=== PATIENT | female | born 1945 | race Caucasian/White ===

== ENCOUNTER 2016-08-21 05:45 | Inpatient (IN) | payer OTHER, MEDICARE ==
[~2016-08-21] VITALS: Ht 152.4 cm; Wt 49.0 kg
[~2016-08-21 05:45] MED LIST: ALPRAZOLAM0.5 M4 PO; ALPRAZOLAM0.5 MG PO; AMIODARONE HCL200 M1 PO; BENADRYL25 MG PO; CARDIZEM CD120 MG PO; CHILDREN'S ASPI81 M1 PO; COLCHICINE0.6 M2 PO; CRESTOR10 M1 PO; DULERA 200 MCG/13 GM INH; EPOGEN20000 UNIT SC; LEVAQUIN750 MG PO; MEGACE400 MG/10 PO; MIRTAZAPINE15 M2 PO; OMEPRAZOLE40 M1 PO; PLAVIX75 M1 PO; PREDNISONE 10MG10 M1 PO; PROAIR RESPICL90 MCG INH; RANEXA 500MG500 MG PO; SENNA-DOCUSATE1 EACH PO; SODIUM BICARBO650 M1 PO; SPIRIVA18 MCG INH; SYMBICORT 160/41 PUF INH; TOPROL XL 100100 MG PO; TOPROL XL50 M1 PO; TRAMADOL HCL50 M1 PO; TRAZODONE50 MG PO; VENOFER100 MG/5 M IV; VITAMIN D1000 UNIT PO; ZETIA10 MG PO
--- NOTE | 2016-08-21 05:57 | NUR ---
PT BIBA FROM HOME C/O SUBSTERNAL L SIDED CP RADIATING TO R SIDE X A FEW HOURS. DENIES SOB, DENIES DIAPHORESIS. PT HAS HX 5 STENTS, AND AN KS 1 YEAR AGO.
--- NOTE | 2016-08-21 06:00 | NUR ---
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 NSR HR 79 ON MONITOR.
--- NOTE | 2016-08-21 06:01 | NUR ---
AT BEDSIDE TO EVAL PT
--- NOTE | 2016-08-21 06:13 | ED CARDIAC/CP/PALPITATIONS ---
History of Present Illness General Chief Complaint: Chest Pain Stated Complaint: BIBA, CP Source: patient, old records, EMS Exam Limitations: no limitations Vital Signs & Intake/Output Vital Signs & Intake/Output Vital Signs Date Time Temp Pulse Resp B/P B/P Pulse O2 O2 Flow FiO2 Mean Ox Delivery Rate 08/21 0616 96.8 77 18 106/55 95 Nasal 2.0L Cannula 08/21 0649 89/52 08/21 0638 108/53 08/21 0559 98 Nasal 2.0L Cannula 08/21 0555 96.8 82 18 106/50 98 Nasal 2.0L Cannula Allergies Coded Allergies: No Known Allergies (09/25/15) Reconcile Medications Albuterol Sulfate (Proair Respiclick) 90 MCG AER.POW.BA 2 PUFF INH Q8P PRN COPD (Reported) Alprazolam 0.5 MG TABLET 1 TAB PO BID ANXIETY (Reported) Amiodarone HCl 200 MG TABLET 1 TAB PO DAILY AFIB (Reported) Aspirin (Children's Aspirin) 81 MG TAB.CHEW 1 TAB PO DAILY HEART HEALTH ( Reported) Cholecalciferol (Vitamin D3) (Vitamin D) 1,000 UNIT TABLET 3 TAB PO DAILY SUPPLEMENT (Reported) Clopidogrel Bisulfate (Plavix) 75 MG TABLET 1 TAB PO DAILY BLOOD THINNER ( Reported) Diphenhydramine HCl (Benadryl) 25 MG CAPSULE 1 CAP PO DAILY NEEDED ALLERGY (Reported) Ezetimibe (Zetia) 10 MG TAB 1 TAB PO DAILY CHOL (Reported) Megestrol Acetate (Megace) 400 MG/10 ML (40 MG/ML) ORAL.SUSP 20 ML PO DAILY apetite Metoprolol Succ XL (Toprol Xl) 50 MG TAB.ER.24H 1 TAB PO DAILY AFIB (Reported ) Mirtazapine 15 MG TABLET 0.5 TAB PO QPM SLEEP (Reported) Mometasone/Formoterol (Dulera 200 Mcg/5 Mcg Inhaler) 13 GM HFA.AER.AD 2 PUF INH BID COPD (Reported) Omeprazole 40 MG CAPSULE.DR 1 CAP PO DAILY gerd (Reported) Ranolazine (Ranexa 500MG) 500 MG TAB.ER.12H 1 TAB PO BID ANGINA (Reported) Rosuvastatin Calcium (Crestor) 10 MG TABLET 1 TAB PO DAILY CHOL (Reported) Sennosides/Docusate Sodium (Senna-Docusate Sodium Tablet) 1 EACH TABLET 1 TAB PO BID PRN CONSTIPATION (Reported) Tiotropium [place] (Spiriva) 18 MCG CAP.W.DEV 1 CAP INH DAILY COPD (Reported) Core Measure Meds Pre-Hospital aspirin Triage Note: PT BIBA FROM HOME C/O SUBSTERNAL L SIDED CP RADIATING TO R SIDE X A FEW HOURS. DENIES SOB, DENIES DIAPHORESIS. PT HAS HX 5 STENTS, AND AN GA 1 YEAR AGO. Triage Nurses Notes Reviewed? yes Onset: 1 day Duration: hour(s):, constant, continues in ED Timing: recent history Quality/Severity: moderate, pressure Location: substernal Radiation: shoulders, arms Activities at Onset: activity Prior Chest Pain/Card Workup: cardiac cath, echocardiography, heart attack Modifying Factors: Improves With: rest. Worsens With: exercise, movement. Nitro Today/Relief: 0.4 mg x 1, provided by ED Aspirin Today: 81 mg x 2, provided at home Associated Symptoms: dizziness, fatigue, shortness of breath, weakness LMP (ages 10-50): post menopausal : No Patient currently breastfeeds: No HPI: 1 day prior to admission while walking to the store patient became fatigued with shortness of breath chest pain described as pressure mild to moderate rating to shoulder and arm improved with rest. Chest pain waxing and waning throughout the course of the day and she woke with it with continued fatigue and called 911. She denies fever chills nausea vomiting diarrhea abdominal pain headache dysuria rash bleeding. She has a chronic productive cough that has not changed. Past History Travel History Traveled to [place] past 21 day No Medical History Any Pertinent Medical History? see below for history Neurological: NONE EENT: NONE Cardiovascular: CAD, hypertension, hyperlipidemia, myocardial infarction, STENTS Respiratory: pneumonia, pulmonary fibrosis, LUNG CA ILD Gastrointestinal: peptic ulcer disease Hepatic: NONE Renal: chronic kidney disease Musculoskeletal: disk herniation Psychiatric: NONE, anxiety Endocrine: NONE Blood Disorders: anemia Cancer(s): lung cancer History of MRSA: No History of VRE: No History of CDIFF: No Pneumonia Vaccine: 02/01/16 Influenza Vaccine: 02/01/16 Surgical History Surgical History: STENTS (2) HYSTERECTOMY,LAMINECTOMY Psychosocial History Who do you live with Patient/Self Services at Home Nursing, Physical Therapy What is your primary language Swedish Tobacco Use: Never used ETOH Use: denies use Family History Family History, If Any: MOTHER (Leukemia). FATHER (Heart Attack). SISTER (ovarian cancer). BROTHER (Diabetes). Hx Contributory? No Review of Systems Review of Systems Constitutional: Reports: see HPI, malaise, weakness. EENTM: Reports: no symptoms. Respiratory: Reports: see HPI, short of breath. Cardiovascular: Reports: see HPI, chest pain, peripheral edema. GI: Reports: no symptoms. Genitourinary: Reports: no symptoms. Musculoskeletal: Reports: no symptoms. Skin: Reports: no symptoms. Neurological/Psychological: Reports: no symptoms. Hematologic/Endocrine: Reports: no symptoms. Immunologic/Allergic: Reports: no symptoms. All Other Systems: Reviewed and Negative Physical Exam Physical Exam General Appearance: well developed/nourished, alert, awake, anxious, moderate distress Head: atraumatic, normal appearance Eyes: Bilateral: normal appearance, PERRL, EOMI. Ears, Nose, Throat: normal pharynx, normal ENT inspection Neck: normal inspection, supple, full range of motion, no midline tenderness Respiratory: chest non-tender, no respiratory distress, quiet respiration, decreased breath sounds, rhonchi Cardiovascular: regular rate/rhythm, normal peripheral pulses, norml femoral pulses equa Peripheral Pulses: 4+ carotid (R), 4+ carotid (L) Gastrointestinal: normal bowel sounds, soft, non-tender, no organomegaly Rectal: heme negative stool Back: normal inspection, normal range of motion Extremities: normal inspection, normal capillary refill, normal range of motion, pedal edema Neurologic/Psych: no motor/sensory deficits, awake, alert, oriented x 3, normal mood/affect Reflexes: 2+: bicep (R), bicep (L). Skin: intact, warm/dry, pallor Lymphatic: no anterior cervical lorena Core Measures ACS in differential dx? Yes ASA ordered for poss ACS? No-d/t bleeding/risk of Severe Sepsis Present: No Septic Shock Present: No Progress Differential Diagnosis: AMI, CHF/pulm edema, hyperkalemia, pneumonia Plan of Care: Orders Procedure Date/time Status Regular Diet 08/21 B Active LEUKOCYTE POOR (PACKED CELLS) 08/21 0716 Active OXYGEN SETUP (GEN) 08/21 0654 Active Saline Lock 08/21 0654 Active Admit to inpatient 08/21 0654 Active Vital Signs 08/21 0654 Active Activity/Ambulation 08/21 0654 Active Code Status 08/21 06 Active Add-on Test (ER Only) 08/21 06 Active TYPE & SCREEN (NOT X-MATCH) 08/21 06 Active TSH REFLEX 08/21 06 Active TROPONIN LEVEL 08/21 06 Active MAGNESIUM 08/21 06 Active COMPREHENSIVE METABOLIC PANEL 08/21 06 Active CBC WITHOUT DIFFERENTIAL 08/21 610 Complete B-TYPE NATRIURETIC PEP (BNP) 08/21 610 Active EKG 08/21 0545 Active Current Medications Sig/Noemy Start time Last Medication Dose Stop Time Status Admin Calcium Gluconate 1 GM ONCE ONE 08/21 0715 UNVr (Calcium Gluconate) 08/21 0814 Sodium Chloride 100 ML (Normal Saline 0.9%) Sodium Chloride 500 ML BOLUS ONE 08/21 0700 AC 08/21 (Normal Saline 0.9%) 08/21 0759 0700 Laboratory Tests 08/21/16 0627: Anion Gap 12, Estimated GFR 30 L, BUN/Creatinine Ratio 22.9, Glucose 98, Calcium 9.3, Magnesium 1.9, Total Bilirubin 0.5, AST 29, ALT 33, Alkaline Phosphatase 184 H, Troponin I < 0.01, Dfk-M-Tkebounszuv Pept 2840 H, Total Protein 6.0 L, Albumin 3.5, Globulin 2.5, Albumin/Globulin Ratio 1.4, TSH &T3 & Free T4 Intrp Pending, CBC w Diff MAN DIFF ORDERED, RBC 2.27 L, MCV 97.0, MCH 29.8, RDW 26.4 H, MPV 7.7, Gran % 86.7 H, Lymphocytes % 4.7 L, Monocytes % 6.2, Eosinophils % 2.4, Basophils % 0 L, Absolute Granulocytes 7.3 H, Segmented Neutrophils 90 H, Absolute Lymphocytes 0.4 L, Lymphocytes 3 L, Monocytes 4, Absolute Monocytes 0.5, Eosinophils 3, Absolute Eosinophils 0.2, Absolute Basophils 0, Nucleated RBCs 1 H, Platelet Estimate ADEQUATE, Polychromasia 1+, Hypochromic-Microcytic 1+, Poikilocytosis 1+, Anisocytosis 1+, Macrocytic Cells FEW, Ovalocytes 1+, PUBS MCHC 30.7 L, Fld Total RBCs Counted 100 Diagnostic Imaging: Viewed by Me: Radiology Read. Discussed w/RAD: Radiology Read. CXR Impression: There is a small left pleural effusion that appears new when compared to the most recent prior examination from 04/04/2016. Mixed interstitial and alveolar opacities within the right lower lobe are stable. No overt consolidative disease. Initial ED EKG: normal axis, normal intervals, normal p-waves, normal QRS complex, normal sinus rhythm, nonspecific ST T wave chg Prior EKG: unchanged Rhythm Strip: normal sinus rhythm Departure Departure Time of Disposition: 712 Disposition: STILL A PATIENT Condition: Stable Clinical Impression Primary Impression: Symptomatic anemia Secondary Impressions: Acute hyperkalemia, Chest pain syndrome, Chronic renal insufficiency Referrals: ROBBY CM MD (PCP/Family) Departure Forms: Customer Survey General Discharge Information Admission Note Spoke With: ROBBY CM MD Documentation of Exam: Documentation of any treatments & extenuating circumstances including Concerns Regarding Discharge (functional status, medication knowledge or non-compliance, living conditions, etc.) that warrant an admission rather than observation: Cardiac monitoring blood transfusion serial lab exam serial EKG medication adjustment cardiology evaluation continuing care discharge planning Critical Care Note Critical Care Note Critical Care Time: 30-74 min (40)
--- NOTE | 2016-08-21 06:16 | NUR ---
CXRAY BEING DONE AT BEDSIDE
--- NOTE | 2016-08-21 06:31 | NUR ---
LABS SENT (2SST,1LAV,1PINK,1BLUE,1GRAY)
[2016-08-21 06:37] LABS: ABSOLUTE BASOPHIL COUNT 0 /CUMM (0.0-0.2); ABSOLUTE EOSINOPHIL COUNT 0.2 /CUMM (0.0-0.7); ABSOLUTE GRANULOCYTE CT 7.3 /CUMM (1.4-6.5); ABSOLUTE LYMPH COUNT 0.4 /CUMM (1.2-3.4); ABSOLUTE MONOCYTE COUNT 0.5 /CUMM (0.10-0.60); BASOPHIL % 0 % (0.0-2.0); EOSINOPHIL % 2.4 % (0-5); GRANULOCYTE % 86.7 % (42.2-75.2); MEAN CORPUSCULAR HGB 29.8 PG (27.0-31.0); MEAN CORPUSCULAR HGB CONC 30.7 G/DL (33.0-37.0); MEAN PLATELET VOLUME 7.7 FL (7.4-10.4); PLATELET COUNT 242 /CUMM (130-400); RBC DISTRIBUTION WIDTH 26.4 % (11.5-14.5); RED BLOOD CELL CT 2.27 /CUMM (4.20-5.40); WHITE BLOOD CELL COUNT 8.5 /CUMM (4.8-10.8)
--- NOTE | 2016-08-21 06:37 | NUR ---
PT MEDICATED WITH 1SL NITRO PER EMAR. WILL RECHECK BP.
--- NOTE | 2016-08-21 06:41 | NUR ---
CRITICAL TEST RESULTS [id number] EMIGDIO MAGAÑA 70 F TESTS AND RESULTS: HGB 6.8 ; HCT 22.0 Results received and read back by: NORIS LATHAM Results received date and time: 08/21/16 0642 The following provider was notified of the results, and read the results back: MD RODRIGUEZ Notified date and time: 08/21/16 at 0642
--- NOTE | 2016-08-21 06:49 | NUR ---
PT BP 89/52, MD RODRIGUEZ AWARE. NS INFUSING.
--- NOTE | 2016-08-21 06:56 | RADIOLOGY REPORT ---
EXAMINATION: XR PORTABLE CHEST CLINICAL INFORMATION: Chest pain. COMPARISON: Chest radiograph 04/04/2016. TECHNIQUE: Portable AP view of the chest was obtained. FINDINGS: Mixed interstitial and airspace disease within the right lower lobe appear largely unchanged when compared to most recent prior examination from 04/04/2016. There is a stable position of 4 linear metallic bodies within the right lower hemithorax. There is a new small left effusion with associated subsegmental atelectasis of the left lower lobe. No pneumothorax. Coarse interstitial markings are visualized within the upper lobes. The cardiac silhouette is unremarkable. Upper mediastinal contours are normal. No acute osseous finding. IMPRESSION: There is a small left pleural effusion that appears new when compared to the most recent prior examination from 04/04/2016. Mixed interstitial and alveolar opacities within the right lower lobe are stable. No overt consolidative disease.
--- NOTE | 2016-08-21 07:41 | NUR ---
IV CALCIUM GLUCONATE INSFUSING WITHOUT DIFFICULTY AT THIS TIME. PT REMAINS AWAKE, ALERT, ORIENTED, NO COMPLAINTS AT THIS TIME.
[2016-08-21] MEDS ORDERED: PACERONE100 MG PO (07:48)
[2016-08-21] MEDS ORDERED: BREO ELLIPTA 11 EACH INH (07:52)
[2016-08-21] MEDS ORDERED: INCRUSE ELLI62.5 MCG INH (07:54)
[2016-08-21] MEDS ORDERED: LEVO-T25 MCG PO (07:56)
[2016-08-21] MEDS ORDERED: VITAMIN D1000 UNIT PO (08:01)
[2016-08-21] MEDS ORDERED: ZETIA10 M1 PO (08:01)
--- NOTE | 2016-08-21 08:18 | NUR ---
HOUSE STAFF IN TO EVAL AT THIS TIME.
--- NOTE | 2016-08-21 08:35 | NUR ---
IV CALCIUM COMPLETED, TOLERATED WELL. [facility] TO LAB FOR BLOOD PRODUCT PICKUP. PT AMBULATORY TO BATHROOM, GAIT STABLE.
--- NOTE | 2016-08-21 08:42 | NUR ---
BED ASSIGNMENT 180-02
--- NOTE | 2016-08-21 09:07 | NUR ---
1ST UNIT LPRBC'S INFUSING WITHOUT DIFFICULTY AT THIS TIME. PT RESTING COMFORTABLY ON STRETCHER AT THIS TIME, NO COMPLAINTS AT PRESENT.
--- NOTE | 2016-08-21 09:09 | History & Physical ---
CANDICE WILSON,ISAIAS 08/21/16 0909: General Information and HPI MD Statement: I have seen and personally examined EMIGDIO MAGAÑA and documented this H&P. The patient is a 70 year old F who presented with a patient stated chief complaint of chest pain[]. Source of Information: patient, old records Exam Limitations: no limitations History of Present Illness: 70 YO F with pmh of STEMI 08/2015 with drug eluding stent placement, h/o total 5 stents, CAD, PAF, not on anticoagulation due to h/o GI bleed, HTN, HLD, Lung Ca s/p cyberknife sugery, COPD (not on home O2), PUD, CKD, Chronic anemia (h/o transfusions and epogen) presents to the ER from home after developing chest pain yesterday while at [employer] walking through the store. Reports centrally located cp that radiated to her left arm, neck, and jaw, 11/09. Reports the pain she had last year when she had her [place] as more intense. This pain subsided after 10 minutes of sitting in the store. She drove her self home. Through the night she continued to have similar episodes with shortness of breath and decided to seek help, called 911. Reports that her pain continued until given nitroglycerin in ER. Since that time she denies any recurring chest pain. Denies palpitations, lightheadness, nausea, vomiting, abdominal pain, fever or chills. She is chronically constipated, last BM yesterday stool well formed w/o blood. States that she can go several days w/o bowel movements, this makes it difficult to take iron supplementation. Recently started on epogen. Allergies/Medications Allergies: Coded Allergies: No Known Allergies (09/25/15) Home Med list Albuterol Sulfate (Proair Respiclick) 90 MCG AER.POW.BA 2 PUFF INH Q8P PRN COPD (Reported) Alprazolam 0.5 MG TABLET 1 TAB PO BID ANXIETY (Reported) Amiodarone HCl 200 MG TABLET 1 TAB PO DAILY AFIB (Reported) Amiodarone HCl (Pacerone) 100 MG TABLET 100 MG PO EOD AFIB (Reported) Aspirin (Children's Aspirin) 81 MG TAB.CHEW 1 TAB PO DAILY HEART HEALTH ( Reported) Cholecalciferol (Vitamin D3) (Vitamin D) 1,000 UNIT TABLET 3 TAB PO DAILY SUPPLEMENT (Reported) Cholecalciferol (Vitamin D3) (Vitamin D) 1,000 UNIT TABLET 3,000 UNITS PO DAILY SUPPLEMENT (Reported) Clopidogrel Bisulfate (Plavix) 75 MG TABLET 1 TAB PO DAILY BLOOD THINNER ( Reported) Diphenhydramine HCl (Benadryl) 25 MG CAPSULE 1 CAP PO DAILY NEEDED ALLERGY (Reported) Ezetimibe (Zetia) 10 MG TAB 1 TAB PO DAILY CHOL (Reported) Ezetimibe (Zetia) 10 MG TABLET 1 TAB PO DAILY CHOLESTEROL (Reported) Fluticasone/Vilanterol (Breo Ellipta 100-25 Mcg INH) 100 MCG-25 MCG/DOSE BLST.W.DEV 1 PUFF INH DAILY COPD (Reported) Levothyroxine Sodium (Levo-T) 25 MCG TABLET 25 MCG PO DAILY THYROID (Reported ) Megestrol Acetate (Megace) 400 MG/10 ML (40 MG/ML) ORAL.SUSP 20 ML PO DAILY apetite Metoprolol Succ XL (Toprol Xl) 50 MG TAB.ER.24H 1 TAB PO DAILY AFIB (Reported ) Mirtazapine 15 MG TABLET 0.5 TAB PO QPM SLEEP (Reported) Mometasone/Formoterol (Dulera 200 Mcg/5 Mcg Inhaler) 13 GM HFA.AER.AD 2 PUF INH BID COPD (Reported) Omeprazole 40 MG CAPSULE.DR 1 CAP PO DAILY gerd (Reported) Ranolazine (Ranexa 500MG) 500 MG TAB.ER.12H 1 TAB PO BID ANGINA (Reported) Rosuvastatin Calcium (Crestor) 10 MG TABLET 1 TAB PO DAILY CHOL (Reported) Sennosides/Docusate Sodium (Senna-Docusate Sodium Tablet) 1 EACH TABLET 1 TAB PO BID PRN CONSTIPATION (Reported) Tiotropium [place] (Spiriva) 18 MCG CAP.W.DEV 1 CAP INH DAILY COPD (Reported) Umeclidinium [place] (Incruse Ellipta) 62.5 MCG/ACTUATION BLST.W.DEV 1 PUFF INH DAILY COPD (Reported) Compliance With Home Meds: GOOD Past History Travel History Traveled to [place] past 21 day No Medical History Neurological: NONE EENT: NONE Cardiovascular: CAD, hypertension, hyperlipidemia, myocardial infarction, STENTS Respiratory: pneumonia, pulmonary fibrosis, LUNG CA ILD Gastrointestinal: peptic ulcer disease Hepatic: NONE Renal: chronic kidney disease Musculoskeletal: disk herniation Psychiatric: NONE, anxiety Endocrine: NONE Blood Disorders: anemia Cancer(s): lung cancer History of MRSA: No History of VRE: No History of CDIFF: No Pneumonia Vaccine: 02/01/16 Influenza Vaccine: 02/01/16 Surgical History Surgical History: STENTS (5) HYSTERECTOMY,LAMINECTOMY ECHO Results (as available) Date of last Echo 09/18/15 EF% 60 Past Family/Social History Family History Relations & Conditions if any MOTHER (Leukemia). FATHER (Heart Attack). SISTER (ovarian cancer). BROTHER (Diabetes). Psychosocial History Where do you live? Home Who Do You Live With? self Services at Home: Nursing, Physical Therapy Primary Language: [place]araguan Smoking Status: Former Smoker ETOH Use: denies use Functional Ability ADLs Independent: dressing, eating, toileting, bathing. Ambulation: cane IADLs Independent: shopping, housework, finances, food prep, telephone, transportation , medication admin. 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 Cardiovascular: Reports: chest pain. Denies: orthopena, palpitations, peripheral edema, syncope. Respiratory: Reports: short of breath. Denies: cough, orthopnea, sputum production, wheezing. GI: Reports: constipation. Denies: abdominal pain, diarrhea, distention, melena, nausea, bloody stool, changes in stool, vomiting. Genitourinary: Reports: no symptoms. Musculoskeletal: Reports: no symptoms. Skin: Reports: no symptoms. Neurological/Psychological: Reports: anxiety. Hematologic/Endocrine: Denies: bleeding. All Other Systems: Reviewed and Negative Exam & Diagnostic Data Last 24 Hrs of Vital Signs/I&O Vital Signs Date Time Temp Pulse Resp B/P B/P Pulse O2 O2 Flow FiO2 Mean Ox Delivery Rate 08/21 0908 97.3 84 20 133/70 93 Nasal 2.0L Cannula 08/21 0716 96.8 77 18 106/55 95 Nasal 2.0L Cannula 08/21 0649 89/52 08/21 0638 108/53 08/21 0559 98 Nasal 2.0L Cannula 08/21 0555 96.8 82 18 106/50 98 Nasal 2.0L Cannula Intake & Output 08/21 1600 08/21 0800 08/21 0000 Intake Total 0 Output Total Balance 0 Intake, Oral 0 Patient 110 lb Weight Weight Estimated Measurement Method Physical Exam General Appearance Alert, Oriented X3, Cooperative, No Acute Distress Skin No Rashes HEENT Atraumatic, PERRLA, EOMI, Mucous Membr. moist/pink Neck Supple, No JVD Cardiovascular Regular Rate, Normal S1, Normal S2 Lungs crackles at bases Abdomen Normal Bowel Sounds, Soft, No Tenderness Neurological Normal Speech, Strength at 5/5 X4 Ext Extremities No Edema, Normal Pulses Last 24 Hrs of Labs/[place]: Laboratory Tests 08/21/16 06: Anion Gap 12, Estimated GFR 30 L, BUN/Creatinine Ratio 22.9, Glucose 98, Calcium 9.3, Magnesium 1.9, Total Bilirubin 0.5, AST 29, ALT 33, Alkaline Phosphatase 184 H, Troponin I < 0.01, Zxw-A-Mibkhsgfvuw Pept 2840 H, Total Protein 6.0 L, Albumin 3.5, Globulin 2.5, Albumin/Globulin Ratio 1.4, Free T4 1.43, Total T3 1.13, TSH &T3 &Free T4 Intrp 12.400 H, CBC w Diff MAN DIFF ORDERED, RBC 2.27 L, MCV 97.0, MCH 29.8, RDW 26.4 H, MPV 7.7, Gran % 86.7 H, Lymphocytes % 4.7 L, Monocytes % 6.2, Eosinophils % 2.4, Basophils % 0 L, Absolute Granulocytes 7.3 H, Segmented Neutrophils 90 H, Absolute Lymphocytes 0.4 L, Lymphocytes 3 L, Monocytes 4, Absolute Monocytes 0.5, Eosinophils 3, Absolute Eosinophils 0.2, Absolute Basophils 0, Nucleated RBCs 1 H, Platelet Estimate ADEQUATE, Polychromasia 1+, Hypochromic-Microcytic 1+, Poikilocytosis 1 +, Anisocytosis 1+, Macrocytic Cells FEW, Ovalocytes 1+, PUBS MCHC 30.7 L, Fld Total RBCs Counted 100 Diagnostic Data EKG Results SR 81, LAFB CXR Results There is a small left pleural effusion that appears new when compared to the most recent prior examination from 04/04/2016. Mixed interstitial and alveolar opacities within the right lower lobe are stable. No overt consolidative disease. Assessment/Plan Assessment: 70 YO F with pmh of STEMI 08/2015 with drug eluding stent placement, h/o total 5 stents, CAD, PAF, not on anticoagulation due to h/o GI bleed, HTN, HLD, Lung Ca s/p cyberknife sugery, COPD (not on home O2), PUD, CKD, Chronic anemia (h/o transfusions and epogen) presents to the ER from home after developing chest pain that developed yesterday. She is severely anemic on on arrival with ongoing chest pain and requiring oxygen. Denies blood in her stools. Admit to Telemetry Appears to be anginal pain to to severe anemia Recommend blood transfusion to keep HH >8/24 We will guiac her stools, for now will hold asprin and plavix She will need a GI consultation as 08/10/16 HH 10.5/32.6, unlikely this severe anemia due to CKD Discuss with cardiology regarding plavix use, 1 year post stent placement. Serial troponins and EKGs B-tab and statin have been started PAF continue amiodarone 100mg, took last dose on 08/19/16 Hyperkalemia, she has been given calcium gluconate in ER, montior K closely. will need to treat if K increases further CKD appears to be stable COPD, requiring O2 this is lkely due to chronic anemia, monitor oxygen saturations closely, cxr also identifies small pleural effusion, keep O2 saturations > 92% DVT ppx ALPS As Ranked By This Provider Problem List: 1. Anxiety 2. Hyperlipidemia 3. COPD (chronic obstructive pulmonary disease) 4. Chest pain 5. CAD (coronary artery disease) 6. PAF (paroxysmal atrial fibrillation) 7. CKD (chronic kidney disease) stage 4, GFR 15-29 ml/min 8. Hyperkalemia 9. Symptomatic anemia Core Measures/Miscellaneous Acute Coronary Syndrome ACS Diagnosis: No Cerebrovascular Accident CVA/TIA Diagnosis: No Congestive Heart Failure CHF Diagnosis: No Venous Thromboembolism VTE Risk Factors: Age > 40, Cancer/chemo/oth therapy No Mech VTE prophylaxis d/t: No contraindications No VTE Pharm Prophylaxis d/t: Active bleeding VTE Diagnosis: No VTE Type: NONE VTE Confirmed by (Test): NONE Severe Sepsis Severe Sepsis Present: No Septic Shock Septic Shock Present: No Miscellaneous Documentation Attending Case Discussed With: ROBBY CM MD Primary Care Physician: ROBBY CM MD Patient sees these Specialists Gastroeneterology Cardiology Pulmonology Level of Patient Care: Telemetry JOE YUSUF MD 08/21/16 0921: Attending MD Review Statement Attending Statement Attending MD Statement: examined this patient, discuss w/resident/PA/FLAVOR MAKER, agreed w/resident/PA/FLAVOR MAKER, reviewed EMR data (avail) Attending Assessment/Plan: 70-year-old female with history of COPD, interstitial lung disease, history of lung cancer status post treatment, extensive coronary artery disease and paroxysmal atrial fibrillation not a candidate for anticoagulation secondary to GI bleed and history of chronic kidney disease presenting with exertional angina while she was shopping yesterday. Lab demonstrates severe anemia. Suspect slow GI bleed. Patient had a similar presentation in 2013 and at that point EGD and push enteroscopy was negative and colonoscopy in 2011 was negative as well. Chest pain appears angina likely in the setting of severe anemia. EKG and troponin so far negative. We will admit the patient to telemetry, guaiac stools and transfuse for hemoglobin goal above 8. Plan Guaiac stools Transfuse for hemoglobin goal above 8 Hold aspirin and Plavix if guaiac stools were positive Cycle troponins and EKGs Cardiology and GI consult correct hyperkalemia Continue other home medications Alps for DVT prophylaxis DNI/DNR
--- NOTE | 2016-08-21 09:11 | NUR ---
PHARMACY CALLED FOR DAILY MORNING MEDS.
--- NOTE | 2016-08-21 09:13 | Admission Certification ---
Admission Certification Certification Statement - As attending physician, I certify that at the time of - admission, based on clinical presentation, severity of - symptoms, need for further diagnostic testing and - therapeutic interventions, and risk of adverse outcomes - without in-hospital treatment, in my clinical assessment, - this patient requires an acute hospital stay for a minimum - of two nights or longer. I have also considered psychsocial - factors such as support system, advanced age, financial - issues, cognitive issues, and failed out-patient treatments, - past re-admission history, safety of patient, and lack of - compliance as applicable. Specific rationale supporting this admission is: Symptomatic anemia Angina
--- NOTE | 2016-08-21 10:09 | NUR ---
AM MEDS GIVEN, TOLERATED WELL. NO COMPLAINTS AT THIS TIME. AWAITING TELE NURSE FOR REPORT.
--- NOTE | 2016-08-21 10:19 | NUR ---
REPORT CALLED TO TELE NURSE
--- NOTE | 2016-08-21 12:19 | Cons- Cardiology ---
General Information and HPI Consulting Request Date of Consult: 08/21/16 Requested By: ROBBY CM MD Reason for Consult: Coronary artery disease Source of Information: patient, old records History of Present Illness: This is a pleasant 70 y/o female with a past medical history of CAD with prior PCI () and STEMI tx with PEDRO to the RCA 08/2015, Hx COPD/ILD/lung cancer s/p gamma knife radiation, PAF not on AC due to hx of GI bleed and anemia, CKD, and hypertension who presents to [facility] with a chief complaint of progressive shortness of breath, mostly on exertion over the last week. She also developed an episode of midsternal chest pain yesterday with some radiation to her left arm. No obvious reproducible component. Denies any orthopnea, paroxysmal nocturnal dyspnea, dizziness, or palpitations. She had been having some lower extremity edema previously but resolves when her Norvasc was discontinued. She has not noticed any obvious bleeding. She was found to be severely anemic on presentation and was receiving a transfusion during my interview with her. She is currently without continuing chest pain. Allergies/Medications Allergies: Coded Allergies: No Known Allergies (09/25/15) Home Med List: Albuterol Sulfate (Proair Respiclick) 90 MCG AER.POW.BA 2 PUFF INH Q8P PRN COPD (Reported) Alprazolam 0.5 MG TABLET 1 TAB PO BID ANXIETY (Reported) Amiodarone HCl 200 MG TABLET 1 TAB PO DAILY AFIB (Reported) Amiodarone HCl (Pacerone) 100 MG TABLET 100 MG PO EOD AFIB (Reported) Aspirin (Children's Aspirin) 81 MG TAB.CHEW 1 TAB PO DAILY HEART HEALTH ( Reported) Cholecalciferol (Vitamin D3) (Vitamin D) 1,000 UNIT TABLET 3 TAB PO DAILY SUPPLEMENT (Reported) Cholecalciferol (Vitamin D3) (Vitamin D) 1,000 UNIT TABLET 3,000 UNITS PO DAILY SUPPLEMENT (Reported) Clopidogrel Bisulfate (Plavix) 75 MG TABLET 1 TAB PO DAILY BLOOD THINNER ( Reported) Diphenhydramine HCl (Benadryl) 25 MG CAPSULE 1 CAP PO DAILY NEEDED ALLERGY (Reported) Ezetimibe (Zetia) 10 MG TAB 1 TAB PO DAILY CHOL (Reported) Ezetimibe (Zetia) 10 MG TABLET 1 TAB PO DAILY CHOLESTEROL (Reported) Fluticasone/Vilanterol (Breo Ellipta 100-25 Mcg INH) 100 MCG-25 MCG/DOSE BLST.W.DEV 1 PUFF INH DAILY COPD (Reported) Levothyroxine Sodium (Levo-T) 25 MCG TABLET 25 MCG PO DAILY THYROID (Reported ) Megestrol Acetate (Megace) 400 MG/10 ML (40 MG/ML) ORAL.SUSP 20 ML PO DAILY apetite Metoprolol Succ XL (Toprol Xl) 50 MG TAB.ER.24H 1 TAB PO DAILY AFIB (Reported ) Mirtazapine 15 MG TABLET 0.5 TAB PO QPM SLEEP (Reported) Mometasone/Formoterol (Dulera 200 Mcg/5 Mcg Inhaler) 13 GM HFA.AER.AD 2 PUF INH BID COPD (Reported) Omeprazole 40 MG CAPSULE.DR 1 CAP PO DAILY gerd (Reported) Ranolazine (Ranexa 500MG) 500 MG TAB.ER.12H 1 TAB PO BID ANGINA (Reported) Rosuvastatin Calcium (Crestor) 10 MG TABLET 1 TAB PO DAILY CHOL (Reported) Sennosides/Docusate Sodium (Senna-Docusate Sodium Tablet) 1 EACH TABLET 1 TAB PO BID PRN CONSTIPATION (Reported) Tiotropium [place] (Spiriva) 18 MCG CAP.W.DEV 1 CAP INH DAILY COPD (Reported) Umeclidinium [place] (Incruse Ellipta) 62.5 MCG/ACTUATION BLST.W.DEV 1 PUFF INH DAILY COPD (Reported) Current Medications: Current Medications Sig/Noemy Start time Last Medication Dose Route Stop Time Status Admin Acetaminophen 650 MG Q6-PRN PRN 08/21 0900 AC PO Albuterol Sulfate 2 PUF Q4 08/21 1000 DC INH Albuterol Sulfate 2 PUF Q4P PRN 08/21 0930 AC INH Alprazolam 0.5 MG BID 08/21 1000 AC 08/21 PO 08/28 0959 1001 Alprazolam 0 .STK-MED ONE 08/21 0956 DC PO Amiodarone HCl 100 MG Q48 08/21 1000 AC 08/21 PO 1001 Atorvastatin Calcium 40 MG 1700 08/21 1700 AC PO Budesonide/ 2 PUF BID 08/21 1000 AC 08/21 Formoterol Fumarate INH 1001 Calcium Gluconate 0 .STK-MED ONE 08/21 0731 DC IV Calcium Gluconate 1 GM ONCE ONE 08/21 0715 DC 08/21 Sodium Chloride 100 ML IV 08/21 0814 0730 Ezetimibe 10 MG DAILY 08/21 1000 AC 08/21 PO 1001 Fluticasone 2 PUF BID 08/21 1000 CAN Propionate INH Levothyroxine Sodium 0.025 MG DAILY AC 08/21 0915 AC 08/21 PO 1001 Metoprolol Succinate 50 MG DAILY 08/21 1000 AC 08/21 PO 1001 Mirtazapine 7.5 MG AT BEDTIME 08/21 2200 AC PO Multivitamins 1 TAB DAILY 08/21 1000 AC 08/21 PO 1001 Nitroglycerin 0 .STK-MED ONE 08/21 0638 DC SL Nitroglycerin 0.4 MG ONCE ONE 08/21 0615 DC 08/21 SL 08/21 0616 0637 Omeprazole 40 MG DAILY AC 08/21 0901 AC 08/21 PO 1001 Ranolazine 500 MG BID 08/210 AC PO Senna 187 MG AT BEDTIME NEED.. 08/21 09 AC PO Sodium Chloride 500 ML BOLUS ONE 08/21 0700 DC 08/21 IV 08/21 0759 0700 Review of Systems Review of Systems: Review of systems as per HPI. The remainder of a 10 point review of systems was reviewed and was otherwise negative. Past History Travel History Traveled to [place] past 21 day No Medical History Neurological: NONE EENT: NONE Cardiovascular: CAD, hypertension, hyperlipidemia, myocardial infarction, STENTS Respiratory: pneumonia, pulmonary fibrosis, LUNG CA ILD Gastrointestinal: peptic ulcer disease Hepatic: NONE Renal: chronic kidney disease Musculoskeletal: disk herniation Psychiatric: NONE, anxiety Endocrine: NONE Blood Disorders: anemia Cancer(s): lung cancer Surgical History Surgical History: STENTS (5) HYSTERECTOMY,LAMINECTOMY Family History Relations & Conditions If Any: MOTHER (Leukemia). FATHER (Heart Attack). SISTER (ovarian cancer). BROTHER (Diabetes). Psychosocial History Where Do You Live? Home Who Do You Live With? self Services at Home: Nursing, Physical Therapy Primary Language: [place] Smoking Status: Former Smoker ETOH Use: denies use Functional Ability ADLs Independent: dressing, eating, toileting, bathing. Ambulation: cane IADLs Independent: shopping, housework, finances, food prep, telephone, transportation , medication admin. 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 ECHO Results (as available) Date of last Echo 09/18/15 EF% 60 Exam & Diagnostic Data Vital Signs and I&O Vital Signs Date Time Temp Pulse Resp B/P B/P Pulse O2 O2 Flow FiO2 Mean Ox Delivery Rate 08/21 1101 97.6 78 16 08/21 1039 Nasal 2.0L Cannula 08/21 1001 97.3 84 20 133/70 08/21 1001 97.3 84 20 133/70 08/21 0920 97.0 80 20 113/74 92 Nasal 2.0L Cannula 08/21 0908 97.3 84 20 133/70 93 Nasal 2.0L Cannula 08/21 0716 96.8 77 18 106/55 95 Nasal 2.0L Cannula 08/21 0649 89/52 08/21 0638 108/53 08/21 0559 98 Nasal 2.0L Cannula 08/21 0555 96.8 82 18 106/50 98 Nasal 2.0L Cannula Intake & Output 08/21 1600 08/21 0800 08/21 0000 08/20 1600 08/20 0800 08/20 0000 Intake Total 0 Output Total Balance 0 Intake, Oral 0 Patient 108 lb 110 lb Weight Weight Estimated Measurement Method Physical Exam: General: no apparent distress. Alert. Eyes: No obvious scleral icterus. HEENT: No jugular venous distention or abnormal jugular venous pulsations. Cardiovascular: Normal intensity S1/S2. Regular. Respiratory: Lungs clear to auscultation bilaterally. Abdomen: Soft, nontender with no guarding or rebound tenderness. Musculoskeletal: No clubbing or cyanosis noted, no edema Skin: Warm Neurologic: No gross focal deficits noted. Labs/[place] Results: Laboratory Tests 08/21 06 Chemistry Sodium (137 - 145 mmol/L) 142 Potassium (3.5 - 5.1 mmol/L) 5.6 H Chloride (98 - 107 mmol/L) 110 H Carbon Dioxide (22 - 30 mmol/L) 20 L Anion Gap (5 - 16) 12 BUN (7 - 17 mg/dL) 39 H Creatinine (0.5 - 1.0 mg/dL) 1.7 H Estimated GFR (>60 ml/min) 30 L BUN/Creatinine Ratio (7 - 25 %) 22.9 Glucose (65 - 99 mg/dL) 98 Calcium (8.4 - 10.2 mg/dL) 9.3 Magnesium (1.6 - 2.3 mg/dL) 1.9 Total Bilirubin (0.2 - 1.3 mg/dL) 0.5 AST (14 - 36 U/L) 29 ALT (9 - 52 U/L) 33 Alkaline Phosphatase (<127 U/L) 184 H Troponin I (< 0.11 ng/ml) < 0.01 [id number] Pept (<125 pg/mL) 2840 H Total Protein (6.3 - 8.2 g/dL) 6.0 L Albumin (3.5 - 5.0 g/dL) 3.5 Globulin (1.9 - 4.2 gm/dL) 2.5 Albumin/Globulin Ratio (1.1 - 2.2 %) 1.4 Free T4 (0.78 - 2.44 ng/dL) 1.43 Total T3 (0.97 - 1.69 ng/mL) 1.13 TSH &T3 &Free T4 Intrp (0.270 - 4.20 uIU/mL) 12.400 H Hematology CBC w Diff MAN DIFF ORDERED WBC (4.8 - 10.8 /CUMM) 8.5 RBC (4.20 - 5.40 /CUMM) 2.27 L Hgb (12.0 - 16.0 G/DL) 6.8 *L Hct (37 - 47 %) 22.0 L MCV (81.0 - 99.0 FL) 97.0 MCH (27.0 - 31.0 PG) 29.8 RDW (11.5 - 14.5 %) 26.4 H Plt Count (130 - 400 /CUMM) 242 MPV (7.4 - 10.4 FL) 7.7 Gran % (42.2 - 75.2 %) 86.7 H Lymphocytes % (20.5 - 51.1 %) 4.7 L Monocytes % (1.7 - 9.3 %) 6.2 Eosinophils % (0 - 5 %) 2.4 Basophils % (0.0 - 2.0 %) 0 L Absolute Granulocytes (1.4 - 6.5 /CUMM) 7.3 H Segmented Neutrophils (42.2 - 75.2 %) 90 H Absolute Lymphocytes (1.2 - 3.4 /CUMM) 0.4 L Lymphocytes (20.5 - 51.1 %) 3 L Monocytes (1.7 - 9.3 %) 4 Absolute Monocytes (0.10 - 0.60 /CUMM) 0.5 Eosinophils (0 - 5.0 %) 3 Absolute Eosinophils (0.0 - 0.7 /CUMM) 0.2 Absolute Basophils (0.0 - 0.2 /CUMM) 0 Nucleated RBCs (0.0 - 0.0 /100WBC) 1 H Platelet Estimate (ADEQUATE) ADEQUATE Polychromasia 1+ Hypochromic-Microcytic 1+ Poikilocytosis 1+ Anisocytosis 1+ Macrocytic Cells FEW Ovalocytes 1+ PUBS MCHC (33.0 - 37.0 G/DL) 30.7 L Other Body Source Fld Total RBCs Counted (%) 100 Diagnostic Data EKG Results Tracing was personally reviewed and shows sinus rhythm at 81 bpm with poor R- wave progression and left axis deviation CXR Results There is a small left pleural effusion that appears new when compared to the most recent prior examination from 04/04/2016. Mixed interstitial and alveolar opacities within the right lower lobe are stable. No overt consolidative disease. Assessment/Plan Assessment/Plan 1. Severe symptomatic anemia requiring transfusion with concern for GI bleeding 2. CAD with prior PCI () and recent STEMI; tx with PEDRO to the RCA 2015 3. Hx COPD/ILD/lung cancer s/p gamma knife radiation (felt not a surgical candidate) 4. PAF not on AC due to hx of GI bleed and anemia, on low dose Amiodarone 5. CKD 6. Hyperkalemia I agree that her symptoms may have been ischemic in nature likely precipitated by demand ischemia in the setting of the new severe anemia. Agree with obtaining serial troponins. Check a stool guaiac and obtain GI consult. Would hold the aspirin and Plavix for now, will need to be back on aspirin therapy in the future but unlikely need to restart Plavix as she is now one year status post drug-eluting stent. Continue her antianginal regimen and statin therapy. Monitor the potassium. Continue patient on telemetry. She remains in sinus rhythm. Alex Matias MD [facility] Consult Acknowledgment - Thank you for your consult request.
[2016-08-21 15:50] VITALS: BP 112/62
--- NOTE | 2016-08-21 16:47 | Event Note ---
Event Note Event Note: I did a rectal examination at 10am with stool guiac, stool is brown and guiac positive.
[2016-08-21 21:05] LABS: ABSOLUTE BASOPHIL COUNT 0 /CUMM (0.0-0.2); ABSOLUTE EOSINOPHIL COUNT 0.3 /CUMM (0.0-0.7); ABSOLUTE GRANULOCYTE CT 6.2 /CUMM (1.4-6.5); ABSOLUTE LYMPH COUNT 0.4 /CUMM (1.2-3.4); ABSOLUTE MONOCYTE COUNT 0.7 /CUMM (0.10-0.60); BASOPHIL % 0 % (0.0-2.0); EOSINOPHIL % 3.9 % (0-5); GRANULOCYTE % 81.1 % (42.2-75.2); MEAN CORPUSCULAR HGB 30.4 PG (27.0-31.0); MEAN CORPUSCULAR HGB CONC 32.5 G/DL (33.0-37.0); MEAN CORPUSCULAR VOLUME 93.4 FL (81.0-99.0); MEAN PLATELET VOLUME 8.5 FL (7.4-10.4); PLATELET COUNT 217 /CUMM (130-400); RBC DISTRIBUTION WIDTH 21.5 % (11.5-14.5); WHITE BLOOD CELL COUNT 7.6 /CUMM (4.8-10.8)
[2016-08-21 21:19] LABS: RED BLOOD CELL CT 3.48 /CUMM (4.20-5.40)
[2016-08-21 21:20] LABS: HEMATOCRIT 32.5 % (37-47)
[2016-08-22 00:19] VITALS: BP 120/60
[2016-08-22 07:30] VITALS: BP 110/60
--- NOTE | 2016-08-22 08:12 | PN- Att Addend ---
Attending Addendum Attending Brief Note Covering attending note. Patient is feeling a lot better since received 2 units of packed red blood cells. Denies any chest pain or any shortness of breath. Intake & Output 08/22 1600 08/22 0800 08/22 0000 Intake Total 0 120 Output Total 300 2 Balance -300 118 Intake, IV 0 Intake, Oral 0 120 Number 0 0 Bowel Movements Output, Urine 300 2 Vital Signs Date Time Temp Pulse Resp B/P B/P Pulse O2 O2 Flow FiO2 Mean Ox Delivery Rate 08/22 0730 98.9 83 16 110/60 91 Nasal 2.5L Cannula 08/22 0019 99.5 88 20 120/60 91 Nasal 2.5L Cannula 08/22 0000 91 Nasal 2.5L Cannula 08/21 2228 84 112/60 08/21 1550 98.3 80 18 112/62 90 Nasal 2.5L Cannula 08/21 1101 97.6 78 16 08/21 1039 Nasal 2.0L Cannula 08/21 1001 97.3 84 20 133/70 08/21 1001 97.3 84 20 133/70 08/21 0920 97.0 80 20 113/74 92 Nasal 2.0L Cannula 08/21 0908 97.3 84 20 133/70 93 Nasal 2.0L Cannula Intake & Output 08/22 1600 08/22 0800 08/22 0000 Intake Total 0 120 Output Total 300 2 Balance -300 118 Intake, IV 0 Intake, Oral 0 120 Number 0 0 Bowel Movements Output, Urine 300 2 On examination Patient is awake alert oriented 3. Conjunctivae is pale sclera is anicteric Mucous membrane is dry Neck is supple S1-S2 is normal Lungs air entry equal bilaterally no crepitations or rhonchi Abdomen is soft nontender bowel sounds are present. Stool is OB positive. Laboratory Tests 08/21 08/21 1856 1345 Chemistry Iron (37 - 170 ug/dL) 57 TIBC (265 - 497 ug/dL) 411 Ferritin (11.1 - 264 ng/mL) 41.4 Troponin I (< 0.11 ng/ml) 0.02 0.02 Hematology CBC w Diff NO MAN DIFF REQ WBC (4.8 - 10.8 /CUMM) 7.6 RBC (4.20 - 5.40 /CUMM) 3.48 L Hgb (12.0 - 16.0 G/DL) 10.6 L Hct (37 - 47 %) 32.5 L MCV (81.0 - 99.0 FL) 93.4 MCH (27.0 - 31.0 PG) 30.4 RDW (11.5 - 14.5 %) 21.5 H Plt Count (130 - 400 /CUMM) 217 MPV (7.4 - 10.4 FL) 8.5 Gran % (42.2 - 75.2 %) 81.1 H Lymphocytes % (20.5 - 51.1 %) 5.5 L Monocytes % (1.7 - 9.3 %) 9.5 H Eosinophils % (0 - 5 %) 3.9 Basophils % (0.0 - 2.0 %) 0 L Absolute Granulocytes (1.4 - 6.5 /CUMM) 6.2 Absolute Lymphocytes (1.2 - 3.4 /CUMM) 0.4 L Absolute Monocytes (0.10 - 0.60 /CUMM) 0.7 H Absolute Eosinophils (0.0 - 0.7 /CUMM) 0.3 Absolute Basophils (0.0 - 0.2 /CUMM) 0 PUBS MCHC (33.0 - 37.0 G/DL) 32.5 L Stool is OB positive Assessment. 1. Severe symptomatic anemia requiring transfusion with concern for GI bleeding 2. CAD with prior PCI () and recent STEMI; tx with PEDRO to the RCA 2015 3. Hx COPD/ILD/lung cancer s/p gamma knife radiation (felt not a surgical candidate) 4. PAF not on AC due to hx of GI bleed and anemia, on low dose Amiodarone 5. CKD 6. Hyperkalemia Plan is continue with current management get GI consult possibilities endoscopy.
--- NOTE | 2016-08-22 08:53 | PN- Housestaff ---
Subjective Follow-up For: chest pain Complaints: no complaints Tele-Events Since Last Visit: nsr, hr 84-97, no event Subjective: patient followed up today, she offers no complaints, vital signs have been stable, no overnight event received two units of prbc yesterday Review of Systems Constitutional: Reports: no symptoms. Objective Last 24 Hrs of Vital Signs/I&O Vital Signs Date Time Temp Pulse Resp B/P B/P Pulse O2 O2 Flow FiO2 Mean Ox Delivery Rate 08/22 2131 88 108/50 08/22 1637 98.9 85 18 90/40 92 Nasal 2.5L Cannula 08/22 0932 83 110/60 08/22 0932 83 110/60 08/22 0800 95 Nasal 2.0L Cannula 08/22 0730 98.9 83 16 110/60 91 Nasal 2.5L Cannula 08/22 0019 99.5 88 20 120/60 91 Nasal 2.5L Cannula 08/22 0000 91 Nasal 2.5L Cannula Intake & Output 08/22 1600 08/22 0800 08/22 0000 Intake Total 850 0 120 Output Total 700 300 2 Balance 150 -300 118 Intake, IV 0 Intake, Oral 850 0 120 Number 0 0 0 Bowel Movements Output, Urine 700 300 2 Physical Exam General Appearance: Alert, Oriented X3, Cooperative, No Acute Distress Other Physical Findings: Skin No Rashes HEENT Atraumatic, PERRLA, EOMI, Mucous Membr. moist/pink Neck Supple, No JVD Cardiovascular Regular Rate, Normal S1, Normal S2 Lungs crackles at bases Abdomen Normal Bowel Sounds, Soft, No Tenderness Neurological Normal Speech, Strength at 5/5 X4 Ext Extremities No Edema, Normal Pulses Current Medications: Current Medications Sig/Noemy Start time Last Medication Dose Route Stop Time Status Admin Acetaminophen 650 MG Q6-PRN PRN 08/21 0900 AC PO Albuterol Sulfate 2 PUF Q4P PRN 08/21 0930 AC INH Alprazolam 0.5 MG BID 08/21 1000 AC 08/22 PO 08/28 0959 2130 Amiodarone HCl 100 MG Q48 08/21 1000 AC 08/21 PO 1001 Aspirin 81 MG DAILY 08/22 1521 AC 08/22 PO 1655 Atorvastatin Calcium 40 MG 1700 08/21 1700 AC 08/22 PO 1655 Budesonide/ 2 PUF BID 08/21 1000 AC 08/22 Formoterol Fumarate INH 2131 Diphenhydramine HCl 50 MG ONCE ONE 08/22 2029 DC 08/22 PO 08/22 2030 213 Diphenhydramine HCl 50 MG ONCE ONE 08/21 2315 DC 08/21 PO 08/22 2315 2303 Diphenhydramine HCl 50 MG ONCE ONE 08/21 2245 DC PO 08/21 2246 Ezetimibe 10 MG DAILY 08/21 1000 AC 08/22 PO 0932 Levothyroxine Sodium 0.025 MG DAILY AC 08/21 0915 AC 08/22 PO 0614 Metoprolol Succinate 50 MG DAILY 08/21 1000 AC 08/22 PO 0932 Mirtazapine 7.5 MG AT BEDTIME 08/21 2200 AC 08/22 PO 2131 Multivitamins 1 TAB DAILY 08/21 1000 AC 08/22 PO 0932 Omeprazole 40 MG 1/2H B/BREAKF/DINNER 08/22 1630 AC 08/22 PO 1655 Omeprazole 40 MG DAILY AC 08/21 0901 DC 08/22 PO 0614 Patient Medication 1 UNIT ONE NR 08/22 1530 NE Teaching ED 08/22 1600 Ranolazine 500 MG BID 08/21 2200 AC 08/22 PO 2131 Senna 187 MG AT BEDTIME NEED.. 08/21 0915 AC PO Last 24 Hrs of Lab/[place] Results Last 24 Hrs of Labs/Mics: Laboratory Tests 08/22/16 1552: Anion Gap 14, Estimated GFR 35 L, BUN/Creatinine Ratio 19.3, CBC w Diff NO MAN DIFF REQ, RBC 3.32 L, MCV 93.2, MCH 30.0, RDW 21.3 H, MPV 8.3, Gran % 83.5 H, Lymphocytes % 6.5 L, Monocytes % 7.8, Eosinophils % 2.2, Basophils % 0 L, Absolute Granulocytes 7.8 H, Absolute Lymphocytes 0.6 L, Absolute Monocytes 0.7 H, Absolute Eosinophils 0.2, Absolute Basophils 0, PUBS MCHC 32.2 L Assessment/Plan Assessment: 70 YO F with pmh of STEMI 08/2015 with drug eluding stent placement, h/o total 5 stents, CAD, PAF, not on anticoagulation due to h/o GI bleed, HTN, HLD, Lung Ca s/p cyberknife sugery, COPD (not on home O2), PUD, CKD, Chronic anemia (h/o transfusions and epogen) presents to the ER from home after developing chest pain that developed one day POA. Currently being managed in the telemetry floor for the following issues: #Angina, 2/2 anemia Given her cardiac history with hb 6.8, angia is best explained due to anemia Guiac was positive yesterday, awaiting GI consultation, will hold ASA and plavix for now. Per cardiology, does not need to be on dual antiplatelet agent even after this episode, only ASA would be sufficient. received two units of PRBC yesterday, repeat hb was 10.6 yesterday evening no symptoms currently will follow cbc tomorrow as well #PAF not on AC due to risk of bleeding #h/o CKD #hyperkalemia potassium was 5.6 yesterday, wasn't followed so have sent BEP. awaiting results, might need keyaxate or other agents if still high, in the setting of cardiac history #h/o COPD/lung cancer not on exacerbation trc with the goal to maintain SpO2 >90% continue O2 Diet- heart healthy DVT ppx- ALPS only Code status- DNR/DNI Problem List: 1. Chest pain syndrome 2. Symptomatic anemia 3. Hyperkalemia 4. PAF (paroxysmal atrial fibrillation) 5. CAD (coronary artery disease) 6. Chronic renal insufficiency 7. COPD (chronic obstructive pulmonary disease) 8. History of lung cancer Pain Ratin Pain Location: - Pain Goal: Pain 4 or less Pain Plan: prn as ordered Tomorrow's Labs & Rationales: CBC, BEP CBC, BEP
--- NOTE | 2016-08-22 11:52 | PN- Cardiology ---
Subjective Subjective: The patient is awake, alert Overall feels improved The events of the last 24 hours as well as telemetry were reviewed. Review of Systems: The review of systems is negative for chest pains, palpitations nor lightheadedness. The remainder of the 14 point review of systems is noncontributory with the exception of above. Objective Vital Signs and I&Os Vital Signs Date Time Temp Pulse Resp B/P B/P Pulse O2 O2 Flow FiO2 Mean Ox Delivery Rate 08/22 0932 83 110/60 08/22 0932 83 110/60 08/22 0730 98.9 83 16 110/60 91 Nasal 2.5L Cannula 08/22 0019 99.5 88 20 120/60 91 Nasal 2.5L Cannula 08/22 0000 91 Nasal 2.5L Cannula 08/21 2228 84 112/60 08/21 1550 98.3 80 18 112/62 90 Nasal 2.5L Cannula Intake & Output 08/22 1600 08/22 0800 08/22 0000 08/21 1600 08/21 0800 08/21 0000 Intake Total 0 120 400 0 Output Total 300 2 300 Balance -300 118 100 0 Intake, IV 0 Intake, Oral 0 120 400 0 Number 0 0 Bowel Movements Output, Urine 300 2 300 Patient 108 lb 110 lb Weight Weight Estimated Measurement Method Physical Exam: General: Nontoxic, no apparent distress. HEENT: Sclera and conjunctiva within normal limits, without xanthelasmas. Neck: Carotids 2+ without bruits. Respiratory: Clear to auscultation, air movement is good, without accessory respiratory muscle use. Heart: Regular rate and rhythm, without murmurs, without JVD. Abdomen: Soft, nontender, no masses, normoactive bowel sounds. Extremities: Without clubbing, cyanosis, without edema. Neuro: Nonfocal exam, strength, 5 out of 5 Skin: Within normal limits without lesions. Psych: Mood and affect: Normal Current Medications: Current Medications Sig/Noemy Start time Last Medication Dose Route Stop Time Status Admin Acetaminophen 650 MG Q6-PRN PRN 08/21 0900 AC PO Albuterol Sulfate 2 PUF Q4P PRN 08/21 0830 AC INH Alprazolam 0.5 MG BID 08/21 1000 AC 08/22 PO 08/28 0959 0932 Amiodarone HCl 100 MG Q48 08/21 1000 AC 08/21 PO 1001 Atorvastatin Calcium 40 MG 1700 08/21 1700 AC 08/21 PO 1649 Budesonide/ 2 PUF BID 08/21 1000 AC 08/22 Formoterol Fumarate INH 0932 Diphenhydramine HCl 50 MG ONCE ONE 08/21 2315 DC 08/21 PO 08/21 231 2303 Diphenhydramine HCl 50 MG ONCE ONE 08/21 2245 DC PO 08/21 2246 Ezetimibe 10 MG DAILY 08/21 1000 AC 08/22 PO 0932 Levothyroxine Sodium 0.025 MG DAILY AC 08/21 0915 AC 08/22 PO 0614 Metoprolol Succinate 50 MG DAILY 08/21 1000 AC 08/22 PO 0932 Mirtazapine 7.5 MG AT BEDTIME 08/21 2199 AC 08/21 PO 2228 Multivitamins 1 TAB DAILY 08/21 1000 AC 08/22 PO 0932 Omeprazole 40 MG DAILY AC 08/21 0901 AC 08/22 PO 0614 Ranolazine 500 MG BID 08/21 2199 AC 08/22 PO 0932 Senna 187 MG AT BEDTIME NEED.. 08/21 0915 AC PO Results Last 48 Hrs of Labs/Mics: Laboratory Tests 08/21/16 1856: Troponin I 0.02, CBC w Diff NO MAN DIFF REQ, RBC 3.48 L, MCV 93.4, MCH 30.4, RDW 21.5 H, MPV 8.5, Gran % 81.1 H, Lymphocytes % 5.5 L, Monocytes % 9.5 H, Eosinophils % 3.9, Basophils % 0 L, Absolute Granulocytes 6.2, Absolute Lymphocytes 0.4 L, Absolute Monocytes 0.7 H, Absolute Eosinophils 0.3, Absolute Basophils 0, PUBS MCHC 32.5 L 08/21/16 1345: Iron 57, TIBC 411, Ferritin 41.4, Troponin I 0.02 08/21/16 0627: Anion Gap 12, Estimated GFR 30 L, BUN/Creatinine Ratio 22.9, Glucose 98, Calcium 9.3, Magnesium 1.9, Total Bilirubin 0.5, AST 29, ALT 33, Alkaline Phosphatase 184 H, Troponin I < 0.01, Ryz-M-Svbuandnpqx Pept 2840 H, Total Protein 6.0 L, Albumin 3.5, Globulin 2.5, Albumin/Globulin Ratio 1.4, Free T4 1.43, Total T3 1.13, TSH &T3 &Free T4 Intrp 12.400 H, CBC w Diff MAN DIFF ORDERED, RBC 2.27 L, MCV 97.0, MCH 29.8, RDW 26.4 H, MPV 7.7, Gran % 86.7 H, Lymphocytes % 4.7 L, Monocytes % 6.2, Eosinophils % 2.4, Basophils % 0 L, Absolute Granulocytes 7.3 H, Segmented Neutrophils 90 H, Absolute Lymphocytes 0.4 L, Lymphocytes 3 L, Monocytes 4, Absolute Monocytes 0.5, Eosinophils 3, Absolute Eosinophils 0.2, Absolute Basophils 0, Nucleated RBCs 1 H, Platelet Estimate ADEQUATE, Polychromasia 1+, Hypochromic-Microcytic 1+, Poikilocytosis 1 +, Anisocytosis 1+, Macrocytic Cells FEW, Ovalocytes 1+, PUBS MCHC 30.7 L, Fld Total RBCs Counted 100 Assessment/Plan Assessment/Plan 1. Severe symptomatic anemia requiring transfusion with concern for GI bleeding 2. CAD with prior PCI () and recent STEMI; tx with PEDRO to the RCA 2015 3. Hx COPD/ILD/lung cancer s/p gamma knife radiation (felt not a surgical candidate) 4. PAF not on AC due to hx of GI bleed and anemia, on low dose Amiodarone 5. CKD 6. Hyperkalemia Guaiac positive testing last night was noted. We will continue the patient off aspirin as well as dual antiplatelet therapy. Given the timing of her prior stent, she will not need to resume dual antiplatelet therapy; however, if deemed aspirin should be restarted when approved by GI. Continue the remainder the current medication regimen Continue telemetry? Yes
--- NOTE | 2016-08-22 13:43 | Cons- Gastroenterology ---
General Information and HPI Consulting Request Date of Consult: 08/22/16 Requested By: ROBBY CM MD Reason for Consult: Iron deficiency anemia Occult GI bleeding Source of Information: patient, old records History of Present Illness: 71-year-old female last seen in my office on June 25 with history of iron deficiency anemia, intestinal angiodysplasias, remote peptic ulcer disease, colonic adenoma, and constipation requiring MiraLAX. The patient presents with chest pain, dyspnea, weakness, vague indigestion, and profound anemia. Last colonoscopy was in 2011, for a history of adenomas, and revealed diverticulosis but no polyps or bleeding sites. Enteroscopy was performed in August 2012 demonstrating 2 jejunal angiodysplasias. She was last seen in the hospital in July 2013 with anemia and Hemoccult-positive stool. She had an EGD with enteroscopy which demonstrated hiatal hernia but no bleeding site. In April 2016 she was hospitalized and received 1 unit of packed red blood cells , and GI was not consulted at that time. The patient has been receiving iron infusions as directed by nephrology. She has constipation as above, but no nausea, diarrhea, dysphagia, vomiting, and only rare heartburn. She had a myocardial infarction in August. Other medical history includes lung cancer, COPD, CAD with stents, on antiplatelet therapy, interstitial lung disease, atrial fibrillation, chronic renal disease. Social history: negative for alcohol use or illicit drug use; former smoker. Family history: Leukemia, ovarian cancer, diabetes mellitus; no GI malignancy. Allergies/Medications Allergies: Coded Allergies: No Known Allergies (09/25/15) Home Med List: Albuterol Sulfate (Proair Respiclick) 90 MCG AER.POW.BA 2 PUFF INH Q8P PRN COPD (Reported) Alprazolam 0.5 MG TABLET 1 TAB PO BID ANXIETY (Reported) Amiodarone HCl 200 MG TABLET 1 TAB PO DAILY AFIB (Reported) Amiodarone HCl (Pacerone) 100 MG TABLET 100 MG PO EOD AFIB (Reported) Aspirin (Children's Aspirin) 81 MG TAB.CHEW 1 TAB PO DAILY HEART HEALTH ( Reported) Cholecalciferol (Vitamin D3) (Vitamin D) 1,000 UNIT TABLET 3 TAB PO DAILY SUPPLEMENT (Reported) Cholecalciferol (Vitamin D3) (Vitamin D) 1,000 UNIT TABLET 3,000 UNITS PO DAILY SUPPLEMENT (Reported) Diphenhydramine HCl (Benadryl) 25 MG CAPSULE 1 CAP PO DAILY NEEDED ALLERGY (Reported) Ezetimibe (Zetia) 10 MG TABLET 1 TAB PO DAILY CHOLESTEROL (Reported) Ezetimibe (Zetia) 10 MG TAB 1 TAB PO DAILY CHOL (Reported) Fluticasone/Vilanterol (Breo Ellipta 100-25 Mcg INH) 100 MCG-25 MCG/DOSE BLST.W.DEV 1 PUFF INH DAILY COPD (Reported) Levothyroxine Sodium (Levo-T) 25 MCG TABLET 25 MCG PO DAILY THYROID (Reported ) Megestrol Acetate (Megace) 400 MG/10 ML (40 MG/ML) ORAL.SUSP 20 ML PO DAILY apetite Metoprolol Succ XL (Toprol Xl) 50 MG TAB.ER.24H 1 TAB PO DAILY AFIB (Reported ) Mirtazapine 15 MG TABLET 0.5 TAB PO QPM SLEEP (Reported) Mometasone/Formoterol (Dulera 200 Mcg/5 Mcg Inhaler) 13 GM HFA.AER.AD 2 PUF INH BID COPD (Reported) Omeprazole 40 MG CAPSULE.DR 1 TAB PO DAILY HEARTBURN (Reported) Ranolazine (Ranexa 500MG) 500 MG TAB.ER.12H 1 TAB PO BID ANGINA (Reported) Rosuvastatin Calcium (Crestor) 10 MG TABLET 1 TAB PO DAILY HEART HEALTH ( Reported) Sennosides/Docusate Sodium (Senna-Docusate Sodium Tablet) 1 EACH TABLET 1 TAB PO BID PRN CONSTIPATION (Reported) Tiotropium [place] (Spiriva) 18 MCG CAP.W.DEV 1 TAB INH DAILY BREATHING PROBLEMS (Reported) Umeclidinium [place] (Incruse Ellipta) 62.5 MCG/ACTUATION BLST.W.DEV 1 PUFF INH DAILY COPD (Reported) Current Medications: Current Medications Sig/Noemy Start time Last Medication Dose Route Stop Time Status Admin Acetaminophen 650 MG Q6-PRN PRN 08/21 0900 AC PO Albuterol Sulfate 2 PUF Q4P PRN 08/21 0930 AC INH Alprazolam 0.5 MG BID 08/21 1000 AC 08/22 PO 08/28 0959 0932 Amiodarone HCl 100 MG Q48 08/21 1000 AC 08/21 PO 1001 Atorvastatin Calcium 40 MG 1700 08/21 1700 AC 08/21 PO 1649 Budesonide/ 2 PUF BID 08/21 1000 AC 08/22 Formoterol Fumarate INH 0932 Diphenhydramine HCl 50 MG ONCE ONE 08/21 2315 DC 08/21 PO 08/21 2316 2303 Diphenhydramine HCl 50 MG ONCE ONE 08/21 2245 DC PO 08/21 2246 Ezetimibe 10 MG DAILY 08/21 1000 AC 08/22 PO 0932 Levothyroxine Sodium 0.025 MG DAILY AC 08/21 0915 AC 08/22 PO 0614 Metoprolol Succinate 50 MG DAILY 08/21 1000 AC 08/22 PO 0932 Mirtazapine 7.5 MG AT BEDTIME 08/21 2200 AC 08/21 PO 2228 Multivitamins 1 TAB DAILY 08/21 1000 AC 08/22 PO 0932 Omeprazole 40 MG DAILY AC 08/21 0901 AC 08/22 PO 0614 Ranolazine 500 MG BID 08/21 2199 AC 08/22 PO 0932 Senna 187 MG AT BEDTIME NEED.. 08/21 0915 AC PO Past History Travel History Traveled to [place] past 21 day No Medical History Neurological: NONE EENT: NONE Cardiovascular: CAD, hypertension, hyperlipidemia, myocardial infarction, STENTS Respiratory: pneumonia, pulmonary fibrosis, LUNG CA ILD Gastrointestinal: peptic ulcer disease Hepatic: NONE Renal: chronic kidney disease Musculoskeletal: disk herniation Psychiatric: NONE, anxiety Endocrine: NONE Blood Disorders: anemia Cancer(s): lung cancer Surgical History Surgical History: STENTS (5) HYSTERECTOMY,LAMINECTOMY Family History Relations & Conditions If Any: MOTHER (Leukemia). FATHER (Heart Attack). SISTER (ovarian cancer). BROTHER (Diabetes). Psychosocial History Where Do You Live? Home Who Do You Live With? self Services at Home: Nursing, Physical Therapy Primary Language: Polish Smoking Status: Former Smoker ETOH Use: denies use Functional Ability ADLs Independent: dressing, eating, toileting, bathing. Ambulation: cane IADLs Independent: shopping, housework, finances, food prep, telephone, transportation , medication admin. 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 Denies: fever. EENTM: Denies: icterus, epistaxis. Cardiovascular: Reports: chest pain. Denies: edema, syncope. Respiratory: Reports: short of breath. Denies: cough. GI: Reports: see HPI. Genitourinary: Denies: dysuria, hematuria. Musculoskeletal: Denies: muscle stiffness, neck pain. Skin: Denies: jaundice, lesions. Neurological/Psychological: Denies: cognitive dysfunction, headache. Hematologic/Endocrine: Denies: bruising, bleeding. Exam & Diagnostic Data Vital Signs and I&O Vital Signs Date Time Temp Pulse Resp B/P B/P Pulse O2 O2 Flow FiO2 Mean Ox Delivery Rate 08/22 0932 83 110/60 08/22 0932 83 110/60 08/22 0800 95 Nasal 2.0L Cannula 08/22 0730 98.9 83 16 110/60 91 Nasal 2.5L Cannula 08/22 0019 99.5 88 20 120/60 91 Nasal 2.5L Cannula 08/22 0000 91 Nasal 2.5L Cannula 08/21 2228 84 112/60 08/21 1550 98.3 80 18 112/62 90 Nasal 2.5L Cannula Intake & Output 08/22 1600 08/22 0400 08/21 1600 08/21 0400 08/20 1600 08/20 0400 Intake Total 0 120 400 Output Total 300 2 300 Balance -300 118 100 Intake, IV 0 Intake, Oral 0 120 400 Number 0 0 Bowel Movements Output, Urine 300 2 300 Patient 108 lb Weight Weight Estimated Measurement Method Physical Exam: Ill-appearing white female, oxygen by nasal cannula. Skin without lesion. No adenopathy. Sclera anicteric. No oropharyngeal lesion. Heart regular rhythm without murmur. Lungs clear bilaterally. Abdomen is soft and nondistended with normal bowel sounds, and no tenderness, mass or organomegaly. Extremities without clubbing, cyanosis or edema. Results Pertinent Lab Results: Laboratory Tests 08/21 08/21 1856 1345 Chemistry Iron (37 - 170 ug/dL) 57 TIBC (265 - 497 ug/dL) 411 Ferritin (11.1 - 264 ng/mL) 41.4 Troponin I (< 0.11 ng/ml) 0.02 0.02 Hematology CBC w Diff NO MAN DIFF REQ WBC (4.8 - 10.8 /CUMM) 7.6 RBC (4.20 - 5.40 /CUMM) 3.48 L Hgb (12.0 - 16.0 G/DL) 10.6 L Hct (37 - 47 %) 32.5 L MCV (81.0 - 99.0 FL) 93.4 MCH (27.0 - 31.0 PG) 30.4 RDW (11.5 - 14.5 %) 21.5 H Plt Count (130 - 400 /CUMM) 217 MPV (7.4 - 10.4 FL) 8.5 Gran % (42.2 - 75.2 %) 81.1 H Lymphocytes % (20.5 - 51.1 %) 5.5 L Monocytes % (1.7 - 9.3 %) 9.5 H Eosinophils % (0 - 5 %) 3.9 Basophils % (0.0 - 2.0 %) 0 L Absolute Granulocytes (1.4 - 6.5 /CUMM) 6.2 Absolute Lymphocytes (1.2 - 3.4 /CUMM) 0.4 L Absolute Monocytes (0.10 - 0.60 /CUMM) 0.7 H Absolute Eosinophils (0.0 - 0.7 /CUMM) 0.3 Absolute Basophils (0.0 - 0.2 /CUMM) 0 PUBS MCHC (33.0 - 37.0 G/DL) 32.5 L 08/21 0627 Chemistry Sodium (137 - 145 mmol/L) 142 Potassium (3.5 - 5.1 mmol/L) 5.6 H Chloride (98 - 107 mmol/L) 110 H Carbon Dioxide (22 - 30 mmol/L) 20 L Anion Gap (5 - 16) 12 BUN (7 - 17 mg/dL) 39 H Creatinine (0.5 - 1.0 mg/dL) 1.7 H Estimated GFR (>60 ml/min) 30 L BUN/Creatinine Ratio (7 - 25 %) 22.9 Glucose (65 - 99 mg/dL) 98 Calcium (8.4 - 10.2 mg/dL) 9.3 Magnesium (1.6 - 2.3 mg/dL) 1.9 Total Bilirubin (0.2 - 1.3 mg/dL) 0.5 AST (14 - 36 U/L) 29 ALT (9 - 52 U/L) 33 Alkaline Phosphatase (<127 U/L) 184 H Troponin I (< 0.11 ng/ml) < 0.01 [id number] Pept (<125 pg/mL) 2840 H Total Protein (6.3 - 8.2 g/dL) 6.0 L Albumin (3.5 - 5.0 g/dL) 3.5 Globulin (1.9 - 4.2 gm/dL) 2.5 Albumin/Globulin Ratio (1.1 - 2.2 %) 1.4 Free T4 (0.78 - 2.44 ng/dL) 1.43 Total T3 (0.97 - 1.69 ng/mL) 1.13 TSH &T3 &Free T4 Intrp (0.270 - 4.20 uIU/mL) 12.400 H Hematology CBC w Diff MAN DIFF ORDERED WBC (4.8 - 10.8 /CUMM) 8.5 RBC (4.20 - 5.40 /CUMM) 2.27 L Hgb (12.0 - 16.0 G/DL) 6.8 *L Hct (37 - 47 %) 22.0 L MCV (81.0 - 99.0 FL) 97.0 MCH (27.0 - 31.0 PG) 29.8 RDW (11.5 - 14.5 %) 26.4 H Plt Count (130 - 400 /CUMM) 242 MPV (7.4 - 10.4 FL) 7.7 Gran % (42.2 - 75.2 %) 86.7 H Lymphocytes % (20.5 - 51.1 %) 4.7 L Monocytes % (1.7 - 9.3 %) 6.2 Eosinophils % (0 - 5 %) 2.4 Basophils % (0.0 - 2.0 %) 0 L Absolute Granulocytes (1.4 - 6.5 /CUMM) 7.3 H Segmented Neutrophils (42.2 - 75.2 %) 90 H Absolute Lymphocytes (1.2 - 3.4 /CUMM) 0.4 L Lymphocytes (20.5 - 51.1 %) 3 L Monocytes (1.7 - 9.3 %) 4 Absolute Monocytes (0.10 - 0.60 /CUMM) 0.5 Eosinophils (0 - 5.0 %) 3 Absolute Eosinophils (0.0 - 0.7 /CUMM) 0.2 Absolute Basophils (0.0 - 0.2 /CUMM) 0 Nucleated RBCs (0.0 - 0.0 /100WBC) 1 H Platelet Estimate (ADEQUATE) ADEQUATE Polychromasia 1+ Hypochromic-Microcytic 1+ Poikilocytosis 1+ Anisocytosis 1+ Macrocytic Cells FEW Ovalocytes 1+ PUBS MCHC (33.0 - 37.0 G/DL) 30.7 L Other Body Source Fld Total RBCs Counted (%) 100 Assessment/Plan Assessment/Recommendations: Patient with chronic anemia secondary to iron deficiency (previous GI blood loss deemed secondary to intestinal angiodysplasias), and CKD. The patient has been on triple antiplatelet therapy for CAD with stents. She is not anticoagulated. She has been receiving iron infusions and erythropoietin, per nephrology. She now presents with severe symptomatic anemia (chest pain, dyspnea) and Hemoccult- positive stool. She has had some vague indigestion, and chronic constipation, but no nausea, vomiting, melena or bright red blood per rectum. Her hemoglobin has increased more than expected, status post 2 units per PRBC transfusion, but has not been rechecked today. Recommendations * Continue regular diet * Check CBC today and tomorrow * Resume ASA given cardiac risks * Empiric PPI twice a day * At this point, no plans for urgent endoscopy Consult Acknowledgment - Thank you for your consult request.
[2016-08-22 16:37] VITALS: BP 90/40
[2016-08-22 16:48] LABS: ABSOLUTE BASOPHIL COUNT 0 /CUMM (0.0-0.2); ABSOLUTE EOSINOPHIL COUNT 0.2 /CUMM (0.0-0.7); ABSOLUTE GRANULOCYTE CT 7.8 /CUMM (1.4-6.5); ABSOLUTE LYMPH COUNT 0.6 /CUMM (1.2-3.4); ABSOLUTE MONOCYTE COUNT 0.7 /CUMM (0.10-0.60); BASOPHIL % 0 % (0.0-2.0); EOSINOPHIL % 2.2 % (0-5); GRANULOCYTE % 83.5 % (42.2-75.2); MEAN CORPUSCULAR HGB CONC 32.2 G/DL (33.0-37.0); MEAN CORPUSCULAR VOLUME 93.2 FL (81.0-99.0); MEAN PLATELET VOLUME 8.3 FL (7.4-10.4); PLATELET COUNT 218 /CUMM (130-400); RBC DISTRIBUTION WIDTH 21.3 % (11.5-14.5); RED BLOOD CELL CT 3.32 /CUMM (4.20-5.40); WHITE BLOOD CELL COUNT 9.3 /CUMM (4.8-10.8)
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
[2016-08-23 08:07] VITALS: BP 104/60
--- NOTE | 2016-08-23 08:39 | PN- Att Addend ---
Attending Addendum Attending Brief Note Covering attending note. Patient is fairly stable no new complaints no abdominal pain no discomfort or chest pain. Vital Signs Date Time Temp Pulse Resp B/P B/P Pulse O2 O2 Flow FiO2 Mean Ox Delivery Rate 08/23 0807 97.5 91 14 104/60 94 Nasal 2.5L Cannula 08/23 0000 98 Nasal 2.5L Cannula 08/22 2131 88 108/50 08/22 1637 98.9 85 18 90/40 92 Nasal 2.5L Cannula 08/22 0932 83 110/60 08/22 0932 83 110/60 Intake & Output 08/23 1600 08/23 0800 08/23 0000 Intake Total 200 480 Output Total Balance 200 480 Intake, Oral 200 480 Examination Patient awake alert oriented 3. Conjunctivae is pale sclera is anicteric Neck is supple S1-S2 is normal Lungs shows diminished air entry bilaterally with expiratory wheezing with fine basal crackles. Abdomen is soft nontender bowel sounds are present. No focal neurological deficit. Laboratory Tests 08/23 08/22 0707 1552 Chemistry Sodium (137 - 145 mmol/L) 142 Potassium (3.5 - 5.1 mmol/L) 4.5 Chloride (98 - 107 mmol/L) 109 H Carbon Dioxide (22 - 30 mmol/L) 20 L Anion Gap (5 - 16) 14 BUN (7 - 17 mg/dL) 29 H Creatinine (0.5 - 1.0 mg/dL) 1.5 H Estimated GFR (>60 ml/min) 35 L BUN/Creatinine Ratio (7 - 25 %) 19.3 Hematology CBC w Diff Pending NO MAN DIFF REQ WBC (4.8 - 10.8 /CUMM) Pending 9.3 RBC (4.20 - 5.40 /CUMM) Pending 3.32 L Hgb (12.0 - 16.0 G/DL) Pending 10.0 L Hct (37 - 47 %) Pending 31.0 L MCV (81.0 - 99.0 FL) Pending 93.2 MCH (27.0 - 31.0 PG) Pending 30.0 RDW (11.5 - 14.5 %) Pending 21.3 H Plt Count (130 - 400 /CUMM) Pending 218 MPV (7.4 - 10.4 FL) Pending 8.3 Gran % (42.2 - 75.2 %) 83.5 H Lymphocytes % (20.5 - 51.1 %) 6.5 L Monocytes % (1.7 - 9.3 %) 7.8 Eosinophils % (0 - 5 %) 2.2 Basophils % (0.0 - 2.0 %) 0 L Absolute Granulocytes (1.4 - 6.5 /CUMM) 7.8 H Absolute Lymphocytes (1.2 - 3.4 /CUMM) 0.6 L Absolute Monocytes (0.10 - 0.60 /CUMM) 0.7 H Absolute Eosinophils (0.0 - 0.7 /CUMM) 0.2 Absolute Basophils (0.0 - 0.2 /CUMM) 0 PUBS MCHC (33.0 - 37.0 G/DL) Pending 32.2 L Assessment Assessment Anemia secondary to upper GI bleed also possibly secondary to intestinal angiodysplasia and chronic anemia secondary to see daily. Patient was seen by GI Advised patient to continue aspirin given her cardiac risk also empiric PPI twice a day is there is no plans for the patient to get endoscopy.
[2016-08-23 09:17] LABS: ABSOLUTE BASOPHIL COUNT 0 /CUMM (0.0-0.2); ABSOLUTE EOSINOPHIL COUNT 0.3 /CUMM (0.0-0.7); ABSOLUTE GRANULOCYTE CT 8.3 /CUMM (1.4-6.5); ABSOLUTE LYMPH COUNT 0.5 /CUMM (1.2-3.4); BASOPHIL % 0.1 % (0.0-2.0); EOSINOPHIL % 2.8 % (0-5); GRANULOCYTE % 82.4 % (42.2-75.2); HEMATOCRIT 30.3 % (37-47); MEAN CORPUSCULAR HGB 30.3 PG (27.0-31.0); MEAN CORPUSCULAR HGB CONC 32.5 G/DL (33.0-37.0); MEAN CORPUSCULAR VOLUME 93.2 FL (81.0-99.0); PLATELET COUNT 216 /CUMM (130-400); RBC DISTRIBUTION WIDTH 20.8 % (11.5-14.5); RED BLOOD CELL CT 3.25 /CUMM (4.20-5.40)
--- NOTE | 2016-08-23 11:33 | PN- Gastroenterology ---
Assessment/Plan Assessment/Recommendations: Patient with chronic anemia secondary to iron deficiency (previous GI blood loss deemed secondary to intestinal angiodysplasias), and CKD. The patient has been on triple antiplatelet therapy for CAD with stents. She is not anticoagulated. She has been receiving iron infusions and erythropoietin, per nephrology. The patient now presents with severe symptomatic anemia (chest pain, dyspnea) and Hemoccult-positive stool without overt bleeding. Hemoglobin/hematocrit are stable Recommendations * Continue regular diet * Check CBC tomorrow * Continue ASA, PPI * No plans for inpatient endoscopy Subjective Subjective: No chest pain, nausea, vomiting, indigestion, abdominal pain. No bowel movements, blood per rectum or melena. Objective Vital Signs and I&Os Vital Signs Date Time Temp Pulse Resp B/P B/P Pulse O2 O2 Flow FiO2 Mean Ox Delivery Rate 08/23 0957 91 104/60 08/23 0956 91 104/60 08/23 0956 91 104/60 08/23 0807 97.5 91 14 104/ 94 Nasal 2.5L Cannula 08/23 0000 98 Nasal 2.5L Cannula 08/22 2131 88 108/50 08/22 1637 98.9 85 18 90/40 92 Nasal 2.5L Cannula Intake & Output 08/23 1600 08/23 0400 08/22 1600 08/22 0400 08/21 1600 08/21 0400 Intake Total 200 480 850 120 400 Output Total 1000 2 300 Balance 200 480 -150 118 100 Intake, IV 0 Intake, Oral 200 480 850 120 400 Number 0 0 Bowel Movements Output, Urine 1000 2 300 Patient 108 lb Weight Weight Estimated Measurement Method Physical Exam: Sclera anicteric. No adenopathy. Abdomen is soft and nondistended with normal bowel sounds, and no tenderness, mass or organomegaly. Current Medications: Current Medications Sig/Noemy Start time Last Medication Dose Route Stop Time Status Admin Acetaminophen 650 MG Q6-PRN PRN 08/21 0900 AC PO Albuterol Sulfate 2 PUF Q4P PRN 08/21 0930 AC INH Alprazolam 0.5 MG BID 08/21 1000 AC 08/23 PO 08/28 0959 0955 Amiodarone HCl 100 MG Q48 08/21 1000 AC 08/23 PO 0957 Aspirin 81 MG DAILY 08/22 1521 AC 08/23 PO 0957 Atorvastatin Calcium 40 MG 1700 08/21 1700 AC 08/22 PO 1655 Budesonide/ 2 PUF BID 08/21 1000 AC 08/23 Formoterol Fumarate INH 0959 Diphenhydramine HCl 50 MG .STK-MED ONE 08/22 2058 DC PO 08/22 2100 Diphenhydramine HCl 50 MG ONCE ONE 08/22 2030 DC 08/22 PO 08/22 203 2130 Ezetimibe 10 MG DAILY 08/21 1000 AC 08/23 PO 0956 Levothyroxine Sodium 0.025 MG DAILY AC 08/21 0915 AC 08/23 PO 0725 Metoprolol Succinate 50 MG DAILY 08/21 1000 AC 08/23 PO 0956 Mirtazapine 7.5 MG AT BEDTIME 08/21 2200 AC 08/22 PO 2131 Multivitamins 1 TAB DAILY 08/21 1000 AC 08/23 PO 0956 Omeprazole 40 MG BID 08/23 1000 AC 08/23 PO 0957 Omeprazole 40 MG 1/2H B/BREAKF/DINNER 08/22 1630 DC 08/22 PO 1655 Omeprazole 40 MG DAILY AC 08/21 0901 DC 08/22 PO 0614 Patient Medication 1 UNIT ONE NR 08/22 1530 [place] Teaching [place] 08/22 1600 Ranolazine 500 MG BID 08/21 2200 AC 08/23 PO 0956 Senna 187 MG AT BEDTIME NEED.. 08/21 0915 AC PO Results Pertinent Lab Results: Laboratory Tests 08/23 08/22 0707 1552 Chemistry Sodium (137 - 145 mmol/L) 142 Potassium (3.5 - 5.1 mmol/L) 4.5 Chloride (98 - 107 mmol/L) 109 H Carbon Dioxide (22 - 30 mmol/L) 20 L Anion Gap (5 - 16) 14 BUN (7 - 17 mg/dL) 29 H Creatinine (0.5 - 1.0 mg/dL) 1.5 H Estimated GFR (>60 ml/min) 35 L BUN/Creatinine Ratio (7 - 25 %) 19.3 Hematology CBC w Diff NO MAN DIFF REQ NO MAN DIFF REQ WBC (4.8 - 10.8 /CUMM) 10.0 9.3 RBC (4.20 - 5.40 /CUMM) 3.25 L 3.32 L Hgb (12.0 - 16.0 G/DL) 9.8 L 10.0 L Hct (37 - 47 %) 30.3 L 31.0 L MCV (81.0 - 99.0 FL) 93.2 93.2 MCH (27.0 - 31.0 PG) 30.3 30.0 RDW (11.5 - 14.5 %) 20.8 H 21.3 H Plt Count (130 - 400 /CUMM) 216 218 MPV (7.4 - 10.4 FL) 8.0 8.3 Gran % (42.2 - 75.2 %) 82.4 H 83.5 H Lymphocytes % (20.5 - 51.1 %) 4.8 L 6.5 L Monocytes % (1.7 - 9.3 %) 9.9 H 7.8 Eosinophils % (0 - 5 %) 2.8 2.2 Basophils % (0.0 - 2.0 %) 0.1 0 L Absolute Granulocytes (1.4 - 6.5 /CUMM) 8.3 H 7.8 H Absolute Lymphocytes (1.2 - 3.4 /CUMM) 0.5 L 0.6 L Absolute Monocytes (0.10 - 0.60 /CUMM) 1.0 H 0.7 H Absolute Eosinophils (0.0 - 0.7 /CUMM) 0.3 0.2 Absolute Basophils (0.0 - 0.2 /CUMM) 0 0 PUBS MCHC (33.0 - 37.0 G/DL) 32.5 L 32.2 L 08/21 08/21 1856 1345 Chemistry Iron (37 - 170 ug/dL) 57 TIBC (265 - 497 ug/dL) 411 Ferritin (11.1 - 264 ng/mL) 41.4 Troponin I (< 0.11 ng/ml) 0.02 0.02 Hematology CBC w Diff NO MAN DIFF REQ WBC (4.8 - 10.8 /CUMM) 7.6 RBC (4.20 - 5.40 /CUMM) 3.48 L Hgb (12.0 - 16.0 G/DL) 10.6 L Hct (37 - 47 %) 32.5 L MCV (81.0 - 99.0 FL) 93.4 MCH (27.0 - 31.0 PG) 30.4 RDW (11.5 - 14.5 %) 21.5 H Plt Count (130 - 400 /CUMM) 217 MPV (7.4 - 10.4 FL) 8.5 Gran % (42.2 - 75.2 %) 81.1 H Lymphocytes % (20.5 - 51.1 %) 5.5 L Monocytes % (1.7 - 9.3 %) 9.5 H Eosinophils % (0 - 5 %) 3.9 Basophils % (0.0 - 2.0 %) 0 L Absolute Granulocytes (1.4 - 6.5 /CUMM) 6.2 Absolute Lymphocytes (1.2 - 3.4 /CUMM) 0.4 L Absolute Monocytes (0.10 - 0.60 /CUMM) 0.7 H Absolute Eosinophils (0.0 - 0.7 /CUMM) 0.3 Absolute Basophils (0.0 - 0.2 /CUMM) 0 PUBS MCHC (33.0 - 37.0 G/DL) 32.5 L 08/21 0627 Chemistry Sodium (137 - 145 mmol/L) 142 Potassium (3.5 - 5.1 mmol/L) 5.6 H Chloride (98 - 107 mmol/L) 110 H Carbon Dioxide (22 - 30 mmol/L) 20 L Anion Gap (5 - 16) 12 BUN (7 - 17 mg/dL) 39 H Creatinine (0.5 - 1.0 mg/dL) 1.7 H Estimated GFR (>60 ml/min) 30 L BUN/Creatinine Ratio (7 - 25 %) 22.9 Glucose (65 - 99 mg/dL) 98 Calcium (8.4 - 10.2 mg/dL) 9.3 Magnesium (1.6 - 2.3 mg/dL) 1.9 Total Bilirubin (0.2 - 1.3 mg/dL) 0.5 AST (14 - 36 U/L) 29 ALT (9 - 52 U/L) 33 Alkaline Phosphatase (<127 U/L) 184 H Troponin I (< 0.11 ng/ml) < 0.01 Zri-K-Kznsbuykstk Pept (<125 pg/mL) 2840 H Total Protein (6.3 - 8.2 g/dL) 6.0 L Albumin (3.5 - 5.0 g/dL) 3.5 Globulin (1.9 - 4.2 gm/dL) 2.5 Albumin/Globulin Ratio (1.1 - 2.2 %) 1.4 Free T4 (0.78 - 2.44 ng/dL) 1.43 Total T3 (0.97 - 1.69 ng/mL) 1.13 TSH &T3 &Free T4 Intrp (0.270 - 4.20 uIU/mL) 12.400 H Hematology CBC w Diff MAN DIFF ORDERED WBC (4.8 - 10.8 /CUMM) 8.5 RBC (4.20 - 5.40 /CUMM) 2.27 L Hgb (12.0 - 16.0 G/DL) 6.8 *L Hct (37 - 47 %) 22.0 L MCV (81.0 - 99.0 FL) 97.0 MCH (27.0 - 31.0 PG) 29.8 RDW (11.5 - 14.5 %) 26.4 H Plt Count (130 - 400 /CUMM) 242 MPV (7.4 - 10.4 FL) 7.7 Gran % (42.2 - 75.2 %) 86.7 H Lymphocytes % (20.5 - 51.1 %) 4.7 L Monocytes % (1.7 - 9.3 %) 6.2 Eosinophils % (0 - 5 %) 2.4 Basophils % (0.0 - 2.0 %) 0 L Absolute Granulocytes (1.4 - 6.5 /CUMM) 7.3 H Segmented Neutrophils (42.2 - 75.2 %) 90 H Absolute Lymphocytes (1.2 - 3.4 /CUMM) 0.4 L Lymphocytes (20.5 - 51.1 %) 3 L Monocytes (1.7 - 9.3 %) 4 Absolute Monocytes (0.10 - 0.60 /CUMM) 0.5 Eosinophils (0 - 5.0 %) 3 Absolute Eosinophils (0.0 - 0.7 /CUMM) 0.2 Absolute Basophils (0.0 - 0.2 /CUMM) 0 Nucleated RBCs (0.0 - 0.0 /100WBC) 1 H Platelet Estimate (ADEQUATE) ADEQUATE Polychromasia 1+ Hypochromic-Microcytic 1+ Poikilocytosis 1+ Anisocytosis 1+ Macrocytic Cells FEW Ovalocytes 1+ PUBS MCHC (33.0 - 37.0 G/DL) 30.7 L Other Body Source Fld Total RBCs Counted (%) 100
[2016-08-23 16:01] VITALS: BP 106/70
--- NOTE | 2016-08-23 23:39 | NUR ---
ALERT AND ORIENTED X 3. VITAL SIGNS STABLE. DENIES CHEST PAIN. + PULSES SKIN C/D/I. NO DISCOMFORT NOTED. PATIENT RESTING AT THIS TIME WILL CONTINUE TO MONITOR
[2016-08-24 00:08] VITALS: BP 102/57
--- NOTE | 2016-08-24 07:02 | PN- Housestaff ---
Subjective Follow-up For: Acute symptomatic anemia on chronic anemia Demand ischaemia CKD Hamoccult postive stools Tele-Events Since Last Visit: sinus rhythm 78-89bpm Subjective: I saw and examined the patient today morning She is doing much better today, reports no pain, shortness of breath. She was asked to go for colonoscopy as an outpatient. Review of Systems Constitutional: Reports: see HPI. Comments: ROS negative except the above. Objective Last 24 Hrs of Vital Signs/I&O Vital Signs Date Time Temp Pulse Resp B/P B/P Pulse O2 O2 Flow FiO2 Mean Ox Delivery Rate 08/24 0008 99.1 89 20 102/57 95 08/24 0000 95 Nasal 1.0L Cannula 08/23 2127 85 118/60 08/23 1601 97.1 92 16 106/70 93 Nasal 1.0L Cannula 08/23 0957 91 104/60 08/23 0956 91 104/60 08/23 0956 91 104/60 08/23 0807 97.5 91 14 104/60 94 Nasal 2.5L Cannula 08/23 0800 93 Nasal 1.0L Cannula Intake & Output 08/24 0800 08/24 0000 08/23 1600 Intake Total 120 200 720 Output Total 800 Balance 120 200 -80 Intake, Oral 120 200 720 Number 0 Bowel Movements Output, Urine 800 Physical Exam General Appearance: Alert, Oriented X3, Cooperative Skin: No Rashes, No Breakdown HEENT: Atraumatic, PERRLA, EOMI Neck: Supple Cardiovascular: Normal S1, Normal S2, systolic murmur Lungs: Clear to Auscultation, Normal Air Movement Abdomen: Normal Bowel Sounds, Soft, No Tenderness Neurological: Normal Speech, Strength at 5/5 X4 Ext, Normal Tone Extremities: No Clubbing, No Cyanosis, No Edema Current Medications: Current Medications Sig/Noemy Start time Last Medication Dose Route Stop Time Status Admin Acetaminophen 650 MG Q6-PRN PRN 08/21 0900 DCD PO Albuterol Sulfate 2 PUF Q4P PRN 08/21 0930 DCD INH Alprazolam 0.5 MG BID 08/21 1000 DCD 08/24 PO 08/28 0959 1052 Amiodarone HCl 100 MG Q48 08/21 1000 DCD 08/23 PO 0957 Aspirin 81 MG DAILY 08/22 1521 DCD 08/24 PO 1049 Atorvastatin Calcium 40 MG 1700 08/21 1700 DCD 08/23 PO 1622 Bisacodyl 5 MG DAILY 08/23 1308 DCD 08/24 PO 1050 Budesonide/ 2 PUF BID 08/21 1000 DCD 08/24 Formoterol Fumarate INH 1048 Diphenhydramine HCl 50 MG ONCE ONE 08/23 2315 DC 08/23 PO 08/23 2316 2309 Diphenhydramine HCl 50 MG .STK-MED ONE 08/23 2310 DC PO 08/23 2311 Ezetimibe 10 MG DAILY 08/21 1000 DCD 08/24 PO 1050 Levothyroxine Sodium 0.025 MG DAILY AC 08/21 0915 DCD 08/24 PO 0608 Metoprolol Succinate 50 MG DAILY 08/21 1000 DCD 08/24 PO 1050 Mirtazapine 7.5 MG AT BEDTIME 08/21 2200 DCD 08/23 PO 2127 Multivitamins 1 TAB DAILY 08/21 1000 DCD 08/24 PO 1050 Omeprazole 40 MG BID 08/23 1000 DCD 08/24 PO 1050 Ranolazine 500 MG BID 08/21 2200 DCD 08/24 PO 1050 Senna 187 MG AT BEDTIME NEED.. 08/21 0915 DCD 08/23 PO 2127 Senna/Docusate Sodium 2 TAB DAILY PRN 08/23 1630 DCD 08/23 PO 1638 Last 24 Hrs of Lab/[place] Results Last 24 Hrs of Labs/Mics: Laboratory Tests 08/24/16 0650: Anion Gap 10, Estimated GFR 35 L, BUN/Creatinine Ratio 14.7, CBC w Diff NO MAN DIFF REQ, RBC 3.32 L, MCV 93.0, MCH 30.3, RDW 20.3 H, MPV 8.0, Gran % 80.3 H, Lymphocytes % 5.6 L, Monocytes % 9.3, Eosinophils % 4.8, Basophils % 0 L, Absolute Granulocytes 7.0 H, Absolute Lymphocytes 0.5 L, Absolute Monocytes 0.8 H, Absolute Eosinophils 0.4, Absolute Basophils 0, PUBS MCHC 32.5 L Lines/Diet/Fluids Lines: peripheral lines Assessment/Plan Assessment: 70 YO F with pmh of STEMI 08/2015 with drug eluding stent placement, h/o total 5 stents, CAD, PAF, not on anticoagulation due to h/o GI bleed, HTN, HLD, Lung Ca s/p cyberknife sugery, COPD (not on home O2), PUD, CKD, Chronic anemia (h/o transfusions and epogen) presents to the ER from home after developing chest pain that developed one day POA. Currently being managed in the telemetry floor for the following issues: Angina, 2/2 anemia * Demand ischaemia * after GI evaluation - restarted on aspirin 81mg as there is no role for procedure given no karen blood. * Per cardiology, does not need to be on dual antiplatelet agent even after this episode, only ASA would be sufficient. * H&H today 9.8/30.3 * Needs to follow up with GI as outpatient for colonoscopy. Possibel etiologies for bleed could be - anticoagulation, with AVM's (heydes syndrome), diverticulosis from chronic constipation. PAF not on AC due to risk of bleeding h/o CKD hyperkalemia * potassium was 5.6 yesterday, wasn't followed so have sent BEP. awaiting results, might need keyaxate or other agents if still high, in the setting of cardiac history h/o COPD/lung cancer * not on exacerbation * trc with the goal to maintain SpO2 >90% * continue O2 constipation * she didnt have a bowel movement so far after admission * provided with senna and dulcolax Diet- heart healthy DVT ppx- ALPS only Code status- DNR/DNI Problem List: 1. Unstable Angina 2. Chronic constipation 3. Chest pain 4. Anemia 5. CAD (coronary artery disease) 6. Malnutrition Pain Ratin Pain Location: n/a Pain Goal: Pain 4 or less Pain Plan: tylenol prn Tomorrow's Labs & Rationales: none
[2016-08-24 08:00] VITALS: BP 104/52
[2016-08-24 08:18] LABS: ABSOLUTE BASOPHIL COUNT 0 /CUMM (0.0-0.2); ABSOLUTE EOSINOPHIL COUNT 0.4 /CUMM (0.0-0.7); ABSOLUTE LYMPH COUNT 0.5 /CUMM (1.2-3.4); ABSOLUTE MONOCYTE COUNT 0.8 /CUMM (0.10-0.60); BASOPHIL % 0 % (0.0-2.0); EOSINOPHIL % 4.8 % (0-5); GRANULOCYTE % 80.3 % (42.2-75.2); HEMATOCRIT 30.9 % (37-47); MEAN CORPUSCULAR HGB 30.3 PG (27.0-31.0); MEAN CORPUSCULAR HGB CONC 32.5 G/DL (33.0-37.0); PLATELET COUNT 242 /CUMM (130-400); RBC DISTRIBUTION WIDTH 20.3 % (11.5-14.5); RED BLOOD CELL CT 3.32 /CUMM (4.20-5.40); WHITE BLOOD CELL COUNT 8.7 /CUMM (4.8-10.8)
--- NOTE | 2016-08-24 08:54 | PN- Att Addend ---
Attending Addendum Attending Brief Note Patient feels general weakness General Appearance: Alert, No Acute Distress Skin: Grossly normal HEENT: PEERLA Neck: Supple, No JVD Cardiovascular: Regular Rate, Normal S1, Normal S2, No Murmurs Lungs: Clear to Auscultation, Normal Air Movement Abdomen: Normal Bowel Sounds, Soft, No Tenderness Neurological: Normal Speech, Strength at 5/5 X4 Ext, Cranial Nerves 3-12 NL, Reflexes 2+ Extremities: No Clubbing, No Cyanosis, No Edema Vascular: Normal Pulses Assessment Status post 2 units PRBC with stable hemoglobin. No scope per GI unless acute bleeding. Troponins negative and kidney function stable. Cardiology has agreed to discontinue Plavix and patient will be discharged on aspirin. Plan PT evaluation Taper oxygen Continue current meds Repeat CBCs in 2 week Current Medications Sig/Noemy Start time Last Medication Dose Route Stop Time Status Admin Acetaminophen 650 MG Q6-PRN PRN 08/21 0900 AC PO Albuterol Sulfate 2 PUF Q4P PRN 08/21 0930 AC INH Alprazolam 0.5 MG ONCE ONE 08/23 1630 DC 08/23 PO 08/23 1631 1634 Alprazolam 0.5 MG BID 08/21 1000 AC 08/23 PO 08/28 0959 2309 Amiodarone HCl 100 MG Q48 08/21 1000 AC 08/23 PO 0957 Aspirin 81 MG DAILY 08/22 1521 AC 08/23 PO 0957 Atorvastatin Calcium 40 MG 1700 08/21 1700 AC 08/23 PO 1622 Bisacodyl 10 MG ONCE ONE 08/23 1315 DC ME 08/23 1316 Bisacodyl 5 MG DAILY 08/23 1308 AC 08/23 PO 1621 Budesonide/ 2 PUF BID 08/21 1000 AC 08/23 Formoterol Fumarate INH 2130 Diphenhydramine HCl 50 MG ONCE ONE 08/23 2315 DC 08/23 PO 08/23 2316 2309 Diphenhydramine HCl 50 MG .STK-MED ONE 08/23 2310 DC PO 08/23 2311 Ezetimibe 10 MG DAILY 08/21 1000 AC 08/23 PO 0956 Levothyroxine Sodium 0.025 MG DAILY AC 08/21 0915 AC 08/24 PO 0608 Magnesium Hydroxide 30 ML ONE ONE 08/23 1315 DC PO 08/23 1316 Metoprolol Succinate 50 MG DAILY 08/21 1000 AC 08/23 PO 955 Mirtazapine 7.5 MG AT BEDTIME 08/210 AC 08/23 PO 2126 Multivitamins 1 TAB DAILY 08/21 1000 AC 08/23 PO 955 Omeprazole 40 MG BID 08/23 1000 AC 08/23 PO 2130 Ranolazine 500 MG BID 08/210 AC 08/23 PO 2126 Senna 187 MG AT BEDTIME NEED.. 08/21 0915 AC 08/23 PO 2126 Senna/Docusate Sodium 2 TAB DAILY PRN 08/23 1630 AC 08/23 PO 1638 Laboratory Tests 08/24 0650 Chemistry Sodium (137 - 145 mmol/L) 141 Potassium (3.5 - 5.1 mmol/L) 5.0 Chloride (98 - 107 mmol/L) 110 H Carbon Dioxide (22 - 30 mmol/L) 21 L Anion Gap (5 - 16) 10 BUN (7 - 17 mg/dL) 22 H Creatinine (0.5 - 1.0 mg/dL) 1.5 H Estimated GFR (>60 ml/min) 35 L BUN/Creatinine Ratio (7 - 25 %) 14.7 Hematology CBC w Diff NO MAN DIFF REQ WBC (4.8 - 10.8 /CUMM) 8.7 RBC (4.20 - 5.40 /CUMM) 3.32 L Hgb (12.0 - 16.0 G/DL) 10.0 L Hct (37 - 47 %) 30.9 L MCV (81.0 - 99.0 FL) 93.0 MCH (27.0 - 31.0 PG) 30.3 RDW (11.5 - 14.5 %) 20.3 H Plt Count (130 - 400 /CUMM) 242 MPV (7.4 - 10.4 FL) 8.0 Gran % (42.2 - 75.2 %) 80.3 H Lymphocytes % (20.5 - 51.1 %) 5.6 L Monocytes % (1.7 - 9.3 %) 9.3 Eosinophils % (0 - 5 %) 4.8 Basophils % (0.0 - 2.0 %) 0 L Absolute Granulocytes (1.4 - 6.5 /CUMM) 7.0 H Absolute Lymphocytes (1.2 - 3.4 /CUMM) 0.5 L Absolute Monocytes (0.10 - 0.60 /CUMM) 0.8 H Absolute Eosinophils (0.0 - 0.7 /CUMM) 0.4 Absolute Basophils (0.0 - 0.2 /CUMM) 0 PUBS MCHC (33.0 - 37.0 G/DL) 32.5 L Vital Signs Date Time Temp Pulse Resp B/P B/P Pulse O2 O2 Flow FiO2 Mean Ox Delivery Rate 08/24 0800 Nasal 1.0L Cannula 08/24 0008 99.1 89 20 102/57 95 08/24 0000 95 Nasal 1.0L Cannula 08/23 2127 85 118/60 08/23 1601 97.1 92 16 106/70 93 Nasal 1.0L Cannula 08/23 0957 91 104/60 08/23 0956 91 104/08/23 0956 91
--- NOTE | 2016-08-24 09:14 | NUR ---
Physical Therapy: Consult received and chart reviewed. Pt is currently ambulating around her room Independently. Steady gait noted- pt's dynamic standing balance is good- pt closing her blinds and picking items off of floor. Acute skilled PT is not indicated at this time. Will not follow. Thank you.
[2016-08-24 10:50] VITALS: BP 110/50
--- NOTE | 2016-08-24 11:28 | Patient Discharge Instructions ---
Discharge Instructions General Discharge Information You were seen/treated for: GI bleed causing low H&H Demand ischaemia Watch for these problems: sudden shortness of breath, chest pain. Any blood loss from urine/bowels. Special Instructions: Please follow up with your PCP () in a week Please follow up with (gastroenterology ) regariding outpatient colonoscopy Diet Continue normal diet: Yes Recommended Diet: Heart Healthy Activity Full Activity/No Limits: Yes Activity Self Limited: Yes Acute Coronary Syndrome Inclusion Criteria At DC or during hospital stay patient has or had the following: ACS DIAGNOSIS No Discharge Core Measures Meds if any: Prescribed or Continued at Discharge Meds if any: NOT Prescribed or Continued at Discharge Congestive Heart Failure Inclusion Criteria At DC or during hospital stay patient has or had the following: CHF DIAGNOSIS No Discharge Core Measures Meds if any: Prescribed or Continued at Discharge Meds if any: NOT Prescribed or Continued at Discharge Cerebrovascular accident Inclusion Criteria At DC or during hospital stay patient has or had the following: CVA/TIA Diagnosis No Discharge Core Measures Meds if any: Prescribed or Continued at Discharge Meds if any: NOT Prescribed or Continued at Discharge Venous thromboembolism Inclusion Criteria VTE Diagnosis No VTE Type NONE VTE Confirmed by (Test) NONE Discharge Core Measures - Per Current guidelines, there needs to be overlap - treatment for the first 5 days of Warfarin therapy. - If discharged on Warfarin prior to 5 days of - overlap therapy, the patient will need to be - assessed for post discharge needs including - *Post discharge parental anticoagulation - *Warfarin and/or parental anticoagulation education - *Follow up date to check INR post discharge At least 5 days overlap therapy as Inpatient No Meds if any: Prescribed or Continued at Discharge Note: Overlap Therapy is Warfarin and Anticoagulant Meds if any: NOT Prescribed or Continued at Discharge
--- NOTE | 2016-09-02 13:30 | Discharge Summary ---
Visit Information Visit Dates Admission Date: 08/21/16 Discharge Date: 08/24/16 Hospital Course Course Attending Physician: JOE YUSUF MD Primary Care Physician: SOILA WISLON,ROBBY Younger Consulting Request: Consulting Specialty: Gastroenterology Consulting Physician: Dr. Alex Aquino MD Hospital Course: 70 YO F with past medical history of STEMI with drug eluding stent placement, with history of total 5 stents, CAD, PAF, not on anticoagulation due to history of GI bleed, HTN, HLD, Lung Ca s/p cyberknife sugery, COPD (not on home O2), PUD , CKD, Chronic anemia (h/o transfusions and epogen) presented to the ER from home after developing chest pain that developed one day prior to the admission. 1. symptomatic anemia Patient was noted to be severely anemic on admission with a guaiac positive stools. She also had positive troponins which was likely in the setting of demand ischaemia. anemia improved with 2 units of PRBC. Patient was seen by cardiology who recommed discontinuing Plavix and continuing aspirin. GI cleared using aspirin upon discharge. 2. 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 Patient has had similar bleeding in the past. Since she did not have active bleeding emergent colonoscopy was not pursued. Patient will follow- up with GI as outpatient. Allergies: Coded Allergies: No Known Allergies (09/25/15) Disposition Summary Disposition Principal Diagnosis: SYMPTOMATIC ANEMIA Additional Diagnosis: GI BLEED PAROXYSMAL ATRIAL FIBRILLATION HYPERKALEMIA Discharge Disposition: home or self care Discharge Instructions General Discharge Information Code Status: Full Code Patient's Diet: heart and healthy diet Patient's Activity: as tolerated Follow-Up Instructions/Appts: follow-up with cardiology and GI as outpatient Medications at Discharge Discharge Medications: Stop taking the following medications: Clopidogrel Bisulfate (Plavix) 75 MG TABLET ORAL DAILY Continue taking these medications: Omeprazole (Omeprazole) 40 MG CAPSULE. 1 Tablet ORAL DAILY Comments: Last Taken: 08/24/16 Time: 11 am Ranolazine (Ranexa 500MG) 500 MG TAB.ER.12H 1 Tablet ORAL TWICE DAILY Comments: LAST DOSE GIVEN ON 09/27/15 AT 9:15AM Tiotropium [place] (Spiriva) 18 MCG CAP.W.DEV 1 Tablet Inhale through mouth DAILY Comments: Not given in hospital Rosuvastatin Calcium (Crestor) 10 MG TABLET 1 Tablet ORAL DAILY Comments: Last Taken: 08/23/16 Time: 4 pm Ezetimibe (Zetia) 10 MG TAB 1 Tablet ORAL DAILY Comments: LAST DOSE GIVEN ON 09/27/15 AT 9:15AM Aspirin (Children's Aspirin) 81 MG TAB.CHEW 1 Tablet ORAL DAILY Comments: Last Taken: 08/24/16 Time: 11 am Alprazolam (Alprazolam) 0.5 MG TABLET 1 Tablet ORAL TWICE DAILY Comments: Last Taken: 08/24/16 Time: 11 am Mometasone/Formoterol (Dulera 200 Mcg/5 Mcg Inhaler) 13 GM HFA.AER.AD 2 Puff Inhale through mouth TWICE DAILY Comments: NOT GIVEN IN HOSPITAL Amiodarone HCl (Amiodarone HCl) 200 MG TABLET 1 Tablet ORAL DAILY Comments: Not Given In Hospital Diphenhydramine HCl (Benadryl) 25 MG CAPSULE 1 Capsule ORAL DAILY NEEDED Comments: Last Taken: 08/23/16 Time: 10 am Metoprolol Succ XL (Toprol Xl) 50 MG TAB.ER.24H 1 Tablet ORAL DAILY Comments: Last Taken: 08/24/16 Time: 11 am Cholecalciferol (Vitamin D3) (Vitamin D) 1,000 UNIT TABLET 3 Tablet ORAL DAILY Comments: Not Given In Hospital Albuterol Sulfate (Proair Respiclick) 90 MCG AER.POW.BA 2 PUFF Inhale through mouth EVERY 8 HOURS NEEDED as needed for COPD Comments: Not given in hospital Sennosides/Docusate Sodium (Senna-Docusate Sodium Tablet) 1 EACH TABLET 1 Tablet ORAL TWICE DAILY as needed for CONSTIPATION Comments: Last Taken: 08/23/16 Time: 9:30 am Mirtazapine (Mirtazapine) 15 MG TABLET 0.5 Tablet ORAL Every night Qty = 15 Comments: Last Taken: 08/23/16 Time: 9:30 pm Megestrol Acetate (Megace) 400 MG/10 ML (40 MG/ML) ORAL.SUSP 20 Milliliters ORAL DAILY Qty = 300 Comments: Not Given in hospital Amiodarone HCl (Pacerone) 100 MG TABLET 100 Milligram ORAL Every other day Comments: Last Taken: 08/23/16 Time: 10 am Fluticasone/Vilanterol (Breo Ellipta 100-25 Mcg INH) 100 MCG-25 MCG/DOSE BLST.W.DEV 1 PUFF Inhale through mouth DAILY Comments: Last Taken: 08/24/16 Time: 11 am Umeclidinium [place] (Incruse Ellipta) 62.5 MCG/ACTUATION BLST.W.DEV 1 PUFF Inhale through mouth DAILY Comments: Not given in hospital Levothyroxine Sodium (Levo-T) 25 MCG TABLET 25 Microgram ORAL DAILY Comments: Last Taken: 08/24/16 Time: 6 am Cholecalciferol (Vitamin D3) (Vitamin D) 1,000 UNIT TABLET 3,000 Units ORAL DAILY Comments: Not Given In Hospital Ezetimibe (Zetia) 10 MG TABLET 1 Tablet ORAL DAILY Comments: Last Taken: 08/24/16 Time: 11 am Copies To: MELQUIADES WILSON,VITOR AQUINO MD,MARK Rios Attending Review Statement Documenting Attending: JOE YUSUF MD
== END 2016-08-24 13:45 | DRG 812 ==
LOC: ERH 05:45 → ERHI 06:54 → 1NO 06:54 → ENRESERV 08:41 → 1NO 10:25 → ENPENDDIS 08-24 11:41 → 1NO 08-24 13:45
PROVIDERS: Emergency Medicine; Internal Medicine; ADMIT Internal Medicine
PROC: 30233N1 Transfusion of Nonautologous Red Blood Cells into Peripheral Vein, Percutaneous Approach (ICD-10-PCS; principal; 2016-08-21)
DX: D64.9 Anemia, unspecified (principal); I24.8 Other forms of acute ischemic heart disease; N18.4 Chronic kidney disease, stage 4 (severe); K92.2 Gastrointestinal hemorrhage, unspecified; E87.5 Hyperkalemia; I25.10 Atherosclerotic heart disease of native coronary artery without angina pectoris; I48.0 Paroxysmal atrial fibrillation; Z85.118 Personal history of other malignant neoplasm of bronchus and lung; J44.9 Chronic obstructive pulmonary disease, unspecified; E78.5 Hyperlipidemia, unspecified; I25.2 Old myocardial infarction; Z87.891 Personal history of nicotine dependence; F41.9 Anxiety disorder, unspecified; I12.9 Hypertensive chronic kidney disease with stage 1 through stage 4 chronic kidney disease, or unspecified chronic kidney disease
CPT/HCPCS: 1NSP; 36415; 82436; 86920; 93005; 93010; 96365; 96375; 99291; J0610; J3490; J7040; P9016

== ENCOUNTER 2017-10-10 13:04 | Inpatient (IN) | payer OTHER, MEDICARE ==
[2017-10-07 11:23] LABS: HEMATOCRIT 24.6 % (37-47); MEAN CORPUSCULAR HGB 25.6 PG (27.0-31.0); MEAN CORPUSCULAR HGB CONC 31.2 G/DL (33.0-37.0); MEAN CORPUSCULAR VOLUME 82.3 FL (81.0-99.0); MEAN PLATELET VOLUME 8.3 FL (7.4-10.4); PLATELET COUNT 321 /CUMM (130-400); RBC DISTRIBUTION WIDTH 19.7 % (11.5-14.5); WHITE BLOOD CELL COUNT 10.1 /CUMM (4.8-10.8)
[~2017-10-10] VITALS: Ht 152.4 cm; Wt 58.7 kg
[~2017-10-10 13:04] MED LIST changes: +BREO ELLIPTA 11 EACH INH; +INCRUSE ELLI62.5 MCG INH; +LEVO-T25 MCG PO; +PACERONE100 MG PO; +ZETIA10 M1 PO
--- NOTE | 2017-10-10 13:15 | ED DYSPNEA/ASTHMA COMPLAINT ---
History of Present Illness General Chief Complaint: General Adult Stated Complaint: BIBA NEAR SYNCOPE, SOB Source: patient, old records, EMS Exam Limitations: no limitations Vital Signs & Intake/Output Vital Signs & Intake/Output Vital Signs Date Time Temp Pulse Resp B/P B/P Pulse O2 O2 Flow FiO2 Mean Ox Delivery Rate 10/10 1735 97.4 28 10/10 1731 88 24 140/68 92 Nasal 5.0L Cannula 10/10 1424 91 Nasal 5.0L Cannula 10/10 1336 86 Nasal 5.0L Cannula 10/10 1308 97.9 75 22 180/70 86 Nasal 5.0L Cannula Allergies Coded Allergies: No Known Allergies (09/25/15) Reconcile Medications Albuterol Sulfate (Proair Respiclick) 90 MCG AER.POW.BA 2 PUFF INH Q8P PRN COPD (Reported) Alprazolam 0.5 MG TABLET 1 TAB PO BID ANXIETY (Reported) Amiodarone HCl (Pacerone) 100 MG TABLET 100 MG PO EOD AFIB (Reported) Aspirin (Children's Aspirin) 81 MG TAB.CHEW 1 TAB PO DAILY HEART HEALTH ( Reported) Cholecalciferol (Vitamin D3) (Vitamin D3) 1,000 UNIT CAPSULE 1 CAP PO DAILY SUPPLEMENT (Reported) diphenhydrAMINE HCl (Benadryl) 25 MG CAPSULE 1 CAP PO QHS PRN SLEEP (Reported ) Epoetin Jon (Epogen) (Unknown Strength) VIAL (Unknown Dose) SC [id number] SUPPLEMENT (Reported) Q 3 WEEKS, LAST TAKEN Wednesday10/04/17) Ezetimibe (Zetia) 10 MG TABLET 1 TAB PO DAILY CHOLESTEROL (Reported) Fluticasone/Vilanterol (Breo Ellipta 100-25 Mcg INH) 100 MCG-25 MCG/DOSE BLST.W.DEV 1 PUFF INH DAILY COPD (Reported) Furosemide 20 MG TABLET 20 MG PO EOD HEART (Reported) Levothyroxine Sodium 50 MCG TABLET 1 TAB PO DAILY THYROID (Reported) Metoprolol Succ XL (Toprol Xl) 50 MG TAB.ER.24H 1 TAB PO DAILY AFIB (Reported ) Mirtazapine 15 MG TABLET 1 TAB PO QPM PRN SLEEP (Reported) Omeprazole 40 MG CAPSULE.DR 1 TAB PO DAILY HEARTBURN (Reported) Ranolazine (Ranexa) 500 MG TAB.ER.12H 1,000 MG PO BID ANGINA (Reported) Rosuvastatin Calcium (Crestor) 10 MG TABLET 1 TAB PO DAILY HEART HEALTH ( Reported) Sennosides (Senna) 8.6 MG TABLET 8.6 MG PO PRN BOWELS (Reported) Umeclidinium [place] (Incruse Ellipta) 62.5 MCG/ACTUATION BLST.W.DEV 1 PUFF INH DAILY COPD (Reported) Triage Nurses Notes Reviewed? yes Onset: Abrupt Duration: day(s): (3-4), changing over time, continues in ED, getting worse Timing: recent history Severity: moderate, severe Activities at Onset: none Prior Episodes/Possible Cause: frequent episodes Modifying Factors: Worsens With: movement. Associated Symptoms: chest pain, weakness LMP (ages 10-50): unknown : No Patient currently breastfeeds: No HPI: 72-year-old female history of coronary artery disease, hypertension, lung cancer , pulmonary fibrosis, anemia, chronic kidney disease. Evaluation of shortness of breath and hypoxia. Patient reports that over the past 3 days she is gradually worsening chest pain and shortness of breath on exertion. She states that even walking short distances such as to the bathroom causes pain in the center of her chest that radiates into her jaw. She describes this as pressure. She states she has tried taking her RANEXA which she usually uses for angina without any improvement. She also noticed that her oxygen saturation has been in the 80s and 70s even on 3 L nasal cannula which is what she usually uses. She states that today she felt like she was going to pass out when trying to exert herself. She reports associated weakness and lightheadedness. She reports associated nausea but no vomiting. No fever no coughing. She has used inhalers without any improvement. She denies any lower extremity edema, fever, back pain changes in vision, melena, bright red blood per rectum, abdominal pain. (David Rose) Past History Medical History Any Pertinent Medical History? see below for history Neurological: NONE EENT: NONE Cardiovascular: CAD, hypertension, hyperlipidemia, myocardial infarction, STENTS Respiratory: pneumonia, pulmonary fibrosis, LUNG CA ILD Gastrointestinal: peptic ulcer disease Hepatic: NONE Renal: chronic kidney disease Musculoskeletal: disk herniation Psychiatric: NONE, anxiety Endocrine: NONE Blood Disorders: anemia Cancer(s): lung cancer History of MRSA: No History of VRE: No History of CDIFF: No Influenza Vaccine: 10/01/16 Surgical History Surgical History: STENTS (5) HYSTERECTOMY,LAMINECTOMY Psychosocial History Who do you live with Patient/Self Services at Home Nursing, Physical Therapy What is your primary language Mongolian Family History Family History, If Any: MOTHER (Leukemia). FATHER (Heart Attack). SISTER (ovarian cancer). BROTHER (Diabetes). Hx Contributory? No (David Rose) Review of Systems Review of Systems Constitutional: Reports: weakness. EENTM: Reports: no symptoms. Respiratory: Reports: see HPI, cough, short of breath. Cardiovascular: Reports: see HPI, chest pain. GI: Reports: no symptoms. Genitourinary: Reports: no symptoms. Musculoskeletal: Reports: no symptoms. Skin: Reports: no symptoms. Neurological/Psychological: Reports: no symptoms. Hematologic/Endocrine: Reports: no symptoms. Immunologic/Allergic: Reports: no symptoms. All Other Systems: Reviewed and Negative (David Rose) Physical Exam Physical Exam General Appearance: well developed/nourished, no apparent distress, alert, awake Head: atraumatic, normal appearance Eyes: Bilateral: normal appearance, PERRL, EOMI. Ears, Nose, Throat: hearing grossly normal Neck: normal inspection, supple, full range of motion Respiratory: chest non-tender, no respiratory distress, quiet respiration, decreased breath sounds Cardiovascular: regular rate/rhythm, normal peripheral pulses Peripheral Pulses: 2+ radial (R), 2+ radial (L) Gastrointestinal: normal bowel sounds, soft, non-tender, no organomegaly Extremities: normal inspection, normal range of motion, no edema Neurologic/Psych: no motor/sensory deficits, awake, alert, oriented x 3 Skin: intact, warm/dry, pallor Lymphatic: no anterior cervical lorena Core Measures ACS in differential dx? Yes CVA/TIA Diagnosis No Sepsis Present: No Sepsis Focused Exam Completed? No (David Rose) Progress Differential Diagnosis: asthma, AMI, bronchitis, CHF, COPD, pericarditis, pulmonary embolism, pneumonia, rib fracture, unstable angina, interstitial lung disease, pulmonary fibrosis Plan of Care: Orders Procedure Date/time Status EKG 10/12 599 Active Heart Healthy Diet 10/11 B Active TROPONIN LEVEL 10/11 599 Active CBC WITHOUT DIFFERENTIAL 10/11 599 Active BASIC ELECTROLYTES PLUS BUN&CR 10/11 599 Active Renal Dialysis Diet 10/10 D Complete TROPONIN LEVEL 10/11 1999 Active EKG 10/11 1999 Active Pathway - chart 10/10 1735 Active Code Status 10/10 1735 Active LACTIC ACID 10/10 1615 Active Patient Data 10/10 1613 Active ED Holding Orders 10/10 1608 Active Admit to inpatient 10/10 1608 Active Vital Signs 10/10 1608 Active Code Status 10/10 1608 Complete Intake & Output 10/10 1458 Active Telemetry/Multimedia Developer 10/10 1315 Active URINALYSIS 10/10 1315 Complete TROPONIN LEVEL 10/10 1315 Complete PARTIAL THROMBOPLASTIN TIME 10/10 1315 Complete PROTHROMBIN TIME 10/10 1315 Complete MAGNESIUM 10/10 1315 Complete LACTIC ACID 10/10 1315 Complete COMPREHENSIVE METABOLIC PANEL 10/10 1315 Complete CBC WITHOUT DIFFERENTIAL 10/10 1315 Complete B-TYPE NATRIURETIC PEP (BNP) 10/10 1315 Complete EKG 10/10 1315 Active US-EXT BILAT VENOUS DOPPLER 10/10 UNK Active TRC EVALUATION (GEN) 10/10 UNK Active Pathway - chart 10/10 UNK Active House Staff 10/10 UNK Active Weight 10/10 UNK Active VTE Mechanical Prophylaxis 10/10 UNK Active Intake & Output 10/10 UNK Active Activity/Ambulation 10/10 UNK Active CASE MANAGEMENT CONSULT 10/10 UNK Active Current Medications Sig/Noemy Start time Last Medication Dose Stop Time Status Admin Atorvastatin Calcium 40 MG 1700 10/11 1700 UNVr (Lipitor) Cholecalciferol 3,000 IU DAILY 10/11 0900 UNVr (Vitamin D) Ezetimibe 10 MG DAILY 10/11 0900 UNVr (Zetia) Levothyroxine Sodium 0.05 MG DAILY 10/11 09 UNVr (Synthroid) Metoprolol Succinate 50 MG DAILY 10/11 09 UNVr (Toprol Xl) Omeprazole 40 MG DAILY AC 10/11 0700 UNVr (Prilosec) Heparin Sodium 5,000 UNIT Q8 10/10 2199 UNVr (Porcine) Alprazolam 0.5 MG BID 10/10 2100 UNVr (Xanax) 10/17 2058 Budesonide/ 2 PUF BID 10/10 2100 UNVr Formoterol Fumarate (Symbicort) Ranolazine 1,000 MG BID 10/10 2100 UNVr (Ranexa) Albuterol Sulfate 2 PUF Q4 10/10 1800 UNVr (Ventolin) Amiodarone HCl 100 MG .[EOD] 10/10 1744 UNVr (Cordarone) Diphenhydramine HCl 25 MG .[QHS] PRN 10/10 1744 UNVr (Benadryl) Furosemide 20 MG .[EOD] 10/10 1744 UNVr (Lasix) Mirtazapine 15 MG QPM PRN 10/10 1744 UNVr (Remeron) Senna/Docusate Sodium 1 TAB DAILY PRN 10/10 1744 UNVr (Senokot S) Tiotropium [place] 1 PUF DAILY 10/10 1738 UNVr (Spiriva) Laboratory Tests 10/10/17 1445: Urine Color YEL, Urine Clarity CLEAR, Urine pH 7.0, Ur Specific Horatio 1.010, Urine Protein NEG, Urine Ketones NEG, Urine Nitrite NEG, Urine Bilirubin NEG, Urine Urobilinogen 0.2, Ur Leukocyte Esterase NEG, Ur Microscopic EXAM NOT REQUIRED, Urine Hemoglobin NEG, Urine Glucose NEG 10/10/17 1340: Anion Gap 14, Estimated GFR 26 L, BUN/Creatinine Ratio 13.7, Glucose 101 H, Lactic Acid 1.7, Calcium 9.6, Magnesium 1.8, Total Bilirubin 0.5, AST 36, ALT 23 , Alkaline Phosphatase 143 H, Troponin I < 0.01, Ttk-F-Kintujjlatp Pept 4570 H , Total Protein 7.2, Albumin 4.0, Globulin 3.2, Albumin/Globulin Ratio 1.3, PT 12.0, INR 1.10, APTT 29, CBC w Diff MAN DIFF ORDERED, RBC 3.08 L, MCV 81.7, MCH 25.6 L, MCHC 31.3 L, RDW 19.7 H, MPV 8.6, Segmented Neutrophils 87 H, Lymphocytes 2 L, Monocytes 9, Eosinophils 2, Nucleated RBCs 1 H, Polychromasia 1+, Hypochromic-Microcytic 2+, Poikilocytosis 1+, Anisocytosis 2+ Patient seen and evaluated. She is here with shortness of breath, chest pain and weakness. Symptoms are worse on exertion and improves at rest. Currently when she is just at rest she denies any symptoms however just with talking she desaturates. She has increased oxygen demand requiring 6 L nasal cannula to maintain oxygen saturation in the low 90s. She has no lower extremity edema or JVD. Labs EKG chest x-ray ordered. Patient was given a DuoNeb. Blood work shows a mildly elevated white blood cell count 11.2. Her anemia is stable for her at 7.9. She denies melena or bright red blood per rectum. Potassium is 5.7. Lasix and Kayexalate ordered. No EKG changes. Chest x-ray shows pulmonary edema versus infiltrate. A chest CT was obtained for further evaluation. Patient will require admission to the hospital. Chest CT shows evidence of emphysema interstitial lung disease possibly atypical pneumonitis versus pulmonary edema. Patient will be admitted to telemetry for further evaluation and treatment case discussed with Dr. Adler he agrees. Diagnostic Imaging: Viewed by Me: Radiology Read. Discussed w/RAD: Radiology Read. Radiology Impression: PATIENT: EMIGDIO MAGAÑA PRESENT AGE: 72 PATIENT ACCOUNT NO: [id number] : 47 LOCATION: [facility] ORDERING PHYSICIAN: Davdi PUENTES SERVICE DATE: 10/10/17 EXAM TYPE: CAT - CT CHEST WO IV CONTRAST EXAMINATION: CT CHEST WITHOUT CONTRAST CLINICAL INFORMATION: Shortness of breath. Hypoxia. COMPARISON: September 02, 2017 and May 24, 2017 TECHNIQUE: Multidetector volumetric CT imaging of the chest was done. Axial MIP volume rendering provided. Sagittal and coronal reformatted images were obtained. DLP: 211.66 mGy-cm FINDINGS: LUNGS: There are significant changes of paraseptal and centrilobular emphysema again seen bilaterally. There are also noted to be regions of reticulation and interstitial fibrosis in all lobes. There is an increase in the interstitial prominence suggestive of superimposed process on the chronic interstitial disease which is likely related to either pulmonary vascular congestion or viral/atypical pneumonitis. This could also be drug-induced such as from chemotherapy. Region of consolidation right lower lobe in region of surgery and markers does not show appreciable change. There is a small right pleural effusion. There is an increase in size of the lingula mass with now measures approximately 2.5 x 2.0 cm in size compared to 2.0 cm maximum dimension on study of September 02, 2017. MEDIASTINUM: Thyroid gland appears unremarkable. The heart is mildly enlarged. Coronary artery calcifications are present. No thoracic aortic aneurysm. There is mild calcified plaque seen within the thoracic aorta. No pericardial effusion. There is a 1.1 cm short axis AP window lymph node. There are 2 adjacent 1 cm short axis precarinal lymph nodes. There is suspicion for an enlarged right hilar lymph node but which is difficult to evaluate without IV contrast. These lymph nodes are slightly more prominent than on prior examination. PLEURA: There is a small right pleural effusion. AXILLA: No lymphadenopathy. UPPER ABDOMEN: No adrenal gland masses. There appear to be bilateral renal cysts. OSSEOUS STRUCTURES: No suspicious bony lesions. IMPRESSION: Diffuse centrilobular and paraseptal emphysema with some chronic interstitial lung disease. Interval increase in interstitial disease which may be related to interstitial edema, atypical or viral pneumonitis, or be drug- related. Interval enlargement of lingular mass. DICTATED BY: Ronnie Lanza MD DATE/TIME DICTATED:10/10/171531 CAKE INSPECTOR:DORIS DATE/TIME TRANSCRIBED:10/10/171531 CONFIDENTIAL, DO NOT COPY WITHOUT APPROPRIATE AUTHORIZATION. CXR Impression: PATIENT: EMIGDIO MAGAÑA PRESENT AGE: 72 PATIENT ACCOUNT NO: [id number] : 47 LOCATION: [facility] ORDERING PHYSICIAN: David PUENTES SERVICE DATE: 10/10/17 EXAM TYPE: RAD - XRY-PORTABLE CHEST XRAY EXAMINATION: XR PORTABLE CHEST CLINICAL INFORMATION: Shortness of breath and hypoxia. COMPARISON: Chest x-ray 04/21/2017. CT chest 09/02/2017. TECHNIQUE: Portable frontal view of the chest was obtained. FINDINGS: Mild bibasilar airspace opacities, right greater than left. There is blunting of both costophrenic angles. Heart and mediastinal silhouette is within normal limits. Mild engorgement of the pulmonary vasculature. Hazy opacities are also noted in the right middle and right upper lobe. No acute osseous finding. IMPRESSION: Bibasilar airspace opacities, right greater than left with possible small bilateral pleural effusions. These opacities are nonspecific and may represent atelectasis or pneumonia. Mild engorgement of the pulmonary vasculature suggesting volume overload. Prominent airspace opacities in the right middle and right upper lobe. These may represent sequela of mild volume overload or possibly developing foci of multifocal pneumonia. DICTATED BY: Rip Pearl MD DATE/TIME DICTATED:10/10/171406 CAKE INSPECTOR:DORIS DATE/TIME TRANSCRIBED:10/10/171406 CONFIDENTIAL, DO NOT COPY WITHOUT APPROPRIATE AUTHORIZATION. Initial ED EKG: normal sinus rhythm, LAFB Prior EKG: unchanged (David Rose) Departure Departure Disposition: STILL A PATIENT Condition: Stable Clinical Impression Primary Impression: Interstitial lung disease Secondary Impressions: Hyperkalemia Referrals: Delores WILSON,Jitendra Younger (PCP/Family) Departure Forms: Customer Survey General Discharge Information (David Rose) Admission Note Spoke With: Pancho WILSON,Tania Documentation of Exam: Documentation of any treatments & extenuating circumstances including Concerns Regarding Discharge (functional status, medication knowledge or non-compliance, living conditions, etc.) that warrant an admission rather than observation: [ TELE ADMISSION, KAYEXALATE, TRANSFUSION, PT EVALUATION] PA/SUPERVISOR LIQUEFACTION Co-Sign Statement Statement: ED Attending supervision documentation- [X] I saw and evaluated the patient. I have also reviewed all the pertinent lab results and diagnostic results. I agree with the findings and the plan of care as documented in the PA's/SUPERVISOR LIQUEFACTION's documentation. [X] I have reviewed the ED Record and agree with the PA's/SUPERVISOR LIQUEFACTION's documentation. [] Additions or exceptions (if any) to the PAs/SUPERVISOR LIQUEFACTION's note and plan are summarized below: [SEE ABOVE NOTE] (Vitor WILSON,Jose Raul Saini) Critical Care Note Critical Care Note Critical Care Time: 75-104 min (David Rose)
[2017-10-10 13:57] LABS: HEMATOCRIT 25.1 % (37-47); MEAN CORPUSCULAR HGB 25.6 PG (27.0-31.0); MEAN CORPUSCULAR HGB CONC 31.3 G/DL (33.0-37.0); MEAN CORPUSCULAR VOLUME 81.7 FL (81.0-99.0); MEAN PLATELET VOLUME 8.6 FL (7.4-10.4); PLATELET COUNT 353 /CUMM (130-400); RBC DISTRIBUTION WIDTH 19.7 % (11.5-14.5); RED BLOOD CELL CT 3.08 /CUMM (4.20-5.40); WHITE BLOOD CELL COUNT 11.2 /CUMM (4.8-10.8)
[2017-10-10] MEDS ORDERED: EPOGEN20000 UNIT SC (14:01)
[2017-10-10 14:03] LABS: PTT 29 SEC (25-37)
[2017-10-10] MEDS ORDERED: FUROSEMIDE20 M1 PO (14:03)
[2017-10-10] MEDS ORDERED: LEVOTHYROXINE50 MCG PO (14:04)
[2017-10-10] MEDS ORDERED: RANEXA500 M1 PO (14:07)
[2017-10-10] MEDS ORDERED: VITAMIN D31000 UNI1 PO (14:09)
[2017-10-10] MEDS ORDERED: SENNA8.6 M3 PO (14:10)
[2017-10-10] MEDS ORDERED: MIRTAZAPINE15 M2 PO (14:11)
--- NOTE | 2017-10-10 14:16 | RADIOLOGY REPORT ---
EXAMINATION: XR PORTABLE CHEST CLINICAL INFORMATION: Shortness of breath and hypoxia. COMPARISON: Chest x-ray 04/21/2017. CT chest 09/02/2017. TECHNIQUE: Portable frontal view of the chest was obtained. FINDINGS: Mild bibasilar airspace opacities, right greater than left. There is blunting of both costophrenic angles. Heart and mediastinal silhouette is within normal limits. Mild engorgement of the pulmonary vasculature. Hazy opacities are also noted in the right middle and right upper lobe. No acute osseous finding. IMPRESSION: Bibasilar airspace opacities, right greater than left with possible small bilateral pleural effusions. These opacities are nonspecific and may represent atelectasis or pneumonia. Mild engorgement of the pulmonary vasculature suggesting volume overload. Prominent airspace opacities in the right middle and right upper lobe. These may represent sequela of mild volume overload or possibly developing foci of multifocal pneumonia.
--- NOTE | 2017-10-10 16:07 | CT SCAN REPORT ---
EXAMINATION: CT CHEST WITHOUT CONTRAST CLINICAL INFORMATION: Shortness of breath. Hypoxia. COMPARISON: September 02, 2017 and May 24, 2017 TECHNIQUE: Multidetector volumetric CT imaging of the chest was done. Axial MIP volume rendering provided. Sagittal and coronal reformatted images were obtained. DLP: 211.66 mGy-cm FINDINGS: LUNGS: There are significant changes of paraseptal and centrilobular emphysema again seen bilaterally. There are also noted to be regions of reticulation and interstitial fibrosis in all lobes. There is an increase in the interstitial prominence suggestive of superimposed process on the chronic interstitial disease which is likely related to either pulmonary vascular congestion or viral/atypical pneumonitis. This could also be drug-induced such as from chemotherapy. Region of consolidation right lower lobe in region of surgery and markers does not show appreciable change. There is a small right pleural effusion. There is an increase in size of the lingula mass with now measures approximately 2.5 x 2.0 cm in size compared to 2.0 cm maximum dimension on study of September 02, 2017. MEDIASTINUM: Thyroid gland appears unremarkable. The heart is mildly enlarged. Coronary artery calcifications are present. No thoracic aortic aneurysm. There is mild calcified plaque seen within the thoracic aorta. No pericardial effusion. There is a 1.1 cm short axis AP window lymph node. There are 2 adjacent 1 cm short axis precarinal lymph nodes. There is suspicion for an enlarged right hilar lymph node but which is difficult to evaluate without IV contrast. These lymph nodes are slightly more prominent than on prior examination. PLEURA: There is a small right pleural effusion. AXILLA: No lymphadenopathy. UPPER ABDOMEN: No adrenal gland masses. There appear to be bilateral renal cysts. OSSEOUS STRUCTURES: No suspicious bony lesions. IMPRESSION: Diffuse centrilobular and paraseptal emphysema with some chronic interstitial lung disease. Interval increase in interstitial disease which may be related to interstitial edema, atypical or viral pneumonitis, or be drug-related. Interval enlargement of lingular mass.
--- NOTE | 2017-10-10 16:29 | PN- Att Addend ---
Attending Addendum Attending Brief Note Patient seen and examined. Plan of care discussed with the medical team and the patient. Available lab work and radiology test reports were reviewed. In summary this is a 72-year-old female history of coronary artery disease, hypertension, lung cancer, pulmonary fibrosis, anemia, chronic kidney disease was chronically on home O2 presents with 3 days history of worsening difficulty breathing and increasing cough without any sputum production. Patient denies any recent fever or chills. In the ED she also had right-sided jaw pain. She intermittently has been having chest pressure which apparently has been ascribed to her angina. She follows with Dr. Lomeli for pulmonary, Dr. Anderson for cardiology and Dr. Stout for primary care. She also follows with Dr. Cintron. 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 Allergies Coded Allergies: No Known Allergies (09/25/15) Reconcile Medications Albuterol Sulfate (Proair Respiclick) 90 MCG AER.POW.BA 2 PUFF INH Q8P PRN COPD (Reported) Alprazolam 0.5 MG TABLET 1 TAB PO BID ANXIETY (Reported) Amiodarone HCl (Pacerone) 100 MG TABLET 100 MG PO EOD AFIB (Reported) Aspirin (Children's Aspirin) 81 MG TAB.CHEW 1 TAB PO DAILY HEART HEALTH ( Reported) Cholecalciferol (Vitamin D3) (Vitamin D3) 1,000 UNIT CAPSULE 1 CAP PO DAILY SUPPLEMENT (Reported) diphenhydrAMINE HCl (Benadryl) 25 MG CAPSULE 1 CAP PO QHS PRN SLEEP (Reported ) Epoetin Jon (Epogen) (Unknown Strength) VIAL (Unknown Dose) SC [id number] SUPPLEMENT (Reported) Q 3 WEEKS, LAST TAKEN Wednesday10/04/17) Ezetimibe (Zetia) 10 MG TABLET 1 TAB PO DAILY CHOLESTEROL (Reported) Fluticasone/Vilanterol (Breo Ellipta 100-25 Mcg INH) 100 MCG-25 MCG/DOSE BLST.W.DEV 1 PUFF INH DAILY COPD (Reported) Furosemide 20 MG TABLET 20 MG PO EOD HEART (Reported) Levothyroxine Sodium 50 MCG TABLET 1 TAB PO DAILY THYROID (Reported) Metoprolol Succ XL (Toprol Xl) 50 MG TAB.ER.24H 1 TAB PO DAILY AFIB (Reported ) Mirtazapine 15 MG TABLET 1 TAB PO QPM PRN SLEEP (Reported) Omeprazole 40 MG CAPSULE.DR 1 TAB PO DAILY HEARTBURN (Reported) Ranolazine (Ranexa) 500 MG TAB.ER.12H 1,000 MG PO BID ANGINA (Reported) Rosuvastatin Calcium (Crestor) 10 MG TABLET 1 TAB PO DAILY HEART HEALTH ( Reported) Sennosides (Senna) 8.6 MG TABLET 8.6 MG PO PRN BOWELS (Reported) Umeclidinium [place] (Incruse Ellipta) 62.5 MCG/ACTUATION BLST.W.DEV 1 PUFF INH DAILY COPD (Reported) Medical History Neurological: NONE EENT: NONE Cardiovascular: CAD, hypertension, hyperlipidemia, myocardial infarction, STENTS Respiratory: pneumonia, pulmonary fibrosis, LUNG CA ILD Gastrointestinal: peptic ulcer disease Hepatic: NONE Renal: chronic kidney disease Musculoskeletal: disk herniation Psychiatric: NONE, anxiety Endocrine: NONE Blood Disorders: anemia Cancer(s): lung cancer History of MRSA: No History of VRE: No History of CDIFF: No Influenza Vaccine: 02/01/16 Surgical History Surgical History: STENTS (5) HYSTERECTOMY,LAMINECTOMY Psychosocial History Who do you live with Patient/Self Services at Home Nursing, Physical Therapy What is your primary language Estonian Family History Family History, If Any: MOTHER (Leukemia). FATHER (Heart Attack). SISTER (ovarian cancer). BROTHER (Diabetes). Vital Signs Date Time Temp Pulse Resp B/P B/P Pulse O2 O2 Flow FiO2 Mean Ox Delivery Rate 10/10 1424 91 Nasal 5.0L Cannula 10/10 1336 86 Nasal 5.0L Cannula 10/10 1308 97.9 75 22 180/70 86 Nasal 5.0L Cannula Exam: General: Patient awake alert oriented who is slightly tachypnea But without any distress CVS: S1 plus S2 without any murmur or gallops Chest: Overall decreased air entry bilaterally, Few scattered crepitation with expiratory prolongation but without wheeze. There is no respiratory distress. 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: Awake alert oriented without any focal neuro deficit and follows commands appropriately Extremities: No edema; no clubbing or cyanosis noted Laboratory Tests 10/10 10/10 1445 1340 Chemistry Sodium (137 - 145 mmol/L) 143 Potassium (3.5 - 5.1 mmol/L) 5.7 H Chloride (98 - 107 mmol/L) 107 Carbon Dioxide (22 - 30 mmol/L) 22 Anion Gap (5 - 16) 14 BUN (7 - 17 mg/dL) 26 H Creatinine (0.5 - 1.0 mg/dL) 1.9 H Estimated GFR (>60 ml/min) 26 L BUN/Creatinine Ratio (7 - 25 %) 13.7 Glucose (65 - 99 mg/dL) 101 H Lactic Acid (0.7 - 2.1 mmol/L) 1.7 Calcium (8.4 - 10.2 mg/dL) 9.6 Magnesium (1.6 - 2.3 mg/dL) 1.8 Total Bilirubin (0.2 - 1.3 mg/dL) 0.5 AST (14 - 36 U/L) 36 ALT (9 - 52 U/L) 23 Alkaline Phosphatase (<127 U/L) 143 H Troponin I (< 0.11 ng/ml) < 0.01 Ewd-P-Svuaceoiloa Pept (<125 pg/mL) 4570 H Total Protein (6.3 - 8.2 g/dL) 7.2 Albumin (3.5 - 5.0 g/dL) 4.0 Globulin (1.9 - 4.2 gm/dL) 3.2 Albumin/Globulin Ratio (1.1 - 2.2 %) 1.3 Coagulation PT (9.4 - 12.5 SEC) 12.0 INR (0.90 - 1.19) 1.10 APTT (25 - 37 SEC) 29 Hematology CBC w Diff MAN DIFF ORDERED WBC (4.8 - 10.8 /CUMM) 11.2 H RBC (4.20 - 5.40 /CUMM) 3.08 L Hgb (12.0 - 16.0 G/DL) 7.9 L Hct (37 - 47 %) 25.1 L MCV (81.0 - 99.0 FL) 81.7 MCH (27.0 - 31.0 PG) 25.6 L MCHC (33.0 - 37.0 G/DL) 31.3 L RDW (11.5 - 14.5 %) 19.7 H Plt Count (130 - 400 /CUMM) 353 MPV (7.4 - 10.4 FL) 8.6 Segmented Neutrophils (42.2 - 75.2 %) 87 H Lymphocytes (20.5 - 51.1 %) 2 L Monocytes (1.7 - 9.3 %) 9 Eosinophils (0 - 5.0 %) 2 Nucleated RBCs (0.0 - 0.0 /100WBC) 1 H Polychromasia 1+ Hypochromic-Microcytic 2+ Poikilocytosis 1+ Anisocytosis 2+ Urines Urine Color (YEL,AMB,STR) YEL Urine Clarity (CLEAR) CLEAR Urine pH (5.0 - 8.0) 7.0 Ur Specific [place] (1.001 - 1.035) 1.010 Urine Protein (NEG,<30 MG/DL) NEG Urine Ketones (NEG) NEG Urine Nitrite (NEG) NEG Urine Bilirubin (NEG) NEG Urine Urobilinogen (0.1 - 1.0 EU/dl) 0.2 Ur Leukocyte Esterase (NEG) NEG Ur Microscopic EXAM NOT REQUIRED Urine Hemoglobin (NEG) NEG Urine Glucose (N MG/DL) NEG CT chest Diffuse centrilobular and paraseptal emphysema with some chronic interstitial lung disease. Interval increase in interstitial disease which may be related to interstitial edema, atypical or viral pneumonitis, or be drug-related. Interval enlargement of lingular mass. cxr Bibasilar airspace opacities, right greater than left with possible small bilateral pleural effusions. These opacities are nonspecific and may represent atelectasis or pneumonia. Mild engorgement of the pulmonary vasculature suggesting volume overload. Prominent airspace opacities in the right middle and right upper lobe. These may represent sequela of mild volume overload or possibly developing foci of multifocal pneumonia. Assessment and problem list * Difficulty breathing - definition include gradual worsening of her underlying pulmonary fibrosis, COPD exacerbation or mild CHF. No sign of active pneumonia is noted on CT scan * History of COPD * History of growing fibrosis * History of CAD status post stent placement- the recurrent angina and jaw pain today * Chronic renal failure with worsening of creatinine to 2.5 * Lung mass and history of lung cancer status post CyberKnife- waiting for biopsy of the left sided tumor * Chronic anemia likely related to her any disease Plan * Admit to telemetry * Rule out WI protocol with troponin; repeat EKG; cardiology consult, continue Ranexa * TRC nebulizer treatment and continue oxygen, obtain pulmonary consult Dr. Lomeli tomorrow * Patient was given a dose of Lasix in ED- at this point I will continue to observe patient, since she is not actively wheezing I would avoid giving steroids at this point * Patient also fever she can be started on broad-spectrum antibiotics * Patient is requesting Xanax 0.5 mg and Benadryl 50 mg at night for sleep
--- NOTE | 2017-10-10 16:31 | Admission Certification ---
Admission Certification Certification Statement - As attending physician, I certify that at the time of - admission, based on clinical presentation, severity of - symptoms, need for further diagnostic testing and - therapeutic interventions, and risk of adverse outcomes - without in-hospital treatment, in my clinical assessment, - this patient requires an acute hospital stay for a minimum - of two nights or longer. I have also considered psychsocial - factors such as support system, advanced age, financial - issues, cognitive issues, and failed out-patient treatments, - past re-admission history, safety of patient, and lack of - compliance as applicable. Specific rationale supporting this admission is: Difficulty breathing, possible COPD exacerbation, worsening renal failure, and recurrent chest and jaw pain
--- NOTE | 2017-10-10 16:33 | History & Physical ---
David Merchant MD 10/10/17 2032: General Information and HPI History of Present Illness: Ms. Obrien is a 72-year-old female with past medical history of coronary artery disease status post SD with multiple stents followed by Dr. 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 Lomeli, interstitial lung disease on 3 L oxygen, chronic kidney disease followed by Dr. Cardoza, paroxysmal atrial fibrillation not on anticoagulation due to a GI bleed and anxiety who presents with shortness of breath. The patient says that for the past 3-4 days she has had progressive shortness of breath and weakness that is especially worse on exertion. She has measured her saturation and has been in the 60s. She additionally complains of some chest pain that radiates the shoulder and jaw. Because of the severity of her symptoms, she activated her life alert and was brought to the emergency room. She additionally reports occasional chills, nonproductive cough, constipation, and right leg pain. She currently does not have an oncologist and she had gamma knife several years ago but never had chemotherapy for her lung cancer. She was scheduled to have a left lung biopsy for a new mass on Wednesday. She denies any fever, sweats, abdominal pain, nausea, vomiting, diarrhea, dysuria, rash, melena, hematochezia, previous blood clots. She is a former smoker denies alcohol or recreational drug use. Allergies/Medications Allergies: Coded Allergies: No Known Allergies (09/25/15) Home Med list Albuterol Sulfate (Proair Respiclick) 90 MCG AER.POW.BA 2 PUFF INH Q8P PRN COPD (Reported) Alprazolam 0.5 MG TABLET 1 TAB PO BID ANXIETY (Reported) Amiodarone HCl (Pacerone) 100 MG TABLET 100 MG PO EOD AFIB (Reported) Aspirin (Children's Aspirin) 81 MG TAB.CHEW 1 TAB PO DAILY HEART HEALTH ( Reported) Cholecalciferol (Vitamin D3) (Vitamin D3) 1,000 UNIT CAPSULE 1 CAP PO DAILY SUPPLEMENT (Reported) diphenhydrAMINE HCl (Benadryl) 25 MG CAPSULE 1 CAP PO QHS PRN SLEEP (Reported ) Epoetin Jon (Epogen) (Unknown Strength) VIAL (Unknown Dose) SC [id number] SUPPLEMENT (Reported) Q 3 WEEKS, LAST TAKEN Wednesday10/04/17) Ezetimibe (Zetia) 10 MG TABLET 1 TAB PO DAILY CHOLESTEROL (Reported) Fluticasone/Vilanterol (Breo Ellipta 100-25 Mcg INH) 100 MCG-25 MCG/DOSE BLST.W.DEV 1 PUFF INH DAILY COPD (Reported) Furosemide 20 MG TABLET 20 MG PO EOD HEART (Reported) Levothyroxine Sodium 50 MCG TABLET 1 TAB PO DAILY THYROID (Reported) Metoprolol Succ XL (Toprol Xl) 50 MG TAB.ER.24H 1 TAB PO DAILY AFIB (Reported ) Mirtazapine 15 MG TABLET 1 TAB PO QPM PRN SLEEP (Reported) Omeprazole 40 MG CAPSULE.DR 1 TAB PO DAILY HEARTBURN (Reported) Ranolazine (Ranexa) 500 MG TAB.ER.12H 1,000 MG PO BID ANGINA (Reported) Rosuvastatin Calcium (Crestor) 10 MG TABLET 1 TAB PO DAILY HEART HEALTH ( Reported) Sennosides (Senna) 8.6 MG TABLET 8.6 MG PO PRN BOWELS (Reported) Umeclidinium [place] (Incruse Ellipta) 62.5 MCG/ACTUATION BLST.W.DEV 1 PUFF INH DAILY COPD (Reported) Past History Travel History Traveled to [place] past 21 day No Medical History Neurological: NONE EENT: NONE Cardiovascular: CAD, hypertension, hyperlipidemia, myocardial infarction, STENTS Respiratory: pneumonia, pulmonary fibrosis, LUNG CA ILD Gastrointestinal: peptic ulcer disease Hepatic: NONE Renal: chronic kidney disease Musculoskeletal: disk herniation Psychiatric: NONE, anxiety Endocrine: NONE Blood Disorders: anemia Cancer(s): lung cancer History of MRSA: No History of VRE: No History of CDIFF: No Influenza Vaccine: 02/01/16 Surgical History Surgical History: STENTS (5) HYSTERECTOMY,LAMINECTOMY Past Family/Social History Family History Relations & Conditions if any MOTHER (Leukemia). FATHER (Heart Attack). SISTER (ovarian cancer). BROTHER (Diabetes). Psychosocial History Who Do You Live With? self Services at Home: Nursing, Physical Therapy Primary Language: Moldovan ETOH Use: denies use Illicit Drug Use: denies illicit drug use Functional Ability ADLs Independent: dressing, eating, toileting, bathing. Ambulation: cane IADLs Independent: shopping, housework, finances, food prep, telephone, transportation , medication admin. Review of Systems Review of Systems Constitutional: Reports: no symptoms. EENTM: Reports: no symptoms. Cardiovascular: Reports: see HPI. Respiratory: Reports: see HPI. GI: Reports: no symptoms. Genitourinary: Reports: no symptoms. Musculoskeletal: Reports: no symptoms. Skin: Reports: no symptoms. Neurological/Psychological: Reports: no symptoms. Hematologic/Endocrine: Reports: no symptoms. Immunologic/Allergic: Reports: no symptoms. All Other Systems: Reviewed and Negative Exam & Diagnostic Data Last 24 Hrs of Vital Signs/I&O Vital Signs Date Time Temp Pulse Resp B/P B/P Pulse O2 O2 Flow FiO2 Mean Ox Delivery Rate 10/10 1424 91 Nasal 5.0L Cannula 10/10 1336 86 Nasal 5.0L Cannula 10/10 1308 97.9 75 22 180/70 86 Nasal 5.0L Cannula Intake & Output 10/10 1600 10/10 0800 10/10 0000 Intake Total Output Total 250 Balance -250 Output, Urine 250 Patient 58.513 kg Weight Weight Reported by Patient Measurement Method Physical Exam General Appearance Alert, Oriented X3, Cooperative, No Acute Distress Cardiovascular Regular Rate, Normal S1, Normal S2 Lungs crackles Abdomen Normal Bowel Sounds, Soft, No Tenderness Extremities No Edema, Normal Pulses, No Tenderness/Swelling Last 24 Hrs of Labs/[place]: Laboratory Tests 10/10/17 1445: Urine Color YEL, Urine Clarity CLEAR, Urine pH 7.0, Ur Specific [place] 1.010, Urine Protein NEG, Urine Ketones NEG, Urine Nitrite NEG, Urine Bilirubin NEG, Urine Urobilinogen 0.2, Ur Leukocyte Esterase NEG, Ur Microscopic EXAM NOT REQUIRED, Urine Hemoglobin NEG, Urine Glucose NEG 10/10/17 1340: Anion Gap 14, Estimated GFR 26 L, BUN/Creatinine Ratio 13.7, Glucose 101 H, Lactic Acid 1.7, Calcium 9.6, Magnesium 1.8, Total Bilirubin 0.5, AST 36, ALT 23 , Alkaline Phosphatase 143 H, Troponin I < 0.01, Oex-S-Cxaucitmiyv Pept 4570 H , Total Protein 7.2, Albumin 4.0, Globulin 3.2, Albumin/Globulin Ratio 1.3, PT 12.0, INR 1.10, APTT 29, CBC w Diff MAN DIFF ORDERED, RBC 3.08 L, MCV 81.7, MCH 25.6 L, MCHC 31.3 L, RDW 19.7 H, MPV 8.6, Segmented Neutrophils 87 H, Lymphocytes 2 L, Monocytes 9, Eosinophils 2, Nucleated RBCs 1 H, Polychromasia 1+, Hypochromic-Microcytic 2+, Poikilocytosis 1+, Anisocytosis 2+ Assessment/Plan Assessment: Ms. Obrien is a 72-year-old female with past medical history of coronary artery disease status post SD with multiple stents followed by Dr. 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 Lomeli, interstitial lung disease on 3 L oxygen, chronic kidney disease followed by Dr. Cardoza, paroxysmal atrial fibrillation not on anticoagulation due to a GI bleed and anxiety who presents with shortness of breath. On presentation, vital signs were T 97.9, HR 75, RR 22, BP 180/70, saturating 86 % on 5 L nasal cannula. Laboratories were significant for white blood cell count of 1.2, hemoglobin 7.9, MCV 81.7, potassium 5.7, BUN 26, creatinine 1.9 ( baseline 2.2), lactic acid 1.7, calcium 9.6, negative LFTs, BNP 4570. Urinalysis was negative. Chest x-ray shows bibasilar airspace opacities right greater than left with small bilateral pleural effusions and mild engorgement of the pulmonary vasculature suggesting volume overload. CT chest without contrast shows diffuse central lobar and paraseptal emphysema with some tonic interstitial lung disease, interval increase in interstitial disease, and interval enlargement of the lingular mass. She will be admitted to telemetry and treated for the following problems: 1. Dyspnea with extensive pulmonary disease history 2. Chest pain syndrome 3. Hyperkalemia 4. Normocytic anemia #Dyspnea with extensive pulmonary disease history: Patient has an extensive long history including lung cancer and interstitial lung disease now presenting with acutely worsening dyspnea. Differential would include CHF versus amiodarone induced toxicity versus pulmonary embolism versus pneumonia. CT imaging is nonspecific and suggests multiple possible etiologies. -EKG and troponins 3 -Cardiology consult -Daily weights, strict I's and O's -Pulmonology consult -Continue ranolazine -Consider further diuresis -Ultrasound right lower extremity #Hyperkalemia: Patient has hyperkalemia that is mild without peak T waves. -Kayexalate was given in the emergency room -Continue to monitor #Normocytic anemia: Patient has a chronic anemia secondary to her chronic kidney disease for which he receives Epogen. She also has history of GI bleed. She is not complaining of any hematochezia or melena recently. -Continue Epogen -Continue to monitor #Chronic medical problems: Continue other home medications DVT prophylaxis with heparin CHF diet DNR/okay to intubate As Ranked By This Provider Problem List: 1. Dyspnea Core Measures/Misc (01/17) Acute Coronary Syndrome ACS Diagnosis: No Congestive Heart Failure Congestive Heart Failure Diagnosis Yes Cerebrovascular Accident CVA/TIA Diagnosis: No VTE (View Protocol) VTE Risk Factors Age>40 No Mechanical VTE Prophylaxis d/t N/A MechProphylax Ordered No VTE Pharm Prophylaxis d/t NA PharmProphylax ordered Sepsis (View protocol) Sepsis Present: No If YES complete Sepsis Event Note If YES complete Sepsis Event Note Tone Campbell 10/10/17 1804: Core Measures/Misc (01/17) Sepsis (View protocol) If YES complete Sepsis Event Note If YES complete Sepsis Event Note Resident Review Statement Resident Statement: examined this patient, discussed with internet designer, agreed with internet designer, discussed with family, reviewed EMR data (avail), discussed with nursing , discussed with case mgmt, reviewed images, amended to note Other Findings: 72-year-old woman with past medical history of coronary artery disease status post PCI (2000, 2013) as well as STEMI to the RCA 08/21/2015, history of COPD/ interstitial lung disease/lung cancer, paroxysmal atrial fibrillation not on any anticoagulation due to history of GI bleed, chronic anemia, chronic kidney disease due to hypertensive nephrosclerosis presented to [facility] ED with chief complaint of progressive shortness of breath, hypoxemia to 70s on pulse oximeter, chest pain with radiation to jaw, with no obvious reproducible component, 2 day history of orthopnea (sleeping in a recliner) but no PND or lower extremity leg swelling. She did endorse to two-week history of right leg intermittent sharp pain, and some swelling. She received CAT scan in the ED, which shows diffuse centrilobular and paraseptal emphysema with some chronic interstitial lung disease. The interstitial disease shows interval increase, which could be secondary to interstitial edema (exam largely negative for signs of fluid retention), atypical or viral pneumonitis (no recent sick contacts or upper respiratory symptoms) or drug related (patient has been on amiodarone for a long period of time) and exam reveals a Velcro like coarse breath sounds in the right mid and lower lung petersen. Her EKG is quite similar to the baseline from 2017, but sinus rhythm and left anterior fascicular block. The patient will be admitted to telemetry, serial troponins and EKG to rule out ACS. Her aspirin is on hold due to anticipated lung biopsy on Wednesday. Her previous echo from August 2017 has shown normal LVEF but anteroseptal hypokinesis. Continue metoprolol, statin and Ranexa for chronic angina. For her chronic obstructive lung disease, she should get TRC nebs and inhalers as prescribed. Consult with Dr. Lomeli in the morning. She is low-moderate risk by Bryce. To be taken into consideration, that she is beta blocked and may inappropriately have normal heart rate. Please obtain ultrasound of bilateral lower extremities. If her hypoxemia and shortness of breath continues to progress-she may need a VQ scan. Her ILD is progressing, especially while on amiodarone, and may need to be addressed by cardiology. Especially, when her progressing ILD cannot be accounted for by interstitial edema (euvolemic on exam). Pneumonitis-viral or atypical may perhaps be contributing to the CT findings, check rapid flu. For her anemia, this is likely secondary to CKD and she gets Epogen. Please check Hemoccult. Type and cross, she has a history of coronary artery disease and a goal level of greater than 8 hemoglobin should be maintained. Check CBC in the morning. Hyperkalemia. Likely secondary to CKD, received Kayexalate in the ED. Will improve with beta agonist administration with TRC. DO NOT RESUSCITATE, but okay to intubate. Heart healthy diet. Heparin subcu for DVT prophylaxis.
[2017-10-10 18:29] VITALS: BP 134/64
[2017-10-10 22:30] VITALS: BP 104/58
[2017-10-11 07:02] VITALS: BP 116/66
--- NOTE | 2017-10-11 07:19 | PN- Housestaff ---
See Addendum Subjective Follow-up For: Dyspnea, chest pain Tele-Events Since Last Visit: Sinus rhythm, 6080 Subjective: Patient had increasing oxygen requirement to 55% on high flow last night. She says that she was not feeling terribly short of breath but they put her on her. She does not like it that would like to go back to nasal cannula. She has no shortness of breath or chest pain at this time. She is also concerned about getting her lung biopsy tomorrow. Otherwise, she has some nausea but no other complaints Review of Systems Constitutional: Reports: no symptoms. EENTM: Reports: no symptoms. Cardiovascular: Reports: see HPI. Respiratory: Reports: see HPI. Gastrointestinal: Reports: see HPI. Genitourinary: Reports: no symptoms. Musculoskeletal: Reports: no symptoms. Skin: Reports: no symptoms. Neurological/Psychological: Reports: no symptoms. Hematologic/Endocrine: Reports: no symptoms. Immunologic/Allergic: Reports: no symptoms. Objective Last 24 Hrs of Vital Signs/I&O Vital Signs Date Time Temp Pulse Resp B/P B/P Pulse O2 O2 Flow FiO2 Mean Ox Delivery Rate 10/11 0702 98.4 68 18 116/66 99 Non ReBreather 10/11 0112 92 Nasal 55% Cannula 10/11 0000 Nasal 55% Cannula 10/10 2230 99.9 78 18 104/58 92 Part ReBreather 10/10 2155 81 134/64 10/10 2154 81 134/64 10/10 2130 Nasal 5.0L Cannula 10/10 1829 98.3 81 18 134/64 92 Nasal 5.0L Cannula 10/10 1810 Nasal 3.0L Cannula 10/10 1735 97.4 28 10/10 1731 88 24 140/68 92 Nasal 5.0L Cannula 10/10 1424 91 Nasal 5.0L Cannula 10/10 1336 86 Nasal 5.0L Cannula 10/10 1308 97.9 75 22 180/70 86 Nasal 5.0L Cannula Intake & Output 10/11 0800 10/11 0000 10/10 1600 Intake Total 200 300 Output Total 350 450 250 Balance -150 -150 -250 Intake, Oral 200 300 Output, Urine 350 450 250 Patient 56.359 kg 58.513 kg Weight Weight Bed scale Reported by Patient Measurement Method Physical Exam General Appearance: Alert, Oriented X3, Cooperative, No Acute Distress Cardiovascular: Regular Rate, Normal S1, Normal S2 Lungs: crackles Abdomen: Normal Bowel Sounds, Soft, No Tenderness Extremities: No Edema, Normal Pulses, No Tenderness/Swelling Current Medications: Current Medications Sig/Noemy Start time Last Medication Dose Route Stop Time Status Admin Acetaminophen 650 MG ONCE ONE 10/11 0145 DC 10/11 PO 10/11 0146 0140 Albuterol Sulfate 3 ML BID 10/11 0900 AC INH Albuterol Sulfate 2 PUF Q4 10/10 1800 AC 10/11 INH 0641 Albuterol Sulfate 3 ML ONCE ONE 10/10 1400 DC 10/10 INH 10/10 1401 1400 Alprazolam 0.5 MG BID 10/10 2100 AC 10/10 PO 10/17 2059 2203 Amiodarone HCl 100 MG Q48H 10/10 1745 AC 10/10 PO 2154 Atorvastatin Calcium 40 MG 1700 10/11 1700 AC PO Budesonide/ 2 PUF BID 10/10 2100 AC 10/10 Formoterol Fumarate INH 2158 Cholecalciferol 3,000 IU DAILY 10/11 899 AC PO Diphenhydramine HCl 25 MG AT BEDTIME PRN 10/10 2100 AC 10/10 PO 2154 Ezetimibe 10 MG DAILY 10/11 09 AC PO Furosemide 20 MG Q48H 10/10 174 AC PO Furosemide 0 .STK-MED ONE 10/10 1443 DC IV Furosemide 40 MG ONCE ONE 10/10 1430 DC 10/10 IV 10/10 1431 1455 Heparin Sodium 5,000 UNIT Q8 10/10 2200 AC 10/11 (Porcine) SC 0641 Ipratropium [place] 2.5 ML ONCE ONE 10/10 1400 DC 10/10 INH 10/10 1401 1400 Levothyroxine Sodium 0.05 MG DAILY AC 10/11 0700 AC 10/11 PO 0630 Metoprolol Succinate 50 MG DAILY 10/11 0900 AC PO Mirtazapine 15 MG QPM PRN 10/10 1745 AC PO Omeprazole 40 MG DAILY AC 10/11 0700 AC 10/11 PO 0629 Ranolazine 1,000 MG BID 10/10 2100 AC 10/10 PO 2155 Senna/Docusate Sodium 1 TAB DAILY PRN 10/10 1745 AC PO Sodium Polystyrene 0 .STK-MED ONE 10/10 1615 DC Sulfonate .ROUTE Sodium Polystyrene 60 ML ONCE ONE 10/10 1600 DC 10/10 Sulfonate PO 10/10 1601 1611 Tiotropium [place] 1 PUF DAILY 10/10 1739 AC INH Last 24 Hrs of Lab/[place] Results Last 24 Hrs of Labs/Mics: Laboratory Tests 10/11/17 0654: Sodium Pending, Potassium Pending, Chloride Pending, Carbon Dioxide Pending, Anion Gap Pending, BUN Pending, Creatinine Pending, BUN/Creatinine Ratio Pending , Troponin I Pending, CBC w Diff Pending, WBC Pending, RBC Pending, Hgb Pending, Hct Pending, MCV Pending, MCH Pending, MCHC Pending, RDW Pending, Plt Count Pending, MPV Pending 10/10/17 1955: Troponin I < 0.01 10/10/17 1615: Lactic Acid Cancelled 10/10/17 1445: Urine Color YEL, Urine Clarity CLEAR, Urine pH 7.0, Ur Specific [place] 1.010, Urine Protein NEG, Urine Ketones NEG, Urine Nitrite NEG, Urine Bilirubin NEG, Urine Urobilinogen 0.2, Ur Leukocyte Esterase NEG, Ur Microscopic EXAM NOT REQUIRED, Urine Hemoglobin NEG, Urine Glucose NEG 10/10/17 1340: Anion Gap 14, Estimated GFR 26 L, BUN/Creatinine Ratio 13.7, Glucose 101 H, Lactic Acid 1.7, Calcium 9.6, Magnesium 1.8, Total Bilirubin 0.5, AST 36, ALT 23 , Alkaline Phosphatase 143 H, Troponin I < 0.01, Sbw-C-Dzltxiunyhx Pept 4570 H , Total Protein 7.2, Albumin 4.0, Globulin 3.2, Albumin/Globulin Ratio 1.3, PT 12.0, INR 1.10, APTT 29, CBC w Diff MAN DIFF ORDERED, RBC 3.08 L, MCV 81.7, MCH 25.6 L, MCHC 31.3 L, RDW 19.7 H, MPV 8.6, Segmented Neutrophils 87 H, Lymphocytes 2 L, Monocytes 9, Eosinophils 2, Nucleated RBCs 1 H, Polychromasia 1+, Hypochromic-Microcytic 2+, Poikilocytosis 1+, Anisocytosis 2+ Microbiology 10/10 184 NASOPHARYN: Influenza Virus A & B Rapid Smear - COLB Assessment/Plan Assessment: Ms. McTrottes is a 72-year-old female with past medical history of coronary artery disease status post [place] with multiple stents followed by Dr. 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 Lomeli, interstitial lung disease on 3 L oxygen, chronic kidney disease followed by Dr. Cardoza, paroxysmal atrial fibrillation not on anticoagulation due to a GI bleed and anxiety who presented with shortness of breath. Problem list: 1. Dyspnea with extensive pulmonary disease history 2. Chest pain syndrome 3. Hyperkalemia 4. Acute blood loss anemia #Dyspnea with extensive pulmonary disease history: Patient has an extensive long history including lung cancer and interstitial lung disease and presented with acutely worsening dyspnea. Her oxygen requirement went up overnight. Differential would include COPD exacerbation versus CHF versus amiodarone induced toxicity. I think that pulmonary embolism and pneumonia are less likely. CT imaging is nonspecific and suggests multiple possible etiologies. EKG and troponins 3 have been negative. She was scheduled for lung biopsy tomorrow originally and would like to have this. However, her treatment options would be limited given her advanced disease. -Appreciate cardiology and pulmonology recommendations -Daily weights, strict I's and O's -Continue ranolazine -Consider further diuresis -Ultrasound right lower extremity #Hyperkalemia: Patient has hyperkalemia that is mild without peak T waves. It has resolved this morning after Kayexalate. -Continue to monitor #Acute blood loss anemia: Patient has a chronic anemia secondary to her chronic kidney disease for which he receives Epogen. She also has history of GI bleed. She is not complaining of any hematochezia or melena recently. However, this morning her hemoglobin dropped from 7.9 to 6.9. -Transfuse 1 unit packed red blood cell -Guaiac all stools -Continue Epogen -Continue to monitor #Chronic medical problems: Continue other home medications DVT prophylaxis with heparin CHF diet DNR/okay to intubate Problem List: 1. Dyspnea Pain Ratin Pain Location: no Pain Goal: Remain pain free Pain Plan: see a/p Tomorrow's Labs & Rationales: cbc, bep
[2017-10-11 07:57] LABS: ABSOLUTE BASOPHIL COUNT 0 /CUMM (0.0-0.2); ABSOLUTE EOSINOPHIL COUNT 0.3 /CUMM (0.0-0.7); ABSOLUTE GRANULOCYTE CT 6.1 /CUMM (1.4-6.5); ABSOLUTE LYMPH COUNT 0.8 /CUMM (1.2-3.4); BASOPHIL % 0.1 % (0.0-2.0); EOSINOPHIL % 3.2 % (0-5); GRANULOCYTE % 74.9 % (42.2-75.2); MEAN CORPUSCULAR HGB 25.8 PG (27.0-31.0); MEAN CORPUSCULAR HGB CONC 31.9 G/DL (33.0-37.0); MEAN CORPUSCULAR VOLUME 80.9 FL (81.0-99.0); MEAN PLATELET VOLUME 8.9 FL (7.4-10.4); PLATELET COUNT 315 /CUMM (130-400); RBC DISTRIBUTION WIDTH 19.7 % (11.5-14.5); RED BLOOD CELL CT 2.65 /CUMM (4.20-5.40); WHITE BLOOD CELL COUNT 8.2 /CUMM (4.8-10.8)
[2017-10-11 08:31] LABS: HEMATOCRIT 21.5 % (37-47)
--- NOTE | 2017-10-11 09:18 | PN- Student ---
Subjective Subjective: Patient wasn't able to sleep last night. She is complaining of a headache which she rates a 10/10. She also complains of lightheadedness, especially when changing positions. When I arrived in the room, she didn't have her O2 on, her saturation was checked and it was 77, so she was put on high flow oxygen right away, even though she didn't really wanted to have it on. Objective Objective: Vital Signs Date Time Temp Pulse Resp B/P B/P Pulse O2 O2 Flow FiO2 Mean Ox Delivery Rate 10/11 0702 98.4 68 18 116/66 99 Non ReBreather 10/11 0112 92 Nasal 55% Cannula 10/11 0000 Nasal 55% Cannula 10/10 2230 99.9 78 18 104/58 92 Part ReBreather 10/10 2155 81 134/64 10/10 2154 81 134/64 10/10 2130 Nasal 5.0L Cannula 10/10 1829 98.3 81 18 134/64 92 Nasal 5.0L Cannula 10/10 1810 Nasal 3.0L Cannula 10/10 1735 97.4 28 10/10 1731 88 24 140/68 92 Nasal 5.0L Cannula 10/10 1424 91 Nasal 5.0L Cannula 10/10 1336 86 Nasal 5.0L Cannula 10/10 1308 97.9 75 22 180/70 86 Nasal 5.0L Cannula ED Intake and Output 10/11 0000 10/10 1200 Intake Total 300 Output Total 700 Balance -400 Intake, Oral 300 Output, Urine 700 Patient 124 lb Weight Weight Bed scale Measurement Method Laboratory Tests 10/11 10/10 10/10 0654 1955 1615 Chemistry Sodium (137 - 145 mmol/L) 141 Potassium (3.5 - 5.1 mmol/L) 4.4 Chloride (98 - 107 mmol/L) 104 Carbon Dioxide (22 - 30 mmol/L) 23 Anion Gap (5 - 16) 14 BUN (7 - 17 mg/dL) 31 H Creatinine (0.5 - 1.0 mg/dL) 2.0 H Estimated GFR (>60 ml/min) 25 L BUN/Creatinine Ratio (7 - 25 %) 15.5 Lactic Acid Cancelled Troponin I (< 0.11 ng/ml) 0.01 < 0.01 Hematology CBC w Diff NO MAN DIFF REQ WBC (4.8 - 10.8 /CUMM) 8.2 RBC (4.20 - 5.40 /CUMM) 2.65 L Hgb (12.0 - 16.0 G/DL) 6.9 *L Hct (37 - 47 %) 21.5 L MCV (81.0 - 99.0 FL) 80.9 L MCH (27.0 - 31.0 PG) 25.8 L MCHC (33.0 - 37.0 G/DL) 31.9 L RDW (11.5 - 14.5 %) 19.7 H Plt Count (130 - 400 /CUMM) 315 MPV (7.4 - 10.4 FL) 8.9 Gran % (42.2 - 75.2 %) 74.9 Lymphocytes % (20.5 - 51.1 %) 9.8 L Monocytes % (1.7 - 9.3 %) 12.0 H Eosinophils % (0 - 5 %) 3.2 Basophils % (0.0 - 2.0 %) 0.1 Absolute Granulocytes (1.4 - 6.5 /CUMM) 6.1 Absolute Lymphocytes (1.2 - 3.4 /CUMM) 0.8 L Absolute Monocytes (0.10 - 0.60 /CUMM) 1.0 H Absolute Eosinophils (0.0 - 0.7 /CUMM) 0.3 Absolute Basophils (0.0 - 0.2 /CUMM) 0 10/10 10/10 1445 1340 Chemistry Sodium (137 - 145 mmol/L) 143 Potassium (3.5 - 5.1 mmol/L) 5.7 H Chloride (98 - 107 mmol/L) 107 Carbon Dioxide (22 - 30 mmol/L) 22 Anion Gap (5 - 16) 14 BUN (7 - 17 mg/dL) 26 H Creatinine (0.5 - 1.0 mg/dL) 1.9 H Estimated GFR (>60 ml/min) 26 L BUN/Creatinine Ratio (7 - 25 %) 13.7 Glucose (65 - 99 mg/dL) 101 H Lactic Acid (0.7 - 2.1 mmol/L) 1.7 Calcium (8.4 - 10.2 mg/dL) 9.6 Magnesium (1.6 - 2.3 mg/dL) 1.8 Total Bilirubin (0.2 - 1.3 mg/dL) 0.5 AST (14 - 36 U/L) 36 ALT (9 - 52 U/L) 23 Alkaline Phosphatase (<127 U/L) 143 H Troponin I (< 0.11 ng/ml) < 0.01 Jfq-V-Novtzjhewln Pept (<125 pg/mL) 4570 H Total Protein (6.3 - 8.2 g/dL) 7.2 Albumin (3.5 - 5.0 g/dL) 4.0 Globulin (1.9 - 4.2 gm/dL) 3.2 Albumin/Globulin Ratio (1.1 - 2.2 %) 1.3 Coagulation PT (9.4 - 12.5 SEC) 12.0 INR (0.90 - 1.19) 1.10 APTT (25 - 37 SEC) 29 Hematology CBC w Diff MAN DIFF ORDERED WBC (4.8 - 10.8 /CUMM) 11.2 H RBC (4.20 - 5.40 /CUMM) 3.08 L Hgb (12.0 - 16.0 G/DL) 7.9 L Hct (37 - 47 %) 25.1 L MCV (81.0 - 99.0 FL) 81.7 MCH (27.0 - 31.0 PG) 25.6 L MCHC (33.0 - 37.0 G/DL) 31.3 L RDW (11.5 - 14.5 %) 19.7 H Plt Count (130 - 400 /CUMM) 353 MPV (7.4 - 10.4 FL) 8.6 Segmented Neutrophils (42.2 - 75.2 %) 87 H Lymphocytes (20.5 - 51.1 %) 2 L Monocytes (1.7 - 9.3 %) 9 Eosinophils (0 - 5.0 %) 2 Nucleated RBCs (0.0 - 0.0 /100WBC) 1 H Polychromasia 1+ Hypochromic-Microcytic 2+ Poikilocytosis 1+ Anisocytosis 2+ Urines Urine Color (YEL,AMB,STR) YEL Urine Clarity (CLEAR) CLEAR Urine pH (5.0 - 8.0) 7.0 Ur Specific [place] (1.001 - 1.035) 1.010 Urine Protein (NEG,<30 MG/DL) NEG Urine Ketones (NEG) NEG Urine Nitrite (NEG) NEG Urine Bilirubin (NEG) NEG Urine Urobilinogen (0.1 - 1.0 EU/dl) 0.2 Ur Leukocyte Esterase (NEG) NEG Ur Microscopic EXAM NOT REQUIRED Urine Hemoglobin (NEG) NEG Urine Glucose (N MG/DL) NEG PE: Patient is an anxious appearing lady, alert and oriented x3. S1 & S2 were heard, with no additional murmurs. On lung auscultation, breath sounds were diminished and crackels were noted. She had normal bowel sounds, and her abdomen was soft, nontender, with no guarding. Results Results: Laboratory Tests 10/11/17 0654: Anion Gap 14, Estimated GFR 25 L, BUN/Creatinine Ratio 15.5, Troponin I 0.01, CBC w Diff NO MAN DIFF REQ, RBC 2.65 L, MCV 80.9 L, MCH 25.8 L, MCHC 31.9 L, RDW 19.7 H, MPV 8.9, Gran % 74.9, Lymphocytes % 9.8 L, Monocytes % 12.0 H, Eosinophils % 3.2, Basophils % 0.1, Absolute Granulocytes 6.1, Absolute Lymphocytes 0.8 L, Absolute Monocytes 1.0 H, Absolute Eosinophils 0.3, Absolute Basophils 0 10/10/17 1955: Troponin I < 0.01 10/10/17 1615: Lactic Acid Cancelled 10/10/17 1445: Urine Color YEL, Urine Clarity CLEAR, Urine pH 7.0, Ur Specific [place] 1.010, Urine Protein NEG, Urine Ketones NEG, Urine Nitrite NEG, Urine Bilirubin NEG, Urine Urobilinogen 0.2, Ur Leukocyte Esterase NEG, Ur Microscopic EXAM NOT REQUIRED, Urine Hemoglobin NEG, Urine Glucose NEG 10/10/17 1340: Anion Gap 14, Estimated GFR 26 L, BUN/Creatinine Ratio 13.7, Glucose 101 H, Lactic Acid 1.7, Calcium 9.6, Magnesium 1.8, Total Bilirubin 0.5, AST 36, ALT 23 , Alkaline Phosphatase 143 H, Troponin I < 0.01, Tfz-A-Tzzormllgpm Pept 4570 H , Total Protein 7.2, Albumin 4.0, Globulin 3.2, Albumin/Globulin Ratio 1.3, PT 12.0, INR 1.10, APTT 29, CBC w Diff MAN DIFF ORDERED, RBC 3.08 L, MCV 81.7, MCH 25.6 L, MCHC 31.3 L, RDW 19.7 H, MPV 8.6, Segmented Neutrophils 87 H, Lymphocytes 2 L, Monocytes 9, Eosinophils 2, Nucleated RBCs 1 H, Polychromasia 1+, Hypochromic-Microcytic 2+, Poikilocytosis 1+, Anisocytosis 2+ Microbiology 10/11 1847 NASOPHARYN: Influenza Virus A & B Rapid Smear - COLB Imaging: CXR: IMPRESSION: Bibasilar airspace opacities, right greater than left with possible small bilateral pleural effusions. These opacities are nonspecific and may represent atelectasis or pneumonia. Mild engorgement of the pulmonary vasculature suggesting volume overload. Prominent airspace opacities in the right middle and right upper lobe. These may represent sequela of mild volume overload or possibly developing foci of multifocal pneumonia. Chest CT: IMPRESSION: Diffuse centrilobular and paraseptal emphysema with some chronic interstitial lung disease. Interval increase in interstitial disease which may be related to interstitial edema, atypical or viral pneumonitis, or be drug-related. Interval enlargement of lingular mass. Assessment/Plan Assessment: Ms. Obrien is a 72 y/o female with a PMH of CAD s/p PCI (2000, 2013), STEMI on RCA (2015) & paroxysmal afib (not on anticoagulation due to hx of GI bleed) ( followed by Dr. Hernandez), COPD, ILD & squamous cell lung cancer (followed by Dr. Lomeli), chronic anemia and CKD (followed by Dr. Cardoza), that was BIBA d/t progressive SOB (saturating on the 70's even with 3L of home oxygen). She felt a pressure-like chest pain that would radiate to her lower jaw bilaterally. Before arriving to the hospital, she felt like she was going to faint, so she decided to activate her life alert. On arrival, her BP was 180/70, O2 sat was 86% on 5L nasal cannula, Hg was 7.9 and K+ was 5.7 (for which she was given Kayexalate in the ED). Problem list and plan: * SOB: Patient has an extensive history of lung and heart diseases that could explain her SOB. The pressure-like chest pain radiating to the jaw points to a cardiac etiology, but troponins have been consistently negative. Also, the pain has dissipated since then. The more likely cause of her SOB seems to be an acute respiratory failure, d/t exacerbation of her COPD. Patient has ILD, which could get worse with amiodarone therapy. Consult with pulmonology and cardiology to know their opinion on this. Patient is currently on high flow oxygen, which should be continued. Pulmonology consultation was placed, awaiting for their recommendations. * Chest pain: Resolved. Troponins negative x2. Cardiology consultation was placed. Awaiting for their input. * Chronic anemia: Patient has CKD and is in epogen q 3 wks. Hgb is 6.9 this morning, and a blood transfusion consent was taken this morning. The marked anemia could also be contributing to the patient's SOB. * Hyperkalemia: Resolved. * Growing mass in lingula: Patient has a lung mass whose progression is being followed by Dr. Lomeli. CXR and CT showed that the mass has increased in size. She is scheduled to have a CT guided lung biopsy tomorrow, but the current status is unclear as patient oxygen requirements have increased and her anemia has worsened. IR should be contacted to assess the requirements and any other measurements (if any) that need to be followed. Patient seems anxious about the procedure and gets teary when contemplating that it may not be possible to proceed with it tomorrow. * Anxiety: Patient seems very anxious all the time. She is taking Alprazolam but it doesn't seem like is being very effective. Continue with Alprazolam and consider increasing the dose. Patient's anxiety could be worse due to her recently found mass or because of her lung biopsy tomorrow. Anxiety can also be contributing to her SOB. If anxiety persists, consider psychiatry referral as outpatient. * Other chronic conditions: Continue home meds.
--- NOTE | 2017-10-11 10:22 | Cons- Pulmonary ---
General Information and HPI Consulting Request Date of Consult: 10/11/17 Requested By: Dr. Ventura Reason for Consult: Dyspnea, hypoxemic respiratory failure Source of Information: patient Exam Limitations: no limitations History of Present Illness: 72 year old woman. Consultation requested. Dyspnea at baseline, on oxygen. Hx of lung ca and COPD. Recently seen in office. Previously IR guided lung bx was not feasible due to safety of puncturing BRENDAN and other vessels and was cancelled. Her most recent CT reveals an increase in size of the lesion to 2cm from 1.2cm. There is worry that this is malignant. Pt. is anxious. +dyspnea, no cp, no fevers, no chills, +fatigue, +limited mobility. No soto, no cp, no n/v/d/c. 2014 PFTs with a severe reduction in DLCO (25) FEV1 1.58Liters; and mild obstruction without any bronchodilator response. On BREO & Incruse. Stable weight and appetite. CT chest reviewed it was compared to previous studies, namely 2014 and 2015. Multiple nodules are noted with severe emphysema. Specific worrisome lesion in lingula increased in size. Previous History: Sequence of events include: 10/2013 Pulmonary function test showed - Moderate obstructive lung disease with significant reduction in diffusion capacity uncorrected for hemoglobin. 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 Has had cyberknife radiation August 14- with Dr. Dilip Salas. Has had fiducial markers placed July [address] Cintron. Allergies/Medications Allergies: Coded Allergies: No Known Allergies (09/25/15) Home Med List: Albuterol Sulfate (Proair Respiclick) 90 MCG AER.POW.BA 2 PUFF INH Q8P PRN COPD (Reported) Alprazolam 0.5 MG TABLET 1 TAB PO BID ANXIETY (Reported) Amiodarone HCl (Pacerone) 100 MG TABLET 100 MG PO EOD AFIB (Reported) Aspirin (Children's Aspirin) 81 MG TAB.CHEW 1 TAB PO DAILY HEART HEALTH ( Reported) Cholecalciferol (Vitamin D3) (Vitamin D3) 1,000 UNIT CAPSULE 1 CAP PO DAILY SUPPLEMENT (Reported) diphenhydrAMINE HCl (Benadryl) 25 MG CAPSULE 1 CAP PO QHS PRN SLEEP (Reported ) Epoetin Jon (Epogen) (Unknown Strength) VIAL (Unknown Dose) SC [id number] SUPPLEMENT (Reported) Q 3 WEEKS, LAST TAKEN Wednesday10/04/17) Ezetimibe (Zetia) 10 MG TABLET 1 TAB PO DAILY CHOLESTEROL (Reported) Fluticasone/Vilanterol (Breo Ellipta 100-25 Mcg INH) 100 MCG-25 MCG/DOSE BLST.W.DEV 1 PUFF INH DAILY COPD (Reported) Furosemide 20 MG TABLET 20 MG PO EOD HEART (Reported) Levothyroxine Sodium 50 MCG TABLET 1 TAB PO DAILY THYROID (Reported) Metoprolol Succ XL (Toprol Xl) 50 MG TAB.ER.24H 1 TAB PO DAILY AFIB (Reported ) Mirtazapine 15 MG TABLET 1 TAB PO QPM PRN SLEEP (Reported) Omeprazole 40 MG CAPSULE.DR 1 TAB PO DAILY HEARTBURN (Reported) Ranolazine (Ranexa) 500 MG TAB.ER.12H 1,000 MG PO BID ANGINA (Reported) Rosuvastatin Calcium (Crestor) 10 MG TABLET 1 TAB PO DAILY HEART HEALTH ( Reported) Sennosides (Senna) 8.6 MG TABLET 8.6 MG PO PRN BOWELS (Reported) Umeclidinium [place] (Incruse Ellipta) 62.5 MCG/ACTUATION BLST.W.DEV 1 PUFF INH DAILY COPD (Reported) Current Medications: Current Medications Sig/Noemy Start time Last Medication Dose Route Stop Time Status Admin Acetaminophen 650 MG Q4P PRN 10/11 0830 AC 10/11 PO 0840 Acetaminophen 650 MG ONCE ONE 10/11 0145 DC 10/11 PO 10/11 0146 0140 Albuterol Sulfate 3 ML BID 10/11 0900 AC 10/11 INH 0850 Albuterol Sulfate 2 PUF Q4 10/10 1800 AC 10/11 INH 0641 Albuterol Sulfate 3 ML ONCE ONE 10/10 1400 DC 10/10 INH 10/10 1401 1400 Alprazolam 0.5 MG BID 10/10 2100 AC 10/11 PO 10/17 2058 0840 Amiodarone HCl 100 MG Q48H 10/10 1745 AC 10/10 PO 215 Atorvastatin Calcium 40 MG 1700 10/11 1700 AC PO Budesonide/ 2 PUF BID 10/10 2100 AC 10/10 Formoterol Fumarate INH 2158 Cholecalciferol 3,000 IU DAILY 10/11 0900 AC 10/11 PO 0945 Diphenhydramine HCl 25 MG AT BEDTIME PRN 10/10 2100 DC 10/10 PO 2154 Ezetimibe 10 MG DAILY 10/11 0900 AC 10/11 PO 0945 Furosemide 20 MG Q48H 10/10 1745 AC PO Furosemide 0 .STK-MED ONE 10/10 1443 DC IV Furosemide 40 MG ONCE ONE 10/10 1430 DC 10/10 IV 10/10 1431 1455 Heparin Sodium 5,000 UNIT Q8 10/10 2200 DC 10/11 (Porcine) SC 0641 Hydroxyzine HCl 50 MG AT BEDTIME NEED.. 10/11 0945 AC PO Ipratropium [place] 2.5 ML ONCE ONE 10/10 1400 DC 10/10 INH 10/10 1401 1400 Levothyroxine Sodium 0.05 MG DAILY AC 10/11 0700 AC 10/11 PO 0630 Melatonin 5 MG AT BEDTIME 10/11 2100 CAN PO Metoprolol Succinate 50 MG DAILY 10/11 0900 AC PO Mirtazapine 15 MG QPM PRN 10/10 1745 AC PO Omeprazole 40 MG DAILY AC 10/11 0700 AC 10/11 PO 0629 Ramelteon 8 MG AT BEDTIME 10/11 2100 AC PO Ranolazine 1,000 MG BID 10/10 2100 AC 10/11 PO 0945 Senna/Docusate Sodium 1 TAB DAILY PRN 10/10 1745 AC PO Sodium Polystyrene 0 .STK-MED ONE 10/10 1615 DC Sulfonate .ROUTE Sodium Polystyrene 60 ML ONCE ONE 10/10 1600 DC 10/10 Sulfonate PO 10/10 1601 1611 Tiotropium [place] 1 PUF DAILY 10/10 1739 AC 10/11 INH 0944 Review of Systems Comments 18 point review of systems was performed and reviewed. Please see pertinent positives and pertinent negatives in the HPI. Otherwise ROS is negative. Past History Travel History Traveled to [place] past 21 day No Medical History Neurological: NONE EENT: NONE Cardiovascular: CAD, hypertension, hyperlipidemia, myocardial infarction, STENTS Respiratory: pneumonia, pulmonary fibrosis, LUNG CA ILD Gastrointestinal: peptic ulcer disease Hepatic: NONE Renal: chronic kidney disease Musculoskeletal: disk herniation Psychiatric: NONE, anxiety Endocrine: NONE Blood Disorders: anemia Cancer(s): lung cancer VALIDATION SOFTWARE FACILITATOR/Reproductive: NONE Surgical History Surgical History: STENTS (5) HYSTERECTOMY,LAMINECTOMY Family History Relations & Conditions If Any: MOTHER (Leukemia). FATHER (Heart Attack). SISTER (ovarian cancer). BROTHER (Diabetes). Psychosocial History Where Do You Live? Assisted Living Who Do You Live With? self Services at Home: Nursing, Physical Therapy Primary Language: Tam[place] Smoking Status: Former Smoker ETOH Use: denies use Illicit Drug Use: denies illicit drug use Functional Ability ADLs Independent: dressing, eating, toileting, bathing. Ambulation: cane IADLs Independent: shopping, housework, finances, food prep, telephone, transportation , medication admin. Exam & Diagnostic Data Last 24 Hrs of Vital Signs/I&O Vital Signs Date Time Temp Pulse Resp B/P B/P Pulse O2 O2 Flow FiO2 Mean Ox Delivery Rate 10/11 0945 73 114/51 10/11 0918 92 Nasal 55% Cannula 10/11 0702 98.4 68 18 116/66 99 Non ReBreather 10/11 0112 92 Nasal 55% Cannula 10/11 0000 Nasal 55% Cannula 10/10 2230 99.9 78 18 104/58 92 Part ReBreather 10/10 2155 81 134/64 10/10 2154 81 134/64 10/10 2130 Nasal 5.0L Cannula 10/10 1829 98.3 81 18 134/64 92 Nasal 5.0L Cannula 10/10 1810 Nasal 3.0L Cannula 10/10 1735 97.4 28 10/10 1731 88 24 140/68 92 Nasal 5.0L Cannula 10/10 1424 91 Nasal 5.0L Cannula 10/10 1336 86 Nasal 5.0L Cannula 10/10 1308 97.9 75 22 180/70 86 Nasal 5.0L Cannula Intake & Output 10/11 1600 10/11 0800 10/11 0000 Intake Total 200 300 Output Total 350 450 Balance -150 -150 Intake, Oral 200 300 Output, Urine 350 450 Patient 124 lb Weight Weight Bed scale Measurement Method Physical Exam Other Physical Findings: [id number] head/neck-high flow o2 cvs-s1,s2 lungs-dimnished bs bilaterally abd-soft,bs+ ext-without edema Last 48 Hrs of Labs/[place]: Laboratory Tests 10/11/17 0654: Anion Gap 14, Estimated GFR 25 L, BUN/Creatinine Ratio 15.5, Troponin I 0.01, CBC w Diff NO MAN DIFF REQ, RBC 2.65 L, MCV 80.9 L, MCH 25.8 L, MCHC 31.9 L, RDW 19.7 H, MPV 8.9, Gran % 74.9, Lymphocytes % 9.8 L, Monocytes % 12.0 H, Eosinophils % 3.2, Basophils % 0.1, Absolute Granulocytes 6.1, Absolute Lymphocytes 0.8 L, Absolute Monocytes 1.0 H, Absolute Eosinophils 0.3, Absolute Basophils 0 10/10/17 1955: Troponin I < 0.01 10/10/17 1615: Lactic Acid Cancelled 10/10/17 1445: Urine Color YEL, Urine Clarity CLEAR, Urine pH 7.0, Ur Specific [place] 1.010, Urine Protein NEG, Urine Ketones NEG, Urine Nitrite NEG, Urine Bilirubin NEG, Urine Urobilinogen 0.2, Ur Leukocyte Esterase NEG, Ur Microscopic EXAM NOT REQUIRED, Urine Hemoglobin NEG, Urine Glucose NEG 10/10/17 1340: Anion Gap 14, Estimated GFR 26 L, BUN/Creatinine Ratio 13.7, Glucose 101 H, Lactic Acid 1.7, Calcium 9.6, Magnesium 1.8, Total Bilirubin 0.5, AST 36, ALT 23 , Alkaline Phosphatase 143 H, Troponin I < 0.01, Gkd-Y-Zimivpgweli Pept 4570 H , Total Protein 7.2, Albumin 4.0, Globulin 3.2, Albumin/Globulin Ratio 1.3, PT 12.0, INR 1.10, APTT 29, CBC w Diff MAN DIFF ORDERED, RBC 3.08 L, MCV 81.7, MCH 25.6 L, MCHC 31.3 L, RDW 19.7 H, MPV 8.6, Segmented Neutrophils 87 H, Lymphocytes 2 L, Monocytes 9, Eosinophils 2, Nucleated RBCs 1 H, Polychromasia 1+, Hypochromic-Microcytic 2+, Poikilocytosis 1+, Anisocytosis 2+ Assessment/Plan Impression/Plan: Impression 72 year old woman * acute on chronic hypoxemic respiratory failure * lingular lung nodule increased in size * anemia of chronic disease * severe COPD with likely underlying exacerbation Plan -add solumedrol 40mg iv q12h -reduce fio2 to a goal of >90% -plan for IR biopsy tomorrow is questionable, it would be beneficial to achieve the procedure while hospitalized, however will depend on her o2 requirements -getting transfused, pt also gets epogen -trc/nebs DVT prophylaxis at all times Consult Acknowledgment - Thank you for your consult request.
--- NOTE | 2017-10-11 12:05 | Cons- Cardiology ---
General Information and HPI Consulting Request Date of Consult: 10/11/17 Requested By: Deena Ventura MD Reason for Consult: Shortness of breath Source of Information: patient, old records History of Present Illness: This is a pleasant 72 y/o female with a past medical history of CAD with prior PCI () and STEMI tx with PEDRO to the RCA 08/2015, Hx COPD/ILD/lung cancer s/p gamma knife radiation on home O2, PAF not on AC due to hx of GI bleed and anemia, CKD, angina, and hypertension who presents to [facility] with a chief complaint of increased shortness of breath for the past 4 days also associated with weakness and increased hypoxia. She did report some intermittent chest discomfort with radiation which has since resolved. Denies any obvious bleeding episode. Denies palpitations, slurring of speech, focal weakness, or subjective fever. Denies any increased lower extremity edema or paroxysmal nocturnal dyspnea. She does receive Epogen as an outpatient for anemia. Allergies/Medications Allergies: Coded Allergies: No Known Allergies (09/25/15) Home Med List: Albuterol Sulfate (Proair Respiclick) 90 MCG AER.POW.BA 2 PUFF INH Q8P PRN COPD (Reported) Alprazolam 0.5 MG TABLET 1 TAB PO BID ANXIETY (Reported) Amiodarone HCl (Pacerone) 100 MG TABLET 100 MG PO EOD AFIB (Reported) Aspirin (Children's Aspirin) 81 MG TAB.CHEW 1 TAB PO DAILY HEART HEALTH ( Reported) Cholecalciferol (Vitamin D3) (Vitamin D3) 1,000 UNIT CAPSULE 1 CAP PO DAILY SUPPLEMENT (Reported) diphenhydrAMINE HCl (Benadryl) 25 MG CAPSULE 1 CAP PO QHS PRN SLEEP (Reported ) Epoetin Jon (Epogen) (Unknown Strength) VIAL (Unknown Dose) SC [id number] SUPPLEMENT (Reported) Q 3 WEEKS, LAST TAKEN Wednesday10/04/17) Ezetimibe (Zetia) 10 MG TABLET 1 TAB PO DAILY CHOLESTEROL (Reported) Fluticasone/Vilanterol (Breo Ellipta 100-25 Mcg INH) 100 MCG-25 MCG/DOSE BLST.W.DEV 1 PUFF INH DAILY COPD (Reported) Furosemide 20 MG TABLET 20 MG PO EOD HEART (Reported) Levothyroxine Sodium 50 MCG TABLET 1 TAB PO DAILY THYROID (Reported) Metoprolol Succ XL (Toprol Xl) 50 MG TAB.ER.24H 1 TAB PO DAILY AFIB (Reported ) Mirtazapine 15 MG TABLET 1 TAB PO QPM PRN SLEEP (Reported) Omeprazole 40 MG CAPSULE.DR 1 TAB PO DAILY HEARTBURN (Reported) Ranolazine (Ranexa) 500 MG TAB.ER.12H 1,000 MG PO BID ANGINA (Reported) Rosuvastatin Calcium (Crestor) 10 MG TABLET 1 TAB PO DAILY HEART HEALTH ( Reported) Sennosides (Senna) 8.6 MG TABLET 8.6 MG PO PRN BOWELS (Reported) Umeclidinium [place] (Incruse Ellipta) 62.5 MCG/ACTUATION BLST.W.DEV 1 PUFF INH DAILY COPD (Reported) Current Medications: Current Medications Sig/Noemy Start time Last Medication Dose Route Stop Time Status Admin Acetaminophen 650 MG Q4P PRN 10/11 0830 AC 10/11 PO 0840 Acetaminophen 650 MG ONCE ONE 10/11 0145 DC 10/11 PO 10/11 0146 0140 Albuterol Sulfate 3 ML BID 10/11 0900 AC 10/11 INH 0850 Albuterol Sulfate 2 PUF Q4 10/10 1800 AC 10/11 INH 0641 Albuterol Sulfate 3 ML ONCE ONE 10/10 1400 DC 10/10 INH 10/10 1401 1400 Alprazolam 0.5 MG BID 10/10 2100 AC 10/11 PO 10/17 2059 0840 Amiodarone HCl 100 MG Q48H 10/10 1745 AC 10/10 PO 2154 Atorvastatin Calcium 40 MG 1700 10/11 1700 AC PO Budesonide/ 2 PUF BID 10/10 2100 AC 10/10 Formoterol Fumarate INH 2158 Cholecalciferol 3,000 IU DAILY 10/11 0900 AC 10/11 PO 0945 Diphenhydramine HCl 25 MG AT BEDTIME PRN 10/10 2100 DC 10/10 PO 2154 Ezetimibe 10 MG DAILY 10/11 0900 AC 10/11 PO 0945 Furosemide 20 MG Q48H 10/10 1745 AC PO Furosemide 0 .STK-MED ONE 10/10 1443 DC IV Furosemide 40 MG ONCE ONE 10/10 1430 DC 10/10 IV 10/10 1431 1455 Heparin Sodium 5,000 UNIT Q8 10/10 2200 DC 10/11 (Porcine) SC 0641 Hydroxyzine HCl 50 MG AT BEDTIME NEED.. 10/11 0945 AC PO Ipratropium [place] 2.5 ML ONCE ONE 10/10 1400 DC 10/10 INH 10/10 1401 1400 Levothyroxine Sodium 0.05 MG DAILY AC 10/11 0700 AC 10/11 PO 0630 Melatonin 5 MG AT BEDTIME 10/11 2100 CAN PO Metoprolol Succinate 50 MG DAILY 10/11 09 AC PO Mirtazapine 15 MG QPM PRN 10/10 1745 AC PO Omeprazole 40 MG DAILY AC 10/11 0700 AC 10/11 PO 0629 Ramelteon 8 MG AT BEDTIME 10/11 2100 AC PO Ranolazine 1,000 MG BID 10/10 2100 AC 10/11 PO 0945 Senna/Docusate Sodium 1 TAB DAILY PRN 10/10 1745 AC PO Sodium Polystyrene 0 .STK-MED ONE 10/10 1615 DC Sulfonate .ROUTE Sodium Polystyrene 60 ML ONCE ONE 10/10 1600 DC 10/10 Sulfonate PO 10/10 1601 1611 Tiotropium [place] 1 PUF DAILY 10/10 1739 AC 10/11 INH 0944 Review of Systems Review of Systems: Review of systems as per HPI. The remainder of a 10 point review of systems was reviewed and was otherwise negative. Past History Travel History Traveled to [place] past 21 day No Medical History Neurological: NONE EENT: NONE Cardiovascular: CAD, hypertension, hyperlipidemia, myocardial infarction, STENTS Respiratory: pneumonia, pulmonary fibrosis, LUNG CA ILD Gastrointestinal: peptic ulcer disease Hepatic: NONE Renal: chronic kidney disease Musculoskeletal: disk herniation Psychiatric: NONE, anxiety Endocrine: NONE Blood Disorders: anemia Cancer(s): lung cancer CORRECTIONS CORPORAL/Reproductive: NONE Surgical History Surgical History: STENTS (5) HYSTERECTOMY,LAMINECTOMY Family History Relations & Conditions If Any: MOTHER (Leukemia). FATHER (Heart Attack). SISTER (ovarian cancer). BROTHER (Diabetes). Psychosocial History Where Do You Live? Assisted Living Who Do You Live With? self Services at Home: Nursing, Physical Therapy Primary Language: Kazakh Smoking Status: Former Smoker ETOH Use: denies use Illicit Drug Use: denies illicit drug use Functional Ability ADLs Independent: dressing, eating, toileting, bathing. Ambulation: cane IADLs Independent: shopping, housework, finances, food prep, telephone, transportation , medication admin. Exam & Diagnostic Data Vital Signs and I&O Vital Signs Date Time Temp Pulse Resp B/P B/P Pulse O2 O2 Flow FiO2 Mean Ox Delivery Rate 10/11 0945 73 114/51 10/11 0918 92 Nasal 55% Cannula 10/11 0702 98.4 68 18 116/66 99 Non ReBreather 10/11 0112 92 Nasal 55% Cannula 10/11 0000 Nasal 55% Cannula 10/10 2230 99.9 78 18 104/58 92 Part ReBreather 10/10 2155 81 134/64 10/10 2154 81 134/64 10/10 2130 Nasal 5.0L Cannula 10/10 1829 98.3 81 18 134/64 92 Nasal 5.0L Cannula 10/10 1810 Nasal 3.0L Cannula 10/10 1735 97.4 28 10/10 1731 88 24 140/68 92 Nasal 5.0L Cannula 10/10 1424 91 Nasal 5.0L Cannula 10/10 1336 86 Nasal 5.0L Cannula 10/10 1308 97.9 75 22 180/70 86 Nasal 5.0L Cannula Intake & Output 10/11 1600 10/11 0800 10/11 0000 10/10 1600 10/10 0800 10/10 0000 Intake Total 200 300 Output Total 350 450 250 Balance -150 -150 -250 Intake, Oral 200 300 Output, Urine 350 450 250 Patient 124 lb 129 lb Weight Weight Bed scale Reported by Patient Measurement Method Physical Exam: General: no apparent distress. Alert. On nasal cannula Eyes: No obvious scleral icterus. HEENT: No jugular venous distention or abnormal jugular venous pulsations. Cardiovascular: Normal intensity S1/S2. Regular Respiratory: Decreased air entry bilaterally Abdomen: Soft, nontender with no guarding or rebound tenderness. Musculoskeletal: No clubbing or cyanosis noted; no edema Skin: warm Neurologic: No gross focal deficits noted. Labs/[place] Results: Laboratory Tests 10/11 10/10 10/10 0654 1955 1615 Chemistry Sodium (137 - 145 mmol/L) 141 Potassium (3.5 - 5.1 mmol/L) 4.4 Chloride (98 - 107 mmol/L) 104 Carbon Dioxide (22 - 30 mmol/L) 23 Anion Gap (5 - 16) 14 BUN (7 - 17 mg/dL) 31 H Creatinine (0.5 - 1.0 mg/dL) 2.0 H Estimated GFR (>60 ml/min) 25 L BUN/Creatinine Ratio (7 - 25 %) 15.5 Lactic Acid Cancelled Troponin I (< 0.11 ng/ml) 0.01 < 0.01 Hematology CBC w Diff NO MAN DIFF REQ WBC (4.8 - 10.8 /CUMM) 8.2 RBC (4.20 - 5.40 /CUMM) 2.65 L Hgb (12.0 - 16.0 G/DL) 6.9 *L Hct (37 - 47 %) 21.5 L MCV (81.0 - 99.0 FL) 80.9 L MCH (27.0 - 31.0 PG) 25.8 L MCHC (33.0 - 37.0 G/DL) 31.9 L RDW (11.5 - 14.5 %) 19.7 H Plt Count (130 - 400 /CUMM) 315 MPV (7.4 - 10.4 FL) 8.9 Gran % (42.2 - 75.2 %) 74.9 Lymphocytes % (20.5 - 51.1 %) 9.8 L Monocytes % (1.7 - 9.3 %) 12.0 H Eosinophils % (0 - 5 %) 3.2 Basophils % (0.0 - 2.0 %) 0.1 Absolute Granulocytes (1.4 - 6.5 /CUMM) 6.1 Absolute Lymphocytes (1.2 - 3.4 /CUMM) 0.8 L Absolute Monocytes (0.10 - 0.60 /CUMM) 1.0 H Absolute Eosinophils (0.0 - 0.7 /CUMM) 0.3 Absolute Basophils (0.0 - 0.2 /CUMM) 0 10/10 10/10 1445 1340 Chemistry Sodium (137 - 145 mmol/L) 143 Potassium (3.5 - 5.1 mmol/L) 5.7 H Chloride (98 - 107 mmol/L) 107 Carbon Dioxide (22 - 30 mmol/L) 22 Anion Gap (5 - 16) 14 BUN (7 - 17 mg/dL) 26 H Creatinine (0.5 - 1.0 mg/dL) 1.9 H Estimated GFR (>60 ml/min) 26 L BUN/Creatinine Ratio (7 - 25 %) 13.7 Glucose (65 - 99 mg/dL) 101 H Lactic Acid (0.7 - 2.1 mmol/L) 1.7 Calcium (8.4 - 10.2 mg/dL) 9.6 Magnesium (1.6 - 2.3 mg/dL) 1.8 Total Bilirubin (0.2 - 1.3 mg/dL) 0.5 AST (14 - 36 U/L) 36 ALT (9 - 52 U/L) 23 Alkaline Phosphatase (<127 U/L) 143 H Troponin I (< 0.11 ng/ml) < 0.01 Kaz-[id number]-[id number] Pept (<125 pg/mL) 4570 H Total Protein (6.3 - 8.2 g/dL) 7.2 Albumin (3.5 - 5.0 g/dL) 4.0 Globulin (1.9 - 4.2 gm/dL) 3.2 Albumin/Globulin Ratio (1.1 - 2.2 %) 1.3 Coagulation PT (9.4 - 12.5 SEC) 12.0 INR (0.90 - 1.19) 1.10 APTT (25 - 37 SEC) 29 Hematology CBC w Diff MAN DIFF ORDERED WBC (4.8 - 10.8 /CUMM) 11.2 H RBC (4.20 - 5.40 /CUMM) 3.08 L Hgb (12.0 - 16.0 G/DL) 7.9 L Hct (37 - 47 %) 25.1 L MCV (81.0 - 99.0 FL) 81.7 MCH (27.0 - 31.0 PG) 25.6 L MCHC (33.0 - 37.0 G/DL) 31.3 L RDW (11.5 - 14.5 %) 19.7 H Plt Count (130 - 400 /CUMM) 353 MPV (7.4 - 10.4 FL) 8.6 Segmented Neutrophils (42.2 - 75.2 %) 87 H Lymphocytes (20.5 - 51.1 %) 2 L Monocytes (1.7 - 9.3 %) 9 Eosinophils (0 - 5.0 %) 2 Nucleated RBCs (0.0 - 0.0 /100WBC) 1 H Polychromasia 1+ Hypochromic-Microcytic 2+ Poikilocytosis 1+ Anisocytosis 2+ Urines Urine Color (YEL,AMB,STR) YEL Urine Clarity (CLEAR) CLEAR Urine pH (5.0 - 8.0) 7.0 Ur Specific [place] (1.001 - 1.035) 1.010 Urine Protein (NEG,<30 MG/DL) NEG Urine Ketones (NEG) NEG Urine Nitrite (NEG) NEG Urine Bilirubin (NEG) NEG Urine Urobilinogen (0.1 - 1.0 EU/dl) 0.2 Ur Leukocyte Esterase (NEG) NEG Ur Microscopic EXAM NOT REQUIRED Urine Hemoglobin (NEG) NEG Urine Glucose (N MG/DL) NEG Diagnostic Data EKG Results Tracing was personally reviewed and shows sinus rhythm at 60 bpm with left anterior fascicular block and nonspecific ST/T abnormalities CXR Results Bibasilar airspace opacities, right greater than left with possible small bilateral pleural effusions. These opacities are nonspecific and may represent atelectasis or pneumonia. Mild engorgement of the pulmonary vasculature suggesting volume overload. Prominent airspace opacities in the right middle and right upper lobe. These may represent sequela of mild volume overload or possibly developing foci of multifocal pneumonia. Other Results CT scan: Diffuse centrilobular and paraseptal emphysema with some chronic interstitial lung disease. Interval increase in interstitial disease which may be related to interstitial edema, atypical or viral pneumonitis, or be drug-related. Interval enlargement of lingular mass. Telemetry tracings were personally reviewed and shows sinus rhythm Assessment/Plan Assessment/Plan 1. Shortness of breath/weakness, likely multifactorial 2. CAD with prior PCI () and prior STEMI; tx with PEDRO to the RCA 08/2015 3. Hx COPD/ILD/lung cancer s/p gamma knife radiation 4. hx PAF not on AC due to hx of GI bleed and anemia, In SR on low dose Amiodarone 5. CKD 6. Hyperkalemia, improved 7. Acute on chronic anemia 8. History of angina on Ranexa Patient's shortness of breath/angina is likely multifactorial but her hemoglobin is 6.9 today which is very likely contributing to some of her symptoms; agree with transfusion and while she currently appears euvolemic her volume status should be monitored closely status post transfusion. Check stool guaiac. Serial troponins are negative. Would recommend obtaining a repeat echocardiogram as she has not had a recent study. Aspirin is currently on hold due to symptomatic anemia. Continue beta tab, Ranexa, lipid regimen. Follow-up pulmonary recommendations. Continue on the low-dose amiodarone if no significant objection from pulmonary as this appears to be maintaining her in sinus rhythm. Alex Matias MD [facility] Consult Acknowledgment - Thank you for your consult request.
[2017-10-11 14:16] VITALS: BP 94/50
[2017-10-11 17:07] LABS: ABSOLUTE BASOPHIL COUNT 0 /CUMM (0.0-0.2); ABSOLUTE EOSINOPHIL COUNT 0.2 /CUMM (0.0-0.7); ABSOLUTE GRANULOCYTE CT 5.6 /CUMM (1.4-6.5); ABSOLUTE LYMPH COUNT 1.3 /CUMM (1.2-3.4); ABSOLUTE MONOCYTE COUNT 0.7 /CUMM (0.10-0.60); BASOPHIL % 0 % (0.0-2.0); EOSINOPHIL % 3.1 % (0-5); GRANULOCYTE % 71.1 % (42.2-75.2); HEMATOCRIT 25.6 % (37-47); MEAN CORPUSCULAR HGB 26.1 PG (27.0-31.0); MEAN CORPUSCULAR HGB CONC 32.2 G/DL (33.0-37.0); MEAN CORPUSCULAR VOLUME 81.3 FL (81.0-99.0); MEAN PLATELET VOLUME 8.8 FL (7.4-10.4); PLATELET COUNT 316 /CUMM (130-400); RED BLOOD CELL CT 3.15 /CUMM (4.20-5.40); WHITE BLOOD CELL COUNT 7.9 /CUMM (4.8-10.8)
--- NOTE | 2017-10-11 17:41 | ULTRASOUND REPORT ---
EXAMINATION: US DUPLEX LOWER EXTREMITY VEINS, BILATERAL CLINICAL INFORMATION: Hypoxia. Leg pain. Swelling. History of malignancy. Bilateral lower extremity edema. Bilateral lower extremity swelling COMPARISON: None. TECHNIQUE: Real-time grayscale compression evaluation of the deep venous system. The compression exam is supplemented by color mapping and spectral analysis. Calf augmentation was used. Bilateral lower extremities FINDINGS: The deep venous system was visualized and compressible. The Doppler exam is normal. IMPRESSION: No deep venous thrombosis demonstrated.
[2017-10-11 22:00] VITALS: BP 116/56
--- NOTE | 2017-10-12 07:10 | PN- Housestaff ---
See Addendum Subjective Follow-up For: Dyspnea, acute blood loss anemia Tele-Events Since Last Visit: Sinus rhythm, 6070 Subjective: No overnight events. Patient is still requiring high flow oxygen. When I told her that this likely means she will not get the biopsy today, she became very tearful. She has been waiting a long time for the biopsy and would like to know what is going on. Otherwise, her breathing has been good with a high flow and she has no pain. Review of Systems Constitutional: Reports: no symptoms. EENTM: Reports: no symptoms. Cardiovascular: Reports: no symptoms. Respiratory: Reports: see HPI. Gastrointestinal: Reports: no symptoms. Genitourinary: Reports: no symptoms. Musculoskeletal: Reports: no symptoms. Skin: Reports: no symptoms. Neurological/Psychological: Reports: no symptoms. Hematologic/Endocrine: Reports: no symptoms. Immunologic/Allergic: Reports: no symptoms. Objective Last 24 Hrs of Vital Signs/I&O Vital Signs Date Time Temp Pulse Resp B/P B/P Pulse O2 O2 Flow FiO2 Mean Ox Delivery Rate 10/12 0025 95 Nasal 55% Cannula 10/11 2327 Nasal 55% Cannula 10/11 2251 96 Nasal 55% Cannula 10/11 2200 97.2 94 20 116/56 97 Nasal Cannula 10/11 1914 Nasal 55% Cannula 10/11 1658 94 Nasal 55% Cannula 10/11 1600 93 Nasal 55% Cannula 10/11 1447 93 Nasal 55% Cannula 10/11 1416 98.1 69 20 94/50 99 Nasal Cannula 10/11 0945 73 114/51 10/11 0918 92 Nasal 55% Cannula 10/11 0800 92 55% Intake & Output 10/12 0800 10/12 0000 10/11 1600 Intake Total 50 250 780 Output Total 250 300 Balance 50 0 480 Intake, Blood 350 Product Intake, IV 150 30 Intake, Oral 50 100 400 Number 0 0 Bowel Movements Output, Urine 250 300 Patient 56.699 kg Weight Physical Exam General Appearance: Alert, Oriented X3, Cooperative, No Acute Distress Cardiovascular: Regular Rate, Normal S1, Normal S2 Lungs: crackles Abdomen: Normal Bowel Sounds, Soft, No Tenderness Extremities: No Edema, Normal Pulses, No Tenderness/Swelling Current Medications: Current Medications Sig/Noemy Start time Last Medication Dose Route Stop Time Status Admin Acetaminophen 650 MG Q4P PRN 10/11 0830 AC 10/11 PO 0840 Albuterol Sulfate 3 ML BID 10/11 0900 AC 10/11 INH 0850 Albuterol Sulfate 2 PUF Q4 10/10 1800 AC 10/11 INH 2157 Alprazolam 0.5 MG ONCE ONE 10/11 1615 DC 10/11 PO 10/11 1616 1619 Alprazolam 0.5 MG BID 10/10 2100 AC 10/11 PO 10/17 205 205 Amiodarone HCl 100 MG Q48H 10/10 1745 AC 10/10 PO 2154 Atorvastatin Calcium 40 MG 1700 10/11 1700 AC 10/11 PO 1619 Azithromycin 250 MG DAILY 10/12 0900 AC PO 10/15 0901 Azithromycin 500 MG ONCE ONE 10/11 1400 DC 10/11 Sodium Chloride 250 ML IV 10/11 1459 1605 Budesonide/ 2 PUF BID 10/10 2100 AC 10/11 Formoterol Fumarate INH 2058 Cholecalciferol 3,000 IU DAILY 10/11 0900 AC 10/11 PO 0945 Diphenhydramine HCl 25 MG AT BEDTIME PRN 10/10 2100 DC 10/10 PO 2154 Ezetimibe 10 MG DAILY 10/11 0900 AC 10/11 PO 0945 Furosemide 20 MG Q48H 10/10 174 AC PO Heparin Sodium 5,000 UNIT Q8 10/10 2200 DC 10/11 (Porcine) SC 0641 Hydroxyzine HCl 50 MG AT BEDTIME NEED.. 10/11 0945 AC PO Levothyroxine Sodium 0.05 MG DAILY AC 10/11 0700 AC 10/12 PO 0513 Melatonin 5 MG AT BEDTIME 10/11 2100 CAN PO Methylprednisolone 40 MG Q12 10/11 1230 AC 10/11 IV 2058 Metoprolol Succinate 50 MG DAILY 10/11 0900 AC 10/11 PO 0945 Mirtazapine 15 MG QPM PRN 10/10 1745 AC PO Omeprazole 40 MG DAILY AC 10/11 0700 AC 10/12 PO 0513 Patient Medication 1 ED ONE ONE 10/11 1300 DC Teaching ED 10/11 1301 Ramelteon 8 MG AT BEDTIME 10/11 2100 AC 10/11 PO 2157 Ranolazine 1,000 MG BID 10/10 2100 AC 10/11 PO 205 Senna/Docusate Sodium 1 TAB DAILY PRN 10/10 1745 AC PO Tiotropium [place] 1 PUF DAILY 10/10 1739 AC 10/11 INH 0944 Last 24 Hrs of Lab/[place] Results Last 24 Hrs of Labs/Mics: Laboratory Tests 10/12/17 0639: Sodium Pending, Potassium Pending, Chloride Pending, Carbon Dioxide Pending, Anion Gap Pending, BUN Pending, Creatinine Pending, BUN/Creatinine Ratio Pending , CBC w Diff Pending, WBC Pending, RBC Pending, Hgb Pending, Hct Pending, MCV Pending, MCH Pending, MCHC Pending, RDW Pending, Plt Count Pending, MPV Pending 10/11/17 1600: CBC w Diff NO MAN DIFF REQ, RBC 3.15 L, MCV 81.3, MCH 26.1 L, MCHC 32.2 L, RDW 18.0 H, MPV 8.8, Gran % 71.1, Lymphocytes % 16.9 L, Monocytes % 8.9, Eosinophils % 3.1, Basophils % 0, Absolute Granulocytes 5.6, Absolute Lymphocytes 1.3, Absolute Monocytes 0.7 H, Absolute Eosinophils 0.2, Absolute Basophils 0 Assessment/Plan Assessment: Ms. Obrien is a 72-year-old female with past medical history of coronary artery disease status post IL with multiple stents followed by Dr. 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 Lomeli, interstitial lung disease on 3 L oxygen, chronic kidney disease followed by Dr. Cardoza, paroxysmal atrial fibrillation not on anticoagulation due to a GI bleed and anxiety who presented with shortness of breath. Problem list: 1. Acute on chronic hypoxic respiratory failure with extensive pulmonary disease history possibly secondary to COPD exacerbation 2. Chest pain syndrome 3. Hyperkalemia 4. Acute blood loss anemia #Acute on chronic hypoxic respiratory failure with extensive pulmonary disease history possibly secondary to COPD exacerbation: Patient has an extensive long history including lung cancer and interstitial lung disease and presented with acutely worsening dyspnea. She still requiring high flow oxygen. CT imaging is nonspecific and suggests multiple possible etiologies. EKG and troponins 3 have been negative. Ultrasound right lower extremity negative. Pulmonology evaluated and thinks there may be a component of COPD. She was scheduled for biopsy today and the patient was very tearful when she heard that she may not be able to have it today due to her oxygen requirements. Will talk to IR about whether she can have it as an inpatient though when she gets better. -Appreciate cardiology and pulmonology recommendations -Daily weights, strict I's and O's -Continue ranolazine -Consider further diuresis -Taper oxygen -Continue steroids -Continue azithromycin #Hyperkalemia: Patient had hyperkalemia that was mild without peaked T waves. It has resolved after Kayexalate. -Continue to monitor #Acute blood loss anemia: Patient has a chronic anemia secondary to her chronic kidney disease for which he receives Epogen. She also has history of GI bleed. She is not complaining of any hematochezia or melena recently. Her hemoglobin dropped to 6.9 and she was transfused 1 unit of packed red blood cell on 2017. -Guaiac all stools -Continue Epogen -Continue to monitor, hemoglobin goal greater than 8 #Chronic medical problems: Continue other home medications DVT prophylaxis with heparin CHF diet DNR/okay to intubate Problem List: 1. COPD (chronic obstructive pulmonary disease) Pain Ratin Pain Location: ni Pain Goal: Remain pain free Pain Plan: see a/p Tomorrow's Labs & Rationales: cbc
[2017-10-12 07:14] VITALS: BP 156/62
[2017-10-12 07:34] LABS: ABSOLUTE BASOPHIL COUNT 0 /CUMM (0.0-0.2); ABSOLUTE EOSINOPHIL COUNT 0 /CUMM (0.0-0.7); ABSOLUTE LYMPH COUNT 0.6 /CUMM (1.2-3.4); ABSOLUTE MONOCYTE COUNT 0 /CUMM (0.10-0.60); BASOPHIL % 0 % (0.0-2.0); EOSINOPHIL % 0.1 % (0-5); HEMATOCRIT 25.5 % (37-47); MEAN CORPUSCULAR HGB 26.4 PG (27.0-31.0); MEAN CORPUSCULAR HGB CONC 32.2 G/DL (33.0-37.0); MEAN CORPUSCULAR VOLUME 81.9 FL (81.0-99.0); MEAN PLATELET VOLUME 8.9 FL (7.4-10.4); PLATELET COUNT 322 /CUMM (130-400); RBC DISTRIBUTION WIDTH 17.8 % (11.5-14.5); RED BLOOD CELL CT 3.11 /CUMM (4.20-5.40); WHITE BLOOD CELL COUNT 9.6 /CUMM (4.8-10.8)
[2017-10-12 08:06] LABS: GRANULOCYTE % 93.6 % (42.2-75.2)
--- NOTE | 2017-10-12 09:41 | PN- Cardiology ---
Subjective Subjective: Patient is very anxious regarding her upcoming biopsy today. She complains of mild shortness of breath but denies chest pain. Review of Systems: Eyes no blurred or double vision Ears no deafness or ringing Nose and throat no recurrent sinusitis Lungs per history of present illness Heart per history of present illness Abdomen no nausea vomiting Musculoskeletal occasional muscle and joint pains Psych no anxiety or depression Neuro without recurrent headache or seizures Endocrine no heat or cold intolerance Objective Vital Signs and I&Os Vital Signs Date Time Temp Pulse Resp B/P B/P Pulse O2 O2 Flow FiO2 Mean Ox Delivery Rate 10/12 0906 98.1 97 20 156/62 10/12 0905 98.1 88 20 156/62 10/12 0825 96 Nasal 5.0L Cannula 10/12 0800 99 Nasal 55% Cannula 10/12 0714 98.1 88 20 156/62 99 Nasal Cannula 10/12 0025 95 Nasal 55% Cannula 10/11 2327 Nasal 55% Cannula 10/11 2251 96 Nasal 55% Cannula 10/11 2200 97.2 94 20 116/56 97 Nasal Cannula 10/11 1914 Nasal 55% Cannula 10/11 1658 94 Nasal 55% Cannula 10/11 1600 93 Nasal 55% Cannula 10/11 1447 93 Nasal 55% Cannula 10/11 1416 98.1 69 20 94/50 99 Nasal Cannula 10/11 0945 73 114/51 Intake & Output 10/12 1600 10/12 0800 10/12 0000 10/11 1600 10/11 0800 10/11 0000 Intake Total 50 250 780 200 300 Output Total 250 300 350 450 Balance 50 0 480 -150 -150 Intake, Blood 350 Product Intake, IV 150 30 Intake, Oral 50 100 400 200 300 Number 0 0 Bowel Movements Output, Urine 250 300 350 450 Patient 125 lb 124 lb Weight Weight Bed scale Measurement Method Physical Exam: Patient is a well-developed well-nourished female appearing in no acute distress HEENT is unremarkable Neck is supple there is no JVD Lungs few rales at the right base Heart regular rhythm S1 and S2 are normal no murmurs gallops or rubs Abdomen bowel sounds positive Extremities without edema Neuro without focal deficits Psych. Anxiety Lymph no adenopathy Skin warm and dry Current Medications: Current Medications Sig/Noemy Start time Last Medication Dose Route Stop Time Status Admin Acetaminophen 650 MG Q4P PRN 10/11 0830 AC 06/11 PO 0840 Albuterol Sulfate 3 ML BID 10/11 0900 AC 10/12 INH 0823 Albuterol Sulfate 2 PUF Q4 10/10 1800 AC 10/12 INH 0913 Alprazolam 0.5 MG ONCE ONE 10/11 1615 DC 10/11 PO 10/11 1616 1619 Alprazolam 0.5 MG BID 10/10 2100 AC 10/12 PO 10/17 2059 0903 Amiodarone HCl 100 MG Q48H 10/10 1745 AC 10/10 PO 2154 Atorvastatin Calcium 40 MG 1700 10/11 1700 AC 10/11 PO 1619 Azithromycin 250 MG DAILY 10/12 0900 AC 10/12 PO 10/15 0901 0905 Azithromycin 500 MG ONCE ONE 10/11 1400 DC 10/11 Sodium Chloride 250 ML IV 10/11 1459 1605 Budesonide/ 2 PUF BID 10/10 2100 AC 10/12 Formoterol Fumarate INH 0901 Cholecalciferol 3,000 IU DAILY 10/11 0900 AC 10/12 PO 0905 Diphenhydramine HCl 25 MG AT BEDTIME PRN 10/10 2100 DC 10/10 PO 2154 Ezetimibe 10 MG DAILY 10/11 0900 AC 10/12 PO 0905 Furosemide 20 MG Q48H 10/10 1745 AC PO Hydroxyzine HCl 50 MG AT BEDTIME NEED.. 10/11 0945 AC PO Levothyroxine Sodium 0.05 MG DAILY AC 10/11 0700 AC 10/12 PO 0513 Melatonin 5 MG AT BEDTIME 10/11 2100 CAN PO Methylprednisolone 40 MG Q12 10/11 1230 AC 10/12 IV 0906 Metoprolol Succinate 50 MG DAILY 10/11 0900 AC 10/12 PO 0906 Mirtazapine 15 MG QPM PRN 10/10 1745 AC PO Omeprazole 40 MG DAILY AC 10/11 0700 AC 10/12 PO 0513 Patient Medication 1 ED ONE ONE 10/11 1300 DC Teaching ED 10/11 1301 Ramelteon 8 MG AT BEDTIME 10/11 2100 AC 10/11 PO 2157 Ranolazine 1,000 MG BID 10/10 2100 AC 10/12 PO 0905 Senna/Docusate Sodium 1 TAB DAILY PRN 10/10 1745 AC PO Tiotropium [place] 1 PUF DAILY 10/10 1739 AC 06/12 INH 0901 Results Last 48 Hrs of Labs/Mics: Laboratory Tests 10/12/17 0639: Anion Gap 13, Estimated GFR 22 L, BUN/Creatinine Ratio 18.2, CBC w Diff NO MAN DIFF REQ, RBC 3.11 L, MCV 81.9, MCH 26.4 L, MCHC 32.2 L, RDW 17.8 H, MPV 8.9 , Gran % 93.6 H, Lymphocytes % 5.9 L, Monocytes % 0.4 L, Eosinophils % 0.1, Basophils % 0, Absolute Granulocytes 9.0 H, Absolute Lymphocytes 0.6 L, Absolute Monocytes 0 L, Absolute Eosinophils 0, Absolute Basophils 0 10/11/17 1600: CBC w Diff NO MAN DIFF REQ, RBC 3.15 L, MCV 81.3, MCH 26.1 L, MCHC 32.2 L, RDW 18.0 H, MPV 8.8, Gran % 71.1, Lymphocytes % 16.9 L, Monocytes % 8.9, Eosinophils % 3.1, Basophils % 0, Absolute Granulocytes 5.6, Absolute Lymphocytes 1.3, Absolute Monocytes 0.7 H, Absolute Eosinophils 0.2, Absolute Basophils 0 10/11/17 0654: Anion Gap 14, Estimated GFR 25 L, BUN/Creatinine Ratio 15.5, Troponin I 0.01, CBC w Diff NO MAN DIFF REQ, RBC 2.65 L, MCV 80.9 L, MCH 25.8 L, MCHC 31.9 L, RDW 19.7 H, MPV 8.9, Gran % 74.9, Lymphocytes % 9.8 L, Monocytes % 12.0 H, Eosinophils % 3.2, Basophils % 0.1, Absolute Granulocytes 6.1, Absolute Lymphocytes 0.8 L, Absolute Monocytes 1.0 H, Absolute Eosinophils 0.3, Absolute Basophils 0 10/10/17 1955: Troponin I < 0.01 10/10/17 1615: Lactic Acid Cancelled 10/10/17 1445: Urine Color YEL, Urine Clarity CLEAR, Urine pH 7.0, Ur Specific [place] 1.010, Urine Protein NEG, Urine Ketones NEG, Urine Nitrite NEG, Urine Bilirubin NEG, Urine Urobilinogen 0.2, Ur Leukocyte Esterase NEG, Ur Microscopic EXAM NOT REQUIRED, Urine Hemoglobin NEG, Urine Glucose NEG 10/10/17 1340: Anion Gap 14, Estimated GFR 26 L, BUN/Creatinine Ratio 13.7, Glucose 101 H, Lactic Acid 1.7, Calcium 9.6, Magnesium 1.8, Total Bilirubin 0.5, AST 36, ALT 23 , Alkaline Phosphatase 143 H, Troponin I < 0.01, [id number] Pept 4570 H , Total Protein 7.2, Albumin 4.0, Globulin 3.2, Albumin/Globulin Ratio 1.3, PT 12.0, INR 1.10, APTT 29, CBC w Diff MAN DIFF ORDERED, RBC 3.08 L, MCV 81.7, MCH 25.6 L, MCHC 31.3 L, RDW 19.7 H, MPV 8.6, Segmented Neutrophils 87 H, Lymphocytes 2 L, Monocytes 9, Eosinophils 2, Nucleated RBCs 1 H, Polychromasia 1+, Hypochromic-Microcytic 2+, Poikilocytosis 1+, Anisocytosis 2+ Telemetry personally reviewed sinus rhythm Assessment/Plan Assessment/Plan 1. Shortness of breath/weakness, likely multifactorial improved 2. CAD with prior PCI () and prior STEMI; tx with PEDRO to the RCA 08/2015 3. Hx COPD/ILD/lung cancer s/p gamma knife radiation 4. hx PAF not on AC due to hx of GI bleed and anemia, In SR on low dose Amiodarone 5. CKD 6. Hyperkalemia, improved 7. Acute on chronic anemia 8. History of angina on Ranexa Recommendation 1. Continue to monitor H&H and transfuse as needed 2. Plan is for biopsy of pulmonary nodule today 3. Echocardiogram is pending Continue telemetry? Yes
--- NOTE | 2017-10-12 10:48 | PN- Pulmonary ---
Subjective HPI/Critical Care Issues: pt seen and examined awaiting IR guided lung biopsy now down to nasal cannula dyspnea at baseline Objective Current Medications: Current Medications Sig/Noemy Start time Last Medication Dose Route Stop Time Status Admin Acetaminophen 650 MG Q4P PRN 10/11 0830 AC 10/11 PO 0840 Albuterol Sulfate 3 ML BID 10/11 0900 AC 10/12 INH 0823 Albuterol Sulfate 2 PUF Q4 10/10 1800 AC 10/12 INH 0913 Alprazolam 0.5 MG ONCE ONE 10/11 1615 DC 10/11 PO 10/11 1616 1619 Alprazolam 0.5 MG BID 10/10 2100 AC 10/12 PO 10/17 2059 0903 Amiodarone HCl 100 MG Q48H 10/10 1745 AC 10/10 PO 2154 Atorvastatin Calcium 40 MG 1700 10/11 1700 AC 10/11 PO 1619 Azithromycin 250 MG DAILY 10/12 0900 AC 10/12 PO 10/15 0901 0905 Azithromycin 500 MG ONCE ONE 10/11 1400 DC 10/11 Sodium Chloride 250 ML IV 10/11 1459 1605 Budesonide/ 2 PUF BID 10/10 2100 AC 10/12 Formoterol Fumarate INH 0901 Cholecalciferol 3,000 IU DAILY 10/11 0900 AC 10/12 PO 0905 Ezetimibe 10 MG DAILY 10/11 0900 AC 10/12 PO 0905 Furosemide 20 MG Q48H 10/10 1745 AC PO Hydroxyzine HCl 50 MG AT BEDTIME NEED.. 10/11 0945 AC PO Levothyroxine Sodium 0.05 MG DAILY AC 10/11 0700 AC 10/12 PO 0513 Methylprednisolone 40 MG Q12 10/11 1230 AC 10/12 IV 0906 Metoprolol Succinate 50 MG DAILY 10/11 0900 AC 10/12 PO 0906 Mirtazapine 15 MG QPM PRN 10/10 1745 AC PO Omeprazole 40 MG DAILY AC 10/11 0700 AC 10/12 PO 0513 Patient Medication 1 ED ONE ONE 10/11 1300 DC Teaching ED 10/11 1301 Ramelteon 8 MG AT BEDTIME 10/11 2100 AC 10/11 PO 2157 Ranolazine 1,000 MG BID 10/10 2100 AC 10/12 PO 0905 Senna/Docusate Sodium 1 TAB DAILY PRN 10/10 1745 AC PO Tiotropium [place] 1 PUF DAILY 10/10 1739 AC 10/12 INH 0901 Vital Signs & I&O Last 24 Hrs of Vitals and I&O: Vital Signs Date Time Temp Pulse Resp B/P B/P Pulse O2 O2 Flow FiO2 Mean Ox Delivery Rate 10/12 905 98.1 97 20 156/62 10/12 0905 98.1 88 20 156/62 10/12 0825 96 Nasal 5.0L Cannula 10/12 0800 99 Nasal 55% Cannula 10/12 0714 98.1 88 20 156/62 99 Nasal Cannula 10/12 0025 95 Nasal 55% Cannula 10/11 2327 Nasal 55% Cannula 10/11 2251 96 Nasal 55% Cannula 10/11 2200 97.2 94 20 116/56 97 Nasal Cannula 10/11 1914 Nasal 55% Cannula 10/11 1658 94 Nasal 55% Cannula 10/11 1600 93 Nasal 55% Cannula 10/11 1447 93 Nasal 55% Cannula 10/11 1416 98.1 69 20 94/50 99 Nasal Cannula Intake & Output 10/12 1600 10/12 0800 10/12 0000 Intake Total 50 250 Output Total 250 Balance 50 0 Intake, IV 150 Intake, Oral 50 100 Number 0 Bowel Movements Output, Urine 250 Patient 125 lb Weight Exam Other Physical Findings: [id number] head/neck-high flow o2 cvs-s1,s2 lungs-dimnished bs bilaterally abd-soft,bs+ ext-without edema Results Last 24 Hrs of Lab Results: Laboratory Tests 10/12/17 0639: Anion Gap 13, Estimated GFR 22 L, BUN/Creatinine Ratio 18.2, CBC w Diff NO MAN DIFF REQ, RBC 3.11 L, MCV 81.9, MCH 26.4 L, MCHC 32.2 L, RDW 17.8 H, MPV 8.9 , Gran % 93.6 H, Lymphocytes % 5.9 L, Monocytes % 0.4 L, Eosinophils % 0.1, Basophils % 0, Absolute Granulocytes 9.0 H, Absolute Lymphocytes 0.6 L, Absolute Monocytes 0 L, Absolute Eosinophils 0, Absolute Basophils 0 10/11/17 1600: CBC w Diff NO MAN DIFF REQ, RBC 3.15 L, MCV 81.3, MCH 26.1 L, MCHC 32.2 L, RDW 18.0 H, MPV 8.8, Gran % 71.1, Lymphocytes % 16.9 L, Monocytes % 8.9, Eosinophils % 3.1, Basophils % 0, Absolute Granulocytes 5.6, Absolute Lymphocytes 1.3, Absolute Monocytes 0.7 H, Absolute Eosinophils 0.2, Absolute Basophils 0 Impression/Plan Impression/Plan Impression/Plan: Impression 72 year old woman * acute on chronic hypoxemic respiratory failure * lingular lung nodule increased in size * anemia of chronic disease * severe COPD with likely underlying exacerbation Plan -continue solumedrol 40mg iv q12h for today, will taper tomorrow -reduce fio2 to a goal of >90% -plan for IR biopsy today -monitor cbc, pt also gets epogen -trc/nebs DVT prophylaxis at all times
--- NOTE | 2017-10-12 13:42 | CT SCAN REPORT ---
PROCEDURE: CT GUIDED LUNG BIOPSY CLINICAL HISTORY: This patient is a 72 years old female with growing mass in the lingula, who presents to Interventional Radiology for core biopsy. PROCEDURE: 1. Limited CT of the chest. 2. CT-guided core needle biopsy of a left-sided lung mass. PHYSICIANS: Dr. Aicha Vasquez (attending) MONITORING: The procedure was performed with conscious sedation and analgesia under my direct supervision. Continuous blood pressure, pulse oximetry as well as heartrate monitoring was performed by an independent registered nurse. Physician intraservice sedation time was 30 minutes. MEDICATIONS: 1. Versed 1 mg and fentanyl 50 mcg IV were administered. 2. Lidocaine 1%, 6 mL, SQ. COMPLICATIONS: None ESTIMATED BLOOD LOSS: <5 mL SPECIMENS: Lingula mass cores IMPLANT: None CONTRAST: None TOTAL DLP: 428.05 mGy-cm SITE MARKING: As part of the preprocedure verification policy, a site marking procedure was initiated. Due to the nature the procedure, the insertion site could not be predetermined thus invoking the policy of exemption to site laterality and marking. Insertion site marking was performed in the procedure room in conjunction with imaging confirmation. PROCEDURE NOTE: Informed consent was obtained from the patient prior to the procedure. During this process, the procedure and potential alternatives were explained along with the intended outcome and benefits. The risks of the procedure, including the possibility of an unsuccessful procedure, as well as the risk of not doing the procedure, were discussed. The patient was given the opportunity to ask questions regarding the procedure and appeared competent to make decisions. A signed consent form documenting this discussion was placed in the medical record. A time-out procedure was performed. A localizing CT scan of the chest was performed. A suitable access site was chosen. The skin was sterilely prepped and draped in usual fashion. All elements of maximal sterile barrier technique followed including use of cap, mask, sterile gown, sterile gloves, a sterile full body drape and hand hygiene. Also followed skin preparation with 2% chlorhexidine for cutaneous antisepsis, and sterile ultrasound preparation with sterile gel and probe cover when applicable. The skin and subcutaneous tissues were then anesthetized with 1% lidocaine. Anesthesia was carried down to the pleural surface. Using CT guidance, a 19-gauge introducer needle was advanced just proximal to the lesion. CT scan confirmed adequate positioning of the introducer needle. Through this a 20-gauge [employer] core biopsy needle device was introduced into the lesion. A total of 1 pass was made. The specimen appeared to be composed of fat mostly with a small amount of lesional tissue. Subsequently, a 19-gauge introducer needle was advanced proximal to the lesion and through this a 20-gauge achieve core biopsy needle device was introduced into the lesion confirmed on CT fluoroscopy. The specimen appeared robust. The specimens were sent to histology for evaluation. The specimens were marked appropriately before leaving the laboratory. Final pathologic interpretation is pending. The introducer needle was removed. Limited CT scan was obtained which showed no evidence of complication. A sterile dressing was applied. The patient tolerated the procedure well and was transferred to recovery in stable condition. A chest radiograph obtained 1 hour after the biopsy demonstrated no evidence of pneumothorax. FINDINGS: Limited CT of the chest demonstrated left lung mass, with successful CT-guided core needle biopsy. IMPRESSION: Successful CT-guided lung biopsy. PLAN: The patient was stable after the procedure and was transferred to the interventional recovery area for a period of observation. The patient will be transferred to the floor.
--- NOTE | 2017-10-12 13:44 | RADIOLOGY REPORT ---
EXAMINATION:\H\ \N\XR CHEST CLINICAL INFORMATION: Status post left lung biopsy COMPARISON: Chest CT 10/10/2017 TECHNIQUE: Frontal view of the chest was obtained. FINDINGS: Diffusely reticulated in coarsened interstitial lung markings bilaterally consistent with known emphysematous changes. No evidence of pneumothorax. No pleural effusion. Fiducial markers project over the right lower lung. Heart size is normal. No acute or suspicious osseous abnormality. IMPRESSION: No evidence of complications status post left lung biopsy. Chronic lung changes.
[2017-10-12 14:23] VITALS: BP 116/52
--- NOTE | 2017-10-12 14:30 | ECHOCARDIOGRAM REPORT ---
EMIGDIO MAGAÑA Age: 72 : 1945 Gender: F Exam Date: 10/11/2017 19:15 Exam Location: [place] Ht (in): 60 Wt (lb): 124 BSA: 1.55 BP: 94 / 50 Ordering Physician: David Merchant MD Referring Physician: Leroy Matias M.D. Technologist: Casi Maxwell [facility] Room Number: 174-01 Indications: SHORTNESS OF BREATH Rhythm: Sinus Technical Quality: fair FINDINGS Left Ventricle Normal global left ventricular size, wall thickness, systolic function with no obvious regional wall motion abnormalities. Normal left ventricular ejection fraction estimated at 60-65%. Right Ventricle Normal right ventricular size and function. Right Atrium Normal right atrial size. Left Atrium Left atrial size at the upper limits of normal. Mitral Valve Mild mitral annular calcification. Trace to mild mitral regurgitation. Aortic Valve Diffuse thickening (sclerosis) of the aortic valve cusps without reduced excursion. Trace to mild aortic regurgitation. Tricuspid Valve Tricuspid valve is normal in structure and function. Mild tricuspid regurgitation. Right ventricular systolic pressure estimated to be at upper limits of normal at 28 mmHg. Pulmonic Valve Pulmonic valve not well visualized, grossly normal. Pericardium No pericardial effusion. Great Vessels Normal size aortic root. CONCLUSIONS Normal left and right ventricular systolic function. No significant valvular abnormalities noted. Ronald Hernandez M.D. (Electronically Signed) Final Date: 12 October 2017 14:29 MEASUREMENTS (Male / Female) Normal Values 2D ECHO LV Diastolic Diameter PLAX 3.8 cm 4.2 - 5.9 / 3.9 - 5.3 cm LV Systolic Diameter PLAX 1.8 cm 2.1 - 4.0 cm LV Fractional Shortening PLAX 52.6 % 25 - 46 % LV Ejection Fraction 2D Teich 84.3 % IVS Diastolic Thickness 1.0 cm LVPW Diastolic Thickness 1.0 cm LV Relative Wall Thickness 0.5 RV Internal Dim ED PLAX 2.3 cm 1.9 - 3.8 cm LVOT Diameter 1.8 cm Aortic Root Diameter 2.9 cm LA Systolic Diameter LX 3.0 cm 3.0 - 4.0 / 2.7 - 3.8 cm LA Volume 38.0 cm 18 - 58 / 22 - 52 cm Ascending Aorta Diameter 2.9 cm DOPPLER AV Peak Velocity 139.0 cm/s AV Peak Gradient 7.7 mmHg AV Mean Velocity 102.0 cm/s AV Mean Gradient 5.0 mmHg AV Velocity Time Integral 30.4 cm LVOT Peak Velocity 98.6 cm/s LVOT Peak Gradient 3.9 mmHg LVOT Mean Velocity 66.6 cm/s LVOT Mean Gradient 2.0 mmHg LVOT Velocity Time Integral 20.1 cm LVOT Stroke Volume 51.1 cm AV Area Cont Eq vti 1.7 cm AV Area Cont Eq pk 1.8 cm MV Peak Velocity 107.0 cm/s MV Peak Gradient 4.6 mmHg MV Mean Velocity 56.2 cm/s MV Mean Gradient 2.0 mmHg Mitral E Point Velocity 70.1 cm/s Mitral A Point Velocity 92.8 cm/s Mitral E to A Ratio 0.8 MV PHT Velocity 79.9 cm/s MV Deceleration [place] 390.0 cm/s MV Pressure Half Time 61.5 ms MV Area PHT 3.6 cm MV Deceleration Time 269.0 ms TR Peak Velocity 232.0 cm/s TR Peak Gradient 21.5 mmHg Right Atrial Pressure 5.0 mmHg Pulmonary Artery Systolic Pressu 26.5 mmHg Right Ventricular Systolic Press 26.5 mmHg PV Peak Velocity 99.3 cm/s PV Peak Gradient 3.9 mmHg PV Mean Velocity 60.3 cm/s PV Mean Gradient 2.0 mmHg PV Velocity Time Integral 19.7 cm LV E' Lateral Velocity 6.9 cm/s Mitral E to LV E' Lateral Ratio 10.1 LV E' Septal Velocity 5.0 cm/s Mitral E to LV E' Septal Ratio 14.1
[2017-10-12 21:27] VITALS: BP 108/92
[2017-10-13 06:47] VITALS: BP 108/50
--- NOTE | 2017-10-13 07:03 | PN- Housestaff ---
See Addendum Subjective Follow-up For: COPD status post lung biopsy, blood loss anemia Tele-Events Since Last Visit: Sinus rhythm, 8090 Subjective: No overnight events. Patient in the lung biopsy yesterday and it went well. She slept well overnight and is feeling good this morning. She has no pain from the biopsy. Her breathing is back to baseline. She would like to walk to see how she does but otherwise feels like she can probably go home today. Review of Systems Constitutional: Reports: no symptoms. EENTM: Reports: no symptoms. Cardiovascular: Reports: no symptoms. Respiratory: Reports: see HPI. Gastrointestinal: Reports: no symptoms. Genitourinary: Reports: no symptoms. Musculoskeletal: Reports: no symptoms. Skin: Reports: no symptoms. Neurological/Psychological: Reports: no symptoms. Hematologic/Endocrine: Reports: no symptoms. Immunologic/Allergic: Reports: no symptoms. Objective Last 24 Hrs of Vital Signs/I&O Vital Signs Date Time Temp Pulse Resp B/P B/P Pulse O2 O2 Flow FiO2 Mean Ox Delivery Rate 10/13 0647 97.9 85 20 108/50 99 Nasal Cannula 10/12 2127 97.1 95 20 108/92 93 Nasal Cannula 10/12 2037 95 Nasal 4.0L Cannula 10/12 2019 95 108/52 10/12 1835 95 Nasal 4.0L Cannula 10/12 1646 90 116/52 10/12 1600 95 Nasal 5.0L Cannula 10/12 1423 97.7 91 20 116/52 95 Nasal Cannula 10/12 0906 98.1 97 20 156/62 10/12 0905 98.1 88 20 156/62 10/12 0825 96 Nasal 5.0L Cannula 10/12 0800 98 Nasal 55% Cannula 10/12 0800 99 Nasal 55% Cannula 10/12 0714 98.1 88 20 156/62 99 Nasal Cannula Intake & Output 10/13 0800 10/13 0000 10/12 1600 Intake Total 110.5 362.5 480 Output Total 750 Balance 110.5 -387.5 480 Intake, IV 10.5 22.5 Intake, Oral 100 340 480 Output, Urine 750 Patient 58.967 kg Weight Physical Exam General Appearance: Alert, Oriented X3, Cooperative, No Acute Distress Cardiovascular: Regular Rate, Normal S1, Normal S2 Lungs: CRACKLES Extremities: No Edema, Normal Pulses, No Tenderness/Swelling Current Medications: Current Medications Sig/Noemy Start time Last Medication Dose Route Stop Time Status Admin Acetaminophen 650 MG .STK-MED ONE 10/12 1723 DC PO 10/12 1724 Acetaminophen 650 MG Q4P PRN 10/11 0830 AC 10/12 PO 1725 Albuterol Sulfate 3 ML BID 10/11 0900 AC 10/12 INH 1835 Albuterol Sulfate 2 PUF Q4 10/10 1800 AC 10/13 INH 0544 Alprazolam 0.5 MG BID PRN 10/13 0700 AC PO 10/20 0659 Alprazolam 0.5 MG BID 10/12 2100 AC 10/12 PO 10/19 1359 2019 Alprazolam 0.5 MG ONCE ONE 10/12 1400 DC 10/12 PO 10/12 1401 1400 Alprazolam 0.5 MG BID 10/10 2100 DC 10/12 PO 10/17 2059 0903 Amiodarone HCl 100 MG Q48H 10/10 1745 AC 10/12 PO 1646 Atorvastatin Calcium 40 MG 1700 10/11 1700 AC 10/12 PO 1646 Azithromycin 250 MG DAILY 10/12 0900 AC 10/12 PO 10/15 0901 0905 Budesonide/ 2 PUF BID 10/10 2100 AC 10/12 Formoterol Fumarate INH 2020 Cholecalciferol 3,000 IU DAILY 10/11 0900 AC 10/12 PO 0905 Ezetimibe 10 MG DAILY 10/11 0900 AC 10/12 PO 0905 Fentanyl Citrate 0 .STK-MED ONE 10/12 1056 DC .ROUTE Flumazenil 0 .STK-MED ONE 10/12 1056 DC IV Furosemide 20 MG Q48H 10/10 1745 AC 10/12 PO 1646 Hydroxyzine HCl 50 MG AT BEDTIME NEED.. 10/11 0945 AC PO Levothyroxine Sodium 0.05 MG DAILY AC 10/11 0700 AC 10/13 PO 0543 Lidocaine 1 ML .STK-MED ONE 10/12 1214 DC ID 10/12 1215 Lorazepam 1 MG ONCE ONE 10/12 2130 DC 10/12 IV 10/12 213 213 Methylprednisolone 40 MG Q12 10/11 1230 DC 10/12 IV 10/12 2300 2019 Metoprolol Succinate 50 MG DAILY 10/11 0900 AC 10/12 PO 0906 Midazolam HCl 0 .STK-MED ONE 10/12 1056 DC .ROUTE Mirtazapine 15 MG QPM PRN 10/10 1745 AC PO Naloxone HCl 0 .STK-MED ONE 10/12 1056 DC .ROUTE Omeprazole 40 MG DAILY AC 10/11 0700 AC 10/13 PO 0543 Patient Medication 1 ED ONE ONE 10/12 1630 DC Teaching ED 10/12 1631 Prednisone 50 MG DAILY 10/13 0900 AC PO 10/28 0859 Ramelteon 8 MG AT BEDTIME 10/11 2100 AC 10/12 PO 213 Ranolazine 1,000 MG BID 10/10 2100 AC 10/12 PO 2019 Senna/Docusate Sodium 1 TAB DAILY PRN 10/10 1745 AC 10/12 PO 2016 Tiotropium [place] 1 PUF DAILY 10/10 1739 AC 10/12 INH 0901 Last 24 Hrs of Lab/[place] Results Last 24 Hrs of Labs/Mics: Laboratory Tests 10/13/17 0620: CBC w Diff Pending, WBC Pending, RBC Pending, Hgb Pending, Hct Pending, MCV Pending, MCH Pending, MCHC Pending, RDW Pending, Plt Count Pending, MPV Pending Assessment/Plan Assessment: Ms. Obrien is a 72-year-old female with past medical history of coronary artery disease status post NM with multiple stents followed by Dr. 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 Lomeli, interstitial lung disease on 3 L oxygen, chronic kidney disease followed by Dr. Cardoza, paroxysmal atrial fibrillation not on anticoagulation due to a GI bleed and anxiety who presented with shortness of breath. Problem list: 1. Acute on chronic hypoxic respiratory failure with extensive pulmonary disease history possibly secondary to COPD exacerbation 2. Chest pain syndrome 3. Hyperkalemia 4. Acute blood loss anemia 5. Anxiety #Acute on chronic hypoxic respiratory failure with extensive pulmonary disease history possibly secondary to COPD exacerbation: Patient has an extensive long history including lung cancer and interstitial lung disease and presented with acutely worsening dyspnea. CT imaging is nonspecific and suggests multiple possible etiologies. EKG and troponins 3 have been negative. Ultrasound right lower extremity negative. Pulmonology evaluated and think this was likely related to COPD. Her breathing is since improved with steroid and azithromycin treatment. She received her lung biopsy yesterday and tolerated the procedure well. She is now back on her baseline oxygen requirements. After walking, she feels like she can probably go home today. -Appreciate cardiology and pulmonology recommendations -Continue ranolazine -Continue steroid taper -Continue azithromycin #Anxiety: Patient has significant anxiety related to her underlying pulmonary disease. She has required multiple additional doses of benzodiazepines. -Alprazolam twice a day and as needed -Consider outpatient psychiatry referral #Hyperkalemia: Patient had hyperkalemia that was mild without peaked T waves. It has resolved after Kayexalate. -Continue to monitor #Acute blood loss anemia: Patient has a chronic anemia secondary to her chronic kidney disease for which he receives Epogen. She also has history of GI bleed. She is not complaining of any hematochezia or melena recently. Her hemoglobin dropped to 6.9 and she was transfused 1 unit of packed red blood cell on 2017. Hemoglobin has since been stable. -Guaiac all stools -Continue Epogen -Continue to monitor, hemoglobin goal greater than 8 #Chronic medical problems: -Continue other home medications DVT prophylaxis with heparin CHF diet DNR/okay to intubate Problem List: 1. COPD (chronic obstructive pulmonary disease) Pain Ratin Pain Location: no Pain Goal: Remain pain free Pain Plan: see a/p Tomorrow's Labs & Rationales: no
--- NOTE | 2017-10-13 07:06 | Patient Discharge Instructions ---
Discharge Instructions General Discharge Information You were seen/treated for: COPD exacerbation, lung cancer status post biopsy Watch for these problems: Fever, chest pain, shortness of breath Special Instructions: Please take all medications as directed. Please follow-up with primary care and pulmonology. Diet Continue normal diet: Yes Activity Full Activity/No Limits: Yes Acute Coronary Syndrome Inclusion Criteria At DC or during hospital stay patient has or had the following: ACS DIAGNOSIS No Discharge Core Measures Meds if any: Prescribed or Continued at Discharge Meds if any: NOT Prescribed or Continued at Discharge Congestive Heart Failure Inclusion Criteria At DC or during hospital stay patient has or had the following: CHF DIAGNOSIS No Discharge Core Measures Meds if any: Prescribed or Continued at Discharge Meds if any: NOT Prescribed or Continued at Discharge Cerebrovascular accident Inclusion Criteria At DC or during hospital stay patient has or had the following: CVA/TIA Diagnosis No Discharge Core Measures Meds if any: Prescribed or Continued at Discharge Meds if any: NOT Prescribed or Continued at Discharge Venous thromboembolism Inclusion Criteria VTE Diagnosis No VTE Type NONE VTE Confirmed by (Test) NONE Discharge Core Measures - Per Current guidelines, there needs to be overlap - treatment for the first 5 days of Warfarin therapy. - If discharged on Warfarin prior to 5 days of - overlap therapy, the patient will need to be - assessed for post discharge needs including - *Post discharge parental anticoagulation - *Warfarin and/or parental anticoagulation education - *Follow up date to check INR post discharge At least 5 days overlap therapy as Inpatient No Meds if any: Prescribed or Continued at Discharge Note: Overlap Therapy is Warfarin and Anticoagulant Meds if any: NOT Prescribed or Continued at Discharge
--- NOTE | 2017-10-13 07:31 | Discharge Summary ---
Visit Information Visit Dates Admission Date: 10/10/17 Discharge Date: 10/14/17 Hospital Course Course Attending Physician: Deena Ventura MD Primary Care Physician: Jitendra Estrella MD Hospital Course: Ms. Obrien is a 72-year-old female with past medical history of coronary artery disease status post AL with multiple stents followed by Dr. 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 Lomeli, interstitial lung disease on 3 L oxygen, chronic kidney disease followed by Dr. Cardoza, paroxysmal atrial fibrillation not on anticoagulation due to a GI bleed and anxiety who presented with shortness of breath. On presentation, vital signs were T 97.9, HR 75, RR 22, BP 180/70, saturating 86 % on 5 L nasal cannula. Laboratories were significant for white blood cell count of 11.2, hemoglobin 7.9, MCV 81.7, potassium 5.7, BUN 26, creatinine 1.9 ( baseline 2.2), lactic acid 1.7, calcium 9.6, negative LFTs, BNP 4570. Urinalysis was negative. Chest x-ray shows bibasilar airspace opacities right greater than left with small bilateral pleural effusions and mild engorgement of the pulmonary vasculature suggesting volume overload. CT chest without contrast shows diffuse central lobar and paraseptal emphysema with some tonic interstitial lung disease, interval increase in interstitial disease, and interval enlargement of the lingular mass. She was admitted to telemetry and treated for the following problems: 1. Acute on chronic hypoxic respiratory failure with extensive pulmonary disease history possibly secondary to COPD exacerbation 2. Chest pain syndrome 3. Hyperkalemia 4. Acute blood loss anemia 5. Anxiety #Acute on chronic hypoxic respiratory failure with extensive pulmonary disease history possibly secondary to COPD exacerbation: Patient has an extensive long history including lung cancer and interstitial lung disease and presented with acutely worsening dyspnea. CT imaging is nonspecific and suggests multiple possible etiologies. EKG and troponins 3 have been negative. Ultrasound right lower extremity was negative. Pulmonology evaluated and thought this was likely related to COPD. Her breathing since improved with steroid and azithromycin treatment. She received her lung biopsy on 10/12/2017 and tolerated the procedure well. She is now back on her baseline oxygen requirements though she is desaturating with ambulation. Because of this, she will be going to rehab. She will follow-up with pulmonology for the results of her biopsy. #Anxiety: Patient has significant anxiety related to her underlying pulmonary disease. She has required multiple additional doses of benzodiazepines. We gave her a referral to psychiatry. #Hyperkalemia: Patient had hyperkalemia that was mild without peaked T waves. It resolved after Kayexalate. #Acute blood loss anemia: Patient has a chronic anemia secondary to her chronic kidney disease for which he receives Epogen. She also has history of GI bleed. She is not complaining of any hematochezia or melena recently. Her hemoglobin dropped to 6.9 and she was transfused 1 unit of packed red blood cell on 2017. Hemoglobin has since been stable. #Chronic medical problems: Her other home medications have been continued. Allergies: Coded Allergies: No Known Allergies (09/25/15) Disposition Summary Disposition Principal Diagnosis: 1. Acute on chronic hypoxic respiratory failure with extensive pulmonary disease history possibly secondary to COPD exacerbation Additional Diagnosis: 2. Chest pain syndrome 3. Hyperkalemia 4. Acute blood loss anemia 5. Anxiety Discharge Disposition: home or self care Discharge Instructions General Discharge Information Code Status: Do Not Resucitate Patient's Diet: Heart healthy diet Patient's Activity: As tolerated Follow-Up Instructions/Appts: Please take all medications as directed. Please follow-up with primary care, pulmonology, and psychiatry. Medications at Discharge Discharge Medications: Continue taking these medications: Omeprazole (Omeprazole) 40 MG CAPSULE.DR 1 Tablet ORAL DAILY Comments: Last Taken:10/14/17 Time:6AM Rosuvastatin Calcium (Crestor) 10 MG TABLET 1 Tablet ORAL DAILY Comments: LIPITOR ADMINISTERED IN PLACE Last Taken:10/13/17 Time:5PM Aspirin (Children's Aspirin) 81 MG TAB.CHEW 1 Tablet ORAL DAILY Comments: Last Taken: 10/14/17 Time: 8:54A.M Alprazolam (Alprazolam) 0.5 MG TABLET 1 Tablet ORAL TWICE DAILY Comments: Last Taken: 10/14/17 Time: 9:03A.M diphenhydrAMINE HCl (Benadryl) 25 MG CAPSULE 1 Capsule ORAL TAKE AT BEDTIME as needed for SLEEP Comments: Last Taken: NOT GIVEN THIS THIS ADMISSION Time: 10 am Metoprolol Succ XL (Toprol Xl) 50 MG TAB.ER.24H 1 Tablet ORAL DAILY Comments: Last Taken: 10/14/17 Time: 9AM Albuterol Sulfate (Proair Respiclick) 90 MCG AER.POW.BA 2 PUFF Inhale through mouth EVERY 8 HOURS NEEDED as needed for COPD Comments: Not given in hospital Amiodarone HCl (Pacerone) 100 MG TABLET 100 Milligram ORAL Every other day Comments: Last Taken: 10/12/17 Time: 4:46P.M Fluticasone/Vilanterol (Breo Ellipta 100-25 Mcg INH) 100 MCG-25 MCG/DOSE BLST.W.DEV 1 PUFF Inhale through mouth DAILY Comments: NOT GIVEN Umeclidinium [place] (Incruse Ellipta) 62.5 MCG/ACTUATION BLST.W.DEV 1 PUFF Inhale through mouth DAILY Comments: Not given in hospital Ezetimibe (Zetia) 10 MG TABLET 1 Tablet ORAL DAILY Comments: Last Taken: 10/14/17 Time: 08:54A.M Epoetin Jon (Epogen) (Unknown Strength) VIAL Unknown Dose Inject into fatty tissue [id number] Instructions: Q 3 WEEKS, LAST TAKEN Wednesday10/04/17) Furosemide (Furosemide) 20 MG TABLET 20 Milligram ORAL Every other day Comments: Last Taken:10/12/17 Time:4PM Levothyroxine Sodium (Levothyroxine Sodium) 50 MCG TABLET 1 Tablet ORAL DAILY Comments: Last Taken:10/14/17 Time:6AM Ranolazine (Ranexa) 500 MG TAB.ER.12H 1,000 Milligram ORAL TWICE DAILY Cholecalciferol (Vitamin D3) (Vitamin D3) 1,000 UNIT CAPSULE 1 Capsule ORAL DAILY Comments: Last Taken:10/14/17 Time:8:54A.M Sennosides (Senna) 8.6 MG TABLET 8.6 Milligram ORAL NEEDED Comments: Last Taken:10/13/17 Time:10PM Mirtazapine (Mirtazapine) 15 MG TABLET 1 Tablet ORAL Every night as needed for SLEEP Comments: NOT TAKEN Start taking the following new medications: Prednisone (Prednisone) 10 MG TABLET 1 Tablet ORAL DAILY Qty = 20 No Refills Instructions: Please take 40mg from 10/15/17-10/16/17, 30mg from 10/17/17-10/18/17, 20mg from 10/19/17-10/20/17, 10mg from 10/21/17-10/22/17, then stop Comments: Last Taken:10/14/17 Time:9AM Copies To: Nguyen WILSON,Ronald Gonzales; Armani WILSON,Jean Claude; Gurpreet Palmer APRN
[2017-10-13 08:07] LABS: ABSOLUTE BASOPHIL COUNT 0 /CUMM (0.0-0.2); ABSOLUTE EOSINOPHIL COUNT 0 /CUMM (0.0-0.7); ABSOLUTE LYMPH COUNT 0.6 /CUMM (1.2-3.4); ABSOLUTE MONOCYTE COUNT 0.4 /CUMM (0.10-0.60); BASOPHIL % 0 % (0.0-2.0); EOSINOPHIL % 0.2 % (0-5); HEMATOCRIT 24.6 % (37-47); MEAN CORPUSCULAR HGB 26.2 PG (27.0-31.0); MEAN CORPUSCULAR HGB CONC 31.8 G/DL (33.0-37.0); MEAN CORPUSCULAR VOLUME 82.3 FL (81.0-99.0); RBC DISTRIBUTION WIDTH 18.6 % (11.5-14.5); RED BLOOD CELL CT 2.99 /CUMM (4.20-5.40)
--- NOTE | 2017-10-13 08:30 | PN- Student ---
Subjective Subjective: No acute events overnight. Patient feels well and says she is ready to go home. Objective Objective: Vital Signs Date Time Temp Pulse Resp B/P B/P Pulse O2 O2 Flow FiO2 Mean Ox Delivery Rate 10/13 0824 95 Nasal 4.0L Cannula 10/13 0647 97.9 85 20 108/50 99 Nasal Cannula 10/12 2127 97.1 95 20 108/92 93 Nasal Cannula 10/12 2037 95 Nasal 4.0L Cannula 10/12 2019 95 108/52 10/12 1835 95 Nasal 4.0L Cannula 10/12 1646 90 116/52 10/12 1600 95 Nasal 5.0L Cannula 10/12 1423 97.7 91 20 116/52 95 Nasal Cannula 10/12 0906 98.1 97 20 156/62 10/12 0905 98.1 88 20 156/62 ED Intake and Output 10/13 0000 10/12 1200 Intake Total 842.5 50 Output Total 750 Balance 92.5 50 Intake, IV 22.5 Intake, Oral 820 50 Output, Urine 750 Patient 130 lb Weight Laboratory Tests 10/14 619 Hematology CBC w Diff Pending WBC Pending RBC Pending Hgb Pending Hct Pending MCV Pending MCH Pending MCHC Pending RDW Pending Plt Count Pending MPV Pending PE: Patient is an anxious appearing lady, alert and oriented x3. S1 & S2 were heard, with no additional murmurs. On lung auscultation, breath sounds were diminished and crackels were noted. She had normal bowel sounds, and her abdomen was soft, nontender, with no guarding. Results Results: Laboratory Tests 10/13/17 0620: CBC w Diff Pending, WBC Pending, RBC Pending, Hgb Pending, Hct Pending, MCV Pending, MCH Pending, MCHC Pending, RDW Pending, Plt Count Pending, MPV Pending 10/12/17 0639: Anion Gap 13, Estimated GFR 22 L, BUN/Creatinine Ratio 18.2, CBC w Diff NO MAN DIFF REQ, RBC 3.11 L, MCV 81.9, MCH 26.4 L, MCHC 32.2 L, RDW 17.8 H, MPV 8.9 , Gran % 93.6 H, Lymphocytes % 5.9 L, Monocytes % 0.4 L, Eosinophils % 0.1, Basophils % 0, Absolute Granulocytes 9.0 H, Absolute Lymphocytes 0.6 L, Absolute Monocytes 0 L, Absolute Eosinophils 0, Absolute Basophils 0 10/11/17 1600: CBC w Diff NO MAN DIFF REQ, RBC 3.15 L, MCV 81.3, MCH 26.1 L, MCHC 32.2 L, RDW 18.0 H, MPV 8.8, Gran % 71.1, Lymphocytes % 16.9 L, Monocytes % 8.9, Eosinophils % 3.1, Basophils % 0, Absolute Granulocytes 5.6, Absolute Lymphocytes 1.3, Absolute Monocytes 0.7 H, Absolute Eosinophils 0.2, Absolute Basophils 0 10/11/17 0654: Anion Gap 14, Estimated GFR 25 L, BUN/Creatinine Ratio 15.5, Troponin I 0.01, CBC w Diff NO MAN DIFF REQ, RBC 2.65 L, MCV 80.9 L, MCH 25.8 L, MCHC 31.9 L, RDW 19.7 H, MPV 8.9, Gran % 74.9, Lymphocytes % 9.8 L, Monocytes % 12.0 H, Eosinophils % 3.2, Basophils % 0.1, Absolute Granulocytes 6.1, Absolute Lymphocytes 0.8 L, Absolute Monocytes 1.0 H, Absolute Eosinophils 0.3, Absolute Basophils 0 10/10/17 1955: Troponin I < 0.01 10/10/17 1615: Lactic Acid Cancelled 10/10/17 1445: Urine Color YEL, Urine Clarity CLEAR, Urine pH 7.0, Ur Specific [place] 1.010, Urine Protein NEG, Urine Ketones NEG, Urine Nitrite NEG, Urine Bilirubin NEG, Urine Urobilinogen 0.2, Ur Leukocyte Esterase NEG, Ur Microscopic EXAM NOT REQUIRED, Urine Hemoglobin NEG, Urine Glucose NEG 10/10/17 1340: Anion Gap 14, Estimated GFR 26 L, BUN/Creatinine Ratio 13.7, Glucose 101 H, Lactic Acid 1.7, Calcium 9.6, Magnesium 1.8, Total Bilirubin 0.5, AST 36, ALT 23 , Alkaline Phosphatase 143 H, Troponin I < 0.01, Fqs-[id number]-Kjsjctmtogw Pept 4570 H , Total Protein 7.2, Albumin 4.0, Globulin 3.2, Albumin/Globulin Ratio 1.3, PT 12.0, INR 1.10, APTT 29, CBC w Diff MAN DIFF ORDERED, RBC 3.08 L, MCV 81.7, MCH 25.6 L, MCHC 31.3 L, RDW 19.7 H, MPV 8.6, Segmented Neutrophils 87 H, Lymphocytes 2 L, Monocytes 9, Eosinophils 2, Nucleated RBCs 1 H, Polychromasia 1+, Hypochromic-Microcytic 2+, Poikilocytosis 1+, Anisocytosis 2+ Microbiology 10/11 1847 NASOPHARYN: Influenza Virus A & B Rapid Smear - CAN Cancelled: SPECIMEN NOT RECEIVED IN LABORATORY IMAGING: Venous doppler US: IMPRESSION: No deep venous thrombosis demonstrated. Echocardiogram US: CONCLUSIONS Normal left and right ventricular systolic function. No significant valvular abnormalities noted. CXR: IMPRESSION: No evidence of complications status post left lung biopsy. Chronic lung changes. Assessment/Plan Assessment: Ms. Obrien is a 72 y/o female with a PMH of CAD s/p PCI (2000, 2013), STEMI on RCA (2015) & paroxysmal afib (not on anticoagulation due to hx of GI bleed) ( followed by Dr. Hernandez), COPD, ILD & squamous cell lung cancer (followed by Dr. Lomeli), chronic anemia and CKD (followed by Dr. Cardoza), that was BIBA d/t progressive SOB (saturating on the 70's even with 3L of home oxygen). She felt a pressure-like chest pain that would radiate to her lower jaw bilaterally. Before arriving to the hospital, she felt like she was going to faint, so she decided to activate her life alert. On arrival, her BP was 180/70, O2 sat was 86% on 5L nasal cannula, Hg was 7.9 and K+ was 5.7 (for which she was given Kayexalate in the ED). Patient had a growing mass in the lingula, for which a successful lung biopsy was performed yesterday. Problem list and plan: * SOB: Patient has an extensive history of lung and heart diseases that could explain her SOB. The pressure-like chest pain radiating to the jaw points to a cardiac etiology, but troponins have been consistently negative. Also, the pain has dissipated since then. The most likely cause of her SOB seems to be an acute respiratory failure, d/t exacerbation of her COPD. Patient has ILD, which could get worse with amiodarone therapy. Consult with pulmonology and cardiology to know their opinion on this. Patient was started on IV Solumedrol currently 40mg q 12h, per flattening machine operator's recommendation and her condition has significantly improved. Patient is currently on her baseline O2 requirements. Next course of action is to start tapering the solumedrol in anticipation for discharge. * Chest pain: Resolved. Troponins negative x2. Cardiology is on the case. * Chronic anemia: Patient has CKD and is in epogen q 3 wks. Blood transfusion was administered, which increased her Hgb, but it has come down again today a little (from 8.2 to 7.8). The marked anemia could also be contributing to the patient's SOB. Transfuse as needed, taking into consideration her volume status. Follow up with PCP. * Hyperkalemia: Resolved. * Growing mass in lingula: Patient has a lung mass whose progression is being followed by Dr. Lomeli. CXR and CT showed that the mass has increased in size. CT guided lung biopsy was performed. Awaiting the path report. Follow up with PCP and Dr. Lomeli. * Anxiety: Patient seems very anxious all the time. She is taking Alprazolam but it doesn't seem like is being very effective. Continue with Alprazolam and consider increasing the dose. Patient's anxiety could be worse due to her recently found mass. Anxiety can also be contributing to her SOB. If anxiety persists, consider psychiatry referral as outpatient. * Other chronic conditions: Continue home meds.
[2017-10-13 09:25] LABS: GRANULOCYTE % 91.9 % (42.2-75.2); PLATELET COUNT 356 /CUMM (130-400)
--- NOTE | 2017-10-13 10:34 | PN- Cardiology ---
Subjective Subjective: Patient is resting comfortably status post lung biopsy. She has not had a bowel movement yet. Objective Vital Signs and I&Os Vital Signs Date Time Temp Pulse Resp B/P B/P Pulse O2 O2 Flow FiO2 Mean Ox Delivery Rate 10/13 0828 85 108/50 10/13 0828 85 108/50 10/13 0824 95 Nasal 4.0L Cannula 10/13 0647 97.9 85 20 108/50 99 Nasal Cannula 10/12 2127 97.1 95 20 108/92 93 Nasal Cannula 10/12 2037 95 Nasal 4.0L Cannula 10/12 2019 95 108/52 10/12 1835 95 Nasal 4.0L Cannula 10/12 1646 90 116/52 10/12 1600 95 Nasal 5.0L Cannula 10/12 1423 97.7 91 20 116/52 95 Nasal Cannula Intake & Output 10/13 1600 10/13 0800 10/13 0000 10/12 1600 10/12 0800 10/12 0000 Intake Total 110.5 362.5 480 50 250 Output Total 750 250 Balance 110.5 -387.5 480 50 0 Intake, IV 10.5 22.5 150 Intake, Oral 100 340 480 50 100 Number 0 Bowel Movements Output, Urine 750 250 Patient 130 lb 125 lb Weight Physical Exam: General: no apparent distress. Alert. On nasal cannula Eyes: No obvious scleral icterus. HEENT: No jugular venous distention or abnormal jugular venous pulsations. Cardiovascular: Normal intensity S1/S2. Regular Respiratory: Decreased air entry bilaterally Abdomen: Soft, nontender with no guarding or rebound tenderness. Musculoskeletal: No clubbing or cyanosis noted; no edema Skin: warm Neurologic: No gross focal deficits noted. Current Medications: Current Medications Sig/Noemy Start time Last Medication Dose Route Stop Time Status Admin Acetaminophen 650 MG .STK-MED ONE 10/12 1723 DC PO 10/12 1724 Acetaminophen 650 MG Q4P PRN 10/11 0830 AC 10/12 PO 1725 Albuterol Sulfate 3 ML BID 10/11 0900 AC 10/13 INH 0824 Albuterol Sulfate 2 PUF Q4 10/10 1800 AC 10/13 INH 0829 Alprazolam 0.5 MG BID PRN 10/13 0700 AC PO 10/20 0659 Alprazolam 0.5 MG BID 10/12 2100 AC 10/13 PO 10/19 1359 0828 Alprazolam 0.5 MG ONCE ONE 10/12 1400 DC 10/12 PO 10/12 1401 1400 Alprazolam 0.5 MG BID 10/10 2100 DC 10/12 PO 10/17 2058 0903 Amiodarone HCl 100 MG Q48H 10/10 1745 AC 10/12 PO 1646 Atorvastatin Calcium 40 MG 1700 10/11 1700 AC 10/12 PO 1646 Azithromycin 250 MG DAILY 10/12 0900 AC 10/13 PO 10/15 0901 0828 Budesonide/ 2 PUF BID 10/10 2100 AC 10/13 Formoterol Fumarate INH 0829 Cholecalciferol 3,000 IU DAILY 10/11 0900 AC 10/13 PO 0828 Ezetimibe 10 MG DAILY 10/11 09 AC 10/13 PO 0828 Fentanyl Citrate 0 .STK-MED ONE 10/12 1056 DC .ROUTE Flumazenil 0 .STK-MED ONE 10/12 1056 DC IV Furosemide 20 MG Q48H 10/10 174 AC 10/12 PO 1646 Hydroxyzine HCl 50 MG AT BEDTIME NEED.. 10/11 0945 AC PO Levothyroxine Sodium 0.05 MG DAILY AC 10/11 0700 AC 10/13 PO 0543 Lidocaine 1 ML .STK-MED ONE 10/12 1214 DC ID 10/12 1215 Lorazepam 1 MG ONCE ONE 10/12 2130 DC 10/12 IV 10/12 Methylprednisolone 40 MG Q12 10/11 1230 DC 10/12 IV 10/120 2019 Metoprolol Succinate 50 MG DAILY 10/11 0900 AC 10/13 PO 0828 Midazolam HCl 0 .STK-MED ONE 10/12 1056 DC .ROUTE Mirtazapine 15 MG QPM PRN 10/10 1745 AC PO Naloxone HCl 0 .STK-MED ONE 10/12 1056 DC .ROUTE Omeprazole 40 MG DAILY AC 10/11 0700 AC 10/13 PO 0543 Patient Medication 1 ED ONE ONE 10/12 1630 DC Teaching ED 10/12 1631 Prednisone 50 MG DAILY 10/13 0900 AC 10/13 PO 10/28 0859 0829 Ramelteon 8 MG AT BEDTIME 10/11 2100 AC 10/12 PO 2135 Ranolazine 1,000 MG BID 10/10 2099 AC 10/13 PO 0828 Senna/Docusate Sodium 1 TAB DAILY PRN 10/10 1745 10/12 PO 2015 Tiotropium [place] 1 PUF DAILY 10/10 1739 10/13 INH 0828 Results Last 48 Hrs of Labs/Mics: Laboratory Tests 10/13/17 0620: CBC w Diff NO MAN DIFF REQ, RBC 2.99 L, MCV 82.3, MCH 26.2 L, MCHC 31.8 L, RDW 18.6 H, MPV 9.0, Gran % 91.9 H, Lymphocytes % 4.9 L, Monocytes % 3.0, Eosinophils % 0.2, Basophils % 0, Absolute Granulocytes 11.0 H, Absolute Lymphocytes 0.6 L, Absolute Monocytes 0.4, Absolute Eosinophils 0, Absolute Basophils 0 10/12/17 0639: Anion Gap 13, Estimated GFR 22 L, BUN/Creatinine Ratio 18.2, CBC w Diff NO MAN DIFF REQ, RBC 3.11 L, MCV 81.9, MCH 26.4 L, MCHC 32.2 L, RDW 17.8 H, MPV 8.9 , Gran % 93.6 H, Lymphocytes % 5.9 L, Monocytes % 0.4 L, Eosinophils % 0.1, Basophils % 0, Absolute Granulocytes 9.0 H, Absolute Lymphocytes 0.6 L, Absolute Monocytes 0 L, Absolute Eosinophils 0, Absolute Basophils 0 10/11/17 1600: CBC w Diff NO MAN DIFF REQ, RBC 3.15 L, MCV 81.3, MCH 26.1 L, MCHC 32.2 L, RDW 18.0 H, MPV 8.8, Gran % 71.1, Lymphocytes % 16.9 L, Monocytes % 8.9, Eosinophils % 3.1, Basophils % 0, Absolute Granulocytes 5.6, Absolute Lymphocytes 1.3, Absolute Monocytes 0.7 H, Absolute Eosinophils 0.2, Absolute Basophils 0 Recent Imaging Studies: cxr: No evidence of complications status post left lung biopsy. Chronic lung changes. echo: Normal left and right ventricular systolic function. No significant valvular abnormalities noted. Assessment/Plan Assessment/Plan 1. Shortness of breath/weakness, likely multifactorial improved 2. CAD with prior PCI () and prior STEMI; tx with PEDRO to the RCA 08/2015 3. Hx COPD/ILD/lung cancer s/p gamma knife radiation 4. hx PAF not on AC due to hx of GI bleed and anemia, In SR on low dose Amiodarone 5. CKD 6. Hyperkalemia, improved 7. Acute on chronic anemia 8. History of angina on Ranexa Patient remains stable status post lung biopsy. Echocardiogram as above with normal ventricular function. Follow-up stool guaiac. Resume aspirin when cleared. Continue antianginal therapy. No evidence of sustained arrhythmia on telemetry. Alex Matias MD [facility] Continue telemetry? No
--- NOTE | 2017-10-13 11:41 | PN- Pulmonary ---
Subjective HPI/Critical Care Issues: pt seen and examined s/p lung bx without complications down to 4LNC desaturates with ambulation Objective Current Medications: Current Medications Sig/Noemy Start time Last Medication Dose Route Stop Time Status Admin Acetaminophen 650 MG .STK-MED ONE 10/12 1723 DC PO 10/12 1724 Acetaminophen 650 MG Q4P PRN 10/11 0830 AC 10/12 PO 1725 Albuterol Sulfate 3 ML BID 10/11 0900 AC 10/13 INH 0824 Albuterol Sulfate 2 PUF Q4 10/10 1800 AC 10/13 INH 0829 Alprazolam 0.5 MG BID PRN 10/13 0700 AC PO 10/20 0659 Alprazolam 0.5 MG BID 10/12 2100 AC 10/13 PO 10/19 1359 0828 Alprazolam 0.5 MG ONCE ONE 10/12 1400 DC 10/12 PO 10/12 1401 1400 Alprazolam 0.5 MG BID 10/10 2100 DC 10/12 PO 10/17 2059 0903 Amiodarone HCl 100 MG Q48H 10/10 1745 AC 10/12 PO 1646 Aspirin Buffered 81 MG DAILY 10/13 1115 AC PO Atorvastatin Calcium 40 MG 1700 10/11 1700 AC 10/12 PO 1646 Azithromycin 250 MG DAILY 10/12 0900 AC 10/13 PO 10/15 0901 0828 Bisacodyl 5 MG ONE ONE 10/13 1130 UNVr PO 10/13 1131 Budesonide/ 2 PUF BID 10/10 2100 AC 10/13 Formoterol Fumarate INH 0829 Cholecalciferol 3,000 IU DAILY 10/11 0900 AC 10/13 PO 0828 Ezetimibe 10 MG DAILY 10/11 0900 AC 10/13 PO 0828 Furosemide 20 MG Q48H 10/10 1745 AC 10/12 PO 1646 Hydroxyzine HCl 50 MG AT BEDTIME NEED.. 10/11 0945 AC PO Levothyroxine Sodium 0.05 MG DAILY AC 10/11 0700 AC 10/13 PO 0543 Lidocaine 1 ML .STK-MED ONE 10/12 1214 DC ID 10/12 1215 Lorazepam 1 MG ONCE ONE 10/12 2130 DC 10/12 IV 10/12 2131 213 Methylprednisolone 40 MG Q12 10/11 1230 DC 10/12 IV 06/12 2300 2019 Metoprolol Succinate 50 MG DAILY 10/11 09 AC 10/13 PO 0828 Mirtazapine 15 MG QPM PRN 10/10 1745 AC PO Omeprazole 40 MG DAILY AC 10/11 07 AC 10/13 PO 0543 Patient Medication 1 ED ONE ONE 10/12 1630 DC Teaching ED 10/12 1631 Prednisone 50 MG DAILY 10/13 09 AC 10/13 PO 10/28 0859 0829 Ramelteon 8 MG AT BEDTIME 10/11 2099 AC 10/12 PO 2135 Ranolazine 1,000 MG BID 10/10 2100 AC 10/13 PO 0828 Senna/Docusate Sodium 1 TAB DAILY PRN 10/10 174 AC 10/12 PO 2015 Tiotropium [place] 1 PUF DAILY 10/10 173 AC 10/13 INH 0828 Vital Signs & I&O Last 24 Hrs of Vitals and I&O: Vital Signs Date Time Temp Pulse Resp B/P B/P Pulse O2 O2 Flow FiO2 Mean Ox Delivery Rate 10/13 0828 85 108/50 10/13 0828 85 108/50 10/13 0824 95 Nasal 4.0L Cannula 10/13 0800 96 Nasal 4.0L Cannula 10/13 0647 97.9 85 20 108/50 99 Nasal Cannula 10/127 97.1 95 20 108/92 93 Nasal Cannula 10/12 2037 95 Nasal 4.0L Cannula 10/12 2019 95 108/52 10/12 1835 95 Nasal 4.0L Cannula 10/12 1646 90 116/52 10/12 1600 95 Nasal 5.0L Cannula 10/12 1423 97.7 91 20 116/52 95 Nasal Cannula Intake & Output 10/13 1600 10/13 0800 10/13 0000 Intake Total 110.5 362.5 Output Total 750 Balance 110.5 -387.5 Intake, IV 10.5 22.5 Intake, Oral 100 340 Output, Urine 750 Patient 130 lb Weight Exam Other Physical Findings: [id number] head/neck-nasal cannula cvs-s1,s2 lungs-dimnished bs bilaterally abd-soft,bs+ ext-without edema Results Last 24 Hrs of Lab Results: Laboratory Tests 10/13/17 06: CBC w Diff NO MAN DIFF REQ, RBC 2.99 L, MCV 82.3, MCH 26.2 L, MCHC 31.8 L, RDW 18.6 H, MPV 9.0, Gran % 91.9 H, Lymphocytes % 4.9 L, Monocytes % 3.0, Eosinophils % 0.2, Basophils % 0, Absolute Granulocytes 11.0 H, Absolute Lymphocytes 0.6 L, Absolute Monocytes 0.4, Absolute Eosinophils 0, Absolute Basophils 0 Impression/Plan Impression/Plan Impression/Plan: Impression 72 year old woman * acute on chronic hypoxemic respiratory failure * lingular lung nodule increased in size * anemia of chronic disease * severe COPD with likely underlying exacerbation Plan -prednisone po taper - would taper by 10mg every 2 days -evaluate o2 needs with exertion -plan for dc ~24 hrs -case management to evaluate STR options, pt reluctant but open minded regarding rehab -reduce fio2 to a goal of >90% -monitor cbc, pt also gets epogen -trc/nebs DVT prophylaxis at all times pt is DNR it would be appropriate to re-evaluate goals of care and code status and recommend DNI
[2017-10-13 14:42] VITALS: BP 112/60
[2017-10-13 21:46] VITALS: BP 140/68
[2017-10-14 06:31] VITALS: BP 130/54
--- NOTE | 2017-10-14 07:05 | PN- Housestaff ---
See Addendum Subjective Follow-up For: COPD exacerbation Tele-Events Since Last Visit: Not on telemetry Subjective: No overnight events. Patient slept well and has no chest pain or shortness of breath. She has not had a bowel movement yet. No other complaints. Review of Systems Constitutional: Reports: no symptoms. EENTM: Reports: no symptoms. Cardiovascular: Reports: no symptoms. Respiratory: Reports: no symptoms. Gastrointestinal: Reports: see HPI. Genitourinary: Reports: no symptoms. Musculoskeletal: Reports: no symptoms. Skin: Reports: no symptoms. Neurological/Psychological: Reports: no symptoms. Hematologic/Endocrine: Reports: no symptoms. Immunologic/Allergic: Reports: no symptoms. Objective Last 24 Hrs of Vital Signs/I&O Vital Signs Date Time Temp Pulse Resp B/P B/P Pulse O2 O2 Flow FiO2 Mean Ox Delivery Rate 10/14 0631 97.7 69 20 130/54 95 Nasal Cannula 10/13 2146 98.0 82 20 140/68 96 Nasal Cannula 10/13 2120 Nasal 4.0L Cannula 10/13 2010 140/68 10/13 1442 98.1 85 20 112/60 96 Nasal 3.0L Cannula 10/13 0828 85 108/50 10/13 0828 85 108/50 10/13 0824 95 Nasal 4.0L Cannula 10/13 0800 96 Nasal 4.0L Cannula Intake & Output 10/14 0800 10/14 0000 10/13 1600 Intake Total 100 100 410 Output Total Balance 100 100 410 Intake, IV 10 Intake, Oral 100 100 400 Patient 58.684 kg Weight Weight Bed scale Measurement Method Physical Exam General Appearance: Alert, Oriented X3, Cooperative, No Acute Distress Cardiovascular: Regular Rate, Normal S1, Normal S2 Lungs: crackles Extremities: No Edema, Normal Pulses, No Tenderness/Swelling Current Medications: Current Medications Sig/Noemy Start time Last Medication Dose Route Stop Time Status Admin Acetaminophen 650 MG Q4P PRN 10/11 0830 AC 10/12 PO 1725 Albuterol Sulfate 3 ML BID 10/11 0900 AC 10/13 INH 0824 Albuterol Sulfate 2 PUF Q4 10/10 1800 AC 10/14 INH 0541 Alprazolam 0.5 MG BID PRN 10/13 0700 AC 10/13 PO 10/20 0659 2202 Alprazolam 0.5 MG BID 10/12 2100 AC 10/13 PO 10/19 1359 2010 Amiodarone HCl 100 MG Q48H 10/10 1745 AC 10/12 PO 1646 Aspirin Buffered 81 MG DAILY 10/13 1115 AC 10/13 PO 1256 Atorvastatin Calcium 40 MG 1700 10/11 1700 AC 10/13 PO 1711 Azithromycin 250 MG DAILY 10/12 0900 AC 10/13 PO 10/15 0901 0828 Bisacodyl 10 MG ONCE ONE 10/14 0715 UNVr [place] 10/14 0716 Bisacodyl 5 MG ONE ONE 10/13 1130 DC 10/13 PO 10/13 1131 1257 Budesonide/ 2 PUF BID 10/10 2100 AC 10/13 Formoterol Fumarate INH 2010 Cholecalciferol 3,000 IU DAILY 10/11 0900 AC 10/13 PO 0828 Ezetimibe 10 MG DAILY 10/11 0900 AC 10/13 PO 0828 Furosemide 20 MG Q48H 10/10 1745 AC 10/12 PO 1646 Hydroxyzine HCl 50 MG AT BEDTIME NEED.. 10/11 0945 AC PO Levothyroxine Sodium 0.05 MG DAILY AC 10/11 0700 AC 10/14 PO 0541 Metoprolol Succinate 50 MG DAILY 10/11 0900 AC 10/13 PO 0828 Mirtazapine 15 MG QPM PRN 10/10 1745 AC PO Omeprazole 40 MG DAILY AC 10/11 0700 AC 10/14 PO 0541 Patient Medication 1 ED ONE ONE 10/13 1230 DC Teaching ED 10/13 1231 Prednisone 50 MG DAILY 10/14 09 UNVr PO 10/23 0859 Prednisone 50 MG DAILY 10/13 0900 DC 10/13 PO 10/28 0859 0829 Ramelteon 8 MG AT BEDTIME 10/11 2100 AC 10/13 PO 2202 Ranolazine 1,000 MG BID 10/10 2100 AC 10/13 PO 2011 Senna/Docusate Sodium 1 TAB DAILY PRN 10/10 1745 AC 10/13 PO 2203 Tiotropium [place] 1 PUF DAILY 10/10 1739 AC 10/13 INH 0828 Last 24 Hrs of Lab/[place] Results Last 24 Hrs of Labs/Mics: Laboratory Tests 10/14/17 0625: CBC w Diff Pending, WBC Pending, RBC Pending, Hgb Pending, Hct Pending, MCV Pending, MCH Pending, MCHC Pending, RDW Pending, Plt Count Pending, MPV Pending Assessment/Plan Assessment: Ms. Obrien is a 72-year-old female with past medical history of coronary artery disease status post ND with multiple stents followed by Dr. 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 Lomeli, interstitial lung disease on 3 L oxygen, chronic kidney disease followed by Dr. Cardoza, paroxysmal atrial fibrillation not on anticoagulation due to a GI bleed and anxiety who presented with shortness of breath. Problem list: 1. Acute on chronic hypoxic respiratory failure with extensive pulmonary disease history possibly secondary to COPD exacerbation 2. Chest pain syndrome 3. Hyperkalemia 4. Acute blood loss anemia 5. Anxiety #Acute on chronic hypoxic respiratory failure with extensive pulmonary disease history possibly secondary to COPD exacerbation: Patient has an extensive long history including lung cancer and interstitial lung disease and presented with acutely worsening dyspnea. CT imaging is nonspecific and suggests multiple possible etiologies. EKG and troponins 3 have been negative. Ultrasound right lower extremity negative. Pulmonology evaluated and think this was likely related to COPD. Her breathing is since improved with steroid and azithromycin treatment. She received her lung biopsy yesterday and tolerated the procedure well. She is now back on her baseline oxygen requirements. She desaturated while walking yesterday on the oxygen however so she stayed another day. We will see if she can go home today. -Appreciate cardiology and pulmonology recommendations -Continue ranolazine -Continue steroid taper -Continue azithromycin #Anxiety: Patient has significant anxiety related to her underlying pulmonary disease. She has required multiple additional doses of benzodiazepines. -Alprazolam twice a day and as needed -Consider outpatient psychiatry referral #Hyperkalemia: Patient had hyperkalemia that was mild without peaked T waves. It has resolved after Kayexalate. -Continue to monitor #Acute blood loss anemia: Patient has a chronic anemia secondary to her chronic kidney disease for which he receives Epogen. She also has history of GI bleed. She is not complaining of any hematochezia or melena recently. Her hemoglobin dropped to 6.9 and she was transfused 1 unit of packed red blood cell on 2017. Hemoglobin has since been stable. -Guaiac all stools -Continue Epogen -Continue to monitor, hemoglobin goal greater than 8 #Chronic medical problems: -Continue other home medications DVT prophylaxis with heparin CHF diet DNR/okay to intubate Problem List: 1. COPD (chronic obstructive pulmonary disease) Pain Ratin Pain Location: no Pain Goal: Remain pain free Pain Plan: see a/p Tomorrow's Labs & Rationales: cbc
[2017-10-14] MEDS ORDERED: PREDNISONE10 M2 PO (07:07)
[2017-10-14 07:53] LABS: ABSOLUTE BASOPHIL COUNT 0 /CUMM (0.0-0.2); ABSOLUTE EOSINOPHIL COUNT 0 /CUMM (0.0-0.7); ABSOLUTE LYMPH COUNT 0.9 /CUMM (1.2-3.4); ABSOLUTE MONOCYTE COUNT 0.7 /CUMM (0.10-0.60); BASOPHIL % 0 % (0.0-2.0); EOSINOPHIL % 0.2 % (0-5); HEMATOCRIT 25.2 % (37-47); MEAN CORPUSCULAR HGB 26.2 PG (27.0-31.0); MEAN CORPUSCULAR HGB CONC 31.7 G/DL (33.0-37.0); MEAN CORPUSCULAR VOLUME 82.7 FL (81.0-99.0); MEAN PLATELET VOLUME 9.1 FL (7.4-10.4); PLATELET COUNT 328 /CUMM (130-400); RBC DISTRIBUTION WIDTH 19.3 % (11.5-14.5); RED BLOOD CELL CT 3.05 /CUMM (4.20-5.40); WHITE BLOOD CELL COUNT 11.5 /CUMM (4.8-10.8)
[2017-10-14 08:54] LABS: GRANULOCYTE % 86.4 % (42.2-75.2)
--- NOTE | 2017-10-14 08:56 | PN- Cardiology ---
Subjective Subjective: Patient is off telemetry. She is scheduled to go to short-term rehab today. She would rather go home. But no complaints of chest pain or unusual shortness of breath at rest. She had a lung biopsy yesterday. Objective Vital Signs and I&Os Vital Signs Date Time Temp Pulse Resp B/P B/P Pulse O2 O2 Flow FiO2 Mean Ox Delivery Rate 10/14 0631 97.7 69 20 130/54 95 Nasal Cannula 10/13 2146 98.0 82 20 140/68 96 Nasal Cannula 10/13 2120 Nasal 4.0L Cannula 10/13 2010 140/68 10/13 1442 98.1 85 20 112/60 96 Nasal 3.0L Cannula Intake & Output 10/14 1600 10/14 0800 10/14 0000 10/13 1600 10/13 0800 10/13 0000 Intake Total 100 100 410 110.5 362.5 Output Total 750 Balance 100 100 410 110.5 -387.5 Intake, IV 10 10.5 22.5 Intake, Oral 100 100 400 100 340 Output, Urine 750 Patient 129 lb 130 lb Weight Weight Bed scale Measurement Method Physical Exam: On general exam patient appeared comfortable Head normocephalic atraumatic Eyes sclera anicteric conjunctiva showed marked pallor extraocular muscles were normal Neck no jugular venous distention no thyroid masses no palpable nodes Chest lungs fine crackles bilaterally Heart regular rhythm with a 1/6 systolic murmur Abdomen soft no organomegaly bowel sounds normal Extremities no clubbing cyanosis or edema Neurological no gross motor or sensory deficits Current Medications: Current Medications Sig/Noemy Start time Last Medication Dose Route Stop Time Status Admin Acetaminophen 650 MG Q4P PRN 10/11 0830 AC 10/12 PO 1725 Albuterol Sulfate 3 ML BID 10/11 0900 AC 10/14 INH 0847 Albuterol Sulfate 2 PUF Q4 10/10 1800 AC 10/14 INH 0541 Alprazolam 0.5 MG BID PRN 10/13 0700 AC 10/13 PO 10/20 0659 2202 Alprazolam 0.5 MG BID 10/12 2100 AC 10/13 PO 10/19 1359 2010 Amiodarone HCl 100 MG Q48H 10/10 1745 AC 10/12 PO 1646 Aspirin Buffered 81 MG DAILY 10/13 1115 AC 10/13 PO 1256 Atorvastatin Calcium 40 MG 1700 10/11 1700 AC 10/13 PO 1711 Azithromycin 250 MG DAILY 10/12 0900 AC 10/13 PO 10/15 0901 0828 Bisacodyl 10 MG ONCE ONE 10/14 0715 DC CA 10/14 0716 Bisacodyl 5 MG ONE ONE 10/13 1130 DC 10/13 PO 10/13 1131 1257 Budesonide/ 2 PUF BID 10/10 2100 AC 10/13 Formoterol Fumarate INH 2010 Cholecalciferol 3,000 IU DAILY 10/11 0900 AC 10/13 PO 0828 Ezetimibe 10 MG DAILY 10/11 0900 AC 10/13 PO 0828 Furosemide 20 MG Q48H 10/10 1745 AC 10/12 PO 1646 Hydroxyzine HCl 50 MG AT BEDTIME NEED.. 10/11 0945 AC PO Levothyroxine Sodium 0.05 MG DAILY AC 10/11 0700 AC 10/14 PO 0541 Metoprolol Succinate 50 MG DAILY 10/11 0900 AC 10/13 PO 0828 Mirtazapine 15 MG QPM PRN 10/10 1745 AC PO Omeprazole 40 MG DAILY AC 10/11 0700 AC 10/14 PO 0541 Patient Medication 1 ED ONE ONE 10/13 1230 DC Teaching ED 10/13 1231 Prednisone 50 MG DAILY 10/14 0900 AC PO 10/23 0859 Prednisone 50 MG DAILY 10/13 0900 DC 10/13 PO 10/28 0859 0829 Ramelteon 8 MG AT BEDTIME 10/11 2100 AC 10/13 PO 2202 Ranolazine 1,000 MG BID 10/10 2100 AC 10/13 PO 2010 Senna/Docusate Sodium 1 TAB DAILY PRN 10/10 1745 AC 10/13 PO 2203 Tiotropium [place] 1 PUF DAILY 10/10 1739 AC 10/13 INH 0828 Results Last 48 Hrs of Labs/Mics: Laboratory Tests 10/14/17 0625: CBC w Diff Pending, WBC Pending, RBC Pending, Hgb Pending, Hct Pending, MCV Pending, MCH Pending, MCHC Pending, RDW Pending, Plt Count Pending, MPV Pending, Gran % Pending, Lymphocytes % Pending, Monocytes % Pending, Eosinophils % Pending, Basophils % Pending, Absolute Granulocytes Pending, Absolute Lymphocytes Pending, Absolute Monocytes Pending, Absolute Eosinophils Pending, Absolute Basophils Pending 10/13/17 0620: CBC w Diff NO MAN DIFF REQ, RBC 2.99 L, MCV 82.3, MCH 26.2 L, MCHC 31.8 L, RDW 18.6 H, MPV 9.0, Gran % 91.9 H, Lymphocytes % 4.9 L, Monocytes % 3.0, Eosinophils % 0.2, Basophils % 0, Absolute Granulocytes 11.0 H, Absolute Lymphocytes 0.6 L, Absolute Monocytes 0.4, Absolute Eosinophils 0, Absolute Basophils 0 Assessment/Plan Assessment/Plan In summary this 72-year-old female has a following problems 1. Shortness of breath/weakness, likely multifactorial improved 2. CAD with prior PCI () and prior STEMI; tx with PEDRO to the RCA 08/2015 3. Hx COPD/ILD/lung cancer s/p gamma knife radiation 4. hx PAF not on AC due to hx of GI bleed and anemia, In SR on low dose Amiodarone 5. CKD 6. Hyperkalemia, improved 7. Acute on chronic anemia 8. History of angina on Ranexa I suspect much of her symptoms of chest pain were related to marked anemia. I suspect her shortness of breath was related to more COPD and interstitial lung disease. CT scan of the chest suggests combination of COPD and interstitial lung disease with may be some worsening of interstitial congestion. Follow-up CT scan or pulmonary function test might be suggested as an outpatient. For the time being continue present treatment. Main issues appear related to chronic anemia lung cancer COPD interstitial lung disease. Continue telemetry? Not applicable
--- NOTE | 2017-10-14 09:30 | PN- Pulmonary ---
Subjective HPI/Critical Care Issues: pt seen and examined Objective Current Medications: Current Medications Sig/Noemy Start time Last Medication Dose Route Stop Time Status Admin Acetaminophen 650 MG Q4P PRN 10/11 0830 AC 10/12 PO 1725 Albuterol Sulfate 3 ML BID 10/11 0900 AC 10/14 INH 0847 Albuterol Sulfate 2 PUF Q4 10/10 1800 AC 10/14 INH 0541 Alprazolam 0.5 MG BID PRN 10/13 0700 AC 10/13 PO 10/20 0659 2202 Alprazolam 0.5 MG BID 10/12 2100 AC 10/14 PO 10/19 1359 0900 Amiodarone HCl 100 MG Q48H 10/10 1745 AC 10/12 PO 1646 Aspirin Buffered 81 MG DAILY 10/13 1115 AC 10/14 PO 0854 Atorvastatin Calcium 40 MG 1700 10/11 1700 AC 10/13 PO 1711 Azithromycin 250 MG DAILY 10/12 0900 AC 10/14 PO 10/15 0901 0854 Bisacodyl 10 MG ONCE ONE 10/14 0715 DC TN 10/14 0716 Bisacodyl 5 MG ONE ONE 10/13 1130 DC 10/13 PO 10/13 1131 1257 Budesonide/ 2 PUF BID 10/10 2100 AC 10/14 Formoterol Fumarate INH 0852 Cholecalciferol 3,000 IU DAILY 10/11 0900 AC 10/14 PO 0854 Ezetimibe 10 MG DAILY 10/11 0900 AC 10/14 PO 0854 Furosemide 20 MG Q48H 10/10 1745 AC 10/12 PO 1646 Hydroxyzine HCl 50 MG AT BEDTIME NEED.. 10/11 0945 AC PO Levothyroxine Sodium 0.05 MG DAILY AC 10/11 0700 AC 10/14 PO 0541 Metoprolol Succinate 50 MG DAILY 10/11 0900 AC 10/14 PO 0853 Mirtazapine 15 MG QPM PRN 10/10 1745 AC PO Omeprazole 40 MG DAILY AC 10/11 0700 AC 10/14 PO 0541 Patient Medication 1 ED ONE ONE 10/13 1230 DC Teaching ED 10/13 1231 Prednisone 50 MG DAILY 10/14 0900 AC 10/14 PO 10/23 0859 0852 Prednisone 50 MG DAILY 10/13 0900 DC 10/13 PO 10/28 0859 0829 Ramelteon 8 MG AT BEDTIME 10/11 2099 AC 10/13 PO 2202 Ranolazine 1,000 MG BID 10/10 2100 AC 10/14 PO 0853 Senna/Docusate Sodium 1 TAB DAILY PRN 10/10 1745 AC 10/13 PO 2203 Tiotropium [place] 1 PUF DAILY 10/10 1739 AC 10/14 INH 0852 Vital Signs & I&O Last 24 Hrs of Vitals and I&O: Vital Signs Date Time Temp Pulse Resp B/P B/P Pulse O2 O2 Flow FiO2 Mean Ox Delivery Rate 10/14 0853 97.7 69 20 130/54 10/14 0853 97.7 69 20 130/54 10/14 0800 96 Nasal 4.0L Cannula 10/14 0631 97.7 69 20 130/54 95 Nasal Cannula 10/13 2146 98.0 82 20 140/68 96 Nasal Cannula 10/13 2120 Nasal 4.0L Cannula 10/13 2010 140/68 10/13 1442 98.1 85 20 112/60 96 Nasal 3.0L Cannula Intake & Output 10/14 1600 10/14 0800 10/14 0000 Intake Total 100 100 Output Total Balance 100 100 Intake, Oral 100 100 Patient 129 lb Weight Weight Bed scale Measurement Method Exam Other Physical Findings: [id number] head/neck-nasal cannula cvs-s1,s2 lungs-dimnished bs bilaterally abd-soft,bs+ ext-without edema Results Last 24 Hrs of Lab Results: Laboratory Tests 10/14/17 0625: CBC w Diff NO MAN DIFF REQ, RBC 3.05 L, MCV 82.7, MCH 26.2 L, MCHC 31.7 L, RDW 19.3 H, MPV 9.1, Gran % 86.4 H, Lymphocytes % 7.4 L, Monocytes % 6.0, Eosinophils % 0.2, Basophils % 0, Absolute Granulocytes 10.0 H, Absolute Lymphocytes 0.9 L, Absolute Monocytes 0.7 H, Absolute Eosinophils 0, Absolute Basophils 0 Impression/Plan Impression/Plan Impression/Plan: Impression 72 year old woman * acute on chronic hypoxemic respiratory failure * lingular lung nodule increased in size * anemia of chronic disease * severe COPD with likely underlying exacerbation Plan -prednisone po taper - would taper by 10mg every 2 days -evaluate o2 needs with exertion -DC planning -STR today -reduce fio2 to a goal of >90% -monitor cbc, pt also gets epogen -trc/nebs -please ensure her anxiolysis is controlled and reflected in dc med rec for rehab facility DVT prophylaxis at all times pt is DNR it would be appropriate to re-evaluate goals of care and code status and recommend DNI
[2017-10-14 12:29] VITALS: BP 130/54
== END 2017-10-14 12:43 | DRG 191 ==
LOC: ERH 13:04 → ERHI 16:08 → 1NO 16:08 → ENRESERV 16:58 → ENTRNSPT 17:43 → EDTRNSPT 17:49 → EDTRNSPTSTS 17:49 → 1NO 18:02 → CMPTRNSPT 18:12 → 1NO 10-11 08:48 → ENPENDDIS 10-14 11:35 → 1NO 10-14 12:43
PROVIDERS: Internal Medicine; Internal Medicine Hematology & Oncology; Internal Medicine Nephrology; Physician Assistant Medical
PROC: 30233N1 Transfusion of Nonautologous Red Blood Cells into Peripheral Vein, Percutaneous Approach (ICD-10-PCS; principal; 2017-10-11)
PROC: 0BBH3ZX Excision of Lung Lingula, Percutaneous Approach, Diagnostic (ICD-10-PCS; 2017-10-12)
DX: J44.1 Chronic obstructive pulmonary disease with (acute) exacerbation (principal); J84.9 Interstitial pulmonary disease, unspecified; D62 Acute posthemorrhagic anemia; C34.12 Malignant neoplasm of upper lobe, left bronchus or lung; Z99.81 Dependence on supplemental oxygen; J84.10 Pulmonary fibrosis, unspecified; I25.2 Old myocardial infarction; I25.10 Atherosclerotic heart disease of native coronary artery without angina pectoris; Z95.5 Presence of coronary angioplasty implant and graft; E78.5 Hyperlipidemia, unspecified; I12.9 Hypertensive chronic kidney disease with stage 1 through stage 4 chronic kidney disease, or unspecified chronic kidney disease; N18.9 Chronic kidney disease, unspecified; E87.5 Hyperkalemia; F41.9 Anxiety disorder, unspecified; Z66 Do not resuscitate; Z92.3 Personal history of irradiation
CPT/HCPCS: 1NSP; 36415; 36592; 71045; 77012; 81003; 82436; 86920; 87804; 87804-59; 88305; 93005; 93010; 93306; 93970; 96374; 97116-GO; 97161-GP; 97530-GO; J0456; J1644; J1940; J2001; J2060; J2310; J2920; J3490; J7040; P9016

== ENCOUNTER 2017-11-07 17:08 | Inpatient (IN) | payer OTHER, MEDICARE ==
[~2017-11-07] VITALS: Ht 152.4 cm; Wt 60.8 kg
[~2017-11-07 17:08] MED LIST changes: +EPOGEN10000 UNIT SC; +FUROSEMIDE20 M1 PO; +LEVOTHYROXINE50 MCG PO; +PREDNISONE10 M2 PO; +RANEXA500 M1 PO; +SENNA8.6 M3 PO; +VITAMIN D31000 UNI1 PO
[2017-11-07] MEDS ORDERED: ALBUTEROL2.5 MG/3 M INH/SOL (17:37)
[2017-11-07] MEDS ORDERED: SENOKOT-S TABL1 EACH PO (17:40)
--- NOTE | 2017-11-07 17:55 | ED DYSPNEA/ASTHMA COMPLAINT ---
History of Present Illness General Chief Complaint: Dyspnea (COPD, CHF, Other) Stated Complaint: BIBA SOB Source: patient, old records, EMS Exam Limitations: no limitations Vital Signs & Intake/Output Vital Signs & Intake/Output Vital Signs Date Time Temp Pulse Resp B/P B/P Pulse O2 O2 Flow FiO2 Mean Ox Delivery Rate 11/07 1814 99.0 84 28 165/70 96 Nasal 6.0L Cannula 11/07 1730 Nasal 6.0L Cannula 11/07 1715 97.9 84 36 154/64 92 Nasal 6.0L Cannula Allergies Coded Allergies: No Known Allergies (09/25/15) Reconcile Medications Albuterol Sulfate (Proair Respiclick) 90 MCG AER.POW.BA 2 PUFF INH Q8P PRN COPD (Reported) Albuterol Sulfate 2.5 MG/3 ML (0.083 %) VIAL.NEB 1 Vial INH/KO BID COPD ( Reported) Alprazolam 0.5 MG TABLET 1 TAB PO BID ANXIETY (Reported) Amiodarone HCl (Pacerone) 100 MG TABLET 100 MG PO EOD AFIB (Reported) Aspirin (Children's Aspirin) 81 MG TAB.CHEW 1 TAB PO DAILY HEART HEALTH ( Reported) Cholecalciferol (Vitamin D3) (Vitamin D3) 1,000 UNIT CAPSULE 1 CAP PO DAILY SUPPLEMENT (Reported) diphenhydrAMINE HCl (Benadryl) 25 MG CAPSULE 1 CAP PO QHS PRN SLEEP (Reported ) Epoetin Jon (Epogen) (Unknown Strength) VIAL (Unknown Dose) SC [id number] SUPPLEMENT (Reported) Q 3 WEEKS, LAST TAKEN Wednesday10/04/17) Ezetimibe (Zetia) 10 MG TABLET 1 TAB PO DAILY CHOLESTEROL (Reported) Fluticasone/Vilanterol (Breo Ellipta 100-25 Mcg INH) 100 MCG-25 MCG/DOSE BLST.W.DEV 1 PUFF INH DAILY COPD (Reported) Furosemide 20 MG TABLET 20 MG PO EOD HEART (Reported) Levothyroxine Sodium 50 MCG TABLET 1 TAB PO DAILY THYROID (Reported) Metoprolol Succ XL (Toprol Xl) 50 MG TAB.ER.24H 1 TAB PO DAILY AFIB (Reported ) Mirtazapine 15 MG TABLET 1 TAB PO QHS DEPRESSION (Reported) Omeprazole 40 MG CAPSULE.DR 1 TAB PO DAILY HEARTBURN (Reported) Ranolazine (Ranexa) 500 MG TAB.ER.12H 1,000 MG PO BID ANGINA (Reported) Rosuvastatin Calcium (Crestor) 10 MG TABLET 1 TAB PO DAILY HEART HEALTH ( Reported) Sennosides/Docusate Sodium (Senokot-S Tablet) 8.6 MG-50 MG TABLET 1 TAB PO DAILY PRN CONSTIPATION (Reported) Umeclidinium [place] (Incruse Ellipta) 62.5 MCG/ACTUATION BLST.W.DEV 1 PUFF INH DAILY COPD (Reported) Core Measure Meds Pre-Hospital aspirin Triage Note: 72 YEAR OLD FEMALE BIBA FROM INDEPENDENT LIVING IN [place] WITH SHORTNESS OF BREATH FOR A FEW DAYS (WORSENING ALL DAY TODAY). HX COPD, EMPHYSEMA, LUNG CA, AND PULMONARY FIBROSIS. SIMILAR EPISODE HAPPENED APPROX 1 MONTH AGO AND PATIENT WAS BROUGHT IN AND RECEIVED BLOOD TRANSFUSION. INITIAL O2 SAT PER EMS WAS IN THE 70'S AND PATIENT PLACED ON NON-REBREATHER. O2 SAT ON ARRIVAL 92% ON 6 L N/C. FINGER STICK BLOOD SUGAR EN ROUTE WAS 144. PATIENT IS AWAKE, ALERT, ORIENTED, CALM, AND COOPERATIVE. SKIN IS WARM AND DRY. Triage Nurses Notes Reviewed? yes Onset: 3 days Duration: day(s):, constant, changing over time, continues in ED, getting worse Timing: recent history Severity: moderate, severe Activities at Onset: rest Prior Episodes/Possible Cause: chronic episodes Modifying Factors: Improves With: rest. Worsens With: movement. Associated Symptoms: cough, wheezing, weakness LMP (ages 10-50): post menopausal : No Patient currently breastfeeds: No HPI: 3 days prior to admission patient complains of progressive wheezing dyspnea on exertion nonproductive cough and weakness. She denies fever chills nausea vomiting diarrhea abdominal pain chest pain headache dysuria rash bleeding. Past History Travel History Traveled to [place] past 21 day No Medical History Any Pertinent Medical History? 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 FATHER (Heart Attack). SISTER (ovarian cancer). BROTHER (Diabetes). Hx Contributory? No Review of Systems Review of Systems Constitutional: Reports: see HPI, weakness. EENTM: Reports: no symptoms. Respiratory: Reports: see HPI, cough, short of breath, wheezing. Denies: sputum production. Cardiovascular: Reports: no symptoms. GI: Reports: no symptoms. Genitourinary: Reports: no symptoms. Musculoskeletal: Reports: no symptoms. Skin: Reports: no symptoms. Neurological/Psychological: Reports: no symptoms. Hematologic/Endocrine: Reports: no symptoms. Immunologic/Allergic: Reports: no symptoms. All Other Systems: Reviewed and Negative Physical Exam Physical Exam General Appearance: well developed/nourished, alert, awake, anxious, moderate distress, thin Head: atraumatic, normal appearance Eyes: Bilateral: normal appearance, PERRL, EOMI. Ears, Nose, Throat: normal pharynx, normal ENT inspection Neck: normal inspection, supple, full range of motion, no midline tenderness Respiratory: chest non-tender, quiet respiration, decreased breath sounds Cardiovascular: regular rate/rhythm, normal peripheral pulses, norml femoral pulses equa Peripheral Pulses: 4+ carotid (R), 4+ carotid (L) Gastrointestinal: normal bowel sounds, soft, non-tender, no organomegaly Extremities: normal inspection, normal capillary refill, normal range of motion, no edema Neurologic/Psych: no motor/sensory deficits, awake, alert, oriented x 3, normal mood/affect, 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 No CVA/TIA Diagnosis No Sepsis Present: No Sepsis Focused Exam Completed? No Progress Differential Diagnosis: asthma, CHF, COPD, pneumonia Plan of Care: Orders Procedure Date/time Status Regular Diet 11/07 D Active Patient Data 11/08 1847 Active OXYGEN SETUP (GEN) 11/07 1844 Active Saline Lock 11/07 1844 Active Admit to inpatient 11/07 1844 Active Vital Signs 11/07 1844 Active Activity/Ambulation 11/07 1844 Active Code Status 07/08 1845 Active TROPONIN LEVEL 11/07 173 Active MAGNESIUM 11/07 173 Active COMPREHENSIVE METABOLIC PANEL 11/07 1732 Active CBC WITHOUT DIFFERENTIAL 11/07 1732 Complete Intake & Output 11/07 171 Active EKG 11/07 170 Active Current Medications Sig/Noemy Start time Last Medication Dose Stop Time Status Admin Calcium Gluconate 1 GM ONCE ONE 11/07 1929 UNVr (Calcium Gluconate) 11/07 2028 Sodium Chloride 100 ML (Normal Saline 0.9%) Ceftriaxone Sodium 1,000 MG ONCE ONE 11/07 1929 UNVr (Rocephin) 11/07 1930 Sodium Polystyrene 60 ML ONCE ONE 11/07 1929 UNVr Sulfonate 11/07 1930 (Kayexalate) Laboratory Tests 11/07/171822: Anion Gap 12, Estimated GFR 23 L, BUN/Creatinine Ratio 18.1, Glucose 124 H, Calcium 8.9, Magnesium 1.9, Total Bilirubin 0.5, AST 26, ALT 23, Alkaline Phosphatase 147 H, Troponin I Pending, Total Protein 6.4, Albumin 3.6, Globulin 2.8, Albumin/Globulin Ratio 1.3, CBC w Diff MAN DIFF ORDERED, RBC 3.14 L, MCV 81.1, MCH 25.4 L, MCHC 31.3 L, RDW 20.8 H, MPV 8.5, Segmented Neutrophils 78 H, Lymphocytes 19 L, Monocytes 3, Nucleated RBCs 1 H, Platelet Estimate INCREASED, Polychromasia 1+, Hypochromic-Microcytic 1+, Anisocytosis 1+, Macrocytic Cells 1+ Diagnostic Imaging: Viewed by Me: Radiology Read. Discussed w/RAD: Radiology Read. Radiology Impression: - Chronic obstructive pulmonary disease. - Diffuse, nonspecific interstitial opacity in both lungs has decreased/improved compared to 10/12/2017. - Stable cardiomegaly. Initial ED EKG: normal axis, normal intervals, normal p-waves, normal QRS complex, normal sinus rhythm, no ST T wave changes Prior EKG: unchanged Rhythm Strip: normal sinus rhythm Departure Departure Disposition: STILL A PATIENT Condition: Fair Clinical Impression Primary Impression: Decompensated COPD with exacerbation (chronic obstructive pulmonary disease ) Secondary Impressions: Chronic disease anemia, CKD (chronic kidney disease), Hyperkalemia Referrals: Delores WILSON,Jitendra Younger (PCP/Family) Departure Forms: Customer Survey General Discharge Information Admission Note Spoke With: Say Camarena MD Documentation of Exam: Documentation of any treatments & extenuating circumstances including Concerns Regarding Discharge (functional status, medication knowledge or non-compliance, living conditions, etc.) that warrant an admission rather than observation: Serial beta agonist nebs IV steroids pulmonary evaluation medication adjustment physical therapy supplemental oxygen continuing care discharge planning. Critical Care Note Critical Care Note Critical Care Time: 30-74 min (35)
[2017-11-07 18:47] LABS: HEMATOCRIT 25.4 % (37-47); MEAN CORPUSCULAR HGB 25.4 PG (27.0-31.0); MEAN CORPUSCULAR HGB CONC 31.3 G/DL (33.0-37.0); MEAN CORPUSCULAR VOLUME 81.1 FL (81.0-99.0); MEAN PLATELET VOLUME 8.5 FL (7.4-10.4); PLATELET COUNT 441 /CUMM (130-400); RBC DISTRIBUTION WIDTH 20.8 % (11.5-14.5); RED BLOOD CELL CT 3.14 /CUMM (4.20-5.40); WHITE BLOOD CELL COUNT 10.3 /CUMM (4.8-10.8)
--- NOTE | 2017-11-07 19:05 | RADIOLOGY REPORT ---
EXAMINATION: XR PORTABLE CHEST CLINICAL INFORMATION: Cough, wheezing and hypoxia. COMPARISON: CXR from 04/21/2017 and 10/12/2017 TECHNIQUE: Portable frontal view of the chest was obtained. FINDINGS: Chronic centrilobular emphysema. Nonspecific, diffuse interstitial opacity has improved/decreased compared to 10/12/2017. No focal airspace opacification, pleural effusion or pneumothorax. Cardiac silhouette is chronically enlarged; it has a stable appearance compared to 04/21/2017. Atherosclerotic calcification of the aorta. Also, dense calcification of the right coronary artery is seen. The hilar contours are normal. Bones are diffusely osteopenic. IMPRESSION: - Chronic obstructive pulmonary disease. - Diffuse, nonspecific interstitial opacity in both lungs has decreased/improved compared to 10/12/2017. - Stable cardiomegaly.
--- NOTE | 2017-11-07 19:54 | History & Physical ---
Rayshawn Sheppard 11/07/171952: General Information and HPI History of Present Illness: Thalia Obrien is a 72 YO female with a PMHx. of CAD, HTN, HLD, Squamous Cell Lung CA followed by Dr. Lomeli, CKD followed by Dr. Cardzoa, and paroxysmal Atrial Fibrillation not on anticoagulation due to previous GI bleed who presents to the ED with a chief concern of "dyspnea." Patient states over the past three days she has been experiencing progressive dyspnea and that she "can't catch her breath." Patient states she was last admitted in October and since then her breathing has gotten worse. Patient states that today she hit her life alert button after not getting relief with her rescue inhaler. Patient states she has also had pressure in her chest, though she atrributes it to her breathing difficulty. Patient admits to headaches and chronic low back pain but denies chest pain, loss of consciousness, syncope, fever, recent infection, cough, abdominal pain, dysuria, numbness, and weakness. Patient states additionally that she checks her blood pressure at home and that sometimes her systolic drops into the 70s upon standing. Patient denies any recent environmental exposure, including asbestos and bird droppings. Patient states she is a former smoker, who quit in the early . Patient says prior to that time period she had been smoking about 1 pack per day. 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 Patient manager of human resources is Dr. Lomeli, storage engineer is Dr. Hernandez, and water control supervisor is Dr. Cardoza. Patient states she visited Dr. Lomeli last week and received a referral to an oncologist to evaluate a new left-sided lung mass that was positive for malignancy on biopsy. Past History Travel History Traveled to [place] past 21 day No Medical History Neurological: NONE EENT: NONE Cardiovascular: CAD, hypertension, hyperlipidemia, myocardial infarction, STENTS Respiratory: pulmonary fibrosis, PNEUMONIA ;copd;emphysema LUNG CA ILD Gastrointestinal: peptic ulcer disease Hepatic: NONE Renal: chronic kidney disease Musculoskeletal: disk herniation Psychiatric: NONE, anxiety Endocrine: NONE Blood Disorders: anemia Cancer(s): lung cancer SITE MONITOR/Reproductive: NONE History of MRSA: No History of VRE: No History of CDIFF: No Surgical History Surgical History: STENTS (5) HYSTERECTOMY,LAMINECTOMY Past Family/Social History Family History Relations & Conditions if any MOTHER (Leukemia). FATHER (Heart Attack). SISTER (ovarian cancer). BROTHER (Diabetes). Psychosocial History Who Do You Live With? self Services at Home: Nursing, Physical Therapy Primary Language: Slovak Smoking Status: Former Smoker (prev. 1 ppd) Functional Ability ADLs Independent: dressing, eating, toileting, bathing. Ambulation: cane IADLs Independent: shopping, housework, finances, food prep, telephone, transportation , medication admin. Review of Systems Review of Systems Constitutional: Denies: chills, diaphoresis, fever, malaise. Cardiovascular: Denies: chest pain, edema, palpitations. Respiratory: Reports: short of breath. Denies: cough. GI: Denies: abdominal pain, diarrhea. Genitourinary: Denies: dysuria, frequency. Musculoskeletal: Reports: back pain. Denies: joint pain. Skin: Reports: change in skin color. Neurological/Psychological: Reports: headache, tremors (Hands). Denies: numbness, tingling. Exam & Diagnostic Data Last 24 Hrs of Vital Signs/I&O Vital Signs Date Time Temp Pulse Resp B/P B/P Pulse O2 O2 Flow FiO2 Mean Ox Delivery Rate 11/08 0121 94 144/70 11/08 0030 96 Nasal 65% Cannula 11/07 2236 92 Nasal 6.0L Cannula 11/07 2215 98.2 98 24 134/66 92 Nasal 6.0L Cannula 11/07 2119 98.5 92 26 164/76 93 Nasal 6.0L Cannula 11/07 1814 99.0 84 28 165/70 96 Nasal 6.0L Cannula 11/07 1730 Nasal 6.0L Cannula 11/07 1715 97.9 84 36 154/64 92 Nasal 6.0L Cannula Intake & Output 11/08 0800 11/08 0000 11/07 1600 Intake Total 0 Output Total 0 Balance 0 Intake, Oral 0 Output, Urine 0 Patient 148 lb Weight Weight Bed scale Measurement Method Physical Exam General Appearance Alert, Oriented X3, No Acute Distress HEENT Atraumatic, PERRLA Neck Supple, No JVD Lymphatic Cervical nl Cardiovascular Normal S1, Normal S2, No Murmurs Lungs Clear to Auscultation (small expiratory wheezes) Abdomen Soft, No Tenderness Neurological Strength at 5/5 X4 Ext, Normal Tone, Sensation Intact Assessment/Plan Assessment: Assessment: 1. Acute on Chronic Hypoxemic Resp. Failure 2. Anemia of Chronic Disease 3. Hyperkalemia 4. h/o CAD, HTN, HLD 5. h/o Squamous Cell Lung CA 5. h/o CKD Plan: * Acute on Chronic Hypoxemic Resp. Failure - Acute worsening of patient's respiratory symptoms beyond baseline in patient with history of Chronic Obstructive Pulmonary Disease - Oxygen therapy to maintain saturation > 92% via NC or face mask - Solu-Medrol 40 mg q8 hours + Albuterol q4 hours prn - Azithromycin antibiotic regimen as prophylaxis for any perceived respiratory infection - CXR: Chronic obstructive pulmonary disease. Diffuse, nonspecific interstitial opacity in both lungs has decreased/improved compared to 10/12/2017. Stable cardiomegaly. - DVT PPx. * Anemia of Chronic Disease - Inflammation-mediated reduction in RBC production secondary to malignancy - Transfuse pRBC when Hgb < 7 g/dL and/or when symptomatic (lightheadedness, syncope, dizziness) * Hyperkalemia - Elevated serum potassium likely secondary to tumor lysis and/or anemia - Managed with Kayexalate for elimination of potassium from the body - Dextrose + Insulin to shift potassium into cells As Ranked By This Provider Problem List: 1. COPD (chronic obstructive pulmonary disease) 2. Hyperkalemia 3. Anemia Core Measures/Misc (01/17) Acute Coronary Syndrome ACS Diagnosis: No Congestive Heart Failure Congestive Heart Failure Diagnosis No Cerebrovascular Accident CVA/TIA Diagnosis: No VTE (View Protocol) VTE Risk Factors Acute Medical Illness No Mechanical VTE Prophylaxis d/t N/A MechProphylax Ordered No VTE Pharm Prophylaxis d/t NA PharmProphylax ordered Sepsis (View protocol) Sepsis Present: No If YES complete Sepsis Event Note If YES complete Sepsis Event Note Migue WILSONBelfast 11/08/17 0208: General Information and HPI Allergies/Medications Allergies: Coded Allergies: No Known Allergies (09/25/15) Home Med list Albuterol Sulfate (Proair Respiclick) 90 MCG AER.POW.BA 2 PUFF INH Q8P PRN COPD (Reported) Albuterol Sulfate 2.5 MG/3 ML (0.083 %) VIAL.NEB 1 Vial INH/KO BID COPD ( Reported) Alprazolam 0.5 MG TABLET 1 TAB PO BID ANXIETY (Reported) Amiodarone HCl (Pacerone) 100 MG TABLET 100 MG PO EOD AFIB (Reported) Aspirin (Children's Aspirin) 81 MG TAB.CHEW 1 TAB PO DAILY HEART HEALTH ( Reported) Cholecalciferol (Vitamin D3) (Vitamin D3) 1,000 UNIT CAPSULE 1 CAP PO DAILY SUPPLEMENT (Reported) diphenhydrAMINE HCl (Benadryl) 25 MG CAPSULE 1 CAP PO QHS PRN SLEEP (Reported ) Epoetin Jon (Epogen) (Unknown Strength) VIAL (Unknown Dose) SC [id number] SUPPLEMENT (Reported) Q 3 WEEKS, LAST TAKEN Wednesday10/04/17) Ezetimibe (Zetia) 10 MG TABLET 1 TAB PO DAILY CHOLESTEROL (Reported) Fluticasone/Vilanterol (Breo Ellipta 100-25 Mcg INH) 100 MCG-25 MCG/DOSE BLST.W.DEV 1 PUFF INH DAILY COPD (Reported) Furosemide 20 MG TABLET 20 MG PO EOD HEART (Reported) Levothyroxine Sodium 50 MCG TABLET 1 TAB PO DAILY THYROID (Reported) Metoprolol Succ XL (Toprol Xl) 50 MG TAB.ER.24H 1 TAB PO DAILY AFIB (Reported ) Mirtazapine 15 MG TABLET 1 TAB PO QHS DEPRESSION (Reported) Omeprazole 40 MG CAPSULE.DR 1 TAB PO DAILY HEARTBURN (Reported) Ranolazine (Ranexa) 500 MG TAB.ER.12H 1,000 MG PO BID ANGINA (Reported) Rosuvastatin Calcium (Crestor) 10 MG TABLET 1 TAB PO DAILY HEART HEALTH ( Reported) Sennosides/Docusate Sodium (Senokot-S Tablet) 8.6 MG-50 MG TABLET 1 TAB PO DAILY PRN CONSTIPATION (Reported) Umeclidinium Kellogg (Incruse Ellipta) 62.5 MCG/ACTUATION BLST.W.DEV 1 PUFF INH DAILY COPD (Reported) Past History Medical History Cardiovascular: CAD, hypertension, hyperlipidemia, myocardial infarction Respiratory: pulmonary fibrosis, PNEUMONIA ;copd;emphysema LUNG CA ILD Gastrointestinal: peptic ulcer disease Renal: chronic kidney disease Psychiatric: anxiety Cancer(s): lung cancer Past Family/Social History Psychosocial History Smoking Status: Former Smoker ETOH Use: denies use Illicit Drug Use: denies illicit drug use Review of Systems Comments 12 point review of systems complete with positives in HPI Exam & Diagnostic Data Last 24 Hrs of Vital Signs/I&O Vital Signs Date Time Temp Pulse Resp B/P B/P Pulse O2 O2 Flow FiO2 Mean Ox Delivery Rate 11/08 0121 94 144/70 11/08 0030 96 Nasal 65% Cannula 11/07 2236 92 Nasal 6.0L Cannula 11/07 2215 98.2 98 24 134/66 92 Nasal 6.0L Cannula 11/07 2119 98.5 92 26 164/76 93 Nasal 6.0L Cannula 11/07 1814 99.0 84 28 165/70 96 Nasal 6.0L Cannula 11/07 1730 Nasal 6.0L Cannula 11/07 1715 97.9 84 36 154/64 92 Nasal 6.0L Cannula Intake & Output 11/08 0800 11/08 0000 11/07 1600 Intake Total 0 Output Total 0 Balance 0 Intake, Oral 0 Output, Urine 0 Patient 148 lb Weight Weight Bed scale Measurement Method Physical Exam General Appearance Alert, Oriented X3, Cooperative, No Acute Distress Skin No Rashes, No Breakdown, No Significant Lesion HEENT Atraumatic, PERRLA, EOMI Neck Supple, No JVD Lymphatic Axillary nl, Cervical nl Cardiovascular Regular Rate, Normal S1, Normal S2 Lungs Clear to Auscultation, Normal Air Movement Abdomen Normal Bowel Sounds Neurological Normal Gait Last 24 Hrs of Labs/[place]: Laboratory Tests 11/08/17 0105: Sodium Pending, Potassium Pending, Chloride Pending, Carbon Dioxide Pending, Anion Gap Pending, BUN Pending, Creatinine Pending, BUN/Creatinine Ratio Pending , Troponin I Pending 11/08/17 0105: Sodium Cancelled, Potassium Cancelled, Chloride Cancelled, Carbon Dioxide Cancelled, Anion Gap Cancelled, BUN Cancelled, Creatinine Cancelled, BUN/ Creatinine Ratio Cancelled 11/07/17 1823: Anion Gap 12, Estimated GFR 23 L, BUN/Creatinine Ratio 18.1, Glucose 124 H, Calcium 8.9, Magnesium 1.9, Total Bilirubin 0.5, AST 26, ALT 23, Alkaline Phosphatase 147 H, Troponin I 0.06, Total Protein 6.4, Albumin 3.6, Globulin 2.8, Albumin/Globulin Ratio 1.3, CBC w Diff MAN DIFF ORDERED, RBC 3.14 L, MCV 81.1, MCH 25.4 L, MCHC 31.3 L, RDW 20.8 H, MPV 8.5, Segmented Neutrophils 78 H, Lymphocytes 19 L, Monocytes 3, Nucleated RBCs 1 H, Platelet Estimate INCREASED, Polychromasia 1+, Hypochromic-Microcytic 1+, Anisocytosis 1+, Macrocytic Cells 1+ Core Measures/Misc (01/17) Sepsis (View protocol) If YES complete Sepsis Event Note If YES complete Sepsis Event Note Attending MD Review Statement Attending Statement Attending MD Statement: examined this patient, discuss w/resident/PA/EMPLOYEE BENEFITS ATTORNEY, amended to note Attending Assessment/Plan: This patient is a 72-year-old female with a significant past medical history for CAD, HTN, HLD, Squamous Cell Lung CA followed by Dr. Lomeli, CKD followed by Dr. Cardoza, and paroxysmal Atrial Fibrillation not on anticoagulation due to previous GI bleed who presents to the ED with a chief concern of "dyspnea." Patient states over the past three days she has been experiencing progressive dyspnea and that she "can't catch her breath." Patient states she was last admitted in October and since then her breathing has gotten worse. The patient has acute exacerbation of COPD and hyperkalemia. Will treat for acute exacerbation of COPD and hyperkalemia. Giovanna Perera 11/08/17 0304: Core Measures/Misc (01/17) Sepsis (View protocol) If YES complete Sepsis Event Note If YES complete Sepsis Event Note Resident Review Statement Resident Statement: examined this patient, discussed with quality intern, agreed with quality intern Other Findings: Ms Obrien is a 72 year old woman w/ a PMHx of PCI (2000 and 2013) and STEMI s/p PEDRO to the RCA 08/2015, COPD, ILD, squamous cell lung cancer s/p gamma knife radiation on home O2, pAfib not on AC due to GI bleed and anemia, CKD, HTN, hyperlipidemia, and anxiety came in to the hospital w/ a chief concern of progressive dyspnea on exertion, nonproductive cough and weakness. No fever, chills, chest pain or palpitations. No dysuria or abdominal pain. No nausea vomiting or diarrhea. She also reported orthostasis, and increased flushing when she gets out of bed. Blood pressure was known to be labile in the last few weeks.Past smoker 40 pack year smoking history, family history of coronary artery disease, leukemia. At the time of admission-temperature 97.9, pulse rate 84, respiration 36, blood pressure 156/64, pulse ox at 92% on 6 L. General Exam: AAOx3, mild distress, Skin: No rashes, no breakdown;HEENT: PERRLA, EOMI;Neck: Supple, No JVD; No cervical lymphadenopathy;CVS: rachycardia, Reg Rate, Normal S1,S2, No MGR; Resp: decreaed air entry, b/l wheezes, rales ; Abdomen: Soft, No tenderness, Normal Bowel Sounds;Neuro: Normal Speech, Strength 5/5 b/l x 4 extremities, Sensation intact, CN III-XII NL, Reflexes 2+; Extremities: No cyanosis, no pedal edema.EKG reveals-NSR, LAFB, No STTWI. Pertinent lab findings- WBC 10.3, hemoglobin 8.0, hematocrit 25.4, MCV 81.1. Platelet count 441. Sodium 141, chloride 107, potassium 6.0, BUN 38, creatinine 2.1 (baseline 2.0), glucose 124. AST 26, ALT 23, alkaline phosphatase 147. Troponin I-0.06--> 0.05 Chest x-ray-- Chronic obstructive pulmonary disease. - Diffuse, nonspecific interstitial opacity in both lungs has decreased/improved compared to 2017. Stable cardiomegaly. Last echo Normal left and right ventricular systolic function. No significant valvular abnormalities noted. 12 October 2017. Etiology in this case for airflow obstruction is likely multifactorial secondary to COPD exacerbation, ILD, and Lung Ca. Frequent exacerbations are associated w/ greater mortality, faster decline in lung function. Etiology for acute exacerbation is likely viral infection or seasonal . Differential diagnosis considered at the time of admission-CHF, obstructive pneumonia, acute coronary syndrome. She will be mMRC dyspnea scale 4, Gold D. In regards to her hyperkalemia, is likely from her renal insufficiency, which should be treated aggressively. She doesnt have any EKG changes s/o tall t waves or QTc, nor does she have any meds that can cause hyperkalemia, however pseudohyperkalemia should be kept in differentials. Problem list: 1. COPD exacerbation 2. Hyperkalemia 3. CKD 4. h/o CAD 5. h/o ILD, lung Ca ( moderately to poor differentiated squamaous cell ca- biopsy proven 10/18) Plan: -Advised the patient to telemetry -C to monitor for infection -Arterial blood gas, if indicated -Check proBNP to differentiate between COPD and CHF, if she doensnt get better. -Lower respiratory cultures -supplemental oxygen -Maintain oxygen saturation in between 90 to 92% -monitor for CO2 narcosis, monitor for AMS, clinical tiring -Bronchodilator therapy with albuterol and ipratropium -Start iv predniosne 40 Q8 -Consider starting antibiotics, if the pt has fever or increased sputum production or worsening dyspne -Caclcium gluconate, glucose+insulin. -Recheck K. -Serial EKGs and Trops -Cardiology consult -Pulm consult in the am. She likes to be DNR only. She can be intubated till her family arrives, if she is intubated.
[2017-11-07 22:15] VITALS: BP 134/66
--- NOTE | 2017-11-08 06:32 | PN- Housestaff ---
Gloria Ortiz 11/08/17 0632: Subjective Follow-up For: copd exacerbation Complaints: no complaints Tele-Events Since Last Visit: NSR 82-94 Subjective: She was anxious this morning Review of Systems Constitutional: Reports: see HPI. Objective Last 24 Hrs of Vital Signs/I&O Vital Signs Date Time Temp Pulse Resp B/P B/P Pulse O2 O2 Flow FiO2 Mean Ox Delivery Rate 11/08 2228 100 138/70 11/08 2200 95 Nasal 65% Cannula 11/08 2000 94 Nasal 60% Cannula 11/08 1426 97.9 97 26 98/52 92 Nasal 65% Cannula 11/08 1130 Nasal 65% Cannula 11/08 1010 104 160/88 11/08 1008 104 160/88 11/08 0820 93 Nasal 65% Cannula 11/08 0800 98 Nasal 65% Cannula 11/08 0733 97 140/60 11/08 0647 98.7 97 22 144/80 93 Nasal Cannula 11/08 0121 94 144/70 11/08 0030 96 Nasal 65% Cannula Intake & Output 11/08 1600 11/08 0800 11/08 0000 Intake Total 800 0 Output Total 350 300 0 Balance 450 -300 0 Intake, IV 300 Intake, Oral 500 0 Output, Urine 350 300 0 Patient 148 lb Weight Weight Bed scale Measurement Method Physical Exam General Appearance: Alert, Oriented X3, Cooperative, No Acute Distress Skin: No Rashes, No Breakdown, No Significant Lesion Skin Temp/Moisture Exam: Cool/Dry Sepsis Skin Exam (color): Normal for Ethnicity HEENT: Atraumatic Neck: Supple Cardiovascular: Regular Rate, Normal S1, Normal S2 Lungs: Clear to Auscultation (MILD B/L BASAL CRACKLES), Normal Air Movement Abdomen: Normal Bowel Sounds, Soft, No Tenderness Neurological: Normal Speech Extremities: No Clubbing, No Cyanosis, No Edema Assessment/Plan Assessment: The patient is a 72-year-old woman with a past medical history of coronary artery disease (PCI in 2001 in 2014, as well as drug-eluting stents to the RCA in 2016) COPD, social lung disease, lung CA status post gamma knife radiation, paroxysmal atrial fibrillation (not on anticoagulation secondary to GI bleeds and anemia), chronic kidney disease and hypertension. She presents to our hospital with symptoms of increasing severe dyspnea and weakness likely to COPD exacerbation. Vitals: 98.7, Pulse 97, RR 22, bp 144/80, 93%sat on 65% high flow o2 Labs: WBC 14.2, hgb 7.4, hct 23.8, plt 461. Na 143, K 4.6, Cl 110, Bicarb 20, BUN 32, Cr 1.6. ProBNP: 7830 CT Chest WO COntrast: Diffuse pulmonary emphysema with chronic interstitial pneumonitis, likely UIP pattern. The density of the fibrotic interstitial changes increased from the recent CT from 10/10/2017 which could be due to atelectasis, interstitial edema, pneumonitis, or drug related phenomenon. Cardiomegaly. Unchanged 2.4 cm squamous cell carcinoma in the lingula. Mild mediastinal adenopathy is unchanged as well. USG Doppler B/L L/L:No evidence of deep venous thrombosis involving the bilateral lower extremities. Problems: -Acute exacerbation of COPD -Hypoxemic respiratory failure -Sq cell lung cancer s/p post gamma knife radiation -pAfib: not on anticoagulation secondary to GI bleed and anemia -HTN -Low Hb -CKD Plan: -lower extremity Dopplers to rule out DVT -noncontrast CT scan of the chest -ventilation/perfusion scan: if breathing does not improve _sputum cx -Continue IV Solu-Medrol at current dose. -Continue neb/trc -try to wean down O2 fro sat >90-92% -Complete 5 days of azithromycin. -Maintain negative fluid balance -F/u with nephrology regarding High K Problem List: 1. Acute on CKD 2. Full code status 3. Anxiety 4. COPD (chronic obstructive pulmonary disease) 5. Hyperkalemia 6. Interstitial lung disease 7. Dyspnea Pain Ratin Pain Location: none Pain Goal: Remain pain free Pain Plan: n/a Tomorrow's Labs & Rationales: bep, cbc Con WILSON,Yue 11/08/17 1150: Attending MD Review Statement Attending Statement Attending MD Statement: examined this patient, discuss w/resident/PA/IT SECURITY ENGINEER, agreed w/resident/PA/IT SECURITY ENGINEER, reviewed EMR data (avail), discussed with nursing, discussed with case mgmt, amended to note Attending Assessment/Plan: Patient seen and examined. Lying comfortably in bed. She does not appear to be in acute respiratory distress.-Nasal cannula is in place. She denies chest pain. Does admit to shortness of breath with exertion. On examination she has no jugular venous distention. Heart sounds are regular. She has adequate entry bilaterally with no wheezing or rhonchi. She does have mild by basilar crepitus. She has no peripheral edema. Her hyperkalemia has resolved. Apparently this is recurrent for her. Her hemoglobin level is also trending downwards. She has had similar episode during the last admission requiring transfusion of blood. Stool guaiac was negative during that admission. Recommendations: -Continue bronchodilator therapy. Continue systemic steroid therapy. Decrease dose of Solu-Medrol to every 12 hours today. -Repeat CBCs this evening. In view of her coronary artery disease, if persistently below eight transfuse one PRBC. Check stool guaiac. Anemia is likely secondary to chronic disease, chronic kidney disease. She will continue with her erythropoietin therapy upon discharge. -Check BNP level. Follow-up with pulmonary regarding need for more aggressive diuresis. She does not appear volume overloaded clinically. Chest x-ray does not show pulmonary congestion. Her bibasilar crepitus may be secondary to the interstitial opacities noted on imaging. -Her recurrent hyperkalemia may be secondary to her chronic kidney disease. Follow-up with the patient's tele rn
[2017-11-08 06:47] VITALS: BP 144/80
[2017-11-08 08:59] LABS: MEAN CORPUSCULAR HGB 24.9 PG (27.0-31.0); MEAN CORPUSCULAR HGB CONC 30.8 G/DL (33.0-37.0); MEAN CORPUSCULAR VOLUME 80.8 FL (81.0-99.0); MEAN PLATELET VOLUME 8.8 FL (7.4-10.4); PLATELET COUNT 442 /CUMM (130-400); RBC DISTRIBUTION WIDTH 21.1 % (11.5-14.5)
[2017-11-08 09:13] LABS: HEMATOCRIT 23.5 % (37-47)
--- NOTE | 2017-11-08 12:11 | Cons- Pulmonary ---
General Information and HPI Consulting Request Date of Consult: 11/08/17 Requested By: Dr. Andujar Reason for Consult: AECOPD Source of Information: patient, old records Exam Limitations: no limitations History of Present Illness: The patient is a 72 year old female, followed by Dr. Lomeli as an outpatient. 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 She has been referred to Dr. Olson for evaluation. She has not yet been seen as an outpatient for her malignancy. She has chronic dyspnea at baseline, on supplemental oxygen. The patient also has a history significant for CAD, hypertension, hyperlipidemia, chronic kidney disease, and paroxysmal atrial fibrillation not on anticoagulation due to previous GI bleed. The patient reported to the emergency department on 7017 with increased shortness of breath. She was symptomatic for 3 days prior to admission. The patient was using her rescue inhaler with no relief. She also complained of chest pressure but attributed this to her struggling to breathe. The patient had no complaints of chest pain. She denied any fever, cough, abdominal pain, nausea, or vomiting she complains of severe anxiety. The patient is currently on nebs/total respiratory care, and high flow oxygen. She is saturating in the low 90s with 65% oxygen; flow was at 45 L/min. Allergies/Medications Allergies: Coded Allergies: No Known Allergies (09/25/15) Home Med List: Albuterol Sulfate (Proair Respiclick) 90 MCG AER.POW.BA 2 PUFF INH Q8P PRN COPD (Reported) Albuterol Sulfate 2.5 MG/3 ML (0.083 %) VIAL.NEB 1 Vial INH/KO BID COPD ( Reported) Alprazolam 0.5 MG TABLET 1 TAB PO BID ANXIETY (Reported) Amiodarone HCl (Pacerone) 100 MG TABLET 100 MG PO EOD AFIB (Reported) Aspirin (Children's Aspirin) 81 MG TAB.CHEW 1 TAB PO DAILY HEART HEALTH ( Reported) Cholecalciferol (Vitamin D3) (Vitamin D3) 1,000 UNIT CAPSULE 1 CAP PO DAILY SUPPLEMENT (Reported) diphenhydrAMINE HCl (Benadryl) 25 MG CAPSULE 1 CAP PO QHS PRN SLEEP (Reported ) Epoetin Jon (Epogen) (Unknown Strength) VIAL (Unknown Dose) SC [id number] SUPPLEMENT (Reported) Q 3 WEEKS, LAST TAKEN Wednesday10/04/17) Ezetimibe (Zetia) 10 MG TABLET 1 TAB PO DAILY CHOLESTEROL (Reported) Fluticasone/Vilanterol (Breo Ellipta 100-25 Mcg INH) 100 MCG-25 MCG/DOSE BLST.W.DEV 1 PUFF INH DAILY COPD (Reported) Furosemide 20 MG TABLET 20 MG PO EOD HEART (Reported) Levothyroxine Sodium 50 MCG TABLET 1 TAB PO DAILY THYROID (Reported) Metoprolol Succ XL (Toprol Xl) 50 MG TAB.ER.24H 1 TAB PO DAILY AFIB (Reported ) Mirtazapine 15 MG TABLET 1 TAB PO QHS DEPRESSION (Reported) Omeprazole 40 MG CAPSULE.DR 1 TAB PO DAILY HEARTBURN (Reported) Ranolazine (Ranexa) 500 MG TAB.ER.12H 1,000 MG PO BID ANGINA (Reported) Rosuvastatin Calcium (Crestor) 10 MG TABLET 1 TAB PO DAILY HEART HEALTH ( Reported) Sennosides/Docusate Sodium (Senokot-S Tablet) 8.6 MG-50 MG TABLET 1 TAB PO DAILY PRN CONSTIPATION (Reported) Umeclidinium [place] (Incruse Ellipta) 62.5 MCG/ACTUATION BLST.W.DEV 1 PUFF INH DAILY COPD (Reported) Current Medications: Current Medications Sig/Noemy Start time Last Medication Dose Route Stop Time Status Admin Acetaminophen 650 MG Q8P PRN 11/07 2100 AC PO Albuterol Sulfate 3 ML BID 11/08 899 AC INH Albuterol Sulfate 3 ML Q4P PRN 11/07 2100 AC INH Albuterol Sulfate 3 ML ONCE ONE 11/07 1745 DC 11/07 INH 11/07 1746 1744 Albuterol Sulfate 3 ML ONCE ONE 11/07 1745 DC 11/07 INH 11/07 1746 1745 Alprazolam 0.5 MG BID 11/07 2100 AC 11/08 PO 11/14 Amiodarone HCl 100 MG Q48 11/08 899 AC 11/08 PO 1008 Aspirin 81 MG DAILY 11/08 899 AC 11/08 PO 1007 Atorvastatin Calcium 40 MG 1700 11/08 1700 AC PO Azithromycin 500 MG DAILY 11/08 899 AC 11/08 Sodium Chloride 250 ML IV 1027 Budesonide/ 2 PUF BID 11/08 1030 AC Formoterol Fumarate INH Calcium Gluconate 1 GM ONCE ONE 11/07 1929 DC 11/07 Sodium Chloride 100 ML IV 11/07 Calcium Gluconate 0 .STK-MED ONE 11/07 1926 DC IV Ceftriaxone Sodium 1,000 MG ONCE ONE 11/07 1930 DC 11/07 IV 11/07 1930 225 Ceftriaxone Sodium 0 .STK-MED ONE 11/07 1925 DC .ROUTE Dextrose 25 GM ONCE ONE 11/07 2100 DC 11/07 IV 11/07 2101 2320 Ezetimibe 10 MG DAILY 11/08 899 AC 11/08 PO 1010 Furosemide 20 MG Q48 11/08 899 AC 11/08 PO 1008 Heparin Sodium 5,000 UNIT Q8 11/07 2199 AC 11/08 (Porcine) SC 0501 Insulin Human Regular 10 UNITS ONCE ONE 11/07 2099 DC 11/07 IV 11/07 210 2320 Ipratropium [place] 2.5 ML ONCE ONE 11/07 174 DC 11/07 INH 11/07 1746 1744 Levothyroxine Sodium 0.05 MG 0711/09 AC PO Methylprednisolone 40 MG Q8 11/08 06 AC 11/08 IV 0501 Methylprednisolone 0 .STK-MED ONE 11/07 175 DC .ROUTE Methylprednisolone 125 MG ONCE ONE 11/07 174 DC 11/07 IV 11/07 1746 1811 Metoprolol Succinate 50 MG DAILY 11/08 899 AC 11/08 PO 1010 Mirtazapine 15 MG AT BEDTIME 11/08 0015 AC 11/08 PO 0120 Non-Formulary 0 SEE ADMIN CRITERIA 11/09 799 DC Medication ANY Omeprazole 40 MG DAILY AC 11/09 07 AC PO Ranolazine 1,000 MG BID 11/08 0002 AC 11/08 PO 0733 Senna/Docusate Sodium 1 TAB AT BEDTIME 11/07 2100 AC 11/07 PO 2258 Sodium Polystyrene 60 ML ONCE ONE 11/07 1929 DC 11/07 Sulfonate PO 11/07 1930 193 Sodium Polystyrene 0 .STK-MED ONE 11/07 1926 DC Sulfonate .ROUTE Review of Systems Review of Systems Constitutional: Reports: malaise, weakness. Denies: chills, diaphoresis, fever. Cardiovascular: Reports: edema, orthopena. Denies: chest pain, palpitations, syncope. Respiratory: Reports: orthopnea, short of breath, wheezing. Denies: cough, hemoptysis, sputum production, stridor. GI: Denies: abdominal pain, bloating, constipation, diarrhea, bloody stool. Genitourinary: Denies: no symptoms. 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 FATHER (Heart Attack). SISTER (ovarian cancer). BROTHER (Diabetes). Psychosocial History Where Do You Live? Home Who Do You Live With? self Services at Home: Nursing, Physical Therapy Primary Language: Syriac Smoking Status: Former Smoker ETOH Use: denies use Illicit Drug Use: denies illicit drug use Functional Ability ADLs Independent: dressing, eating, toileting, bathing. Ambulation: cane IADLs Independent: shopping, housework, finances, food prep, telephone, transportation , medication admin. Exam & Diagnostic Data Last 24 Hrs of Vital Signs/I&O Vital Signs Date Time Temp Pulse Resp B/P B/P Pulse O2 O2 Flow FiO2 Mean Ox Delivery Rate 11/08 1130 Nasal 65% Cannula 11/08 1010 104 160/88 11/08 1008 104 160/88 11/08 0800 98 Nasal 65% Cannula 11/08 0733 97 140/60 11/08 0647 98.7 97 22 144/80 93 Nasal Cannula 11/08 0121 94 144/70 11/08 0030 96 Nasal 65% Cannula 11/07 2236 92 Nasal 6.0L Cannula 11/07 2215 98.2 98 24 134/66 92 Nasal 6.0L Cannula 11/07 2119 98.5 92 26 164/76 93 Nasal 6.0L Cannula 11/07 1814 99.0 84 28 165/70 96 Nasal 6.0L Cannula 11/07 1730 Nasal 6.0L Cannula 11/07 1715 97.9 84 36 154/64 92 Nasal 6.0L Cannula Intake & Output 11/08 1600 11/08 0800 11/08 0000 Intake Total 0 Output Total 300 0 Balance -300 0 Intake, Oral 0 Output, Urine 300 0 Patient 148 lb Weight Weight Bed scale Measurement Method Physical Exam General Appearance: alert, awake, anxious, comfortable Head: atraumatic, normal appearance Neck: supple Respiratory: quiet respiration, decreased breath sounds, wheezing Cardiovascular: S1 and S2 heard, diminished air movement Gastrointestinal: normal bowel sounds, soft, non-tender Extremities: no edema Skin: intact, normal color, warm/dry Last 48 Hrs of Labs/[place]: Laboratory Tests 11/08/17 0710: Anion Gap 13, Estimated GFR 32 L, BUN/Creatinine Ratio 20.0, Troponin I 0.04, CBC w Diff MAN DIFF ORDERED, RBC 2.90 L, MCV 80.8 L, MCH 24.9 L, MCHC 30.8 L , RDW 21.1 H, MPV 8.8, Segmented Neutrophils 97 H, Lymphocytes 2 L, Monocytes 1 L, Platelet Estimate INCREASED, Hypochromic-Microcytic 1+, Anisocytosis 1+, Macrocytic Cells FEW 11/08/17 0105: Anion Gap 16, Estimated GFR 28 L, BUN/Creatinine Ratio 19.4, Troponin I 0.05 11/08/17 0105: Sodium Cancelled, Potassium Cancelled, Chloride Cancelled, Carbon Dioxide Cancelled, Anion Gap Cancelled, BUN Cancelled, Creatinine Cancelled, BUN/ Creatinine Ratio Cancelled 11/07/17 1823: Anion Gap 12, Estimated GFR 23 L, BUN/Creatinine Ratio 18.1, Glucose 124 H, Calcium 8.9, Magnesium 1.9, Total Bilirubin 0.5, AST 26, ALT 23, Alkaline Phosphatase 147 H, Troponin I 0.06, Total Protein 6.4, Albumin 3.6, Globulin 2.8, Albumin/Globulin Ratio 1.3, CBC w Diff MAN DIFF ORDERED, RBC 3.14 L, MCV 81.1, MCH 25.4 L, MCHC 31.3 L, RDW 20.8 H, MPV 8.5, Segmented Neutrophils 78 H, Lymphocytes 19 L, Monocytes 3, Nucleated RBCs 1 H, Platelet Estimate INCREASED, Polychromasia 1+, Hypochromic-Microcytic 1+, Anisocytosis 1+, Macrocytic Cells 1+ Diagnostic Data CXR Results - Chronic obstructive pulmonary disease. - Diffuse, nonspecific interstitial opacity in both lungs has decreased/improved compared to 10/12/2017. - Stable cardiomegaly. Assessment/Plan Impression/Plan: 1. Acute exacerbation of COPD. 2. Hypoxemic respiratory failure, rule out underlying infectious cause. The patient has active lung cancer and is at risk for venous normal embolic disease as well. 3. Previous history of lung cancer status post gamma knife radiation. 4. Paroxysmal atrial fibrillation, not on anticoagulation secondary to GI bleed and anemia. 5. Chronic kidney disease. 6. History of hypertension. 7. Anemia without evidence of active bleeding. Recommendations: * Check lower extremity Dopplers to rule out DVT. * Check a noncontrast CT scan of the chest for further evaluation of the know malignancy and for bilateral interstitial opacity seen on chest x-ray. * If the patient's hypoxia persists, would consider a ventilation/perfusion scan noting she has a history of lung cancer and is at increased risk for VT E. * Continue IV Solu-Medrol at current dose. * Continue neb/total respiratory care. * Attempt to wean oxygen down to for saturations greater than 90-92%. * Complete 5 days of azithromycin. * Attempt to obtain sputum culture. * Maintain negative fluid balance. Cardiology recommendations reviewed. * Management of medical comorbidities as per primary team. * Thank you for the consult and for allowing me to participate in the care of this patient. I will follow her along with you provide further recommendations as necessary. As always, if you have any comments or questions please do not hesitate to contact me at any time. Consult Acknowledgment - Thank you for your consult request.
--- NOTE | 2017-11-08 12:19 | Cons- Cardiology ---
General Information and HPI Consulting Request Date of Consult: 11/08/17 Requested By: Yue Andujar MD Reason for Consult: Coronary artery disease, dyspnea Source of Information: patient, old records Exam Limitations: no limitations History of Present Illness: The patient is a 72-year-old woman with a past medical history of coronary artery disease (PCI in 2001 in 2014, as well as drug-eluting stents to the RCA in 2016) COPD, social lung disease, lung CA status post gamma knife radiation, paroxysmal atrial fibrillation (not on anticoagulation secondary to GI bleeds and anemia), chronic kidney disease and hypertension. She presents to our hospital with symptoms of increasing severe dyspnea and weakness. The patient has been noting increasing dyspnea at home over the past several days which has been refractory to the use of rescue asthma inhalers. She otherwise denied symptoms of chest pains nor palpitations at that time. Of note, the patient does describe a weight gain of approximately 10 pounds over a period of approximately 4 weeks (on her home scale) sees, and has noted increasing leg edema. On arrival, she was noted to have an elevated BNP Arison to her baseline ( current 4500). She has subsequently ruled out for myocardial infarction via serial troponin isoenzymes. Allergies/Medications Allergies: Coded Allergies: No Known Allergies (09/25/15) Home Med List: Albuterol Sulfate (Proair Respiclick) 90 MCG AER.POW.BA 2 PUFF INH Q8P PRN COPD (Reported) Albuterol Sulfate 2.5 MG/3 ML (0.083 %) VIAL.NEB 1 Vial INH/KO BID COPD ( Reported) Alprazolam 0.5 MG TABLET 1 TAB PO BID ANXIETY (Reported) Amiodarone HCl (Pacerone) 100 MG TABLET 100 MG PO EOD AFIB (Reported) Aspirin (Children's Aspirin) 81 MG TAB.CHEW 1 TAB PO DAILY HEART HEALTH ( Reported) Cholecalciferol (Vitamin D3) (Vitamin D3) 1,000 UNIT CAPSULE 1 CAP PO DAILY SUPPLEMENT (Reported) diphenhydrAMINE HCl (Benadryl) 25 MG CAPSULE 1 CAP PO QHS PRN SLEEP (Reported ) Epoetin Jon (Epogen) (Unknown Strength) VIAL (Unknown Dose) SC [id number] SUPPLEMENT (Reported) Q 3 WEEKS, LAST TAKEN Wednesday10/04/17) Ezetimibe (Zetia) 10 MG TABLET 1 TAB PO DAILY CHOLESTEROL (Reported) Fluticasone/Vilanterol (Breo Ellipta 100-25 Mcg INH) 100 MCG-25 MCG/DOSE BLST.W.DEV 1 PUFF INH DAILY COPD (Reported) Furosemide 20 MG TABLET 20 MG PO EOD HEART (Reported) Levothyroxine Sodium 50 MCG TABLET 1 TAB PO DAILY THYROID (Reported) Metoprolol Succ XL (Toprol Xl) 50 MG TAB.ER.24H 1 TAB PO DAILY AFIB (Reported ) Mirtazapine 15 MG TABLET 1 TAB PO QHS DEPRESSION (Reported) Omeprazole 40 MG CAPSULE.DR 1 TAB PO DAILY HEARTBURN (Reported) Ranolazine (Ranexa) 500 MG TAB.ER.12H 1,000 MG PO BID ANGINA (Reported) Rosuvastatin Calcium (Crestor) 10 MG TABLET 1 TAB PO DAILY HEART HEALTH ( Reported) Sennosides/Docusate Sodium (Senokot-S Tablet) 8.6 MG-50 MG TABLET 1 TAB PO DAILY PRN CONSTIPATION (Reported) Umeclidinium [place] (Incruse Ellipta) 62.5 MCG/ACTUATION BLST.W.DEV 1 PUFF INH DAILY COPD (Reported) Current Medications: Current Medications Sig/Noemy Start time Last Medication Dose Route Stop Time Status Admin Acetaminophen 650 MG Q8P PRN 11/07 2100 AC PO Albuterol Sulfate 3 ML BID 11/08 899 AC INH Albuterol Sulfate 3 ML Q4P PRN 11/07 2100 AC INH Albuterol Sulfate 3 ML ONCE ONE 11/07 1745 DC 11/07 INH 11/07 1746 1744 Albuterol Sulfate 3 ML ONCE ONE 11/07 1745 DC 11/07 INH 11/07 1746 1745 Alprazolam 0.5 MG BID 11/07 2100 AC 11/08 PO 11/1435 Amiodarone HCl 100 MG Q48 11/08 899 AC 11/08 PO 1008 Aspirin 81 MG DAILY 11/08 899 AC 11/08 PO 1007 Atorvastatin Calcium 40 MG 1700 11/08 1700 AC PO Azithromycin 500 MG DAILY 11/08 899 AC 11/08 Sodium Chloride 250 ML IV 1027 Budesonide/ 2 PUF BID 11/08 1030 AC Formoterol Fumarate INH Calcium Gluconate 1 GM ONCE ONE 11/07 1930 DC 07/08 Sodium Chloride 100 ML IV 11/07 2028 225 Calcium Gluconate 0 .STK-MED ONE 11/07 1926 DC IV Ceftriaxone Sodium 1,000 MG ONCE ONE 11/07 1930 DC 11/07 IV 11/07 1930 225 Ceftriaxone Sodium 0 .STK-MED ONE 11/07 1925 DC .ROUTE Dextrose 25 GM ONCE ONE 11/07 2100 DC 11/07 IV 11/07 2101 2320 Ezetimibe 10 MG DAILY 11/08 899 AC 11/08 PO 1010 Furosemide 20 MG Q48 11/08 899 AC 11/08 PO 1008 Heparin Sodium 5,000 UNIT Q8 11/07 2200 AC 11/08 (Porcine) SC 0501 Insulin Human Regular 10 UNITS ONCE ONE 11/07 2100 DC 11/07 IV 11/07 210 2320 Ipratropium [place] 2.5 ML ONCE ONE 11/07 1745 DC 11/07 INH 11/07 1746 1744 Levothyroxine Sodium 0.05 MG 0700 11/09 07 AC PO Methylprednisolone 40 MG Q8 11/08 0600 AC 11/08 IV 0501 Methylprednisolone 0 .STK-MED ONE 11/07 175 DC .ROUTE Methylprednisolone 125 MG ONCE ONE 11/07 1745 DC 11/07 IV 11/07 1746 1811 Metoprolol Succinate 50 MG DAILY 11/08 899 AC 11/08 PO 1010 Mirtazapine 15 MG AT BEDTIME 11/08 0015 AC 11/08 PO 0120 Non-Formulary 0 SEE ADMIN CRITERIA 11/09 799 DC Medication ANY Omeprazole 40 MG DAILY AC 11/09 07 AC PO Ranolazine 1,000 MG BID 11/08 0002 AC 11/08 PO 0733 Senna/Docusate Sodium 1 TAB AT BEDTIME 11/07 2100 AC 11/07 PO 2258 Sodium Polystyrene 60 ML ONCE ONE 11/07 1930 DC 11/07 Sulfonate PO 11/07 1930 193 Sodium Polystyrene 0 .STK-MED ONE 11/07 1926 DC Sulfonate .ROUTE Review of Systems Review of Systems: The review of systems is negative for chest pains, palpitations nor lightheadedness, positive for dyspnea as above. The remainder of the 14 point review of systems is noncontributory with the exception of above. 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 FATHER (Heart Attack). SISTER (ovarian cancer). BROTHER (Diabetes). Psychosocial History Where Do You Live? Home Who Do You Live With? self Services at Home: Nursing, Physical Therapy Primary Language: South Sudanese Smoking Status: Former Smoker ETOH Use: denies use Illicit Drug Use: denies illicit drug use Functional Ability ADLs Independent: dressing, eating, toileting, bathing. Ambulation: cane IADLs Independent: shopping, housework, finances, food prep, telephone, transportation , medication admin. Exam & Diagnostic Data Vital Signs and I&O Vital Signs Date Time Temp Pulse Resp B/P B/P Pulse O2 O2 Flow FiO2 Mean Ox Delivery Rate 11/08 1130 Nasal 65% Cannula 11/08 1010 104 160/88 11/08 1008 104 160/88 11/08 0800 98 Nasal 65% Cannula 11/08 0733 97 140/60 11/08 0647 98.7 97 22 144/80 93 Nasal Cannula 11/08 0121 94 144/70 11/08 0030 96 Nasal 65% Cannula 11/07 2236 92 Nasal 6.0L Cannula 11/07 2215 98.2 98 24 134/66 92 Nasal 6.0L Cannula 11/07 2119 98.5 92 26 164/76 93 Nasal 6.0L Cannula 11/07 1814 99.0 84 28 165/70 96 Nasal 6.0L Cannula 11/07 1730 Nasal 6.0L Cannula 11/07 1715 97.9 84 36 154/64 92 Nasal 6.0L Cannula Intake & Output 11/08 1600 11/08 0811/08 0000 11/07 1600 11/07 0000 Intake Total 0 Output Total 300 0 Balance -300 0 Intake, Oral 0 Output, Urine 300 0 Patient 148 lb Weight Weight Bed scale Measurement Method Physical Exam: General: Nontoxic, no apparent distress. HEENT: Sclera and conjunctiva within normal limits, without xanthelasmas. Neck: Carotids 2+ without bruits. Respiratory: Scattered rhonchi and rales, air movement is decreased throughout, without accessory respiratory muscle use. Heart: Regular rate and rhythm, without murmurs, without JVD. Abdomen: Soft, nontender, no masses, normoactive bowel sounds. Extremities: Without clubbing, cyanosis, without edema. Neuro: Nonfocal exam, strength, 5 out of 5 Skin: Within normal limits without lesions. Psych: Mood and affect: Normal Labs/[place] Results: Laboratory Tests 11/08 11/08 11/08 0710 0105 0105 Chemistry Sodium (137 - 145 mmol/L) 143 141 Cancelled Potassium (3.5 - 5.1 mmol/L) 4.6 5.0 Cancelled Chloride (98 - 107 mmol/L) 110 H 109 H Cancelled Carbon Dioxide (22 - 30 mmol/L) 20 L 17 L Cancelled Anion Gap (5 - 16) 13 16 Cancelled BUN (7 - 17 mg/dL) 32 H 35 H Cancelled Creatinine (0.5 - 1.0 mg/dL) 1.6 H 1.8 H Cancelled Estimated GFR (>60 ml/min) 32 L 28 L BUN/Creatinine Ratio (7 - 25 %) 20.0 19.4 Cancelled Troponin I (< 0.11 ng/ml) 0.04 0.05 Hematology CBC w Diff MAN DIFF ORDERED WBC (4.8 - 10.8 /CUMM) 9.0 RBC (4.20 - 5.40 /CUMM) 2.90 L Hgb (12.0 - 16.0 G/DL) 7.2 *L Hct (37 - 47 %) 23.5 L MCV (81.0 - 99.0 FL) 80.8 L MCH (27.0 - 31.0 PG) 24.9 L MCHC (33.0 - 37.0 G/DL) 30.8 L RDW (11.5 - 14.5 %) 21.1 H Plt Count (130 - 400 /CUMM) 442 H MPV (7.4 - 10.4 FL) 8.8 Segmented Neutrophils (42.2 - 75.2 %) 97 H Lymphocytes (20.5 - 51.1 %) 2 L Monocytes (1.7 - 9.3 %) 1 L Platelet Estimate (ADEQUATE) INCREASED Hypochromic-Microcytic 1+ Anisocytosis 1+ Macrocytic Cells FEW 11/07 1823 Chemistry Sodium (137 - 145 mmol/L) 141 Potassium (3.5 - 5.1 mmol/L) 6.0 *H Chloride (98 - 107 mmol/L) 107 Carbon Dioxide (22 - 30 mmol/L) 22 Anion Gap (5 - 16) 12 BUN (7 - 17 mg/dL) 38 H Creatinine (0.5 - 1.0 mg/dL) 2.1 H Estimated GFR (>60 ml/min) 23 L BUN/Creatinine Ratio (7 - 25 %) 18.1 Glucose (65 - 99 mg/dL) 124 H Calcium (8.4 - 10.2 mg/dL) 8.9 Magnesium (1.6 - 2.3 mg/dL) 1.9 Total Bilirubin (0.2 - 1.3 mg/dL) 0.5 AST (14 - 36 U/L) 26 ALT (9 - 52 U/L) 23 Alkaline Phosphatase (<127 U/L) 147 H Troponin I (< 0.11 ng/ml) 0.06 Total Protein (6.3 - 8.2 g/dL) 6.4 Albumin (3.5 - 5.0 g/dL) 3.6 Globulin (1.9 - 4.2 gm/dL) 2.8 Albumin/Globulin Ratio (1.1 - 2.2 %) 1.3 Hematology CBC w Diff MAN DIFF ORDERED WBC (4.8 - 10.8 /CUMM) 10.3 RBC (4.20 - 5.40 /CUMM) 3.14 L Hgb (12.0 - 16.0 G/DL) 8.0 L Hct (37 - 47 %) 25.4 L MCV (81.0 - 99.0 FL) 81.1 MCH (27.0 - 31.0 PG) 25.4 L MCHC (33.0 - 37.0 G/DL) 31.3 L RDW (11.5 - 14.5 %) 20.8 H Plt Count (130 - 400 /CUMM) 441 H MPV (7.4 - 10.4 FL) 8.5 Segmented Neutrophils (42.2 - 75.2 %) 78 H Lymphocytes (20.5 - 51.1 %) 19 L Monocytes (1.7 - 9.3 %) 3 Nucleated RBCs (0.0 - 0.0 /100WBC) 1 H Platelet Estimate (ADEQUATE) INCREASED Polychromasia 1+ Hypochromic-Microcytic 1+ Anisocytosis 1+ Macrocytic Cells 1+ Assessment/Plan Assessment/Plan 72-year-old woman with a past medical history of coronary artery disease (PCI in 2001 in 2014, as well as drug-eluting stents to the RCA in 2016) COPD, social lung disease, lung CA status post gamma knife radiation, paroxysmal atrial fibrillation (not on anticoagulation secondary to GI bleeds and anemia), chronic kidney disease and hypertension. She presents to our hospital with symptoms of increasing severe dyspnea and weakness, which has been refractory to her rescue asthma inhalers. She has well has a noted approximate 10 pound weight gain over the past several weeks. Dyspnea: The patient presents with dyspnea which is most consistent with a combined underlying COPD exacerbation and likely increasing fluid overload. A recent echocardiogram performed demonstrated preserved LV systolic function, and a repeat of the same is currently on necessary. We will continue treatment aggressively as per pulmonary as well as attempt further diuresis with Lasix, targeting a net output of approximately 1 L per day. Anemia: The patient has been receiving Procrit for her chronic anemia. We will continue with the same as per nephrology. Atrial fibrillation: Patient has known atrial fibrillation and is not anticoagulated secondary to a history of GI bleeds and anemia. We will continue to maintain rate control. Thank you for allowing us to participate in the care of your patient. Please do not hesitate to contact us further with any questions. Sincerely, Chun Lin MD [facility] Consult Acknowledgment - Thank you for your consult request.
[2017-11-08 14:26] VITALS: BP 98/52
[2017-11-08 17:14] LABS: HEMATOCRIT 23.8 % (37-47); MEAN CORPUSCULAR HGB 25.1 PG (27.0-31.0); MEAN CORPUSCULAR VOLUME 80.9 FL (81.0-99.0); MEAN PLATELET VOLUME 9.4 FL (7.4-10.4); PLATELET COUNT 461 /CUMM (130-400); RBC DISTRIBUTION WIDTH 21.1 % (11.5-14.5); RED BLOOD CELL CT 2.94 /CUMM (4.20-5.40)
[2017-11-08 17:16] LABS: WHITE BLOOD CELL COUNT 14.2 /CUMM (4.8-10.8)
--- NOTE | 2017-11-08 21:18 | ULTRASOUND REPORT ---
EXAMINATION: US TRIPLEX OF LOWER EXTREMITIES, BILATERAL CLINICAL INFORMATION: Bilateral lower extremity swelling. COMPARISON: 10/11/2017 TECHNIQUE: Color-flow triplex imaging with spectral analysis and compression Doppler were performed on the lower extremities. FINDINGS: Respiratory variation, normal compression and augmented flow are noted throughout the lower extremities. The visualized common femoral vein, greater saphenous, superficial femoral vein, profunda femoral vein, popliteal vein and midcalf peroneal and posterior tibial venous segments show no evidence of deep venous thrombosis. There is no Casillas's cyst. IMPRESSION: No evidence of deep venous thrombosis involving the bilateral lower extremities.
--- NOTE | 2017-11-08 22:12 | CT SCAN REPORT ---
EXAMINATION: CT CHEST WITHOUT CONTRAST CLINICAL INFORMATION: Shortness of breath. Presumptive diagnosis: Malignancy. COMPARISON: Radiograph dated 11/07/[address] dated 10/10/2017. TECHNIQUE: Multidetector volumetric CT imaging of the chest was done. Axial MIP volume rendering provided. Sagittal and coronal reformatted images were obtained. DLP: 208 mGy-cm FINDINGS: LUNGS: Again seen are diffuse paraseptal and centrilobular emphysema, most severe at the upper lobes. Peripheral interlobular septal thickening, and honeycombing are evident at the lung bases and posterior/inferior aspects of the upper lobes. The increased interstitial opacification in these regions of fibrotic change could be due to atelectasis or superimposed interstitial edema. No new areas of consolidation are identified. There is persistent dense consolidation in the right lower lobe with surgical markers, not significantly change from prior. The spiculated, solid, anterior lingular nodule is unchanged in size from prior, measuring 2.4 x 2.1 cm by my measurement. This corresponds to the biopsied squamous cell carcinoma. MEDIASTINUM: Mild cardiomegaly is again noted. Calcific atherosclerosis is present in the coronary arteries. Thoracic aorta is normal in caliber. Calcific atherosclerosis is present in the thoracic aorta. Thyroid gland is unremarkable. The 1 cm AP angle lymph node is unchanged. 1 cm (short axis) precarinal nodes are again noted. Sensitivity for hilar adenopathy is limited without intravenous contrast, though there is suspicion for hilar adenopathy on the right. PLEURA: No significant pleural effusion. AXILLA: No lymphadenopathy. UPPER ABDOMEN: Unremarkable. OSSEOUS STRUCTURES: No suspicious bony lesions. IMPRESSION: Diffuse pulmonary emphysema with chronic interstitial pneumonitis, likely UIP pattern. The density of the fibrotic interstitial changes increased from the recent CT from 10/10/2017 which could be due to atelectasis, interstitial edema, pneumonitis, or drug related phenomenon. Cardiomegaly Unchanged 2.4 cm squamous cell carcinoma in the lingula. Mild mediastinal adenopathy is unchanged as well.
[2017-11-08 23:35] VITALS: BP 138/70
--- NOTE | 2017-11-09 06:33 | PN- Housestaff ---
Gloria Ortiz 11/09/17 0633: Subjective Follow-up For: Exacerbation of COPD, hypoxic respiratory failure, A. fib, hypertension, anemia, CKD Complaints: no complaints Tele-Events Since Last Visit: Sinus rhythm heart rate 78-98 Subjective: No complaints/acute events overnight. This morning the oxygen saturation fell down to Review of Systems Constitutional: Reports: see HPI. Objective Last 24 Hrs of Vital Signs/I&O Vital Signs Date Time Temp Pulse Resp B/P B/P Pulse O2 O2 Flow FiO2 Mean Ox Delivery Rate 11/09 0814 84 146/78 11/09 0813 84 146/78 11/09 0800 Nasal 65% Cannula 11/09 0706 97.6 84 22 146/78 95 11/09 0053 96 Nasal 65% Cannula 11/08 2335 97.8 98 24 138/70 96 11/08 2228 100 138/70 11/08 2200 95 Nasal 65% Cannula 11/08 2000 94 Nasal 60% Cannula 11/08 1426 97.9 97 26 98/52 92 Nasal 65% Cannula 11/08 1130 Nasal 65% Cannula Intake & Output 11/09 1600 11/09 0800 11/09 0000 Intake Total 150 200 Output Total 300 250 Balance -150 -50 Intake, IV 150 200 Output, Urine 300 250 Patient 149 lb Weight Physical Exam General Appearance: Alert, Oriented X3, Cooperative, No Acute Distress Skin: No Rashes, No Breakdown, No Significant Lesion Skin Temp/Moisture Exam: Cool/Dry HEENT: Atraumatic Neck: Supple Cardiovascular: Regular Rate, Normal S1, Normal S2, No Murmurs Lungs: Normal Air Movement Abdomen: Normal Bowel Sounds, Soft, No Tenderness, No Hepatospenomegaly Neurological: Normal Speech, Strength at 5/5 X4 Ext Extremities: No Clubbing, No Cyanosis, No Edema Assessment/Plan Assessment: The patient is a 72-year-old woman with a past medical history of coronary artery disease (PCI in 2001 in 2014, as well as drug-eluting stents to the RCA in 2016) COPD, social lung disease, lung CA status post gamma knife radiation, paroxysmal atrial fibrillation (not on anticoagulation secondary to GI bleeds and anemia), chronic kidney disease and hypertension. She presented with increasing severe dyspnea and weakness likely to COPD exacerbation & ILD. Vitals: Temperature 97.6, pulse 84, respiratory rate 22, 146/78, pulse ox 95% on 65% high flow oxygen. 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 - Check her H&H and if less than 8 we will retransfuse. - Oxygen went low this morning at 8 AM to 67% when she got up from the bed to use the bedside commode. Dr. Hemphill saw the patient this morning. -trc, nebs, wean o2 -D-dimers, VQ scan, Sputum gram stain and culture -We will continue Solu-Medrol on current regimen of 40 mg every 12 by IV -Continue bronchodilation treatment at current regimen -Continue diuretic at current regimen -Transitioned to azithromycin per oral and completed 5 days of treatment - Amiodarone induced lung injury is a concern at this time. So we will consult pulmonology for that. -Monitor H&H daily - Intake and output: It was -150 today. 100 yesterday. Monitor intake and output and maintain negative fluid balance as per cardiology - Nephrology consult today -Oncology and pulmonology consults: Goals of care discussion should be done. - Follow oncology as an outpatient Problem List: 1. COPD (chronic obstructive pulmonary disease) 2. Interstitial lung disease 3. Chronic disease anemia 4. CKD (chronic kidney disease) Pain Ratin Pain Location: None Pain Goal: Remain pain free Pain Plan: n/a Tomorrow's Labs & Rationales: cbc, bep Con WILSON,Yue 11/09/17 1111: Attending MD Review Statement Attending Statement Attending MD Statement: examined this patient, discuss w/resident/PA/MANUFACTURING PLANT TECHNICIAN, agreed w/resident/PA/MANUFACTURING PLANT TECHNICIAN, reviewed EMR data (avail), discussed with nursing, discussed with case mgmt, amended to note Attending Assessment/Plan: Patient seen and examined. He is lying in bed and appears comfortable and not in acute distress. She continues to require high flow oxygen supplementation. There were no events overnight however this morning nursing staff reports that after she was moved to the chair she desaturated down into the high 60s. She complains of shortness of breath at rest or with exertion. She complains of a mild cough. She is afebrile. Blood pressure is stable. She did receive a unit of blood yesterday. On examination she does not appear to be in acute respiratory distress. She does not appear volume overloaded. Problems: 1. Acute on chronic hypoxic respiratory failure 2. COPD 3. Newly diagnosed lung cancer patient has prior history of lung cancer status post. (Gamma knife radiation in the past) 4. Interstitial lung disease 5. Paroxysmal atrial fibrillation not on anticoagulant due to history of GI bleeding and severe anemia. 6. Acute on chronic anemia 7. Chronic kidney disease stage III plan: Plan: -Multiple pulmonary pathologies will explain her underlying chronic hypoxic respiratory failure. Contributing her acute on chronic anemia is likely to the exacerbation of disease. Other etiologies has to be considered particularly in light of her continued need for high flow oxygen supplementation and significant desaturation despite high flow oxygen supplementation today. She does not appear volume overloaded in fact her elevated BUN may suggest some prerenal azotemia. Pulmonary embolism should be considered as a differential. D-dimer has been ordered. a VQ scan has been ordered although per the radiology service results may be indeterminate due to the use of high flow oxygen. If the d-dimer is not significantly elevated pulmonary embolism would be less likely unless the VQ scan shows high probability. -We will follow-up with the pulmonology service about the possibility of amiodarone induced lung toxicity the absence of any other obvious cause of her acute decompensation. -Continue bronchodilator therapy. Continue steroid therapy at current dose. Transition to oral azithromycin and complete 5 days of therapy. -Obtain sputum cultures if possible. Continue current-diuretic regimen. would not recommend more aggressive diuresis at this point. -Hemoglobin level has improved following transfusion. Monitor hemoglobin levels daily. Leukocytosis likely secondary to steroid therapy. -Her Recurrent hyperkalemia is likely secondary to her chronic kidney disease. Potassium level is currently within normal limits. -In view of her advanced multiple comorbidities recommend goals of care discussion by the patient's pulmonology service. -Recommend oncology consultation to help guide the patient in decision-making regarding goals of care.
[2017-11-09 07:06] VITALS: BP 146/78
--- NOTE | 2017-11-09 07:14 | PN- Pulmonary ---
Subjective HPI/Critical Care Issues: The patient is awake and alert. She reports feeling slightly improved. She was reported today however to drop her oxygen saturations to 67% while on high flow oxygen during ambulation. She notes less shortness of breath. She has an ongoing cough with chest congestion. She denies any fever or chills. She remains on high flow oxygen at 65%. Objective Current Medications: Current Medications Sig/Noemy Start time Last Medication Dose Route Stop Time Status Admin Acetaminophen 650 MG Q8P PRN 11/07 2100 AC PO Albuterol Sulfate 3 ML BID 11/08 2099 AC 11/08 INH 2000 Albuterol Sulfate 3 ML BID 11/08 899 DC INH Albuterol Sulfate 3 ML Q4P PRN 11/07 2100 DC INH Alprazolam 0.25 MG ONCE ONE 11/08 1515 DC 11/08 PO 11/08 1516 1612 Alprazolam 0.5 MG BID 11/07 2100 AC 11/08 PO 11/14 2059 2221 Amiodarone HCl 100 MG Q48 11/08 899 AC 11/08 PO 1008 Aspirin 81 MG DAILY 11/08 899 AC 11/09 PO 0815 Atorvastatin Calcium 40 MG 1700 11/08 1700 AC 11/08 PO 1621 Azithromycin 500 MG DAILY 11/08 899 AC 11/09 Sodium Chloride 250 ML IV 0808 Budesonide/ 2 PUF BID 11/08 1030 AC 11/09 Formoterol Fumarate INH 0815 Dextrose/Sodium 1,000 ML Q20H 11/08 1745 DC Chloride IV 11/09 1344 Epoetin Jon 34,000 U ONCE ONE 11/08 2200 DC 11/08 SC 11/08 2201 2341 Ezetimibe 10 MG DAILY 11/08 899 AC 11/09 PO 0814 Furosemide 20 MG Q48 11/08 899 AC 11/08 PO 1008 Heparin Sodium 5,000 UNIT Q8 11/07 2200 AC 11/09 (Porcine) SC 0515 Levothyroxine Sodium 0.05 MG 0700 11/09 07 AC 11/09 PO 0515 Methylprednisolone 40 MG Q12 11/08 2100 AC 11/09 IV 0809 Methylprednisolone 40 MG Q8 11/08 06 DC 11/08 IV 1500 Metoprolol Succinate 50 MG DAILY 11/08 899 AC 11/09 PO 0814 Mirtazapine 15 MG AT BEDTIME 11/08 0015 AC 11/08 PO 2221 Non-Formulary 0 SEE ADMIN CRITERIA 11/09 799 DC Medication ANY Omeprazole 40 MG DAILY AC 11/09 07 AC 11/09 PO 0515 Patient Medication 1 ED ONE ONE 11/08 1230 DC Teaching ED 11/08 1231 Ranolazine 1,000 MG BID 11/08 0002 AC 11/09 PO 0813 Senna/Docusate Sodium 1 TAB AT BEDTIME 11/07 2100 AC 11/08 PO 2221 Physical Exam General Appearance: alert, awake, anxious, comfortable Head: atraumatic, normal appearance Neck: supple Respiratory: quiet respiration, decreased breath sounds, wheezing Cardiovascular: S1 and S2 heard, diminished air movement Gastrointestinal: normal bowel sounds, soft, non-tender Extremities: no edema Skin: intact, normal color, warm/dry Vital Signs & I&O Last 24 Hrs of Vitals and I&O: Vital Signs Date Time Temp Pulse Resp B/P B/P Pulse O2 O2 Flow FiO2 Mean Ox Delivery Rate 11/09 08 84 146/78 11/09 0813 84 146/78 11/09 0706 97.6 84 22 146/78 95 11/09 0053 96 Nasal 65% Cannula 11/08 2335 97.8 98 24 138/70 96 11/08 2228 100 138/70 11/08 2200 95 Nasal 65% Cannula 11/08 2000 94 Nasal 60% Cannula 11/08 1426 97.9 97 26 98/52 92 Nasal 65% Cannula 11/08 1130 Nasal 65% Cannula 11/08 1010 104 160/88 11/08 1008 104 160/88 Intake & Output 11/09 1600 11/09 0800 11/09 0000 Intake Total 150 200 Output Total 300 250 Balance -150 -50 Intake, IV 150 200 Output, Urine 300 250 Patient 149 lb Weight Physical Exam General Appearance: alert, awake, anxious, comfortable Head: atraumatic, normal appearance Neck: supple Respiratory: quiet respiration, decreased breath sounds, wheezing Cardiovascular: S1 and S2 heard, diminished air movement Gastrointestinal: normal bowel sounds, soft, non-tender Extremities: no edema Skin: intact, normal color, warm/dry Results Last 24 Hrs of Lab Results: Laboratory Tests 11/09/17 0625: Anion Gap 15, Estimated GFR 32 L, BUN/Creatinine Ratio 28.1 H, CBC w Diff Pending, WBC Pending, RBC Pending, Hgb Pending, Hct Pending, MCV Pending, MCH Pending, MCHC Pending, RDW Pending, Plt Count Pending, MPV Pending, Gran % Pending, Lymphocytes % Pending, Monocytes % Pending, Eosinophils % Pending, Basophils % Pending, Absolute Granulocytes Pending, Absolute Lymphocytes Pending , Absolute Monocytes Pending, Absolute Eosinophils Pending, Absolute Basophils Pending 11/08/17 1615: CBC w Diff MAN DIFF ORDERED, RBC 2.94 L, MCV 80.9 L, MCH 25.1 L, MCHC 31.0 L , RDW 21.1 H, MPV 9.4, Segmented Neutrophils 96 H, Lymphocytes 1 L, Monocytes 3, Platelet Estimate VERIFIED BY SMEAR, Polychromasia 1+, Anisocytosis 2+ Last 24 Hrs of Micro Results: Sputum not sent. Diagnostic Data CT Scan Findings: Diffuse pulmonary emphysema with chronic interstitial pneumonitis, likely UIP pattern. The density of the fibrotic interstitial changes increased from the recent CT from 10/10/2017 which could be due to atelectasis, interstitial edema, pneumonitis, or drug related phenomenon. Cardiomegaly Unchanged 2.4 cm squamous cell carcinoma in the lingula. Mild mediastinal adenopathy is unchanged as well. US Findings: No evidence of deep venous thrombosis involving the bilateral lower extremities. Impression/Plan Impression/Plan Impression/Plan: 1. Acute exacerbation of COPD. CT scan demonstrates very severe emphysema, and interstitial pneumonitis which could explain progressive respiratory failure as well. The CT scan pattern is not consistent with lymphangitic spread of tumor although she is noted to have some associated adenopathy. 2. Hypoxemic respiratory failure, rule out PE. 3. Newly diagnosed left lung cancer. 4. Paroxysmal atrial fibrillation, not on anticoagulation secondary to GI bleed and anemia. 5. Chronic kidney disease. 6. History of hypertension. 7. Anemia without evidence of active bleeding. 8. Previous history of lung cancer status post right sided gamma knife radiation. 9. 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 Recommendations: * Check a ventilation/perfusion scan today to rule out pulmonary embolism. * Continue IV Solu-Medrol at current dose of q 12 hours. * Continue neb/total respiratory care. * Attempt to wean oxygen down to for saturations greater than 90-92%. * Complete 5 days of azithromycin. * Once again, attempt to obtain sputum culture. * Maintain negative fluid balance per cardiology. * Management of medical comorbidities as per primary team. * Recommend oncology consult -the patient was supposed to see Dr. Olson as an outpatient.
[2017-11-09 08:30] LABS: ABSOLUTE BASOPHIL COUNT 0 /CUMM (0.0-0.2); ABSOLUTE EOSINOPHIL COUNT 0 /CUMM (0.0-0.7); ABSOLUTE GRANULOCYTE CT 14.2 /CUMM (1.4-6.5); ABSOLUTE LYMPH COUNT 0.3 /CUMM (1.2-3.4); ABSOLUTE MONOCYTE COUNT 0.3 /CUMM (0.10-0.60); BASOPHIL % 0 % (0.0-2.0); EOSINOPHIL % 0.1 % (0-5); GRANULOCYTE % 95.9 % (42.2-75.2); HEMATOCRIT 25.9 % (37-47); MEAN CORPUSCULAR HGB 26.5 PG (27.0-31.0); MEAN CORPUSCULAR VOLUME 82.8 FL (81.0-99.0); MEAN PLATELET VOLUME 8.7 FL (7.4-10.4); PLATELET COUNT 377 /CUMM (130-400); RBC DISTRIBUTION WIDTH 19.9 % (11.5-14.5); RED BLOOD CELL CT 3.13 /CUMM (4.20-5.40); WHITE BLOOD CELL COUNT 14.8 /CUMM (4.8-10.8)
--- NOTE | 2017-11-09 09:34 | PN- Cardiology ---
Subjective Subjective: The patient is awake, alert, feels improved Overall fluid balance appears euvolemic overnight The events of the last 24 hours as well as telemetry were reviewed. Review of Systems: The review of systems is negative for chest pains, palpitations nor lightheadedness. The remainder of the 14 point review of systems is noncontributory with the exception of above. Objective Vital Signs and I&Os Vital Signs Date Time Temp Pulse Resp B/P B/P Pulse O2 O2 Flow FiO2 Mean Ox Delivery Rate 11/09 0814 84 146/78 11/09 0813 84 146/78 11/09 0706 97.6 84 22 146/78 95 11/09 0053 96 Nasal 65% Cannula 11/08 2335 97.8 98 24 138/70 96 11/08 2228 100 138/70 11/08 2200 95 Nasal 65% Cannula 11/08 2000 94 Nasal 60% Cannula 11/08 1426 97.9 97 26 98/52 92 Nasal 65% Cannula 11/08 1130 Nasal 65% Cannula 11/08 1010 104 160/88 11/08 1008 104 160/88 Intake & Output 11/09 1600 11/09 0800 11/09 0000 11/08 1600 11/08 0800 11/08 0000 Intake Total 150 200 800 0 Output Total 300 250 350 300 0 Balance -150 -50 450 -300 0 Intake, IV 150 200 300 Intake, Oral 500 0 Output, Urine 300 250 350 300 0 Patient 149 lb 148 lb Weight Weight Bed scale Measurement Method Physical Exam: General: Nontoxic, no apparent distress. HEENT: Sclera and conjunctiva within normal limits, without xanthelasmas. Neck: Carotids 2+ without bruits. Respiratory: Scattered rhonchi, air movement is decreased throughout, without accessory respiratory muscle use. Heart: Regular rate and rhythm, without murmurs, without JVD. Abdomen: Soft, nontender, no masses, normoactive bowel sounds. Extremities: Without clubbing, cyanosis, without edema. Neuro: Nonfocal exam, strength, 5 out of 5 Skin: Within normal limits without lesions. Psych: Mood and affect: Normal Current Medications: Current Medications Sig/Noemy Start time Last Medication Dose Route Stop Time Status Admin Acetaminophen 650 MG Q8P PRN 11/07 2099 AC PO Albuterol Sulfate 3 ML BID 11/08 2099 AC 11/08 INH 2000 Albuterol Sulfate 3 ML BID 11/08 899 DC INH Albuterol Sulfate 3 ML Q4P PRN 11/07 2100 DC INH Alprazolam 0.25 MG ONCE ONE 11/08 1515 DC 11/08 PO 11/08 1516 1612 Alprazolam 0.5 MG BID 11/07 2099 AC 11/08 PO 11/14 2058 2221 Amiodarone HCl 100 MG Q48 11/08 899 AC 11/08 PO 1008 Aspirin 81 MG DAILY 11/08 09 AC 11/09 PO 0815 Atorvastatin Calcium 40 MG 1700 11/08 1700 AC 11/08 PO 1621 Azithromycin 250 MG DAILY 11/10 899 AC PO Azithromycin 500 MG DAILY 11/08 899 DC 11/09 Sodium Chloride 250 ML IV 0808 Budesonide/ 2 PUF BID 11/08 1030 AC 11/09 Formoterol Fumarate INH 0815 Dextrose/Sodium 1,000 ML Q20H 11/08 1745 DC Chloride IV 11/09 1344 Epoetin Jon 34,000 U ONCE ONE 11/08 220 DC 11/08 SC 11/08 2201 2341 Ezetimibe 10 MG DAILY 11/08 899 AC 11/09 PO 0814 Furosemide 20 MG Q48 11/08 0900 AC 11/08 PO 1008 Heparin Sodium 5,000 UNIT Q8 11/070 AC 11/09 (Porcine) SC 0515 Levothyroxine Sodium 0.05 MG 0711/09 07 AC 11/09 PO 0515 Methylprednisolone 40 MG Q12 11/08 2100 AC 11/09 IV 0809 Methylprednisolone 40 MG Q8 11/08 0600 DC 11/08 IV 1500 Metoprolol Succinate 50 MG DAILY 11/08 899 AC 11/09 PO 0814 Mirtazapine 15 MG AT BEDTIME 11/08 0015 AC 11/08 PO 2221 Non-Formulary 0 SEE ADMIN CRITERIA 11/09 799 DC Medication ANY Omeprazole 40 MG DAILY AC 11/09 07 AC 11/09 PO 0515 Patient Medication 1 ED ONE ONE 11/08 1230 DC Teaching ED 11/08 1231 Ranolazine 1,000 MG BID 11/08 0002 AC 11/09 PO 0813 Senna/Docusate Sodium 1 TAB AT BEDTIME 11/07 2100 AC 11/08 PO 2221 Results Last 48 Hrs of Labs/Mics: Laboratory Tests 11/09/17 0625: Anion Gap 15, Estimated GFR 32 L, BUN/Creatinine Ratio 28.1 H, CBC w Diff MAN DIFF ORDERED, RBC 3.13 L, MCV 82.8, MCH 26.5 L, MCHC 32.0 L, RDW 19.9 H, MPV 8.7, Gran % 95.9 H, Lymphocytes % 1.7 L, Monocytes % 2.3, Eosinophils % 0.1, Basophils % 0, Absolute Granulocytes 14.2 H, Absolute Lymphocytes 0.3 L, Absolute Monocytes 0.3, Absolute Eosinophils 0, Absolute Basophils 0, Platelet Estimate VERIFIED BY SMEAR, Polychromasia 1+, Anisocytosis 1+ 11/08/17 1615: CBC w Diff MAN DIFF ORDERED, RBC 2.94 L, MCV 80.9 L, MCH 25.1 L, MCHC 31.0 L , RDW 21.1 H, MPV 9.4, Segmented Neutrophils 96 H, Lymphocytes 1 L, Monocytes 3, Platelet Estimate VERIFIED BY SMEAR, Polychromasia 1+, Anisocytosis 2+ 11/08/17 0800: Troponin I Cancelled 11/08/17 0710: Anion Gap 13, Estimated GFR 32 L, BUN/Creatinine Ratio 20.0, Troponin I 0.04, Qyi-C-Lerwknmkwtn Pept 7830 H, CBC w Diff MAN DIFF ORDERED, RBC 2.90 L, MCV 80.8 L, MCH 24.9 L, MCHC 30.8 L, RDW 21.1 H, MPV 8.8, Segmented Neutrophils 97 H, Lymphocytes 2 L, Monocytes 1 L, Platelet Estimate INCREASED, Hypochromic-Microcytic 1+, Anisocytosis 1+, Macrocytic Cells FEW 11/08/17 0105: Anion Gap 16, Estimated GFR 28 L, BUN/Creatinine Ratio 19.4, Troponin I 0.05 11/08/17 0105: Sodium Cancelled, Potassium Cancelled, Chloride Cancelled, Carbon Dioxide Cancelled, Anion Gap Cancelled, BUN Cancelled, Creatinine Cancelled, BUN/ Creatinine Ratio Cancelled 11/07/17 1823: Anion Gap 12, Estimated GFR 23 L, BUN/Creatinine Ratio 18.1, Glucose 124 H, Calcium 8.9, Magnesium 1.9, Total Bilirubin 0.5, AST 26, ALT 23, Alkaline Phosphatase 147 H, Troponin I 0.06, Total Protein 6.4, Albumin 3.6, Globulin 2.8, Albumin/Globulin Ratio 1.3, CBC w Diff MAN DIFF ORDERED, RBC 3.14 L, MCV 81.1, MCH 25.4 L, MCHC 31.3 L, RDW 20.8 H, MPV 8.5, Segmented Neutrophils 78 H, Lymphocytes 19 L, Monocytes 3, Nucleated RBCs 1 H, Platelet Estimate INCREASED, Polychromasia 1+, Hypochromic-Microcytic 1+, Anisocytosis 1+, Macrocytic Cells 1+ Assessment/Plan Assessment/Plan 72-year-old woman with a past medical history of coronary artery disease (PCI in 2000 in 2014, as well as drug-eluting stents to the RCA in 2016) COPD, social lung disease, lung CA status post gamma knife radiation, paroxysmal atrial fibrillation (not on anticoagulation secondary to GI bleeds and anemia), chronic kidney disease and hypertension. She presents to our hospital with symptoms of increasing severe dyspnea and weakness, which has been refractory to her rescue asthma inhalers. She has well has a noted approximate 10 pound weight gain over the past several weeks. Dyspnea: The patient presents with dyspnea which is most consistent with a combined underlying COPD exacerbation and likely increasing fluid overload. A recent echocardiogram performed demonstrated preserved LV systolic function, and a repeat of the same is currently not necessary. We will continue treatment aggressively as per pulmonary, and I would attempt mild diuresis if tolerated from a renal standpoint with increasing furosemide. Anemia: The patient has been receiving Procrit for her chronic anemia. She feels overall improved following a transfusion Atrial fibrillation: Patient has known atrial fibrillation and is not anticoagulated secondary to a history of GI bleeds and anemia. We will continue to maintain rate control. Continue telemetry? No
[2017-11-09 15:14] VITALS: BP 120/68
--- NOTE | 2017-11-09 18:26 | NUCLEAR MEDICINE REPORT ---
EXAMINATION: PULMONARY VENTILATION PERFUSION STUDY CLINICAL INFORMATION: Dyspnea hypoxemic, respiratory failure. COMPARISON: The previous study dated 09/16/2015 is available for comparison. CT scan of the chest dated 11/08/2017 is available for comparison. A radiograph of the chest dated 11/07/2017 is also available for comparison. TECHNIQUE: Serial gamma scintillation camera images were obtained over the posterior chest during the single breath, equilibrium rebreathing and washout of 9.2 mCi Xe 133 gas. The patient then received 4.3 mCi Tc-99m MAA intravenously and a 6-view perfusion study was performed. FINDINGS: Ventilation images: On the single breath and equilibrium images there is homogeneous distribution of gas bilaterally. During the washout phase there is no abnormal retention. Perfusion images: No segmental perfusion defects are present. There is mild heterogeneity present bilaterally but no focal or anatomic appearing perfusion defects are present. There is prominence of the interlobar fissures bilaterally. The CT scan dated 11/08/2017 shows extensive chronic interstitial pneumonitis. Compared to the prior lung scan dated 09/16/2015 there is more heterogeneity on the current study and more prominence of the interlobar fissures. There has also been significant progression of the interstitial lung disease on the CT scan when compared to the CT scan performed shortly after the prior lung scan, the CT of the chest dated 10/24/2015. IMPRESSION: Very low probability of pulmonary embolism.
[2017-11-09 22:57] VITALS: BP 136/60
[2017-11-10 06:00] VITALS: BP 132/70
--- NOTE | 2017-11-10 06:52 | PN- Housestaff ---
Gloria Ortiz 11/10/17 0652: Subjective Follow-up For: COPD exacerbation, hyperkalemia, CKD Complaints: sob on ambulation Tele-Events Since Last Visit: Normal sinus rhythm 80- 88 Subjective: Episodes of desaturation last night to 60% on ambulation. Review of Systems Constitutional: Reports: see HPI. Objective Last 24 Hrs of Vital Signs/I&O Vital Signs Date Time Temp Pulse Resp B/P B/P Pulse O2 O2 Flow FiO2 Mean Ox Delivery Rate 11/10 0835 90 Nasal 60% Cannula 11/10 0821 89 136/70 11/10 0821 89 136/70 11/10 0820 89 136/70 11/10 0600 97.2 85 18 132/70 97 11/10 0030 89 Nasal 55% Cannula 11/09 2257 98.3 95 18 136/60 97 Nasal Cannula 11/09 2215 92 Nasal 55% Cannula 11/09 2022 90 Nasal 55% Cannula 11/09 2010 98 140/72 11/09 1920 96 Nasal 60% Cannula 11/09 1616 94 Nasal 60% Cannula 11/09 1600 Nasal 60% Cannula 11/09 1514 97.6 85 22 120/68 90 11/09 1343 91 Nasal 60% Cannula 11/09 1100 92 Nasal 60% Cannula Intake & Output 11/10 1600 11/10 0800 11/10 0000 Intake Total 200 Output Total 400 300 Balance -200 -300 Intake, Oral 200 Output, Urine 400 300 Patient 153 lb Weight Weight Bed scale Measurement Method Physical Exam General Appearance: Alert, Oriented X3, Cooperative, No Acute Distress Skin: No Rashes, No Breakdown, No Significant Lesion Skin Temp/Moisture Exam: Cool/Dry HEENT: Atraumatic Neck: Supple Cardiovascular: Regular Rate, Normal S1, Normal S2, No Murmurs Lungs: Clear to Auscultation, Normal Air Movement Abdomen: Normal Bowel Sounds, Soft, No Tenderness, No Hepatospenomegaly Neurological: Normal Speech, Strength at 5/5 X4 Ext Extremities: No Clubbing, No Cyanosis, No Edema Assessment/Plan Assessment: The patient is a 72-year-old woman with a past medical history of coronary artery disease (PCI in 2001 in 2014, as well as drug-eluting stents to the RCA in 2016) COPD, social lung disease, lung CA status post gamma knife radiation, paroxysmal atrial fibrillation (not on anticoagulation secondary to GI bleeds and anemia), chronic kidney disease and hypertension. She presented with increasing severe dyspnea and weakness likely to COPD exacerbation & ILD. Vitals: 97.2 temp, pulse 85, respiratory rate 18, blood pressure 132/70, 97% on 55% oxygen. She desaturated last night to 60% on ambulating. This morning at 9 :25 AM she desaturated to 73-76% while trying for a bowel movement on a bedpan. 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 Start her on Lasix 20 mg OD from 11/11/17 -Hold Amiodarone for now because of possible lung toxicity -Monitor H&H and if less than 8 we will retransfuse. - Oxygen went low this morning at 8 AM to 67% when she got up from the bed to use the bedside commode. Dr. Hemphill saw the patient this morning. -We will continue Solu-Medrol on current regimen of 40 mg every 12 by IV -Continue bronchodilation treatment at current regimen -Transitioned to azithromycin per oral and completed 5 days of treatment -Monitor H&H daily -Oncology and pulmonology consults: Goals of care discussion should be done -Add colace Senna to help with constipation Problem List: 1. CKD (chronic kidney disease) 2. Interstitial lung disease 3. Decompensated COPD with exacerbation (chronic obstructive pulmonary disease ) 4. Chronic disease anemia 5. Hyperkalemia Pain Ratin Pain Location: None Pain Goal: Remain pain free Pain Plan: n/a Tomorrow's Labs & Rationales: bep, kaylan Andujar MD,Yue 11/10/17 1111: Attending MD Review Statement Attending Statement Attending Statement: examined this patient, discuss w/resident/PA/WORKFORCE CONSULTANT, agreed w/resident/PA/WORKFORCE CONSULTANT, reviewed EMR data (avail), discussed with nursing, discussed with case mgmt, amended to note Attending Assessment/Plan: Patient seen and examined. No events reported by nursing staff overnight however this morning while straining to move her bowels she developed significant shortness of breath and desaturated significantly. She did improve after rest. She reports some abdominal cramping with straining. Denies any nausea vomiting. Denies any chest pain. On examination abdomen is soft and nontender with normal bowel sounds. She has decreased breath sounds bilaterally with bibasilar crackles and mild wheezing. Currently stable although her BUN is trending upwards. White cell count is elevated likely secondary to steroid therapy. Hemoglobin level is stable. Problems: 1. Acute on chronic hypoxic respiratory failure 2. COPD 3. Newly diagnosed lung cancer patient has prior history of lung cancer status post. (Gamma knife radiation in the past) 4. Interstitial lung disease 5. Paroxysmal atrial fibrillation not on anticoagulant due to history of GI bleeding and severe anemia. 6. Acute on chronic anemia 7. Chronic kidney disease stage III plan: 1. Constipation Plan: -Continue bronchodilator therapy. Continue intravenous systemic steroid therapy as recommended by the pulmonology service. -Cardiology follow-up appreciated. Will attempt to increase diuresis as recommended and see if patient tolerates and improves. Change Lasix to 20 mg IV x 1 today. Will reevaluate her response before giving additional doses. She is currently receiving 20 mg every other day. Monitor closely as she has a history of chronic kidney disease and her BUN has trended upward since hospitalization. There is a possibility that she may have -Underlying amiodarone lung toxicity in addition to her multiple other comorbidities contributed to her respiratory distress. This was discussed with cardiology service. Will hold amiodarone for now. -Would recommend evaluation for ongoing care at the long-term acute care facility as she will likely have a prolonged course before seen any significant improvement of her symptoms. -Potassium is mildly elevated. Monitor closely. No intervention from now. -Patient patient is on adequate bowel regimen. She is already on senna. Add Colace and Dulcolax suppository to the regimen. prolonged course before seen any significant improvement of her symptoms. -Potassium is mildly elevated. Monitor closely. No intervention from now. -Patient patient is on adequate bowel regimen. She is already on senna. Add Colace and Dulcolax suppository to the regimen.
--- NOTE | 2017-11-10 07:38 | PN- Pulmonary ---
Subjective HPI/Critical Care Issues: The patient is awake and alert. She reports feeling improved since admission. She is having some difficulty ambulating noting that her saturations drop significantly despite oxygen therapy. Her oxygen requirement overall however has improved and is now down to 55%. She feels less short of breath. She is not expectorating. There were no overnight events and she remains afebrile. Objective Current Medications: Current Medications Sig/Noemy Start time Last Medication Dose Route Stop Time Status Admin Acetaminophen 650 MG Q8P PRN 11/07 2100 AC PO Albuterol Sulfate 3 ML BID 11/08 2100 AC 11/09 INH 1920 Alprazolam 0.5 MG BID 11/07 2100 AC 11/09 PO 11/149 2141 Amiodarone HCl 100 MG Q48 11/08 899 AC 11/08 PO 1008 Aspirin 81 MG DAILY 11/08 899 AC 11/09 PO 0815 Atorvastatin Calcium 40 MG 1700 11/08 1700 AC 11/09 PO 1622 Azithromycin 250 MG DAILY 11/10 899 AC PO Azithromycin 500 MG DAILY 11/08 899 DC 11/09 Sodium Chloride 250 ML IV 0808 Budesonide/ 2 PUF BID 11/08 1030 AC 11/09 Formoterol Fumarate INH 2015 Ezetimibe 10 MG DAILY 11/08 899 AC 11/09 PO 0814 Furosemide 20 MG Q48 11/08 0900 AC 11/08 PO 1008 Heparin Sodium 5,000 UNIT Q8 11/07 2200 AC 11/10 (Porcine) SC 0605 Levothyroxine Sodium 0.05 MG 0700 11/09 07 AC 11/10 PO 0604 Methylprednisolone 40 MG Q12 11/08 2100 AC 11/09 IV 2004 Metoprolol Succinate 50 MG DAILY 11/08 899 AC 11/09 PO 0814 Mirtazapine 15 MG AT BEDTIME 11/08 0015 AC 11/09 PO 2005 Omeprazole 40 MG DAILY AC 11/09 07 AC 11/10 PO 0604 Patient Medication 1 ED ONE ONE 11/09 1715 DC 11/09 Teaching ED 11/09 1716 1718 Ranolazine 1,000 MG BID 11/08 0002 AC 11/09 PO 2010 Senna/Docusate Sodium 1 TAB AT BEDTIME 11/07 2099 AC 11/09 PO 2004 Vital Signs & I&O Last 24 Hrs of Vitals and I&O: Vital Signs Date Time Temp Pulse Resp B/P B/P Pulse O2 O2 Flow FiO2 Mean Ox Delivery Rate 11/10 599 97.2 85 18 132/70 97 11/10 0030 89 Nasal 55% Cannula 11/09 2257 98.3 95 18 136/60 97 Nasal Cannula 11/09 2215 92 Nasal 55% Cannula 11/09 2022 90 Nasal 55% Cannula 11/09 2010 98 140/72 11/09 1920 96 Nasal 60% Cannula 11/09 1616 94 Nasal 60% Cannula 11/09 1600 Nasal 60% Cannula 11/09 1514 97.6 85 22 120/68 90 11/09 1343 91 Nasal 60% Cannula 11/09 1100 92 Nasal 60% Cannula 11/09 0814 84 146/78 11/09 0813 84 146/78 11/09 0800 Nasal 65% Cannula Intake & Output 11/10 0800 11/10 0000 11/09 1600 Intake Total 1190 Output Total 300 Balance -300 1190 Intake, IV 250 Intake, Oral 940 Output, Urine 300 Patient 153 lb Weight Weight Bed scale Measurement Method Physical Exam General Appearance: alert, awake, anxious, comfortable Head: atraumatic, normal appearance Neck: supple Respiratory: decreased breath sounds, wheezing, bibasilar fine crackles Cardiovascular: S1 and S2 heard Gastrointestinal: normal bowel sounds, soft, non-tender Extremities: no edema Skin: intact, normal color, warm/dry Results Last 24 Hrs of Lab Results: Laboratory Tests 11/10/17 0647: Sodium Pending, Potassium Pending, Chloride Pending, Carbon Dioxide Pending, Anion Gap Pending, BUN Pending, Creatinine Pending, BUN/Creatinine Ratio Pending , CBC w Diff Pending, WBC Pending, RBC Pending, Hgb Pending, Hct Pending, MCV Pending, MCH Pending, MCHC Pending, RDW Pending, Plt Count Pending, MPV Pending 11/09/17 1040: D-Dimer High Sensitivty 475 H Diagnostic Data Radiology Findings: VQ: Very low probability of pulmonary embolism. Impression/Plan Impression/Plan Impression/Plan: 1. Acute exacerbation of COPD. CT scan demonstrates very severe emphysema, and interstitial pneumonitis which could explain progressive respiratory failure as well. 2. Hypoxemic respiratory failure. No evidence of pulmonary embolism on VQ scan 3. 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 4. Paroxysmal atrial fibrillation, not on anticoagulation secondary to GI bleed and anemia. 5. Chronic kidney disease. 6. History of hypertension. 7. Anemia without evidence of active bleeding. 8. Previous history of lung cancer status post right sided gamma knife radiation. Recommendations: * Consider Nayeli evaluation. * Continue IV Solu-Medrol at current dose of q 12 hours. Do not change to oral prednisone as of yet. * Continue neb/total respiratory care. * Wean oxygen down to for saturations greater than 90-92%. * Follow-up in the morning lab results. * Maintain negative fluid balance per cardiology. * Management of medical comorbidities as per primary team. * Oncology consult. * DVT prophylaxis at all times. * Continue all supportive care. * Out of bed to chair if able.
[2017-11-10 08:06] LABS: ABSOLUTE EOSINOPHIL COUNT 0 /CUMM (0.0-0.7); ABSOLUTE GRANULOCYTE CT 12.4 /CUMM (1.4-6.5); ABSOLUTE LYMPH COUNT 0.7 /CUMM (1.2-3.4); ABSOLUTE MONOCYTE COUNT 0.8 /CUMM (0.10-0.60); BASOPHIL % 0.3 % (0.0-2.0); EOSINOPHIL % 0.1 % (0-5); GRANULOCYTE % 89.1 % (42.2-75.2); MEAN CORPUSCULAR HGB 26.4 PG (27.0-31.0); MEAN CORPUSCULAR HGB CONC 31.5 G/DL (33.0-37.0); MEAN CORPUSCULAR VOLUME 83.9 FL (81.0-99.0); MEAN PLATELET VOLUME 9.4 FL (7.4-10.4); PLATELET COUNT 338 /CUMM (130-400); RBC DISTRIBUTION WIDTH 20.7 % (11.5-14.5); RED BLOOD CELL CT 3.19 /CUMM (4.20-5.40); WHITE BLOOD CELL COUNT 13.9 /CUMM (4.8-10.8)
[2017-11-10 08:13] LABS: ABSOLUTE BASOPHIL COUNT 0 /CUMM (0.0-0.2); HEMATOCRIT 26.8 % (37-47)
--- NOTE | 2017-11-10 10:43 | PN- Cardiology ---
Subjective Subjective: The patient is awake, alert, feels overall improved She has maintained an overall 200 cc net fluid output overnight The events of the last 24 hours as well as telemetry were reviewed. Review of Systems: The review of systems is negative for chest pains, palpitations nor lightheadedness. The remainder of the 14 point review of systems is noncontributory with the exception of above. Objective Vital Signs and I&Os Vital Signs Date Time Temp Pulse Resp B/P B/P Pulse O2 O2 Flow FiO2 Mean Ox Delivery Rate 11/10 0835 90 Nasal 60% Cannula 11/10 0821 89 136/70 11/10 0821 89 136/70 11/10 0820 89 136/70 11/10 0600 97.2 85 18 132/70 97 11/10 0030 89 Nasal 55% Cannula 11/09 2257 98.3 95 18 136/60 97 Nasal Cannula 11/09 2215 92 Nasal 55% Cannula / 2022 90 Nasal 55% Cannula 11/09 2010 98 140/72 11/09 1920 96 Nasal 60% Cannula 11/09 1616 94 Nasal 60% Cannula 11/09 1600 Nasal 60% Cannula 11/09 1514 97.6 85 22 120/68 90 / 1343 91 Nasal 60% Cannula 11/09 1100 92 Nasal 60% Cannula Intake & Output 11/10 1600 11/10 0800 11/10 0000 11/09 1600 11/09 0800 11/09 0000 Intake Total 200 1190 150 200 Output Total 400 300 300 250 Balance -200 -300 1190 -150 -50 Intake, IV 250 150 200 Intake, Oral 200 940 Output, Urine 400 300 300 250 Patient 153 lb 149 lb Weight Weight Bed scale Measurement Method Physical Exam: General: Nontoxic, no apparent distress. HEENT: Sclera and conjunctiva within normal limits, without xanthelasmas. Neck: Carotids 2+ without bruits. Respiratory: Scattered rhonchi and wheezing, air movement is decreased throughout, without accessory respiratory muscle use. Heart: Regular rate and rhythm, without murmurs, without JVD. Abdomen: Soft, nontender, no masses, normoactive bowel sounds. Extremities: Without clubbing, cyanosis, without edema. Neuro: Nonfocal exam, strength, 5 out of 5 Skin: Within normal limits without lesions. Psych: Mood and affect: Normal Current Medications: Current Medications Sig/Noemy Start time Last Medication Dose Route Stop Time Status Admin Acetaminophen 650 MG Q8P PRN 11/07 2100 AC PO Albuterol Sulfate 3 ML BID 11/08 2100 AC 11/10 INH 0833 Alprazolam 0.5 MG BID 11/07 2100 AC 11/10 PO 11/14 2059 1030 Amiodarone HCl 100 MG Q48 11/08 0900 AC 11/10 PO 0820 Aspirin 81 MG DAILY 11/08 899 AC 11/10 PO 0819 Atorvastatin Calcium 40 MG 1700 11/08 1700 AC 11/09 PO 1622 Azithromycin 250 MG DAILY 11/10 899 AC 11/10 PO 0821 Bisacodyl 5 MG DAILY 11/10 929 AC 11/10 PO 1031 Budesonide/ 2 PUF BID 11/08 1030 AC 11/10 Formoterol Fumarate INH 0818 Docusate Sodium 100 MG BID 11/10 929 AC 11/10 PO 1030 Ezetimibe 10 MG DAILY 11/08 899 AC 11/10 PO 0821 Furosemide 20 MG Q48 11/08 0900 AC 11/10 PO 0820 Heparin Sodium 5,000 UNIT Q8 11/07 2200 AC 11/10 (Porcine) SC 0605 Levothyroxine Sodium 0.05 MG 11/09 07 AC 11/10 PO 0604 Methylprednisolone 40 MG Q12 11/08 2099 AC 11/09 IV 2004 Metoprolol Succinate 50 MG DAILY 11/08 899 AC 11/10 PO 0821 Mirtazapine 15 MG AT BEDTIME 11/08 0015 AC 11/09 PO 2004 Omeprazole 40 MG DAILY AC 11/09 07 AC 11/10 PO 0604 Patient Medication 1 ED ONE ONE 11/09 1715 DC 11/09 Teaching ED 11/09 1716 1718 Ranolazine 1,000 MG BID 11/08 0002 AC 11/10 PO 0821 Senna/Docusate Sodium 1 TAB AT BEDTIME 11/07 2099 AC 11/09 PO 2004 Results Last 48 Hrs of Labs/Mics: Laboratory Tests 11/10/17 0647: Anion Gap 12, Estimated GFR 32 L, BUN/Creatinine Ratio 28.8 H, CBC w Diff MAN DIFF ORDERED, RBC 3.19 L, MCV 83.9, MCH 26.4 L, MCHC 31.5 L, RDW 20.7 H, MPV 9.4, Gran % 89.1 H, Lymphocytes % 4.8 L, Monocytes % 5.7, Eosinophils % 0.1, Basophils % 0.3, Absolute Granulocytes 12.4 H, Segmented Neutrophils 87 H, Absolute Lymphocytes 0.7 L, Lymphocytes 7 L, Monocytes 6, Absolute Monocytes 0.8 H, Absolute Eosinophils 0, Absolute Basophils 0, Nucleated RBCs 1 H, Platelet Estimate VERIFIED BY SMEAR, Polychromasia 1+, Anisocytosis 1+ 11/09/17 1040: D-Dimer High Sensitivty 475 H 11/09/17 0625: Anion Gap 15, Estimated GFR 32 L, BUN/Creatinine Ratio 28.1 H, CBC w Diff MAN DIFF ORDERED, RBC 3.13 L, MCV 82.8, MCH 26.5 L, MCHC 32.0 L, RDW 19.9 H, MPV 8.7, Gran % 95.9 H, Lymphocytes % 1.7 L, Monocytes % 2.3, Eosinophils % 0.1, Basophils % 0, Absolute Granulocytes 14.2 H, Absolute Lymphocytes 0.3 L, Absolute Monocytes 0.3, Absolute Eosinophils 0, Absolute Basophils 0, Platelet Estimate VERIFIED BY SMEAR, Polychromasia 1+, Anisocytosis 1+ 11/08/17 1615: CBC w Diff MAN DIFF ORDERED, RBC 2.94 L, MCV 80.9 L, MCH 25.1 L, MCHC 31.0 L , RDW 21.1 H, MPV 9.4, Segmented Neutrophils 96 H, Lymphocytes 1 L, Monocytes 3, Platelet Estimate VERIFIED BY SMEAR, Polychromasia 1+, Anisocytosis 2+ Assessment/Plan Assessment/Plan 72-year-old woman with a past medical history of coronary artery disease (PCI in 2001 in 2014, as well as drug-eluting stents to the RCA in 2016) COPD, social lung disease, lung CA status post gamma knife radiation, paroxysmal atrial fibrillation (not on anticoagulation secondary to GI bleeds and anemia), chronic kidney disease and hypertension. She presents to our hospital with symptoms of increasing severe dyspnea and weakness, which has been refractory to her rescue asthma inhalers. She has well has a noted approximate 10 pound weight gain over the past several weeks. Dyspnea: The patient presents with dyspnea which is most consistent with a combined underlying COPD exacerbation and likely increasing fluid overload. A recent echocardiogram performed demonstrated preserved LV systolic function, and a repeat of the same is currently not necessary. We will continue treatment aggressively as per pulmonary, and I would attempt mild diuresis if tolerated from a renal standpoint with increasing furosemide. Anemia: The patient has been receiving Procrit for her chronic anemia. She feels overall improved following a transfusion Atrial fibrillation: Patient has known atrial fibrillation and is not anticoagulated secondary to a history of GI bleeds and anemia. We will continue to maintain rate control. Continue telemetry? No
--- NOTE | 2017-11-10 11:37 | Patient Discharge Instructions ---
See Addendum Discharge Instructions General Discharge Information You were seen/treated for: PATIENT WAS TRANSFERRED TO THE ICU COPD exacerbation Watch for these problems: If you have any of these: Shortness of breath, chest pain, heart racing fast, fatigue, weakness; please visit your nearest emergency room. Diet Continue normal diet: Yes Activity Activity Self Limited: Yes Acute Coronary Syndrome Inclusion Criteria At DC or during hospital stay patient has or had the following: ACS DIAGNOSIS No Discharge Core Measures Meds if any: Prescribed or Continued at Discharge Meds if any: NOT Prescribed or Continued at Discharge Congestive Heart Failure Inclusion Criteria At DC or during hospital stay patient has or had the following: CHF DIAGNOSIS No Discharge Core Measures Meds if any: Prescribed or Continued at Discharge Meds if any: NOT Prescribed or Continued at Discharge Cerebrovascular accident Inclusion Criteria At DC or during hospital stay patient has or had the following: CVA/TIA Diagnosis No Discharge Core Measures Meds if any: Prescribed or Continued at Discharge Meds if any: NOT Prescribed or Continued at Discharge Venous thromboembolism Inclusion Criteria VTE Diagnosis No VTE Type NONE VTE Confirmed by (Test) NONE Discharge Core Measures - Per Current guidelines, there needs to be overlap - treatment for the first 5 days of Warfarin therapy. - If discharged on Warfarin prior to 5 days of - overlap therapy, the patient will need to be - assessed for post discharge needs including - *Post discharge parental anticoagulation - *Warfarin and/or parental anticoagulation education - *Follow up date to check INR post discharge At least 5 days overlap therapy as Inpatient No Meds if any: Prescribed or Continued at Discharge Note: Overlap Therapy is Warfarin and Anticoagulant Meds if any: NOT Prescribed or Continued at Discharge
[2017-11-10 14:42] VITALS: BP 126/62
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
[2017-11-10 22:55] VITALS: BP 116/50
[2017-11-11 05:59] VITALS: BP 140/62
--- NOTE | 2017-11-11 06:57 | PN- Housestaff ---
Subjective Follow-up For: ILD, COPD Exacerbation, hypoxemic respiratory failure Complaints: no complaints Tele-Events Since Last Visit: NSR. 70-92 Subjective: No episodes of dyspnea overnight. Review of Systems Constitutional: Reports: see HPI. Objective Last 24 Hrs of Vital Signs/I&O Vital Signs Date Time Temp Pulse Resp B/P B/P Pulse O2 O2 Flow FiO2 Mean Ox Delivery Rate 11/11 1601 94 Nasal 50% Cannula 11/11 1443 99.1 90 28 154/70 93 Nasal Cannula 11/11 1414 95 Nasal 50% Cannula 11/11 1130 93 Nasal 55% Cannula 11/11 0915 92 Nasal 60% Cannula 11/11 0800 Nasal 60% Cannula 11/11 0732 61 140/62 11/11 0731 61 140/62 11/11 0559 99.2 61 26 140/62 97 Nasal Cannula 11/11 0113 97 Nasal 60% Cannula 11/10 2255 98.6 91 26 116/50 92 Nasal Cannula 11/10 2250 93 Nasal 60% Cannula 11/10 2246 92 Nasal 60% Cannula 11/10 2022 90 11/10 1915 89 Nasal 60% Cannula Intake & Output 11/11 1600 12 0800 11/11 0000 Intake Total 500 161 Output Total 600 300 Balance 500 -600 -139 Intake, IV 11 Intake, Oral 500 150 Number 3 1 Bowel Movements Output, Urine 600 300 Patient 151 lb Weight Physical Exam General Appearance: Alert, Oriented X3, Cooperative, No Acute Distress Skin: No Rashes, No Breakdown, No Significant Lesion Skin Temp/Moisture Exam: Cool/Dry HEENT: Atraumatic, PERRLA, EOMI, Mucous Membr. moist/pink Neck: Supple Cardiovascular: Regular Rate, Normal S1, Normal S2, No Murmurs Lungs: Clear to Auscultation, Normal Air Movement Abdomen: Normal Bowel Sounds, Soft, No Tenderness, No Hepatospenomegaly Neurological: Normal Speech, Strength at 5/5 X4 Ext Extremities: No Clubbing, No Cyanosis, No Edema Assessment/Plan Assessment: The patient is a 72-year-old woman with a past medical history of coronary artery disease (PCI in 2001 in 2014, as well as drug-eluting stents to the RCA in 2016) COPD, social lung disease, lung CA status post gamma knife radiation, paroxysmal atrial fibrillation (not on anticoagulation secondary to GI bleeds and anemia), chronic kidney disease and hypertension. 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 * Wean oxygen down to for saturations greater than 90-92%. * Diet: regular * Code: DNR * DVT Px: ALPS Problem List: 1. Chronic disease anemia 2. Lung cancer 3. Decompensated COPD with exacerbation (chronic obstructive pulmonary disease ) 4. Chronic renal insufficiency Pain Ratin Pain Location: none Pain Goal: Remain pain free Pain Plan: n/a Tomorrow's Labs & Rationales: cbc, bep
[2017-11-11 08:47] LABS: HEMATOCRIT 28.8 % (37-47); MEAN CORPUSCULAR HGB CONC 31.4 G/DL (33.0-37.0); MEAN CORPUSCULAR VOLUME 82.8 FL (81.0-99.0); MEAN PLATELET VOLUME 8.7 FL (7.4-10.4); PLATELET COUNT 420 /CUMM (130-400); RBC DISTRIBUTION WIDTH 20.4 % (11.5-14.5); RED BLOOD CELL CT 3.48 /CUMM (4.20-5.40)
--- NOTE | 2017-11-11 08:54 | PN- Pulmonary ---
Subjective HPI/Critical Care Issues: The patient is awake and alert. She reports feeling improved with respect to her respiratory status. She is less short of breath. She is unable to expectorate. She remains on high flow oxygen. With any significant exertion, her saturations drop into the 70s with rapid recovery. She was given multiple medications to alleviate her constipation, noting this resulted in cramping and loose stools. Objective Current Medications: Current Medications Sig/Noemy Start time Last Medication Dose Route Stop Time Status Admin Acetaminophen 650 MG Q8P PRN 11/07 2099 AC PO Albuterol Sulfate 3 ML BID 11/08 2099 AC 11/10 INH 1915 Alprazolam 0.5 MG BID 11/07 2099 AC 11/10 PO 11/14 2058 213 Amiodarone HCl 100 MG Q48 11/08 899 DC 11/10 PO 0820 Aspirin 81 MG DAILY 11/08 899 AC 11/11 PO 0732 Atorvastatin Calcium 40 MG 1700 11/08 1700 AC 11/10 PO 1642 Azithromycin 250 MG DAILY 11/10 899 AC 11/11 PO 11/12 2100 0732 Bisacodyl 5 MG DAILY 11/10 0930 AC 11/10 PO 1031 Budesonide/ 2 PUF BID 11/08 1030 AC 11/11 Formoterol Fumarate INH 0733 Docusate Sodium 100 MG BID 11/10 0930 AC 11/10 PO 1030 Ezetimibe 10 MG DAILY 11/08 09 AC 11/11 PO 0732 Furosemide 20 MG DAILY 11/11 09 AC 11/11 PO 0732 Furosemide 20 MG ONCE ONE 11/10 1445 DC 11/10 IV 11/10 1446 1439 Furosemide 20 MG Q48 11/08 899 DC 11/10 PO 0820 Heparin Sodium 5,000 UNIT Q8 11/07 2200 AC 11/11 (Porcine) SC 0520 Insulin Aspart 0 TIDAC 11/11 0800 CAN SC Levothyroxine Sodium 0.05 MG 0711/09 07 AC 11/10 PO 0604 Methylprednisolone 40 MG Q12 11/08 2100 AC 11/11 IV 0731 Metoprolol Succinate 50 MG DAILY 11/08 899 AC 11/11 PO 0732 Mirtazapine 15 MG AT BEDTIME 11/08 0015 AC 11/10 PO 2131 Omeprazole 40 MG DAILY AC 11/09 07 AC 11/11 PO 0520 Ranolazine 1,000 MG BID 11/08 0002 AC 11/11 PO 0731 Senna/Docusate Sodium 1 TAB AT BEDTIME 11/07 2099 AC 11/09 PO 2004 Vital Signs & I&O Last 24 Hrs of Vitals and I&O: Vital Signs Date Time Temp Pulse Resp B/P B/P Pulse O2 O2 Flow FiO2 Mean Ox Delivery Rate 11/11 0800 Nasal 60% Cannula 11/11 0732 61 140/62 11/11 0731 61 140/62 11/11 0559 99.2 61 26 140/62 97 Nasal Cannula 11/11 0113 97 Nasal 60% Cannula 11/10 2255 98.6 91 26 116/50 92 Nasal Cannula 11/10 2250 93 Nasal 60% Cannula 11/10 2246 92 Nasal 60% Cannula 11/10 2022 90 11/10 1915 89 Nasal 60% Cannula 11/10 1617 90 Nasal 60% Cannula 11/10 1442 99.0 86 28 126/62 89 Nasal Cannula 11/10 1416 92 Nasal 60% Cannula 11/10 1209 93 Nasal 60% Cannula Intake & Output 11/11 1600 11/11 0800 11/11 0000 Intake Total 161 Output Total 600 300 Balance -600 -139 Intake, IV 11 Intake, Oral 150 Number 1 Bowel Movements Output, Urine 600 300 Patient 151 lb Weight Physical Exam General Appearance: alert, awake, anxious, comfortable Head: atraumatic, normal appearance Neck: supple Respiratory: decreased breath sounds, wheezing, bibasilar fine crackles Cardiovascular: S1 and S2 heard Gastrointestinal: normal bowel sounds, soft, non-tender Extremities: no edema Skin: intact, normal color, warm/dry Results Last 24 Hrs of Lab Results: Laboratory Tests 11/11/17 0825: Sodium Pending, Potassium Pending, Chloride Pending, Carbon Dioxide Pending, Anion Gap Pending, BUN Pending, Creatinine Pending, BUN/Creatinine Ratio Pending , CBC w Diff Pending, WBC Pending, RBC Pending, Hgb Pending, Hct Pending, MCV Pending, MCH Pending, MCHC Pending, RDW Pending, Plt Count Pending, MPV Pending Impression/Plan Impression/Plan Impression/Plan: 1. Acute exacerbation of COPD. CT scan demonstrates very severe emphysema, and interstitial pneumonitis which could explain progressive respiratory failure as well. 2. Hypoxemic respiratory failure. No evidence of pulmonary embolism on VQ scan. 3. 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 4. Paroxysmal atrial fibrillation, not on anticoagulation secondary to GI bleed and anemia. 5. Chronic kidney disease. 6. History of hypertension. 7. Anemia without evidence of active bleeding. 8. Previous history of lung cancer status post right sided gamma knife radiation. Recommendations: * [place] evaluation for oxygen titration and pulmonary rehabilitation in the setting of COPD exacerbation. * Continue IV Solu-Medrol at current dose of q 12 hours. Do not change to oral prednisone as of yet. * Continue neb/total respiratory care. * Wean oxygen down to for saturations greater than 90-92%. * Follow-up in the morning lab results. * Management of medical comorbidities as per primary team. * Oncology consult to be called. * DVT prophylaxis at all times. * Continue all supportive care. * Out of bed to chair if able.
--- NOTE | 2017-11-11 08:58 | PN- Cardiology ---
Subjective Subjective: Telemetry reveals sinus rhythm rate of 90 no significant arrhythmias patient has significant shortness of breath with desaturation on exertion. Objective Vital Signs and I&Os Vital Signs Date Time Temp Pulse Resp B/P B/P Pulse O2 O2 Flow FiO2 Mean Ox Delivery Rate 11/11 0800 Nasal 60% Cannula 11/11 0732 61 140/62 11/11 0731 61 140/62 07/ 0559 99.2 61 26 140/62 97 Nasal Cannula 11/11 0113 97 Nasal 60% Cannula 11/10 2255 98.6 91 26 116/50 92 Nasal Cannula 11/10 2250 93 Nasal 60% Cannula 11/10 2246 92 Nasal 60% Cannula 11/10 2022 90 11/10 1915 89 Nasal 60% Cannula 11/10 1617 90 Nasal 60% Cannula 11/10 1442 99.0 86 28 126/62 89 Nasal Cannula 11/10 1416 92 Nasal 60% Cannula 11/10 1209 93 Nasal 60% Cannula Intake & Output 11/11 1600 11/11 0811/11 0000 11/10 1600 11/10 0800 11/10 0000 Intake Total 161 630 200 Output Total 600 300 200 400 300 Balance -600 -139 430 -200 -300 Intake, IV 11 30 Intake, Oral 150 600 200 Number 1 2 Bowel Movements Output, Urine 600 300 200 400 300 Patient 151 lb 153 lb Weight Weight Bed scale Measurement Method Physical Exam: Patient is short of breath at rest requiring supplemental oxygen Head normocephalic atraumatic Eyes sclera anicteric conjunctiva showed pallor extraocular muscles are normal [place] neck no jugular venous distention no thyroid masses no palpable nodes Chest lungs diffuse bilateral dry crackles Heart regular rhythm with a 1/6 to 2/6 systolic murmur Abdomen soft no organomegaly bowel sounds normal Extremities no clubbing cyanosis or edema Neurological no gross motor or sensory deficits Current Medications: Current Medications Sig/Noemy Start time Last Medication Dose Route Stop Time Status Admin Acetaminophen 650 MG Q8P PRN 11/07 2099 AC PO Albuterol Sulfate 3 ML BID 11/08 2099 AC 11/10 INH 1915 Alprazolam 0.5 MG BID 11/07 2099 AC 11/10 PO 11/14 Amiodarone HCl 100 MG Q48 11/08 899 DC 11/10 PO 08 Aspirin 81 MG DAILY 11/08 899 AC 07/12 PO 0732 Atorvastatin Calcium 40 MG 1700 11/08 1700 AC 11/10 PO 1642 Azithromycin 250 MG DAILY 11/10 0900 AC 11/11 PO 11/12 2100 0732 Bisacodyl 5 MG DAILY 11/10 0930 AC 11/10 PO 1031 Budesonide/ 2 PUF BID 11/08 1030 AC 11/11 Formoterol Fumarate INH 0733 Docusate Sodium 100 MG BID 11/10 0930 AC 11/10 PO 1030 Ezetimibe 10 MG DAILY 11/08 09 AC 11/11 PO 0732 Furosemide 20 MG DAILY 11/11 09 AC 11/11 PO 0732 Furosemide 20 MG ONCE ONE 11/10 1445 DC 11/10 IV 11/10 1446 1439 Furosemide 20 MG Q48 11/08 09 DC 11/10 PO 0820 Heparin Sodium 5,000 UNIT Q8 11/07 2200 AC 11/11 (Porcine) SC 0520 Insulin Aspart 0 TIDAC 11/11 08 CAN SC Levothyroxine Sodium 0.05 MG 0711/09 07 AC 11/10 PO 0604 Methylprednisolone 40 MG Q12 11/08 2100 AC 11/11 IV 0731 Metoprolol Succinate 50 MG DAILY 11/08 09 AC 11/11 PO 0732 Mirtazapine 15 MG AT BEDTIME 11/08 0015 AC 11/10 PO 2131 Omeprazole 40 MG DAILY AC 11/09 07 AC 11/11 PO 0520 Ranolazine 1,000 MG BID 11/08 0002 AC 11/11 PO 0731 Senna/Docusate Sodium 1 TAB AT BEDTIME 11/07 2100 AC 11/09 PO 2004 Results Last 48 Hrs of Labs/Mics: Laboratory Tests 11/11/17 0825: Sodium Pending, Potassium Pending, Chloride Pending, Carbon Dioxide Pending, Anion Gap Pending, BUN Pending, Creatinine Pending, BUN/Creatinine Ratio Pending , CBC w Diff Pending, WBC Pending, RBC Pending, Hgb Pending, Hct Pending, MCV Pending, MCH Pending, MCHC Pending, RDW Pending, Plt Count Pending, MPV Pending 11/10/17 0647: Anion Gap 12, Estimated GFR 32 L, BUN/Creatinine Ratio 28.8 H, CBC w Diff MAN DIFF ORDERED, RBC 3.19 L, MCV 83.9, MCH 26.4 L, MCHC 31.5 L, RDW 20.7 H, MPV 9.4, Gran % 89.1 H, Lymphocytes % 4.8 L, Monocytes % 5.7, Eosinophils % 0.1, Basophils % 0.3, Absolute Granulocytes 12.4 H, Segmented Neutrophils 87 H, Absolute Lymphocytes 0.7 L, Lymphocytes 7 L, Monocytes 6, Absolute Monocytes 0.8 H, Absolute Eosinophils 0, Absolute Basophils 0, Nucleated RBCs 1 H, Platelet Estimate VERIFIED BY SMEAR, Polychromasia 1+, Anisocytosis 1+ 11/09/17 1040: D-Dimer High Sensitivty 475 H Recent Imaging Studies: CT scan of the chest revealedDiffuse pulmonary emphysema with chronic interstitial pneumonitis, likely UIP pattern. The density of the fibrotic interstitial changes increased from the recent CT from 10/10/2017 which could be due to atelectasis, interstitial edema, pneumonitis, or drug related phenomenon. VQ scan revealed Very low probability of pulmonary embolism. Assessment/Plan Assessment/Plan In summary this 72-year-old female has the following problems 72-year-old woman with a past medical history of coronary artery disease (PCI in 2001 in 2014, as well as drug-eluting stents to the RCA in 2016) COPD, social lung disease, lung CA status post gamma knife radiation, paroxysmal atrial fibrillation (not on anticoagulation secondary to GI bleeds and anemia), chronic kidney disease and hypertension. She presents to our hospital with symptoms of increasing severe dyspnea and weakness, which has been refractory to her rescue asthma inhalers. I suspect worsening shortness of breath is related to interstitial pneumonitis superimposed on her chronic pulmonary issues which include COPD and lung cancer. I doubt there is a significant element of congestive heart failure. Amiodarone has been discontinued. I would continue her current cardiac medications and follow pulmonary recommendations. Continue telemetry? No
[2017-11-11 09:26] LABS: WHITE BLOOD CELL COUNT 14.6 /CUMM (4.8-10.8)
--- NOTE | 2017-11-11 14:37 | Cons- Nephrology ---
General Information and HPI Consulting Request Date of Consult: 11/11/17 Requested By: Yue Andujar MD Reason for Consult: CKD Source of Information: patient, old records Exam Limitations: no limitations History of Present Illness: The patient is a 72-year-old woman with a background that includes squamous cell lung carcinoma, COPD and CKD stage III secondary to hypertensive nephrosclerosis (baseline creatinine has ranged from 1.5-2.2), admitted on 11/07 with shortness of breath felt to be on the basis of exacerbation of COPD. She remains on high flow oxygen but has clinically improved with no complaints today other than being generally anxious about her health. Serum creatinine was 2.1 on admission but has since stabilized at 1.6-1.7. She was hyperkalemic on admission at 6.0 but has had generally normal serum potassium level since then with only a minor elevation yesterday of 5.2 on 11/10. Potassium today is 4.7. She has had a tendency towards hyperkalemia in the past. She also suffers from multifactorial anemia including anemia of chronic kidney disease and receives Procrit as an outpatient on a every 3 week basis. She has received 1 dose during this admission. There are no other active renal issues at this time. Past medical history is positive for CKD stage III secondary to hypertensive nephrosclerosis, acute kidney injury in 2008 which was felt to be prerenal at that time, another bout of KATIE at [facility] in 2011 due to rhabdo ( statin, EtOH), CAD status post PCI with stents in 2000, NSTEMI in 2013 requiring 2 more stents (total 5) at [facility], paroxysmal atrial fibrillation not on anticoagulation due to previous GI bleed, ?pericarditis (no details), hypertension, hyperlipidemia, peptic ulcer disease with GI bleed, vitamin D deficiency, anxiety, chronic low back pain status post laminectomy, hysterectomy , elbow surgery, skin graft and finally squamous cell carcinoma of the right lung in January 2014 treated with CyberKnife RT with recent recurrence on left. 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 Allergies/Medications Allergies: Coded Allergies: No Known Allergies (09/25/15) Home Med List: Albuterol Sulfate (Proair Respiclick) 90 MCG AER.POW.BA 2 PUFF INH Q8P PRN COPD (Reported) Albuterol Sulfate 2.5 MG/3 ML (0.083 %) VIAL.NEB 1 Vial INH/KO BID COPD ( Reported) Alprazolam 0.5 MG TABLET 1 TAB PO BID ANXIETY (Reported) Amiodarone HCl (Pacerone) 100 MG TABLET 100 MG PO EOD AFIB (Reported) Aspirin (Children's Aspirin) 81 MG TAB.CHEW 1 TAB PO DAILY HEART HEALTH ( Reported) Cholecalciferol (Vitamin D3) (Vitamin D3) 1,000 UNIT CAPSULE 1 CAP PO DAILY SUPPLEMENT (Reported) diphenhydrAMINE HCl (Benadryl) 25 MG CAPSULE 1 CAP PO QHS PRN SLEEP (Reported ) Epoetin Jon (Epogen) (Unknown Strength) VIAL (Unknown Dose) SC [id number] SUPPLEMENT (Reported) Q 3 WEEKS, LAST TAKEN Wednesday10/04/17) Ezetimibe (Zetia) 10 MG TABLET 1 TAB PO DAILY CHOLESTEROL (Reported) Fluticasone/Vilanterol (Breo Ellipta 100-25 Mcg INH) 100 MCG-25 MCG/DOSE BLST.W.DEV 1 PUFF INH DAILY COPD (Reported) Furosemide 20 MG TABLET 20 MG PO EOD HEART (Reported) Levothyroxine Sodium 50 MCG TABLET 1 TAB PO DAILY THYROID (Reported) Metoprolol Succ XL (Toprol Xl) 50 MG TAB.ER.24H 1 TAB PO DAILY AFIB (Reported ) Mirtazapine 15 MG TABLET 1 TAB PO QHS DEPRESSION (Reported) Omeprazole 40 MG CAPSULE.DR 1 TAB PO DAILY HEARTBURN (Reported) Ranolazine (Ranexa) 500 MG TAB.ER.12H 1,000 MG PO BID ANGINA (Reported) Rosuvastatin Calcium (Crestor) 10 MG TABLET 1 TAB PO DAILY HEART HEALTH ( Reported) Sennosides/Docusate Sodium (Senokot-S Tablet) 8.6 MG-50 MG TABLET 1 TAB PO DAILY PRN CONSTIPATION (Reported) Umeclidinium [place] (Incruse Ellipta) 62.5 MCG/ACTUATION BLST.W.DEV 1 PUFF INH DAILY COPD (Reported) Review of Systems Review of Systems: Constitutional: Denies: chills, diaphoresis, fever, malaise. Cardiovascular: Denies: chest pain, edema, palpitations. Respiratory: Reports: short of breath. Denies: cough. GI: Denies: abdominal pain, diarrhea. Genitourinary: Denies: dysuria, frequency. Musculoskeletal: Reports: back pain. Denies: joint pain. Skin: Reports: change in skin color. Neurological/Psychological: Reports: headache, tremors (Hands). Denies: numbness, tingling. 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 FATHER (Heart Attack). SISTER (ovarian cancer). BROTHER (Diabetes). Psychosocial History Where Do You Live? Home Who Do You Live With? self Services at Home: Nursing, Physical Therapy Primary Language: Arabic Smoking Status: Former Smoker ETOH Use: denies use Illicit Drug Use: denies illicit drug use Functional Ability ADLs Independent: dressing, eating, toileting, bathing. Ambulation: cane IADLs Independent: shopping, housework, finances, food prep, telephone, transportation , medication admin. Exam & Diagnostic Data Vital Signs and I&O Vital Signs Date Time Temp Pulse Resp B/P B/P Pulse O2 O2 Flow FiO2 Mean Ox Delivery Rate 11/11 1414 95 Nasal 50% Cannula 11/11 1130 93 Nasal 55% Cannula 11/11 0915 92 Nasal 60% Cannula 11/11 0800 Nasal 60% Cannula 11/11 0732 61 140/62 11/11 0731 61 140/62 11/11 0559 99.2 61 26 140/62 97 Nasal Cannula 11/11 0113 97 Nasal 60% Cannula 11/10 2255 98.6 91 26 116/50 92 Nasal Cannula 11/10 2250 93 Nasal 60% Cannula 11/10 2246 92 Nasal 60% Cannula 11/10 2021 90 07/11 1915 89 Nasal 60% Cannula 11/10 1617 90 Nasal 60% Cannula 11/10 1442 99.0 86 28 126/62 89 Nasal Cannula Intake & Output 11/110 11/10 0400 Intake Total 500 905 762 8500 200 Output Total 600 300 600 300 300 250 Balance -100 -139 230 -300 1040 -50 Intake, IV 11 30 400 200 Intake, Oral 500 150 800 940 Number 4 2 Bowel Movements Output, Urine 600 300 600 300 300 250 Patient 151 lb 153 lb 149 lb Weight Weight Bed scale Measurement Method Physical Exam: General: Well-developed somewhat cachectic appearing white female on high flow oxygen in NAD Skin: No rash or jaundice HEENT: Conjunctivae pale, sclerae anicteric, mucous membranes dry Neck: Without masses or thyromegaly, no supraclavicular or cervical adenopathy Chest: Fine rales on right, scattered wheezes Heart: Regular rate and rhythm without S3 or rub Abdomen: Soft and nontender without palpable masses or organomegaly Extremities: Without cyanosis or edema Neuro: Cognitively intact, no focal findings, no asterixis or myoclonus Assessment/Plan Assessment/Recommendations Assessment: 72-year-old woman with multiple comorbidities as noted above including recurrent squamous cell carcinoma of the lung, COPD and chronic kidney disease secondary to hypertensive nephrosclerosis with a baseline creatinine generally under 2. She now comes in with shortness of breath felt to be on the basis of exacerbation of COPD with only a transient elevation of her serum creatinine above baseline and hyperkalemia at time of admission but not an issue since then. She has had a tendency towards hyperkalemia in the past. Finally, she is chronically anemic on a multifactorial basis including the anemia of CKD for which she receives subcutaneous Procrit injections on a regular basis as an outpatient. She has already been given a dose during this hospitalization. Recommendations: 1. Continue current medication regimen; no need for any further Procrit at this time 2. Limit dietary potassium to 2 g per day 3. Management of her COPD per Pulmonary Thank you. We will follow along with you while she is in the hospital.
[2017-11-11 14:43] VITALS: BP 154/70
[2017-11-11 22:09] VITALS: BP 120/70
--- NOTE | 2017-11-12 06:49 | PN- Housestaff ---
Gloria Ortiz 11/12/17 0649: Subjective Follow-up For: ILD, COPD exacerbation, hypoxemic respiratory failure Complaints: no complaints Tele-Events Since Last Visit: Normal sinus rhythm heart rate 69-87. On oxygen monitoring she was satting at 94% on 50% high flow oxygen. She desats to the 70s when she moves out of bed to use the commode Subjective: Patient states that her breathing feels better this morning Review of Systems Constitutional: Reports: see HPI. Objective Last 24 Hrs of Vital Signs/I&O Vital Signs Date Time Temp Pulse Resp B/P B/P Pulse O2 O2 Flow FiO2 Mean Ox Delivery Rate 11/12 1101 92 Nasal 50% Cannula 11/12 0854 92 164/82 11/12 0853 92 164/82 11/12 0656 97.7 72 18 154/64 94 Nasal 50% Cannula 11/12 0114 94 Nasal 50% Cannula 11/11 2221 94 Nasal 50% Cannula 11/11 2209 99.0 84 20 120/70 98 11/11 2134 90 Nasal 50% Cannula 11/11 1920 90 Nasal 50% Cannula 11/11 1601 94 Nasal 50% Cannula 11/11 1600 89 Nasal 50% Cannula 11/11 1443 99.1 90 28 154/70 93 Nasal Cannula 11/11 1414 95 Nasal 50% Cannula Intake & Output 11/12 1600 11/12 0800 11/12 0000 Intake Total 100 111 Output Total 400 250 Balance -300 -139 Intake, IV 11 Intake, Oral 100 100 Number 1 2 Bowel Movements Output, Urine 400 250 Patient 150 lb Weight Weight Bed scale Measurement Method Physical Exam General Appearance: Alert, Oriented X3, Cooperative, No Acute Distress Skin: No Rashes, No Breakdown, No Significant Lesion Skin Temp/Moisture Exam: Cool/Dry HEENT: Atraumatic Neck: Supple Cardiovascular: Regular Rate, Normal S1, Normal S2, No Murmurs Lungs: Clear to Auscultation, Normal Air Movement (B/L CRACKLES-IMPROVED) Abdomen: Normal Bowel Sounds, Soft, No Tenderness Neurological: Normal Speech, Strength at 5/5 X4 Ext Extremities: No Clubbing, No Cyanosis, No Edema Assessment/Plan Assessment: The patient is a 72-year-old woman with a past medical history of coronary artery disease (PCI in 2001 in 2014, as well as drug-eluting stents to the RCA in 2016) COPD, social lung disease, lung CA status post gamma knife radiation, paroxysmal atrial fibrillation (not on anticoagulation secondary to GI bleeds and anemia), chronic kidney disease and hypertension. Vitals: stable Her potassium was 5.6 this morning. 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 * Wean oxygen down to for saturations greater than 90-92%. * Diet: regular * Code: DNR * DVT Px: ALPS Problem List: 1. CKD (chronic kidney disease) 2. Lung cancer 3. Dyspnea 4. Interstitial lung disease 5. Decompensated COPD with exacerbation (chronic obstructive pulmonary disease ) Pain Ratin Pain Location: None Pain Goal: Remain pain free Pain Plan: n/a Tomorrow's Labs & Rationales: cbc, BEP Con WILSON,Yue 11/12/17 1418: Attending MD Review Statement Attending Statement Attending MD Statement: examined this patient, discuss w/resident/PA/CUSTOM FEED MILL OPERATOR HELPER, agreed w/resident/PA/CUSTOM FEED MILL OPERATOR HELPER, reviewed EMR data (avail), discussed with nursing, discussed with case mgmt, amended to note Attending Assessment/Plan: Patient seen and examined. resting comfortably in bed. Still on High Flow oxygen with 50% FiO2. Desaturates into the 70s with activity. Se is upset about her potassium restricted diet. Complains of loos stolls. Denies abdominal pain. On examination she does not appear to be in espiratory distress at rest althoughshe get very emotional easily. She has poor air entry bilaterally with bibasilar crackles. No JVD. No pedal edema. Recommendations: - Continue oxygen supplementation. Wean down as tolerated. Case discussed with the pulmonary service, if patient desaturates again, recommend transfer to the ICU for closer monitoring. - Continue systemic steroids per the pulmonary service. - Continue gentlediuresis. Patient had an elevation of her renal function with no improvement of respiratory systoms after more aggressive diuresis. - Patienbt wants all possible treatment. Case was disccused with theoncology service. She is not a candidate for any kind of chemotherapy. She may be a candidate for radiation therapy if she improves clinically. - [facility] prognosis is poor.
[2017-11-12 06:56] VITALS: BP 154/64
[2017-11-12 07:52] LABS: HEMATOCRIT 27.7 % (37-47); MEAN CORPUSCULAR HGB 26.1 PG (27.0-31.0); MEAN CORPUSCULAR HGB CONC 31.6 G/DL (33.0-37.0); MEAN CORPUSCULAR VOLUME 82.6 FL (81.0-99.0); MEAN PLATELET VOLUME 8.9 FL (7.4-10.4); PLATELET COUNT 379 /CUMM (130-400); RBC DISTRIBUTION WIDTH 19.7 % (11.5-14.5); RED BLOOD CELL CT 3.36 /CUMM (4.20-5.40); WHITE BLOOD CELL COUNT 17.2 /CUMM (4.8-10.8)
--- NOTE | 2017-11-12 08:21 | PN- Pulmonary ---
Subjective HPI/Critical Care Issues: The patient is awake and alert. She complains of ongoing anxiety. She remains on high flow oxygen to support her saturations. She has no significant cough. She has not yet been sitting out of bed. Objective Current Medications: Current Medications Sig/Noemy Start time Last Medication Dose Route Stop Time Status Admin Acetaminophen 650 MG Q8P PRN 11/07 2099 AC PO Albuterol Sulfate 3 ML BID 11/08 2099 AC 11/11 INH 1920 Alprazolam 0.5 MG BID 11/07 2099 AC 11/11 PO 11/14 2058 213 Aspirin 81 MG DAILY 11/08 899 AC 11/11 PO 0732 Atorvastatin Calcium 40 MG 1700 11/08 1700 AC 11/11 PO 170 Azithromycin 250 MG DAILY 11/10 899 AC 11/11 PO 11/12 2100 32 Bisacodyl 5 MG DAILY 11/10 929 DC 11/10 PO 103 Budesonide/ 2 PUF BID 11/08 1030 AC 11/11 Formoterol Fumarate INH 2053 Docusate Sodium 100 MG BID 11/10 929 DC 11/10 PO 1030 Ezetimibe 10 MG DAILY 11/08 899 AC 11/11 PO 0732 Furosemide 20 MG DAILY 11/11 09 AC 11/11 PO 0732 Heparin Sodium 5,000 UNIT Q8 11/07 2199 AC 11/12 (Porcine) SC 0547 Insulin Aspart 0 TIDAC 11/11 170 AC 11/11 SC 170 Levothyroxine Sodium 0.05 MG 0711/09 07 AC 11/12 PO 0547 Methylprednisolone 40 MG Q12 11/08 2099 AC 11/11 IV 205 Metoprolol Succinate 50 MG DAILY 11/08 899 AC 11/11 PO 0732 Mirtazapine 15 MG AT BEDTIME 11/08 0015 AC 11/11 PO 2139 Omeprazole 40 MG DAILY AC 11/09 07 AC 11/12 PO 0547 Ranolazine 1,000 MG BID 11/08 0002 AC 11/11 PO 2053 Senna/Docusate Sodium 1 TAB AT BEDTIME NEED.. 11/11 1133 AC PO Senna/Docusate Sodium 1 TAB AT BEDTIME 11/07 2099 DC 11/09 PO 2004 Vital Signs & I&O Last 24 Hrs of Vitals and I&O: Vital Signs Date Time Temp Pulse Resp B/P B/P Pulse O2 O2 Flow FiO2 Mean Ox Delivery Rate 11/12 0656 97.7 72 18 154/64 94 Nasal 50% Cannula 11/12 0114 94 Nasal 50% Cannula 11/11 2221 94 Nasal 50% Cannula 11/11 2209 99.0 84 20 120/70 98 11/11 2134 90 Nasal 50% Cannula 11/11 1920 90 Nasal 50% Cannula 11/11 1601 94 Nasal 50% Cannula 11/11 1600 89 Nasal 50% Cannula 11/11 1443 99.1 90 28 154/70 93 Nasal Cannula 11/11 1414 95 Nasal 50% Cannula 11/11 1130 93 Nasal 55% Cannula 11/11 0915 92 Nasal 60% Cannula Intake & Output 11/12 1600 11/12 0800 11/12 0000 Intake Total 100 111 Output Total 400 250 Balance -300 -139 Intake, IV 11 Intake, Oral 100 100 Number 1 2 Bowel Movements Output, Urine 400 250 Patient 150 lb Weight Weight Bed scale Measurement Method Physical Exam General Appearance: alert, awake, anxious, comfortable Head: atraumatic, normal appearance Neck: supple Respiratory: decreased breath sounds, wheezing, bibasilar fine crackles Cardiovascular: S1 and S2 heard Gastrointestinal: normal bowel sounds, soft, non-tender Extremities: no edema Skin: intact, normal color, warm/dry Results Last 24 Hrs of Lab Results: Laboratory Tests 11/12/17 0655: Anion Gap 12, Estimated GFR 30 L, BUN/Creatinine Ratio 30.0 H, CBC w Diff MAN DIFF ORDERED, WBC Pending, RBC Pending, Hgb Pending, Hct Pending, MCV Pending, MCH Pending, MCHC Pending, RDW Pending, Plt Count Pending, MPV Pending, Segmented Neutrophils Pending 11/11/17 0825: Anion Gap 15, Estimated GFR 30 L, BUN/Creatinine Ratio 26.5 H, CBC w Diff MAN DIFF ORDERED, RBC 3.48 L, MCV 82.8, MCH 26.0 L, MCHC 31.4 L, RDW 20.4 H, MPV 8.7, Segmented Neutrophils 87 H, Lymphocytes 4 L, Monocytes 5, Metamyelocytes 2 H, Myelocytes 2 H, Nucleated RBCs 6 H, Platelet Estimate VERIFIED BY SMEAR, Polychromasia 1+, Hypochromic-Microcytic 1+, Poikilocytosis 1+, Anisocytosis 1+, Ovalocytes FEW Last 24 Hrs of Micro Results: Sputum not available for evaluation. Impression/Plan Impression/Plan Impression/Plan: 1. Acute exacerbation of COPD. CT scan demonstrates very severe emphysema, and interstitial pneumonitis which could explain progressive respiratory failure as well. 2. Hypoxemic respiratory failure. No evidence of pulmonary embolism on VQ scan. 3. 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 4. Paroxysmal atrial fibrillation, not on anticoagulation secondary to previous GI bleed and anemia. 5. Chronic kidney disease stage 3 secondary to hypertensive nephrosclerosis. 6. History of hypertension. 7. Anemia without evidence of active bleeding. 8. Previous history of lung cancer status post right sided gamma knife radiation. 9. Hyperkalemia. 10. Severe anxiety. Recommendations: * Continue IV Solu-Medrol at current dose of q 12 hours. Do not change to oral prednisone as of yet. * Continue neb/total respiratory care. * Wean oxygen down to for saturations greater than 90-92%. * Follow-up in the morning lab results. * Management of medical comorbidities as per primary team. * Oncology consult? * DVT prophylaxis at all times. * Continue all supportive care. * Out of bed to chair if able.
--- NOTE | 2017-11-12 11:11 | PN- Cardiology ---
Subjective Subjective: The patient is awake, alert, feels improved from a respiratory standpoint The events of the last 24 hours as well as telemetry were reviewed. Review of Systems: The review of systems is negative for chest pains, palpitations nor lightheadedness. The remainder of the 14 point review of systems is noncontributory with the exception of above. Objective Vital Signs and I&Os Vital Signs Date Time Temp Pulse Resp B/P B/P Pulse O2 O2 Flow FiO2 Mean Ox Delivery Rate 11/12 1101 92 Nasal 50% Cannula 11/12 0854 92 164/82 11/12 0853 92 164/82 11/12 0656 97.7 72 18 154/64 94 Nasal 50% Cannula 11/12 0114 94 Nasal 50% Cannula 11/11 2221 94 Nasal 50% Cannula / 2209 99.0 84 20 120/70 98 / 2134 90 Nasal 50% Cannula / 1920 90 Nasal 50% Cannula / 1601 94 Nasal 50% Cannula 11/11 1600 89 Nasal 50% Cannula 11/11 1443 99.1 90 28 154/70 93 Nasal Cannula 11/11 1414 95 Nasal 50% Cannula / 1130 93 Nasal 55% Cannula Intake & Output 11/12 1600 / 0800 11/12 0000 /12 1600 11/11 0800 11/11 0000 Intake Total 100 111 500 161 Output Total 400 250 600 300 Balance -300 -139 500 -600 -139 Intake, IV 11 11 Intake, Oral 100 100 500 150 Number 1 2 3 1 Bowel Movements Output, Urine 400 250 600 300 Patient 150 lb 151 lb Weight Weight Bed scale Measurement Method Physical Exam: General: Nontoxic, no apparent distress. HEENT: Sclera and conjunctiva within normal limits, without xanthelasmas. Neck: Carotids 2+ without bruits. Respiratory: Scattered rhonchi and rales, air movement is decreased throughout, without accessory respiratory muscle use. Heart: Regular rate and rhythm, without murmurs, without JVD. Abdomen: Soft, nontender, no masses, normoactive bowel sounds. Extremities: Without clubbing, cyanosis, without edema. Neuro: Nonfocal exam, strength, 5 out of 5 Skin: Within normal limits without lesions. Psych: Mood and affect: Normal Current Medications: Current Medications Sig/Noemy Start time Last Medication Dose Route Stop Time Status Admin Acetaminophen 650 MG Q8P PRN 07/08 2100 AC PO Albuterol Sulfate 3 ML BID 11/08 2100 AC 11/12 INH 1049 Alprazolam 0.5 MG BID 11/07 2100 AC 11/12 PO 11/14 2059 0857 Aspirin 81 MG DAILY 11/08 0900 AC 11/12 PO 0851 Atorvastatin Calcium 40 MG 1700 11/08 1700 AC 11/11 PO 1708 Azithromycin 250 MG DAILY 11/10 09 AC 11/12 PO 11/12 2100 0854 Bisacodyl 5 MG DAILY 11/10 929 DC 11/10 PO 1031 Budesonide/ 2 PUF BID 11/08 1030 AC 11/12 Formoterol Fumarate INH 0857 Docusate Sodium 100 MG BID 11/10 929 DC 11/10 PO 1030 Ezetimibe 10 MG DAILY 11/08 09 AC 11/12 PO 0854 Furosemide 20 MG DAILY 11/11 0900 AC 11/12 PO 0851 Heparin Sodium 5,000 UNIT Q8 11/07 2200 AC 11/12 (Porcine) SC 0547 Insulin Aspart 0 TIDAC 11/11 1700 AC 11/12 SC 0850 Levothyroxine Sodium 0.05 MG 0711/09 0700 AC 11/12 PO 0547 Methylprednisolone 40 MG Q12 11/08 2100 AC 11/12 IV 0832 Metoprolol Succinate 50 MG DAILY 11/08 09 AC 11/12 PO 0854 Mirtazapine 15 MG AT BEDTIME 11/08 0015 AC 11/11 PO 2139 Omeprazole 40 MG DAILY AC 11/09 07 AC 11/12 PO 0547 Ranolazine 1,000 MG BID 11/08 0002 AC 11/12 PO 0853 Senna/Docusate Sodium 1 TAB AT BEDTIME NEED.. 11/11 1133 AC PO Senna/Docusate Sodium 1 TAB AT BEDTIME 11/07 2100 DC 11/09 PO 2004 Results Last 48 Hrs of Labs/Mics: Laboratory Tests 11/12/17 0655: Anion Gap 12, Estimated GFR 30 L, BUN/Creatinine Ratio 30.0 H, CBC w Diff MAN DIFF ORDERED, RBC 3.36 L, MCV 82.6, MCH 26.1 L, MCHC 31.6 L, RDW 19.7 H, MPV 8.9, Segmented Neutrophils 86 H, Band Neutrophils 2, Lymphocytes 7 L, Monocytes 5, Nucleated RBCs 3 H, Platelet Estimate INCREASED, Polychromasia 2+, Hypochromic-Microcytic 3+, Poikilocytosis 2+, Anisocytosis 2+, Ovalocytes 1+ 11/11/17 0825: Anion Gap 15, Estimated GFR 30 L, BUN/Creatinine Ratio 26.5 H, CBC w Diff MAN DIFF ORDERED, RBC 3.48 L, MCV 82.8, MCH 26.0 L, MCHC 31.4 L, RDW 20.4 H, MPV 8.7, Segmented Neutrophils 87 H, Lymphocytes 4 L, Monocytes 5, Metamyelocytes 2 H, Myelocytes 2 H, Nucleated RBCs 6 H, Platelet Estimate VERIFIED BY SMEAR, Polychromasia 1+, Hypochromic-Microcytic 1+, Poikilocytosis 1+, Anisocytosis 1+, Ovalocytes FEW Assessment/Plan Assessment/Plan 72-year-old woman with a past medical history of coronary artery disease (PCI in 2000 in 2014, as well as drug-eluting stents to the RCA in 2016) COPD, social lung disease, lung CA status post gamma knife radiation, paroxysmal atrial fibrillation (not on anticoagulation secondary to GI bleeds and anemia), chronic kidney disease and hypertension. She presents to our hospital with symptoms of increasing severe dyspnea and weakness, which has been refractory to her rescue asthma inhalers. She has well has a noted approximate 10 pound weight gain over the past several weeks. Dyspnea: The patient presents with dyspnea which is most consistent with a combined underlying COPD exacerbation and likely increasing fluid overload. A recent echocardiogram performed demonstrated preserved LV systolic function, and a repeat of the same is currently not necessary. We will continue treatment aggressively as per pulmonary. I would attempt to maintain an overall net fluid balance; however, monitor renal function closely Anemia: The patient has been receiving Procrit for her chronic anemia. She feels overall improved following a transfusion Atrial fibrillation: Patient has known atrial fibrillation and is not anticoagulated secondary to a history of GI bleeds and anemia. We will continue to maintain rate control. Amiodarone has been discontinued due to potential pulmonary effects. Continue telemetry? Yes
--- NOTE | 2017-11-12 12:58 | PN- Nephrology ---
Assessment/Plan Nephrology Assessment: 1. CKD stage III secondary to hypertensive nephrosclerosis -stable 2. Tendency towards hyperkalemia with an elevated serum potassium today possibly related to catabolic effect of high-dose steroids in the setting of decreased GFR 3. COPD with exacerbation 4. Recurrent squamous cell carcinoma of the lung Suggestion: 1. Taper steroids as feasible 2. As patient is vociferously complaining about the change in her diet since she has been placed on potassium restriction, would ask dietary to simply avoid very high potassium foods such as bananas, oranges/juice, grapefruit/juice, tomatoes/juice/sauce, milk and potatoes. She can otherwise simply be on a sodium restricted diet. 3. Would avoid Kayexalate unless her potassium continues to rise 4. Mobilize as feasible which is currently difficult because of her tendency to desaturate. Subjective Subjective: Her main complaint today is the change in her diet with regard to potassium restriction which she finds confusing and distressing. She has thus far been unable to get off of the high flow oxygen. Renal function remains stable. Serum potassium up to 5.6, as is her WBC, in the setting of high-dose parenteral steroids (Solu-Medrol). She remains afebrile with fairly stable vital signs. Objective Vital Signs and I&Os Vital Signs Date Time Temp Pulse Resp B/P B/P Pulse O2 O2 Flow FiO2 Mean Ox Delivery Rate 11/12 1101 92 Nasal 50% Cannula 11/12 0854 92 164/82 11/12 0853 92 164/82 11/12 0800 93 Nasal 50% Cannula 11/12 0656 97.7 72 18 154/64 94 Nasal 50% Cannula 11/12 0114 94 Nasal 50% Cannula 11/11 2221 94 Nasal 50% Cannula 11/11 2209 99.0 84 20 120/70 98 11/11 2134 90 Nasal 50% Cannula 11/11 1920 90 Nasal 50% Cannula 11/11 1601 94 Nasal 50% Cannula 11/11 1600 89 Nasal 50% Cannula 11/11 1443 99.1 90 28 154/70 93 Nasal Cannula 11/11 1414 95 Nasal 50% Cannula Intake & Output 11/12 1600 11/12 0400 / 1600 / 0400 11/10 1600 11/10 0400 Intake Total 100 111 500 161 830 Output Total 400 250 600 300 600 300 Balance -300 -139 -100 -139 230 -300 Intake, IV 11 11 30 Intake, Oral 100 100 500 150 800 Number 1 2 4 2 Bowel Movements Output, Urine 400 250 600 300 600 300 Patient 150 lb 151 lb 153 lb Weight Weight Bed scale Bed scale Measurement Method Physical Exam: General: Well-developed somewhat cachectic appearing white female on high flow oxygen somewhat anxious today but in NAD Skin: No rash or jaundice HEENT: Conjunctivae pale, sclerae anicteric, mucous membranes dry Neck: Without masses or thyromegaly, no supraclavicular or cervical adenopathy Chest: Fine end inspiratory rales on right, scattered wheezes Heart: Regular rate and rhythm without S3 or rub Abdomen: Soft and nontender without palpable masses or organomegaly Extremities: Without cyanosis or edema Neuro: Cognitively intact, no focal findings, no asterixis or myoclonus Results Pertinent Lab Results: Laboratory Tests 11/12 11/11 0655 0825 Chemistry Sodium (137 - 145 mmol/L) 141 145 Potassium (3.5 - 5.1 mmol/L) 5.6 H 4.7 Chloride (98 - 107 mmol/L) 107 106 Carbon Dioxide (22 - 30 mmol/L) 22 24 Anion Gap (5 - 16) 12 15 BUN (7 - 17 mg/dL) 51 H 45 H Creatinine (0.5 - 1.0 mg/dL) 1.7 H 1.7 H Estimated GFR (>60 ml/min) 30 L 30 L BUN/Creatinine Ratio (7 - 25 %) 30.0 H 26.5 H Hematology CBC w Diff MAN DIFF ORDERED MAN DIFF ORDERED WBC (4.8 - 10.8 /CUMM) 17.2 H 14.6 H RBC (4.20 - 5.40 /CUMM) 3.36 L 3.48 L Hgb (12.0 - 16.0 G/DL) 8.8 L 9.1 L Hct (37 - 47 %) 27.7 L 28.8 L MCV (81.0 - 99.0 FL) 82.6 82.8 MCH (27.0 - 31.0 PG) 26.1 L 26.0 L MCHC (33.0 - 37.0 G/DL) 31.6 L 31.4 L RDW (11.5 - 14.5 %) 19.7 H 20.4 H Plt Count (130 - 400 /CUMM) 379 420 H MPV (7.4 - 10.4 FL) 8.9 8.7 Segmented Neutrophils (42.2 - 75.2 %) 86 H 87 H Band Neutrophils (0.0 - 5.0 %) 2 Lymphocytes (20.5 - 51.1 %) 7 L 4 L Monocytes (1.7 - 9.3 %) 5 5 Metamyelocytes (0.0 - 1.0 %) 2 H Myelocytes (0 - 0 %) 2 H Nucleated RBCs (0.0 - 0.0 /100WBC) 3 H 6 H Platelet Estimate (ADEQUATE) INCREASED VERIFIED BY SMEAR Polychromasia 2+ 1+ Hypochromic-Microcytic 3+ 1+ Poikilocytosis 2+ 1+ Anisocytosis 2+ 1+ Ovalocytes 1+ FEW 11/10 0647 Chemistry Sodium (137 - 145 mmol/L) 145 Potassium (3.5 - 5.1 mmol/L) 5.2 H Chloride (98 - 107 mmol/L) 114 H Carbon Dioxide (22 - 30 mmol/L) 19 L Anion Gap (5 - 16) 12 BUN (7 - 17 mg/dL) 46 H Creatinine (0.5 - 1.0 mg/dL) 1.6 H Estimated GFR (>60 ml/min) 32 L BUN/Creatinine Ratio (7 - 25 %) 28.8 H Hematology CBC w Diff MAN DIFF ORDERED WBC (4.8 - 10.8 /CUMM) 13.9 H RBC (4.20 - 5.40 /CUMM) 3.19 L Hgb (12.0 - 16.0 G/DL) 8.4 L Hct (37 - 47 %) 26.8 L MCV (81.0 - 99.0 FL) 83.9 MCH (27.0 - 31.0 PG) 26.4 L MCHC (33.0 - 37.0 G/DL) 31.5 L RDW (11.5 - 14.5 %) 20.7 H Plt Count (130 - 400 /CUMM) 338 MPV (7.4 - 10.4 FL) 9.4 Gran % (42.2 - 75.2 %) 89.1 H Lymphocytes % (20.5 - 51.1 %) 4.8 L Monocytes % (1.7 - 9.3 %) 5.7 Eosinophils % (0 - 5 %) 0.1 Basophils % (0.0 - 2.0 %) 0.3 Absolute Granulocytes (1.4 - 6.5 /CUMM) 12.4 H Segmented Neutrophils (42.2 - 75.2 %) 87 H Absolute Lymphocytes (1.2 - 3.4 /CUMM) 0.7 L Lymphocytes (20.5 - 51.1 %) 7 L Monocytes (1.7 - 9.3 %) 6 Absolute Monocytes (0.10 - 0.60 /CUMM) 0.8 H Absolute Eosinophils (0.0 - 0.7 /CUMM) 0 Absolute Basophils (0.0 - 0.2 /CUMM) 0 Nucleated RBCs (0.0 - 0.0 /100WBC) 1 H Platelet Estimate (ADEQUATE) VERIFIED BY SMEAR Polychromasia 1+ Anisocytosis 1+
[2017-11-12 14:51] VITALS: BP 140/60
[2017-11-12 23:04] VITALS: BP 120/60
[2017-11-13 07:01] VITALS: BP 110/60
--- NOTE | 2017-11-13 07:07 | Event Note ---
Event Note Event Note: Patient is desatting this morning to the 60s with ambulation. Patient is currently on high flow oxygen. Patient will be transferred to the ICU for closer monitoring. Confirmed with Dr. Camarena and Dr. Hemphill.
[2017-11-13 08:29] LABS: MEAN CORPUSCULAR HGB 25.9 PG (27.0-31.0); MEAN CORPUSCULAR HGB CONC 31.4 G/DL (33.0-37.0); MEAN CORPUSCULAR VOLUME 82.5 FL (81.0-99.0); MEAN PLATELET VOLUME 9.3 FL (7.4-10.4); PLATELET COUNT 373 /CUMM (130-400); RBC DISTRIBUTION WIDTH 20.7 % (11.5-14.5); RED BLOOD CELL CT 3.39 /CUMM (4.20-5.40); WHITE BLOOD CELL COUNT 22.2 /CUMM (4.8-10.8)
--- NOTE | 2017-11-13 10:02 | PN- CRCU ---
Subjective HPI/Critical Care Issues: The patient was transferred from telemetry to the critical care unit for closer monitoring in the setting of significant oxygen desaturation. The patient is awake and alert. She remains comfortable, on high flow nasal cannula. She remains extremely anxious. She has a dry cough but is having difficulty with expectoration. Her saturations are in the mid 90s at the present time. She is afebrile. She denies any chest pain, abdominal pain, nausea, vomiting, fever or chills. She continues to have diarrhea following her aggressive bowel regimen. Objective Current Medications: Current Medications Sig/Noemy Start time Last Medication Dose Route Stop Time Status Admin Acetaminophen 650 MG Q8P PRN 11/07 2100 AC PO Albuterol Sulfate 3 ML BID 11/08 2100 AC 11/13 INH 0922 Alprazolam 0.5 MG ONCE ONE 11/12 1630 DC 11/12 PO 11/12 1631 1641 Alprazolam 0.5 MG BID 11/07 2099 AC 11/13 PO 11/14 2059 0745 Aspirin 81 MG DAILY 11/08 09 AC 11/13 PO 0858 Atorvastatin Calcium 40 MG 1700 11/08 1700 AC 11/12 PO 1641 Azithromycin 250 MG DAILY 11/10 0900 DC 11/12 PO 11/12 2100 0854 Budesonide/ 2 PUF BID 11/08 1030 AC 11/13 Formoterol Fumarate INH 0858 Ezetimibe 10 MG DAILY 11/08 0900 AC 11/13 PO 0859 Furosemide 20 MG DAILY 11/11 0900 AC 11/13 PO 0858 Heparin Sodium 5,000 UNIT Q8 11/07 2200 AC 11/13 (Porcine) SC 0546 Insulin Aspart 0 TIDAC 11/11 1700 AC 11/13 SC 0858 Levothyroxine Sodium 0.05 MG 0711/09 0700 AC 11/13 PO 0547 Methylprednisolone 40 MG Q12 11/08 2100 AC 11/13 IV 0859 Metoprolol Succinate 50 MG DAILY 11/08 09 AC 11/13 PO 0858 Mirtazapine 15 MG AT BEDTIME 11/08 0015 AC 11/12 PO 2122 Omeprazole 40 MG DAILY AC 11/09 07 AC 11/13 PO 0546 Ranolazine 1,000 MG BID 11/08 0002 AC 11/13 PO 0858 Senna/Docusate Sodium 1 TAB AT BEDTIME NEED.. 11/11 1133 AC PO Vital Signs & I&O Last 24 Hrs of Vitals and I&O: Vital Signs Date Time Temp Pulse Resp B/P B/P Pulse O2 O2 Flow FiO2 Mean Ox Delivery Rate 11/13 0925 99 Nasal 50% Cannula 11/13 0858 79 144/70 11/13 0858 79 144/70 11/13 0701 98.2 74 22 110/60 97 11/13 0110 96 Nasal 50% Cannula 11/13 0000 Nasal 50% Cannula 11/12 2304 98.0 86 24 120/60 89 11/12 2122 84 142/86 11/12 2033 94 Nasal 50% Cannula 11/12 1451 98.2 84 24 140/60 95 Nasal Cannula 11/12 1101 92 Nasal 50% Cannula Intake & Output 11/13 1600 11/13 0800 11/13 0000 Intake Total 120 120 Output Total 600 400 Balance -480 -280 Intake, Oral 120 120 Number 1 1 Bowel Movements Output, Urine 600 400 Patient 152 lb Weight Physical Exam General Appearance: alert, awake, very anxious, comfortable Head: atraumatic, normal appearance Neck: supple Respiratory: decreased breath sounds, wheezing, bibasilar fine crackles Cardiovascular: S1 and S2 heard Gastrointestinal: normal bowel sounds, soft, non-tender Extremities: no edema Skin: intact, normal color, warm/dry Results Last 24 Hrs of Lab Results: Laboratory Tests 11/13/17 0630: Anion Gap 12, Estimated GFR 30 L, BUN/Creatinine Ratio 33.5 H, CBC w Diff MAN DIFF ORDERED, RBC 3.39 L, MCV 82.5, MCH 25.9 L, MCHC 31.4 L, RDW 20.7 H, MPV 9.3, Segmented Neutrophils Pending Impression/Plan Impression/Plan Impression/Plan: 1. Acute exacerbation of COPD. CT scan demonstrates very severe emphysema, and interstitial pneumonitis which could explain progressive respiratory failure as well. 2. Hypoxemic respiratory failure. No evidence of pulmonary embolism on VQ scan. 3. 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 4. Paroxysmal atrial fibrillation, not on anticoagulation secondary to previous GI bleed and anemia. 5. Chronic kidney disease stage 3 secondary to hypertensive nephrosclerosis. Creatinine stable. 6. History of hypertension. 7. Anemia without evidence of active bleeding. 8. Previous history of lung cancer status post right sided gamma knife radiation. 9. Hyperkalemia. 10. Severe anxiety. 11. Increasing white count which may be related to steroids. Recommendations: * Check stool for C. difficile -please send today. * Continue to hold bowel regimen. * TRC, unique treatments to continue. * Continue Symbicort 2 puffs every 12 hours. * Wean supplemental oxygen down to saturations around 90-92%. * Decrease Solu-Medrol to 20 mg every 12 hours. * Discussed the possibility of administering Kayexalate with nephrology. * Avoid high potassium foods as specified by nephrology. * Continue Lasix 20 mg daily. * Continue low-dose Xanax for anxiety. * Consider giving Xanax 0.25 mg as needed around 3 PM, being careful to avoid oversedation. * Please request a psychiatry consult for assistance in management of depression and anxiety. * Continue insulin sliding scale. * Continue to follow cardiology input. * DVT prophylaxis at all times -on subcu heparin. * [place] evaluation to be requested once again. * Continue to monitor in the critical care unit.
--- NOTE | 2017-11-13 11:22 | PN- Cardiology ---
Subjective Subjective: Stable at the present time. Transferred to the ICU earlier today for increased dyspnea with low oxygen saturations. Clinically improved at the present time. Objective Vital Signs and I&Os Vital Signs Date Time Temp Pulse Resp B/P B/P Pulse O2 O2 Flow FiO2 Mean Ox Delivery Rate 11/13 0925 99 Nasal 50% Cannula 11/13 0858 79 144/70 11/13 0858 79 144/70 11/13 0800 97 Nasal 50% Cannula 11/13 0701 98.2 74 22 110/60 97 11/13 0110 96 Nasal 50% Cannula 11/13 0000 Nasal 50% Cannula 11/12 2304 98.0 86 24 120/60 89 11/12 2122 84 142/86 11/12 2033 94 Nasal 50% Cannula 11/12 1451 98.2 84 24 140/60 95 Nasal Cannula Intake & Output 11/13 1600 11/13 0800 11/13 0000 11/12 1600 11/12 0800 11/12 0000 Intake Total 120 120 510 100 111 Output Total 600 400 600 400 250 Balance -480 -280 -90 -300 -139 Intake, IV 10 11 Intake, Oral 120 120 500 100 100 Number 1 1 2 1 2 Bowel Movements Output, Urine 600 400 600 400 250 Patient 152 lb 150 lb 150 lb Weight Weight Bed scale Measurement Method Current Medications: Current Medications Sig/Noemy Start time Last Medication Dose Route Stop Time Status Admin Acetaminophen 650 MG Q8P PRN 11/07 2100 AC PO Albuterol Sulfate 3 ML BID 11/08 2100 AC 11/13 INH 0922 Alprazolam 0.5 MG ONCE ONE 11/12 1630 DC 11/12 PO 11/12 1631 1641 Alprazolam 0.5 MG BID 11/07 2099 AC 11/13 PO 11/14 2058 0745 Aspirin 81 MG DAILY 11/08 899 AC 11/13 PO 0858 Atorvastatin Calcium 40 MG 1700 11/08 1700 AC 11/12 PO 1641 Azithromycin 250 MG DAILY 11/10 09 DC 11/12 PO 11/12 2100 0854 Budesonide/ 2 PUF BID 11/08 1030 AC 11/13 Formoterol Fumarate INH 0858 Ezetimibe 10 MG DAILY 11/08 09 AC 11/13 PO 0859 Furosemide 20 MG DAILY 11/11 09 AC 11/13 PO 0858 Heparin Sodium 5,000 UNIT Q8 11/07 2200 AC 11/13 (Porcine) SC 0546 Insulin Aspart 0 TIDAC 11/11 1700 AC 11/13 SC 0858 Levothyroxine Sodium 0.05 MG 11/09 07 AC 11/13 PO 0547 Methylprednisolone 40 MG Q12 11/08 2100 AC 11/13 IV 0859 Metoprolol Succinate 50 MG DAILY 11/08 899 AC 11/13 PO 0858 Mirtazapine 15 MG AT BEDTIME 11/08 0015 AC 11/12 PO 2122 Omeprazole 40 MG DAILY AC 11/09 07 AC 11/13 PO 0546 Ranolazine 1,000 MG BID 11/08 0002 AC 11/13 PO 0858 Senna/Docusate Sodium 1 TAB AT BEDTIME NEED.. 11/11 1133 AC PO Results Last 48 Hrs of Labs/Mics: Laboratory Tests 11/13/17 0630: Anion Gap 12, Estimated GFR 30 L, BUN/Creatinine Ratio 33.5 H, CBC w Diff MAN DIFF ORDERED, RBC 3.39 L, MCV 82.5, MCH 25.9 L, MCHC 31.4 L, RDW 20.7 H, MPV 9.3, Segmented Neutrophils Pending 11/12/17 0655: Anion Gap 12, Estimated GFR 30 L, BUN/Creatinine Ratio 30.0 H, CBC w Diff MAN DIFF ORDERED, RBC 3.36 L, MCV 82.6, MCH 26.1 L, MCHC 31.6 L, RDW 19.7 H, MPV 8.9, Segmented Neutrophils 86 H, Band Neutrophils 2, Lymphocytes 7 L, Monocytes 5, Nucleated RBCs 3 H, Platelet Estimate INCREASED, Polychromasia 2+, Hypochromic-Microcytic 3+, Poikilocytosis 2+, Anisocytosis 2+, Ovalocytes 1+ Assessment/Plan Assessment/Plan Assessment: 1. Worsening dyspnea with associated hypoxemia-likely related to underlying pulmonary issues 2. History of coronary artery disease, status post intervention in 2000 and 2013 with drug-eluting stents to the right coronary in 2016 3. History of lung cancer, status post gamma knife radiation 4. History of paroxysmal atrial fibrillation, not on anticoagulant therapy due to GI bleeding and anemia 4. Chronic renal insufficiency 5. Hypertension Recommend additions: -Continue as per the medical/ICU team -In view of worsening hypoxia this morning and ICU transfer, consider follow-up chest x-ray to reassess for any evidence of volume overload -Keep on telemetry monitoring -Otherwise continue current cardiac medications -Pending chest x-ray, continue current diuresis with low-dose oral Lasix. Continue telemetry? Yes
--- NOTE | 2017-11-13 11:25 | PN- Resident CRCU ---
Subjective HPI/CRCU Issues: 72 y/o F with a PMH of CAD, HTN, HLD, Squamous lung cell Ca, CKD, and paroxysmal afib not on anticoagulation due to previous GI bleed that presented to the ED c/ o progressive dyspnea after not achieving relief using her rescue inhaler. She was admitted to the telemetry unit with an admitting diagnosis of COPD exacerbation and subsequently transfered to the ICU for closer monitoring due to her desaturation. 24 Hour Events: Pt seen and examined at bedside. She was talkative, cooperative. She has no acute complains, but appeared nervy with slightly tremolous hands. She defined herself as a "anxious person" that usually contributes and exacerbates her feeling of SOB. She also notes the appereance of loose stools since two days ago. Objective Vital Signs & I&O Last 8 Hrs of Vitals and I&O: Intake & Output 11/13 1600 11/13 0800 11/13 0000 Intake Total 120 120 Output Total 600 400 Balance -480 -280 Intake, Oral 120 120 Number 1 1 Bowel Movements Output, Urine 600 400 Patient 152 lb Weight Laboratory Tests 11/13 0630 Chemistry Sodium (137 - 145 mmol/L) 139 Potassium (3.5 - 5.1 mmol/L) 5.6 H Chloride (98 - 107 mmol/L) 104 Carbon Dioxide (22 - 30 mmol/L) 23 Anion Gap (5 - 16) 12 BUN (7 - 17 mg/dL) 57 H Creatinine (0.5 - 1.0 mg/dL) 1.7 H Estimated GFR (>60 ml/min) 30 L BUN/Creatinine Ratio (7 - 25 %) 33.5 H Hematology CBC w Diff MAN DIFF ORDERED WBC (4.8 - 10.8 /CUMM) 22.2 H RBC (4.20 - 5.40 /CUMM) 3.39 L Hgb (12.0 - 16.0 G/DL) 8.8 L Hct (37 - 47 %) 28.0 L MCV (81.0 - 99.0 FL) 82.5 MCH (27.0 - 31.0 PG) 25.9 L MCHC (33.0 - 37.0 G/DL) 31.4 L RDW (11.5 - 14.5 %) 20.7 H Plt Count (130 - 400 /CUMM) 373 MPV (7.4 - 10.4 FL) 9.3 Segmented Neutrophils (42.2 - 75.2 %) 89 H Band Neutrophils (0.0 - 5.0 %) 1 Lymphocytes (20.5 - 51.1 %) 5 L Monocytes (1.7 - 9.3 %) 5 Nucleated RBCs (0.0 - 0.0 /100WBC) 3 H Platelet Estimate (ADEQUATE) VERIFIED BY SMEAR Polychromasia 1+ Anisocytosis 1+ Vital Signs Date Time Temp Pulse Resp B/P B/P Pulse O2 O2 Flow FiO2 Mean Ox Delivery Rate 11/13 1212 94 Nasal 50% Cannula 11/13 1200 97 Nasal 50% Cannula 11/13 0925 99 Nasal 50% Cannula 11/13 0858 79 144/70 11/13 0858 79 144/70 11/13 0800 97 Nasal 50% Cannula 11/13 0701 98.2 74 22 110/60 97 11/13 0110 96 Nasal 50% Cannula 11/13 0000 Nasal 50% Cannula 11/12 2304 98.0 86 24 120/60 89 11/12 2122 84 142/86 11/12 2033 94 Nasal 50% Cannula 11/12 1451 98.2 84 24 140/60 95 Nasal Cannula Exam General Appearance: no apparent distress, alert, awake, anxious Head: atraumatic, normal appearance Neck: normal inspection, supple Respiratory: chest non-tender, decreased breath sounds, crackles, rhonchi Cardiovascular: regular rate/rhythm Gastrointestinal: normal bowel sounds, soft, non-tender, no organomegaly Extremities: normal inspection, normal capillary refill, no edema Cranial Nerves: normal hearing, normal speech Current Medications: Current Medications Sig/Noemy Start time Last Medication Dose Route Stop Time Status Admin Acetaminophen 650 MG Q8P PRN 11/07 2099 AC PO Albuterol Sulfate 3 ML BID 11/08 2099 AC 11/13 INH 0922 Alprazolam 0.5 MG ONCE ONE 11/12 163 DC 11/12 PO 11/12 1631 1641 Alprazolam 0.5 MG BID 11/07 2099 AC 11/13 PO 11/14 2058 0745 Aspirin 81 MG DAILY 11/08 899 AC 11/13 PO 0858 Atorvastatin Calcium 40 MG 1700 11/08 1700 AC 11/12 PO 1641 Azithromycin 250 MG DAILY 11/10 899 DC 11/12 PO 11/12 2100 0854 Budesonide/ 2 PUF BID 11/08 1030 AC 11/13 Formoterol Fumarate INH 0858 Ezetimibe 10 MG DAILY 11/08 0900 AC 11/13 PO 0859 Furosemide 20 MG DAILY 11/11 0900 AC 11/13 PO 0858 Heparin Sodium 5,000 UNIT Q8 11/07 2200 AC 11/13 (Porcine) SC 1244 Insulin Aspart 0 TIDAC 11/11 1700 AC 11/13 SC 1244 Levothyroxine Sodium 0.05 MG 0711/09 0700 AC 11/13 PO 0547 Methylprednisolone 20 MG Q12 11/13 2100 AC IV Methylprednisolone 40 MG Q12 11/08 2100 DC 11/13 IV 0859 Metoprolol Succinate 50 MG DAILY 11/08 899 AC 11/13 PO 0858 Mirtazapine 15 MG AT BEDTIME 11/08 0015 AC 11/12 PO 2122 Omeprazole 40 MG DAILY AC 11/09 07 AC 11/13 PO 0546 Ranolazine 1,000 MG BID 11/08 0002 AC 11/13 PO 0858 Senna/Docusate Sodium 1 TAB AT BEDTIME NEED.. 11/11 1133 AC PO Impression/Plan Impression/Problem List Impression: 72 y/o F with a PMH of CAD, HTN, HLD, Squamous lung cell Ca, CKD, and paroxysmal afib not on anticoagulation due to previous GI bleed that presented to the ED c/ o progressive dyspnea after not achieving relief using her rescue inhaler. She was admitted to the telemetry unit with an admitting diagnosis of COPD exacerbation and subsequently transfered to the ICU for closer monitoring due to her desaturation on 11/13. ASSESSMENT AND PLAN Impression End stage COPD/COPD Exacerbation Chronic anemia due to CKD Paroxysmal atrial fibrillation HTN CKD stage III 2/2 hypertensive nephrosclerosis Anxiety Squamous cell lung ca End-stage COPD / COPD exacerbation/ Hypoxemic respiratory failure Pt with a chest CT (11/07) showing diffuse pulmonary emphysema with chronic interstitial pneumonitis. Prior admit show similar complains of SOB - her symptoms are most likely related to her severe emphysematous picture that is worsened by her heightened state of anxiety that induces hyperventilation as per pt. She was started on ceftriaxone and azithromycin with methylprednisolone 40 mg with moderate improvemenet on her O2 sat. Unclear if there is a fluid overload component, f/u CXR ordered to reassess. Currently patient is not in respiratory distress with 94% O2 sat on high flow 50% O2. -TRC/Continue neb treatments -Symbicort 2 puffs q12 -Decreased methylprednisolone from 40 mg to 20mg -F/u CXR Paroxysmal A-fib / HTN Pt currently off anticoagulation due to episodes of GI bleeding and chronic anemia due to CKD. Her BP has been controlled on metoprolol, cardiology is following. -Off anticoag -Metoprolol 50 mg qDaily -Continue ASA/Statin/Ezetimibe Chronic Anemia due to CKD Pt with Hb 8.8, baseline around 8-10. Most likely related to CKD rather than massive acute blood loss; though guaic of stools have been positive since 11/11. Will need further workup to determine exact cause. She is on EPO at home, 1 dose was given during her admission. As per nephro's recommendation, no further dosages needed at this time. -pt off procrit -f/u CBC CKD stage III 2/2 hypertensive nephrosclerosis Pt being followed by Dr. Cardoza, currently with K at 5.6, with a baselien Cr 1.5-2.2. Adding kayexalate will be considered if K trends upward. For now, avoid very high potassium food. -<2g K in diet -Continue trending Anxiety Pt described herself as a very anxious person, especially with regards to her overall health. She is currently on Alprazolam 0.5 mg at home. As per the pt, being in the ICU has increased her anxiety and feels discomfort as a result. -Continue psych meds careful to avoid oversedation -psych consult Squamous cell lung CA S/p post gamma knife radiation, followed by Dr. Lomeli - latest visit received a referral to an oncologist to evaluate a new left-sided lung mass that was positive for malignancy on biopsy. DNR DVT PPX: ALPS, sq heparin Problem List: 1. Anxiety 2. COPD (chronic obstructive pulmonary disease) Pain Ratin Tomorrow's Labs & Rationales: cxr Plan DVT/Prophylaxis: mechanical, pharmacological
[2017-11-13 16:00] VITALS: BP 130/56
--- NOTE | 2017-11-13 16:37 | RADIOLOGY REPORT ---
EXAMINATION: XR PORTABLE CHEST CLINICAL INFORMATION: Presumptive diagnosis of COPD with fluid overload. Crackles bilaterally. COMPARISON: Several prior chest x-rays, most recent of which is dated 11/07/2017. CT scan of the chest dated 11/08/2017. VQ scan dated 11/09/2017. TECHNIQUE: Portable semierect view of the chest was obtained. FINDINGS: EKG leads are seen overlying the chest. The cardiomediastinal silhouette is enlarged. Calcification of the aorta is seen. Lungs are hyperinflated, consistent with patient's known history of COPD. Superimposed reticular opacities are seen in the mid and lower lungs, consistent with the CT demonstrated fibrotic changes, perhaps related to RB ILD. The patient's known large lingular cancer is poorly appreciated on this portable film in the medial left infrahilar region. No dense consolidation is seen. There is some indistinctness of the CP angles, likely representing atelectatic changes though trace pleural effusions could have a similar appearance. No evidence of pulmonary edema is seen. No pneumothorax is seen. Osteopenia is noted with mild convex right thoracolumbar scoliosis. IMPRESSION: 1. Extensive obstructive lung disease with fibrotic changes in the mid and lower lung bilaterally. No superimposed focal acute process is seen. Specifically, no evidence of pulmonary edema is seen. 2. Slight indistinctness of the CP angles is noted, likely due to atelectatic change, though trace pleural effusions cannot be completely excluded.
[2017-11-13 22:00] VITALS: BP 137/68
[2017-11-14 05:52] LABS: HEMATOCRIT 26.6 % (37-47); MEAN CORPUSCULAR HGB 25.8 PG (27.0-31.0); MEAN CORPUSCULAR HGB CONC 31.8 G/DL (33.0-37.0); MEAN CORPUSCULAR VOLUME 81.1 FL (81.0-99.0); MEAN PLATELET VOLUME 8.9 FL (7.4-10.4); PLATELET COUNT 351 /CUMM (130-400); RBC DISTRIBUTION WIDTH 19.9 % (11.5-14.5); RED BLOOD CELL CT 3.28 /CUMM (4.20-5.40); WHITE BLOOD CELL COUNT 24.6 /CUMM (4.8-10.8)
[2017-11-14 08:00] VITALS: BP 118/70
--- NOTE | 2017-11-14 08:05 | PN- Resident CRCU ---
Subjective HPI/CRCU Issues: acute on chronic hypoxemic respiratory failure end stage COPD lung cancer 24 Hour Events: No overnight events, afebrile with leukocytosis on steroids Patient is complaining of significant shortness of breath but is more comfortable on high flow but becomes significantly short of breath and tachypneic with minimal activity, unable to produce any mucous from her cough Objective Vital Signs & I&O Last 8 Hrs of Vitals and I&O: Temp 97.2 HR 75 RR 26 BP 130/62 SpO2 93% on fio2 0.5 high flow nasal cannula Exam General Appearance: alert, awake, mild distress, tachypneic with minimal movement in bed Respiratory: chest non-tender, decreased breath sounds, globally diminished breath sounds without wheezing or rhonchi Cardiovascular: regular rate/rhythm, normal peripheral pulses Gastrointestinal: normal bowel sounds, soft, non-tender Current Medications: Current Medications Sig/Noemy Start time Last Medication Dose Route Stop Time Status Admin Acetaminophen 650 MG Q8P PRN 11/07 2099 AC PO Albuterol Sulfate 3 ML BID 11/08 2099 AC 11/14 INH 0912 Alprazolam 0.5 MG BID 11/07 2099 AC 11/13 PO 11/149 2206 Aspirin 81 MG DAILY 11/08 899 AC 11/14 PO 0822 Atorvastatin Calcium 40 MG 1700 11/08 1700 AC 11/13 PO 1737 Budesonide/ 2 PUF BID 11/08 1030 AC 11/14 Formoterol Fumarate INH 0823 Ezetimibe 10 MG DAILY 11/08 09 AC 11/14 PO 0823 Furosemide 20 MG DAILY 11/11 09 AC 11/14 PO 0823 Heparin Sodium 5,000 UNIT Q8 11/07 2200 AC 11/14 (Porcine) SC 0521 Insulin Aspart 0 TIDAC 11/11 1700 AC 11/14 SC 0822 Levothyroxine Sodium 0.05 MG 0700 11/09 0700 AC 11/14 PO 0521 Methylprednisolone 20 MG Q12 11/13 2100 AC 11/14 IV 0827 Methylprednisolone 40 MG Q12 11/08 2100 DC 11/13 IV 0859 Metoprolol Succinate 50 MG DAILY 11/08 899 AC 11/14 PO 0823 Mirtazapine 15 MG AT BEDTIME 11/08 0015 AC 11/13 PO 2216 Omeprazole 40 MG DAILY AC 11/09 07 AC 11/14 PO 0522 Ranolazine 1,000 MG BID 11/08 0002 AC 11/14 PO 0822 Senna/Docusate Sodium 1 TAB AT BEDTIME NEED.. 11/11 1133 AC PO CXR Findings: FINDINGS: EKG leads are seen overlying the chest. The cardiomediastinal silhouette is enlarged. Calcification of the aorta is seen. Lungs are hyperinflated, consistent with patient's known history of COPD. Superimposed reticular opacities are seen in the mid and lower lungs, consistent with the CT demonstrated fibrotic changes, perhaps related to RB ILD. The patient's known large lingular cancer is poorly appreciated on this portable film in the medial left infrahilar region. No dense consolidation is seen. There is some indistinctness of the CP angles, likely representing atelectatic changes though trace pleural effusions could have a similar appearance. No evidence of pulmonary edema is seen. No pneumothorax is seen. Osteopenia is noted with mild convex right thoracolumbar scoliosis. IMPRESSION: 1. Extensive obstructive lung disease with fibrotic changes in the mid and lower lung bilaterally. No superimposed focal acute process is seen. Specifically, no evidence of pulmonary edema is seen. 2. Slight indistinctness of the CP angles is noted, likely due to atelectatic change, though trace pleural effusions cannot be completely excluded. Impression/Plan Impression/Problem List Impression: 72 year old female with PMH of CAD, HTN, HLD, squamous lung cell cancer, CKD Stage IV, and paroxysmal atrial fibrillation not on anticoagulation due to previous GI bleed presented with complaints of dyspnea not relieved by home bronchodilators admitted for COPD exacerbation and transferred to ICU . She was admitted to the telemetry unit with an admitting diagnosis of COPD exacerbation and subsequently transfered to the ICU for desaturation and hypoxia despite high flow oxygen on 11/13. Acute on chronic hypoxemic respiratory failure End stage COPD, currently exacerbated without bacterial infection Chest CT (11/07) showed diffuse pulmonary emphysema, chronic interstitial pneumonitis Did receive azithromycin and ceftriaxone, discontinued No infiltrates on imaging, unable to expectorate for sputum cultures, off antibiotics Leukocytosis secondary to steroid treatment, currently solumedrol 20mg iv q12h Currently tachypneic, but comfortable on high flow 50% O2. TRC evaluation, Continue nebulized albuterol and ipatropium treatments Symbicort 2 puffs q12 Squamous cell lung cancer: Left lung mass biopsy positive S/p post gamma knife radiation Followed by Dr. Lomeli Paroxysmal A-fib/CAD/HTN (SBP 110s-140s) Off anticoagulation Continue aspirin, statin, metoprolol, ranexa, and ezetimibe Chronic Anemia: likely due to CKD on EPO at home Nephrology follow, no further epogen at this time CBC stable CKD stage IV secondary to hypertensive nephrosclerosis Hyperkalemia 5.3 Continue potassium restricted diet Anxiety Continue Alprazolam 0.5 mg PO BID + prn Hypothyroidism: Continue synthroid Regular diet with potassium restriction, on sliding scale insulin for hyperglycemia with steroids DVT ppx-heparin sc ALPs DNR/DNI Problem List: 1. COPD (chronic obstructive pulmonary disease) 2. CKD (chronic kidney disease) stage 4, GFR 15-29 ml/min 3. PAF (paroxysmal atrial fibrillation) 4. CAD (coronary artery disease) 5. Lung cancer 6. Decompensated COPD with exacerbation (chronic obstructive pulmonary disease ) Pain Ratin Tomorrow's Labs & Rationales: cbc, icu Plan DVT/Prophylaxis: mechanical, pharmacological
--- NOTE | 2017-11-14 09:34 | PN- CRCU ---
Subjective HPI/Critical Care Issues: The patient is awake and alert. She feels slowly improved overall. She has significant shortness of breath with any exertion. She has difficulty expectorating. She is afebrile. She denies any chills, chest pain, abdominal pain or any discomfort. The patient is frustrated over the length of time it is taking her to improve. She remains very anxious. Her oxygen saturations are in the high 90s on 50% high flow. Objective Current Medications: Current Medications Sig/Noemy Start time Last Medication Dose Route Stop Time Status Admin Acetaminophen 650 MG Q8P PRN 11/07 2100 AC PO Albuterol Sulfate 3 ML BID 11/08 2100 AC 11/14 INH 0912 Alprazolam 0.5 MG BID 11/07 2099 AC 11/13 PO 11/14 2059 2206 Aspirin 81 MG DAILY 11/08 09 AC 11/14 PO 0822 Atorvastatin Calcium 40 MG 1700 11/08 1700 AC 11/13 PO 1737 Budesonide/ 2 PUF BID 11/08 1030 AC 11/14 Formoterol Fumarate INH 0823 Ezetimibe 10 MG DAILY 11/08 0900 AC 11/14 PO 0823 Furosemide 20 MG DAILY 11/11 0900 AC 11/14 PO 0823 Heparin Sodium 5,000 UNIT Q8 11/07 2200 AC 11/14 (Porcine) SC 0521 Insulin Aspart 0 TIDAC 11/11 1700 AC 11/14 SC 0822 Levothyroxine Sodium 0.05 MG 0700 11/09 0700 AC 11/14 PO 0521 Methylprednisolone 20 MG Q12 11/13 2100 AC 11/14 IV 0827 Methylprednisolone 40 MG Q12 11/08 2100 DC 11/13 IV 0859 Metoprolol Succinate 50 MG DAILY 11/08 09 AC 11/14 PO 0823 Mirtazapine 15 MG AT BEDTIME 11/08 0015 AC 11/13 PO 2216 Omeprazole 40 MG DAILY AC 11/09 07 AC 11/14 PO 0522 Ranolazine 1,000 MG BID 11/08 0002 AC 11/14 PO 0822 Senna/Docusate Sodium 1 TAB AT BEDTIME NEED.. 11/11 1133 AC PO Vital Signs & I&O Last 24 Hrs of Vitals and I&O: Vital Signs Date Time Temp Pulse Resp B/P B/P Pulse O2 O2 Flow FiO2 Mean Ox Delivery Rate 11/14 0823 75 130/62 11/14 0822 75 130/62 11/14 0800 93 Nasal 50% Cannula 11/14 0800 97.2 72 26 118/70 93 Nasal 50% Cannula 11/14 0433 98 Nasal 50% Cannula 11/14 0203 93 Nasal 50% Cannula 11/14 0000 94 Nasal 50% Cannula / 2214 81 150/72 11/13 2200 97.0 81 22 137/68 94 Nasal 50% Cannula 11/13 2002 94 Nasal 50% Cannula / 2000 96 Nasal 50% Cannula /14 1630 94 Nasal 50% Cannula /14 1600 96 Nasal 50% Cannula /14 1600 98.1 77 23 130/56 95 Nasal 50% Cannula / 1426 94 Nasal 50% Cannula / 1212 94 Nasal 50% Cannula 11/13 1200 97 Nasal 50% Cannula / 0925 99 Nasal 50% Cannula Intake & Output 11/14 1600 15 0800 07 0000 Intake Total 200 400 Output Total 400 900 Balance -200 -500 Intake, Oral 200 400 Number 1 Bowel Movements Output, Urine 400 900 Physical Exam General Appearance: alert, awake, very anxious, comfortable Head: atraumatic, normal appearance Neck: supple Respiratory: decreased breath sounds, wheezing, bibasilar fine crackles Cardiovascular: S1 and S2 heard Gastrointestinal: normal bowel sounds, soft, non-tender Extremities: no edema Skin: intact, normal color, warm/dry Results Last 24 Hrs of Lab Results: Laboratory Tests 11/14/17 0530: Anion Gap 12, Estimated GFR 23 L, BUN/Creatinine Ratio 29.5 H, CBC w Diff MAN DIFF ORDERED, RBC 3.28 L, MCV 81.1, MCH 25.8 L, MCHC 31.8 L, RDW 19.9 H, MPV 8.9, Segmented Neutrophils 95 H, Band Neutrophils 1, Lymphocytes 4 L, Platelet Estimate ADEQUATE, Polychromasia 1+, Hypochromic-Microcytic 1+, Basophilic Stippling SLIGHT, Anisocytosis 1+ Last 24 Hrs of Micro Results: All cultures are negative to date. Diagnostic Data CXR Findings: 1. Extensive obstructive lung disease with fibrotic changes in the mid and lower lung bilaterally. No superimposed focal acute process is seen. Specifically, no evidence of pulmonary edema is seen. 2. Slight indistinctness of the CP angles is noted, likely due to atelectatic change, though trace pleural effusions cannot be completely excluded. 1. Extensive obstructive lung disease with fibrotic changes in the mid and lower lung bilaterally. No superimposed focal acute process is seen. Specifically, no evidence of pulmonary edema is seen. 2. Slight indistinctness of the CP angles is noted, likely due to atelectatic change, though trace pleural effusions cannot be completely excluded. Impression/Plan Impression/Plan Impression/Plan: 1. Acute exacerbation of COPD. CT scan demonstrates very severe emphysema, and interstitial pneumonitis which could explain progressive respiratory failure as well. Superimposed infection needs to be excluded. Chest x-ray does not demonstrate this however her chest x-ray is difficult to interpret. The patient 's respiratory status is not improving which could suggest an underlying infectious process given her elevated white blood cell count. 2. Hypoxemic respiratory failure. No evidence of pulmonary embolism on VQ scan. 3. 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 4. Paroxysmal atrial fibrillation, not on anticoagulation secondary to previous GI bleed and anemia. 5. Chronic kidney disease stage 3 secondary to hypertensive nephrosclerosis. Creatinine stable. 6. History of hypertension. 7. Anemia without evidence of active bleeding. 8. Previous history of lung cancer status post right sided gamma knife radiation. 9. Hyperkalemia. 10. Severe anxiety. 11. Increasing white count which may be related to steroids. No significant increase in bands. Recommendations: * Repeat pancultures. * Need to consider ID input if the patient's white blood cell count continues to trend upwards. * Monitor for infection. * Give 1 dose of vancomycin today. * Begin ceftazidime, and consider treating for gram-negative/Pseudomonas pneumonia. * Will de-escalate therapy quickly to avoid the risk of C. difficile. * We will attempt antibiotic therapy as the patient is not improving with respect to her oxygenation and respiratory status. * TRC, neb treatments to continue. * Continue Symbicort 2 puffs every 12 hours. * Wean supplemental oxygen down to saturations around 90-92%. * Solu-Medrol to 20 mg every 12 hours. * Avoid high potassium foods as specified by nephrology. * Continue Lasix 20 mg daily. * Continue low-dose Xanax for anxiety. * DVT prophylaxis at all times. * Continue all supportive care. * I discussed the plan of care with house staff and asked them to contact me should the patient's condition change or deteriorate.
--- NOTE | 2017-11-14 14:35 | PN- Cardiology ---
Objective Vital Signs and I&Os Vital Signs Date Time Temp Pulse Resp B/P B/P Pulse O2 O2 Flow FiO2 Mean Ox Delivery Rate 11/14 1200 94 Nasal 50% Cannula 11/14 0912 96 Nasal 45% Cannula 11/14 0823 75 130/62 11/14 0822 75 130/62 11/14 0800 93 Nasal 50% Cannula 11/14 0800 97.2 72 26 118/70 93 Nasal 50% Cannula 11/14 0433 98 Nasal 50% Cannula 11/14 0203 93 Nasal 50% Cannula 11/14 0000 94 Nasal 50% Cannula 11/13 2214 81 150/72 11/13 2200 97.0 81 22 137/68 94 Nasal 50% Cannula 11/13 2002 94 Nasal 50% Cannula 11/13 2000 96 Nasal 50% Cannula 11/13 1630 94 Nasal 50% Cannula 11/13 1600 96 Nasal 50% Cannula 11/13 1600 98.1 77 23 130/56 95 Nasal 50% Cannula Intake & Output 11/14 1600 11/14 0800 11/14 0000 11/13 1600 11/13 0800 11/13 0000 Intake Total 200 400 700 120 120 Output Total 400 900 250 600 400 Balance -200 -500 450 -480 -280 Intake, Oral 200 400 700 120 120 Number 1 1 1 1 Bowel Movements Output, Urine 400 900 250 600 400 Patient 135 lb 131 lb 152 lb Weight Weight Bed scale Bed scale Measurement Method Physical Exam: General: Thin elderly female, alert and oriented, short of breath at rest Head normocephalic atraumatic Eyes sclera anicteric conjunctiva showed pallor extraocular muscles are normal Neck JVP normal, carotid upstrokes normal bilaterally Chest lungs diffuse bilateral rhonchi Heart regular rhythm with a 1-2/6 systolic murmur Abdomen soft no organomegaly bowel sounds normal Extremities no clubbing cyanosis or edema Neurological no gross motor or sensory deficits Current Medications: Current Medications Sig/Noemy Start time Last Medication Dose Route Stop Time Status Admin Acetaminophen 650 MG Q8P PRN 11/07 2099 AC PO Albuterol Sulfate 3 ML BID 11/08 2099 AC 11/14 INH 12 Alprazolam 0.5 MG BID 11/07 2099 AC 11/14 PO 11/14 2059 1019 Aspirin 81 MG DAILY 11/08 899 AC 11/14 PO 0822 Atorvastatin Calcium 40 MG 1700 11/08 1700 AC 11/13 PO 1737 Budesonide/ 2 PUF BID 11/08 1030 AC 11/14 Formoterol Fumarate INH 0823 Ceftazidime 2,000 MG Q24H 11/14 1200 AC 11/14 IV 1355 Ezetimibe 10 MG DAILY 11/08 0900 AC 11/14 PO 0823 Furosemide 20 MG DAILY 11/11 0900 AC 11/14 PO 0823 Heparin Sodium 5,000 UNIT Q8 11/07 2200 AC 11/14 (Porcine) SC 1237 Insulin Aspart 0 TIDAC 11/11 1700 AC 11/14 SC 1237 Levothyroxine Sodium 0.05 MG 0711/09 0700 AC 11/14 PO 0521 Methylprednisolone 20 MG Q12 11/13 2100 AC 11/14 IV 0827 Metoprolol Succinate 50 MG DAILY 11/08 09 AC 11/14 PO 0823 Mirtazapine 15 MG AT BEDTIME 11/08 0015 AC 11/13 PO 2216 Omeprazole 40 MG DAILY AC 11/09 07 AC 11/14 PO 0522 Ranolazine 1,000 MG BID 11/08 0002 AC 11/14 PO 0822 Senna/Docusate Sodium 1 TAB AT BEDTIME NEED.. 11/11 1133 AC PO Vancomycin HCl 1,000 MG ONCE ONE 11/14 1045 DC 11/14 Sodium Chloride 250 ML IV 11/14 1144 1355 Results Last 48 Hrs of Labs/Mics: Laboratory Tests 11/14/17 0530: Anion Gap 12, Estimated GFR 23 L, BUN/Creatinine Ratio 29.5 H, CBC w Diff MAN DIFF ORDERED, RBC 3.28 L, MCV 81.1, MCH 25.8 L, MCHC 31.8 L, RDW 19.9 H, MPV 8.9, Segmented Neutrophils 95 H, Band Neutrophils 1, Lymphocytes 4 L, Platelet Estimate ADEQUATE, Polychromasia 1+, Hypochromic-Microcytic 1+, Basophilic Stippling SLIGHT, Anisocytosis 1+ 11/13/17 0630: Anion Gap 12, Estimated GFR 30 L, BUN/Creatinine Ratio 33.5 H, CBC w Diff MAN DIFF ORDERED, RBC 3.39 L, MCV 82.5, MCH 25.9 L, MCHC 31.4 L, RDW 20.7 H, MPV 9.3, Segmented Neutrophils 89 H, Band Neutrophils 1, Lymphocytes 5 L, Monocytes 5, Nucleated RBCs 3 H, Platelet Estimate VERIFIED BY SMEAR, Polychromasia 1+, Anisocytosis 1+ Microbiology 11/14 839 UPPER RESP: Surveillance Culture - COMP METH RESIST STAPH AUREUS 11/14 839 GI: Surveillance Culture - COMP VANC RESIST ENTEROCOCCUS Assessment/Plan Assessment/Plan Assessment: 1. Worsening dyspnea with associated hypoxemia-likely related to underlying pulmonary issues 2. History of coronary artery disease, status post intervention in 2000 and 2013 with drug-eluting stents to the right coronary in 2015 3. History of lung cancer, status post gamma knife radiation 4. History of paroxysmal atrial fibrillation, not on anticoagulant therapy due to GI bleeding and anemia 4. Chronic renal insufficiency 5. Hypertension Recommend additions: -Continue as per the medical/ICU team -Follow-up chest x-ray showed no overt evidence of heart failure -Keep on telemetry monitoring -Otherwise continue current cardiac medications -Continue gentle diuresis with p.o. Continue telemetry? Yes
[2017-11-14 16:00] VITALS: BP 120/60
[2017-11-15] VITALS: BP 118/62
[2017-11-15 08:00] VITALS: BP 100/50
[2017-11-15 09:03] LABS: HEMATOCRIT 25.6 % (37-47); MEAN CORPUSCULAR HGB 25.4 PG (27.0-31.0); MEAN CORPUSCULAR HGB CONC 31.1 G/DL (33.0-37.0); MEAN CORPUSCULAR VOLUME 81.7 FL (81.0-99.0); MEAN PLATELET VOLUME 9.5 FL (7.4-10.4); PLATELET COUNT 326 /CUMM (130-400); RBC DISTRIBUTION WIDTH 20.5 % (11.5-14.5); RED BLOOD CELL CT 3.13 /CUMM (4.20-5.40); WHITE BLOOD CELL COUNT 22.3 /CUMM (4.8-10.8)
--- NOTE | 2017-11-15 10:23 | PN- Resident CRCU ---
Osmani Mireles 11/15/17 1022: Subjective HPI/CRCU Issues: End stage COPD/COPD Exacerbation Chronic anemia due to CKD Paroxysmal atrial fibrillation HTN CKD stage III 2/2 hypertensive nephrosclerosis Anxiety Squamous cell lung ca Objective Vital Signs & I&O Last 8 Hrs of Vitals and I&O: Laboratory Tests 11/15 11/14 0600 1700 Chemistry Sodium (137 - 145 mmol/L) 138 Potassium (3.5 - 5.1 mmol/L) 5.8 H Chloride (98 - 107 mmol/L) 106 Carbon Dioxide (22 - 30 mmol/L) 20 L Anion Gap (5 - 16) 11 BUN (7 - 17 mg/dL) 67 H Creatinine (0.5 - 1.0 mg/dL) 2.1 H Estimated GFR (>60 ml/min) 23 L Glucose (65 - 99 mg/dL) 231 H Calcium (8.4 - 10.2 mg/dL) 8.4 Phosphorus (2.5 - 4.5 mg/dL) 5.5 H Magnesium (1.6 - 2.3 mg/dL) 2.1 Total Bilirubin (0.2 - 1.3 mg/dL) 0.4 AST (14 - 36 U/L) 20 ALT (9 - 52 U/L) 27 Albumin (3.5 - 5.0 g/dL) 2.8 L Hematology CBC w Diff MAN DIFF ORDERED WBC (4.8 - 10.8 /CUMM) 22.3 H RBC (4.20 - 5.40 /CUMM) 3.13 L Hgb (12.0 - 16.0 G/DL) 8.0 L Hct (37 - 47 %) 25.6 L MCV (81.0 - 99.0 FL) 81.7 MCH (27.0 - 31.0 PG) 25.4 L MCHC (33.0 - 37.0 G/DL) 31.1 L RDW (11.5 - 14.5 %) 20.5 H Plt Count (130 - 400 /CUMM) 326 MPV (7.4 - 10.4 FL) 9.5 Segmented Neutrophils (42.2 - 75.2 %) 95 H Lymphocytes (20.5 - 51.1 %) 2 L Monocytes (1.7 - 9.3 %) 3 Nucleated RBCs (0.0 - 0.0 /100WBC) 1 H Platelet Estimate (ADEQUATE) ADEQUATE Polychromasia 1+ Hypochromic-Microcytic 1+ Basophilic Stippling RARE Anisocytosis 1+ Urines Urine Color (YEL,AMB,STR) YEL Urine Clarity (CLEAR) CLEAR Urine pH (5.0 - 8.0) 6.0 Ur Specific [place] (1.001 - 1.035) 1.020 Urine Protein (NEG,<30 MG/DL) NEG Urine Ketones (NEG) NEG Urine Nitrite (NEG) NEG Urine Bilirubin (NEG) NEG Urine Urobilinogen (0.1 - 1.0 EU/dl) 0.2 Ur Leukocyte Esterase (NEG) NEG Ur Microscopic EXAM NOT REQUIRED Urine Hemoglobin (NEG) NEG Urine Glucose (N MG/DL) 100 H Vital Signs Date Time Temp Pulse Resp B/P B/P Pulse O2 O2 Flow FiO2 Mean Ox Delivery Rate 11/15 0840 73 116/58 11/15 0839 75 116/58 11/15 0800 97.6 66 18 100/50 99 Nasal 45% Cannula 11/15 0800 99 Nasal 45% Cannula 11/15 0758 94 Nasal 50% Cannula 11/15 0409 98 Nasal 50% Cannula 11/15 0028 96 Nasal 50% Cannula 11/15 0000 98 Nasal 50% Cannula 11/15 0000 97.0 71 20 118/62 98 Nasal 50% Cannula 11/14 2154 79 128/72 11/14 2000 96 Nasal 50% Cannula 11/14 1942 97 Nasal 50% Cannula 11/14 1701 94 Nasal 50% Cannula 11/14 1600 96 Nasal 50% Cannula 11/14 1600 98.1 74 28 120/60 94 Nasal 50% Cannula 11/14 1200 94 Nasal 50% Cannula Intake & Output 11/15 1600 16 0800 11/15 0000 Intake Total 100 780 Output Total 600 1000 Balance -500 -220 Intake, IV 280 Intake, Oral 100 500 Output, Urine 600 1000 Exam General Appearance: no apparent distress, comfortable, thin Head: atraumatic, normal appearance Neck: normal inspection, supple Respiratory: chest non-tender, rhonchi, respiratory distress on exertion Cardiovascular: regular rate/rhythm Gastrointestinal: normal bowel sounds, soft, non-tender, no organomegaly Extremities: normal inspection, no edema Current Medications: Current Medications Sig/Noemy Start time Last Medication Dose Route Stop Time Status Admin Acetaminophen 650 MG Q8P PRN 11/07 2100 AC PO Albuterol Sulfate 3 ML BID 11/08 2100 AC 11/14 INH 1936 Alprazolam 0.5 MG BID 11/15 0945 AC 11/15 PO 11/22 0944 0957 Alprazolam 0.5 MG ONCE ONE 11/14 2145 DC 11/14 PO 11/14 2146 2153 Alprazolam 0.5 MG BID 11/07 2100 DC 11/14 PO 11/14 2059 1019 Aspirin 81 MG DAILY 11/08 0900 AC 11/15 PO 0838 Atorvastatin Calcium 40 MG 1700 09 1700 AC 11/14 PO 1658 Budesonide/ 2 PUF BID 11/08 1030 AC 11/15 Formoterol Fumarate INH 0841 Ceftazidime 2,000 MG Q24H 11/14 1200 DC 11/14 IV 1355 Ezetimibe 10 MG DAILY 11/08 0900 AC 11/15 PO 0840 Furosemide 20 MG DAILY 11/11 0900 AC 11/15 PO 0840 Heparin Sodium 5,000 UNIT Q8 11/07 2200 AC 11/15 (Porcine) SC 0619 Insulin Aspart 0 TIDAC 11/11 1700 AC 11/15 SC 0844 Levothyroxine Sodium 0.05 MG 0711/09 0700 AC 11/15 PO 0616 Methylprednisolone 20 MG Q12 11/13 2100 DC 11/15 IV 0844 Metoprolol Succinate 50 MG DAILY 11/08 0900 AC 11/15 PO 0840 Mirtazapine 15 MG AT BEDTIME 11/08 0015 AC 11/14 PO 2153 Omeprazole 40 MG DAILY AC 11/09 0700 AC 11/15 PO 0616 Prednisone 20 MG DAILY 11/16 0900 AC PO Ranolazine 1,000 MG BID 11/08 0002 AC 11/15 PO 0839 Senna/Docusate Sodium 1 TAB AT BEDTIME NEED.. 11/11 1133 AC PO Vancomycin HCl 1,000 MG ONCE ONE 11/14 1045 DC 11/14 Sodium Chloride 250 ML IV 11/14 1144 1355 CXR Findings: 11/13 EXAMINATION: XR PORTABLE CHEST IMPRESSION: 1. Extensive obstructive lung disease with fibrotic changes in the mid and lower lung bilaterally. No superimposed focal acute process is seen. Specifically, no evidence of pulmonary edema is seen. 2. Slight indistinctness of the CP angles is noted, likely due to atelectatic change, though trace pleural effusions cannot be completely excluded. Impression/Plan Impression/Problem List Impression: 72 y/o F with a PMH of CAD, HTN, HLD, Squamous lung cell Ca, CKD, and paroxysmal afib not on anticoagulation due to previous GI bleed that presented to the ED c/ o progressive dyspnea after not achieving relief using her rescue inhaler. She was admitted to the telemetry unit with an admitting diagnosis of COPD exacerbation and subsequently transfered to the ICU for closer monitoring due to her desaturation on 11/13. ASSESSMENT AND PLAN #End stage COPD/COPD Exacerbation #Chronic anemia due to CKD #Paroxysmal atrial fibrillation #HTN #CKD stage III 2/2 hypertensive nephrosclerosis #Anxiety #Squamous cell lung ca End-stage COPD / COPD exacerbation/ Hypoxemic respiratory failure Pt with a chest CT (11/07) showing diffuse pulmonary emphysema with chronic interstitial pneumonitis. Prior admit show similar complains of SOB - her symptoms are most likely related to her severe emphysematous picture that is worsened by her heightened state of anxiety that induces hyperventilation as per pt. Pt is off antibiotics, her upward trending leukocytosis is most likely related to her steroid use. Steroids have been switched to PO. Unclear if there is a fluid overload component, f/u CXR ordered to reassess. Currently patient is not in respiratory distress with 98% O2 sat on high flow 50% O2. -TRC/Continue neb treatments -Symbicort 2 puffs q12 -Prednisone 40mg PO -F/u CXR Paroxysmal A-fib / HTN Pt currently off anticoagulation due to episodes of GI bleeding and chronic anemia due to CKD. Her BP has been controlled on metoprolol, cardiology is following. -Off anticoag -Metoprolol 50 mg qDaily -Continue ASA/Statin/Ezetimibe Chronic Anemia due to CKD, s/p 1U PRBC Pt with Hb 8.8, baseline around 8-10. Most likely related to CKD rather than massive acute blood loss; though guaic of stools have been positive since 11/11. Will need further workup to determine exact cause. She is on EPO at home, 1 dose was given during her admission. Next dose of EPO as per regular schedule if pt remains admitted. -f/u CBC CKD stage III 2/2 hypertensive nephrosclerosis Pt being followed by Dr. Cardoza, currently with K at 5.8, with a baseline Cr 1.5-2.2 and increasing BUN. Latest bicarb was 20 -- lasix will be held and NaHCO3 1300 mg BID will be added. As per nephrology's recommendation, lasix will be held -<2g K in diet -Sodium Bicarb 1300 mg BID -Kayexalate PRN if K>5.7 -Continue trending -f/u nephros recommendation Anxiety Pt described herself as a very anxious person, especially with regards to her overall health. She is currently on Alprazolam 0.5 mg at home. As per the pt, being in the ICU has increased her anxiety and feels discomfort as a result. Home dose of alprazolam restarted. -Alprazolam 0.5 mg BID Squamous cell lung CA S/p post gamma knife radiation, followed by Dr. Lomeli - latest visit received a referral to an oncologist to evaluate a new left-sided lung mass that was positive for malignancy on biopsy. -Oncology Consult requested DNR DVT PPX: ALPS, sq heparin Regular Diet Problem List: 1. Anxiety 2. COPD (chronic obstructive pulmonary disease) Pain Ratin Tomorrow's Labs & Rationales: cxr BEP Plan DVT/Prophylaxis: mechanical, pharmacological Jean Claude Lomeli MD 11/15/17 1141: Attending MD Review Statement Attending Sign Off Attending Cosign Statement: I have: examined this patient, reviewed [facility] EMR data, personally reviewd images, discussd w/resident/PA/ROAD ENGINEER FREIGHT, discussed mgmt plan w/navjot, discussed mgmt plan w/CM, discussed mgmt plan w/pt, agreed w/resident/PA/RO[employer] ENGINEER FREIGHT, amended to note. Other Findings: Impression 72 year old woman ICU stay for hypoxemic acute on chronic respiratory failure leukocytosis squamous cell lung ca recently dx anemia ckd Plan -reduce iv solumedrol to po prednisone given leukocytosis tomorrow -will evaluate o2 needs - currently on high flow oxygen -stop abx, can be reactive to steroids, will monitor off at this time, no evidence of pna at this time, will send c.diff stool if loose -nephrology follow up -will d/w oncology if pt can be introduced to Dr. Olson if possible during admission -resume bid xanax -trc/nebs -cxr portable DVT prophylaxis at all times currently DNR - she is evaluating intubation status currently accepting TTS 35 min
--- NOTE | 2017-11-15 11:06 | PN- Nephrology ---
Assessment/Plan Nephrology Assessment: Stage III CKD - 2/2 hypertensive nephrosclerosis - baseline SCr is 1.5-2.2. The fact that she is at the upper end of her normal at this point may be 2/2 relative intravascular volume depletion (was on QOD lasix as an outpatient and has been getting daily here). Hyperkalemia - Tendency in the past and currently likely 2/2 catabolic state. Bicarb is a bit low - may help to supplement. Anemia - On outpatient epogen which she received on 11/08. Suggestion: -Hold lasix for at least a day -PRN kayexalate for K>5.7 -Start sodium bicarb 1300mg BID -Will need next dose of Epogen when due if remains in-house Please call [phone] with ?'s Subjective Subjective: SCr 2.1; BUN up to 67 On steroids - IV solumedrol since 11/08 K 5.8 Bicarb 20 WBC stable at 22.3 Hg 8.0; got 34,000U Epogen on 11/08 On 20mg PO lasix since 11/08 No pulm edema on chest x-ray Feels like breathing is a bit better Objective Vital Signs and I&Os Vital Signs Date Time Temp Pulse Resp B/P B/P Pulse O2 O2 Flow FiO2 Mean Ox Delivery Rate 11/15 0840 73 116/58 11/15 0839 75 116/58 11/15 0800 97.6 66 18 100/50 99 Nasal 45% Cannula 11/15 0800 99 Nasal 45% Cannula 11/15 0758 94 Nasal 50% Cannula 11/15 0409 98 Nasal 50% Cannula 11/15 0028 96 Nasal 50% Cannula 11/15 0000 98 Nasal 50% Cannula 11/15 0000 97.0 71 20 118/62 98 Nasal 50% Cannula 11/14 2154 79 128/72 11/14 2000 96 Nasal 50% Cannula 11/14 1942 97 Nasal 50% Cannula 11/14 1701 94 Nasal 50% Cannula /15 1600 96 Nasal 50% Cannula /15 1600 98.1 74 28 120/60 94 Nasal 50% Cannula /15 1200 94 Nasal 50% Cannula Intake & Output 16 1600 /16 0400 07/15 1600 0715 0400 / 1600 11/13 0400 Intake Total 634 456 8521 400 820 120 Output Total 600 1000 1000 900 850 400 Balance -500 -220 0 -500 -30 -280 Intake, IV 280 Intake, Oral 748 657 3510 400 820 120 Number 1 2 1 Bowel Movements Output, Urine 600 1000 1000 900 850 400 Patient 135 lb 131 lb 152 lb Weight Weight Bed scale Bed scale Measurement Method Physical Exam: Gen - ok appearing HEENT - supple CV - RRR, no m/r/g Chest - clear, no w/r/r Abd - soft, NTND Ext - warm, no edema Neuro - AOX3, grossly nonfocal Current Medications: Current Medications Sig/Noemy Start time Last Medication Dose Route Stop Time Status Admin Acetaminophen 650 MG Q8P PRN 11/07 2100 AC PO Albuterol Sulfate 3 ML BID 11/08 2100 AC 11/14 INH 1936 Alprazolam 0.5 MG BID 11/15 0945 AC 11/15 PO 11/22 0944 0957 Alprazolam 0.5 MG ONCE ONE 11/14 2144 DC 11/14 PO 11/14 2145 2153 Alprazolam 0.5 MG BID 11/07 2100 DC 11/14 PO 11/14 2059 1019 Aspirin 81 MG DAILY 11/08 0900 AC 11/15 PO 0838 Atorvastatin Calcium 40 MG 1700 11/08 1700 AC 11/14 PO 1658 Budesonide/ 2 PUF BID 11/08 1030 AC 11/15 Formoterol Fumarate INH 0841 Ceftazidime 2,000 MG Q24H 11/14 1200 DC 11/14 IV 1355 Ezetimibe 10 MG DAILY 11/08 0900 AC 11/15 PO 0840 Furosemide 20 MG DAILY 11/11 0900 AC 11/15 PO 0840 Heparin Sodium 5,000 UNIT Q8 11/07 2200 AC 11/15 (Porcine) SC 0619 Insulin Aspart 0 TIDAC 11/11 1700 AC 11/15 SC 0844 Levothyroxine Sodium 0.05 MG 0711/09 0700 AC 11/15 PO 0616 Methylprednisolone 20 MG Q12 11/13 2100 DC 11/15 IV 0844 Metoprolol Succinate 50 MG DAILY 11/08 0900 AC 11/15 PO 0840 Mirtazapine 15 MG AT BEDTIME 11/08 0015 AC 11/14 PO 2153 Omeprazole 40 MG DAILY AC 11/09 0700 AC 11/15 PO 0616 Prednisone 20 MG DAILY 11/16 0900 AC PO Ranolazine 1,000 MG BID 11/08 0002 AC 11/15 PO 0839 Senna/Docusate Sodium 1 TAB AT BEDTIME NEED.. 11/11 1133 AC PO Vancomycin HCl 1,000 MG ONCE ONE 11/14 1045 DC 11/14 Sodium Chloride 250 ML IV 11/14 1144 1355 Results Pertinent Lab Results: Laboratory Tests 11/15 11/14 0600 1700 Chemistry Sodium (137 - 145 mmol/L) 138 Potassium (3.5 - 5.1 mmol/L) 5.8 H Chloride (98 - 107 mmol/L) 106 Carbon Dioxide (22 - 30 mmol/L) 20 L Anion Gap (5 - 16) 11 BUN (7 - 17 mg/dL) 67 H Creatinine (0.5 - 1.0 mg/dL) 2.1 H Estimated GFR (>60 ml/min) 23 L Glucose (65 - 99 mg/dL) 231 H Calcium (8.4 - 10.2 mg/dL) 8.4 Phosphorus (2.5 - 4.5 mg/dL) 5.5 H Magnesium (1.6 - 2.3 mg/dL) 2.1 Total Bilirubin (0.2 - 1.3 mg/dL) 0.4 AST (14 - 36 U/L) 20 ALT (9 - 52 U/L) 27 Albumin (3.5 - 5.0 g/dL) 2.8 L Hematology CBC w Diff MAN DIFF ORDERED WBC (4.8 - 10.8 /CUMM) 22.3 H RBC (4.20 - 5.40 /CUMM) 3.13 L Hgb (12.0 - 16.0 G/DL) 8.0 L Hct (37 - 47 %) 25.6 L MCV (81.0 - 99.0 FL) 81.7 MCH (27.0 - 31.0 PG) 25.4 L MCHC (33.0 - 37.0 G/DL) 31.1 L RDW (11.5 - 14.5 %) 20.5 H Plt Count (130 - 400 /CUMM) 326 MPV (7.4 - 10.4 FL) 9.5 Segmented Neutrophils (42.2 - 75.2 %) 95 H Lymphocytes (20.5 - 51.1 %) 2 L Monocytes (1.7 - 9.3 %) 3 Nucleated RBCs (0.0 - 0.0 /100WBC) 1 H Platelet Estimate (ADEQUATE) ADEQUATE Polychromasia 1+ Hypochromic-Microcytic 1+ Basophilic Stippling RARE Anisocytosis 1+ Urines Urine Color (YEL,AMB,STR) YEL Urine Clarity (CLEAR) CLEAR Urine pH (5.0 - 8.0) 6.0 Ur Specific [place] (1.001 - 1.035) 1.020 Urine Protein (NEG,<30 MG/DL) NEG Urine Ketones (NEG) NEG Urine Nitrite (NEG) NEG Urine Bilirubin (NEG) NEG Urine Urobilinogen (0.1 - 1.0 EU/dl) 0.2 Ur Leukocyte Esterase (NEG) NEG Ur Microscopic EXAM NOT REQUIRED Urine Hemoglobin (NEG) NEG Urine Glucose (N MG/DL) 100 H 11/14 11/13 0530 0630 Chemistry Sodium (137 - 145 mmol/L) 136 L 139 Potassium (3.5 - 5.1 mmol/L) 5.3 H 5.6 H Chloride (98 - 107 mmol/L) 103 104 Carbon Dioxide (22 - 30 mmol/L) 22 23 Anion Gap (5 - 16) 12 12 BUN (7 - 17 mg/dL) 62 H 57 H Creatinine (0.5 - 1.0 mg/dL) 2.1 H 1.7 H Estimated GFR (>60 ml/min) 23 L 30 L BUN/Creatinine Ratio (7 - 25 %) 29.5 H 33.5 H Hematology CBC w Diff MAN DIFF ORDERED MAN DIFF ORDERED WBC (4.8 - 10.8 /CUMM) 24.6 H 22.2 H RBC (4.20 - 5.40 /CUMM) 3.28 L 3.39 L Hgb (12.0 - 16.0 G/DL) 8.5 L 8.8 L Hct (37 - 47 %) 26.6 L 28.0 L MCV (81.0 - 99.0 FL) 81.1 82.5 MCH (27.0 - 31.0 PG) 25.8 L 25.9 L MCHC (33.0 - 37.0 G/DL) 31.8 L 31.4 L RDW (11.5 - 14.5 %) 19.9 H 20.7 H Plt Count (130 - 400 /CUMM) 351 373 MPV (7.4 - 10.4 FL) 8.9 9.3 Segmented Neutrophils (42.2 - 75.2 %) 95 H 89 H Band Neutrophils (0.0 - 5.0 %) 1 1 Lymphocytes (20.5 - 51.1 %) 4 L 5 L Monocytes (1.7 - 9.3 %) 5 Nucleated RBCs (0.0 - 0.0 /100WBC) 3 H Platelet Estimate (ADEQUATE) ADEQUATE VERIFIED BY SMEAR Polychromasia 1+ 1+ Hypochromic-Microcytic 1+ Basophilic Stippling SLIGHT Anisocytosis 1+ 1+ Imaging/Other Studies: Chest X-ray IMPRESSION: 1. Extensive obstructive lung disease with fibrotic changes in the mid and lower lung bilaterally. No superimposed focal acute process is seen. Specifically, no evidence of pulmonary edema is seen. 2. Slight indistinctness of the CP angles is noted, likely due to atelectatic change, though trace pleural effusions cannot be completely excluded.
--- NOTE | 2017-11-15 11:34 | PN- Cardiology ---
Subjective Subjective: Patient is resting comfortably on high flow nasal cannula oxygen. She denies any chest pain, palpitations, or shortness of breath. Objective Vital Signs and I&Os Vital Signs Date Time Temp Pulse Resp B/P B/P Pulse O2 O2 Flow FiO2 Mean Ox Delivery Rate 11/15 0840 73 116/58 11/15 0839 75 116/58 11/15 0800 97.6 66 18 100/50 99 Nasal 45% Cannula 11/15 0800 99 Nasal 45% Cannula 11/15 0758 94 Nasal 50% Cannula 11/15 0409 98 Nasal 50% Cannula 11/15 0028 96 Nasal 50% Cannula 11/15 0000 98 Nasal 50% Cannula 11/15 0000 97.0 71 20 118/62 98 Nasal 50% Cannula 11/14 2154 79 128/72 11/14 2000 96 Nasal 50% Cannula 11/14 1942 97 Nasal 50% Cannula 11/14 1701 94 Nasal 50% Cannula 11/14 1600 96 Nasal 50% Cannula / 1600 98.1 74 28 120/60 94 Nasal 50% Cannula 11/14 1200 94 Nasal 50% Cannula Intake & Output 11/15 1600 11/15 0800 11/15 0000 11/14 1600 11/14 0800 11/14 0000 Intake Total 100 780 800 200 400 Output Total 600 1000 600 400 900 Balance -500 -220 200 -200 -500 Intake, IV 280 Intake, Oral 100 500 800 200 400 Number 1 Bowel Movements Output, Urine 600 1000 600 400 900 Patient 135 lb Weight Weight Bed scale Measurement Method Physical Exam: General: no apparent distress. Alert. On high flow nasal cannula oxygen Eyes: No obvious scleral icterus. HEENT: No jugular venous distention or abnormal jugular venous pulsations. Cardiovascular: Normal intensity S1/S2. Regular Respiratory: Decreased air entry bilaterally Abdomen: Soft, nontender with no guarding or rebound tenderness. Musculoskeletal: No clubbing or cyanosis noted; no edema Skin: warm Neurologic: No gross focal deficits noted. Lymph: No gross lymphadenopathy. Current Medications: Current Medications Sig/Noemy Start time Last Medication Dose Route Stop Time Status Admin Acetaminophen 650 MG Q8P PRN 11/07 2100 AC PO Albuterol Sulfate 3 ML BID 11/08 2100 AC 11/14 INH 1936 Alprazolam 0.5 MG BID 11/15 0945 AC 11/15 PO 11/22 0944 0957 Alprazolam 0.5 MG ONCE ONE 11/14 2145 DC 11/14 PO 11/14 2146 2153 Alprazolam 0.5 MG BID 11/07 2100 DC 11/14 PO 11/14 2059 1019 Aspirin 81 MG DAILY 11/08 0900 AC 11/15 PO 0838 Atorvastatin Calcium 40 MG 1700 11/08 1700 AC 11/14 PO 1658 Budesonide/ 2 PUF BID 11/08 1030 AC 11/15 Formoterol Fumarate INH 0841 Ceftazidime 2,000 MG Q24H 11/14 1200 DC 11/14 IV 1355 Ezetimibe 10 MG DAILY 11/08 0900 AC 11/15 PO 0840 Furosemide 20 MG DAILY 11/11 0900 AC 11/15 PO 0840 Heparin Sodium 5,000 UNIT Q8 11/07 2200 AC 11/15 (Porcine) SC 0619 Insulin Aspart 0 TIDAC 11/11 1700 AC 11/15 SC 0844 Levothyroxine Sodium 0.05 MG 0700 11/09 0700 AC 11/15 PO 0616 Methylprednisolone 20 MG Q12 11/13 2100 DC 11/15 IV 0844 Metoprolol Succinate 50 MG DAILY 11/08 0900 AC 11/15 PO 0840 Mirtazapine 15 MG AT BEDTIME 11/08 0015 AC 11/14 PO 2153 Omeprazole 40 MG DAILY AC 11/09 0700 AC 11/15 PO 0616 Prednisone 20 MG DAILY 11/16 0900 AC PO Ranolazine 1,000 MG BID 11/08 0002 AC 11/15 PO 0839 Senna/Docusate Sodium 1 TAB AT BEDTIME NEED.. 11/11 1133 AC PO Vancomycin HCl 1,000 MG ONCE ONE 11/14 1045 DC 11/14 Sodium Chloride 250 ML IV 11/14 1144 1355 Results Last 48 Hrs of Labs/Mics: Laboratory Tests 11/15/17 0600: Anion Gap 11, Estimated GFR 23 L, Glucose 231 H, Calcium 8.4, Phosphorus 5.5 H, Magnesium 2.1, Total Bilirubin 0.4, AST 20, ALT 27, Albumin 2.8 L, CBC w Diff MAN DIFF ORDERED, RBC 3.13 L, MCV 81.7, MCH 25.4 L, MCHC 31.1 L, RDW 20.5 H, MPV 9.5, Segmented Neutrophils 95 H, Lymphocytes 2 L, Monocytes 3, Nucleated RBCs 1 H, Platelet Estimate ADEQUATE, Polychromasia 1+, Hypochromic- Microcytic 1+, Basophilic Stippling RARE, Anisocytosis 1+ 11/14/17 1700: Urine Color YEL, Urine Clarity CLEAR, Urine pH 6.0, Ur Specific [place] 1.020, Urine Protein NEG, Urine Ketones NEG, Urine Nitrite NEG, Urine Bilirubin NEG, Urine Urobilinogen 0.2, Ur Leukocyte Esterase NEG, Ur Microscopic EXAM NOT REQUIRED, Urine Hemoglobin NEG, Urine Glucose 100 H 11/14/17 0530: Anion Gap 12, Estimated GFR 23 L, BUN/Creatinine Ratio 29.5 H, CBC w Diff MAN DIFF ORDERED, RBC 3.28 L, MCV 81.1, MCH 25.8 L, MCHC 31.8 L, RDW 19.9 H, MPV 8.9, Segmented Neutrophils 95 H, Band Neutrophils 1, Lymphocytes 4 L, Platelet Estimate ADEQUATE, Polychromasia 1+, Hypochromic-Microcytic 1+, Basophilic Stippling SLIGHT, Anisocytosis 1+ Recent Imaging Studies: Telemetry tracings were personally reviewed and shows sinus rhythm Assessment/Plan Assessment/Plan 1. Worsening dyspnea with associated hypoxemia-likely related to underlying pulmonary issues 2. History of coronary artery disease, status post intervention in 2000 and 2013 with drug-eluting stents to the right coronary in 2015 3. History of lung cancer, status post gamma knife radiation 4. History of paroxysmal atrial fibrillation, not on anticoagulant therapy due to GI bleeding and anemia 4. Chronic renal insufficiency 5. Hypertension Patient currently stable on high flow nasal cannula oxygen but appears comfortable. Appears reasonably euvolemic on exam and can continue with low- dose oral Lasix. Remains in sinus rhythm on telemetry. Blood pressure is well controlled. Alex Matias MD [facility] Continue telemetry? No
--- NOTE | 2017-11-15 13:09 | RADIOLOGY REPORT ---
EXAMINATION: XR PORTABLE CHEST CLINICAL INFORMATION: Bilateral crackles. Follow-up from previous. COPD. COMPARISON: Several prior chest x-rays, most recent of which is dated 11/13/2017. CT scan of the chest dated 11/08/2017. TECHNIQUE: Portable AP semierect view of the chest was obtained. FINDINGS: EKG leads overlie the chest. The cardiomediastinal silhouette is within normal limits in size. Low lung volumes are seen with diffuse increased reticular lung markings and slight thickening of the central airways, consistent with the previously demonstrated obstructive lung disease and fibrosis. Mild bibasilar subsegmental atelectasis is seen. No focal consolidation, significant effusion or pneumothorax is seen. Bony structures are grossly unremarkable. IMPRESSION: Findings consistent with mild bibasilar subsegmental atelectasis superimposed upon chronic obstructive lung disease and fibrotic lung changes. No evolving pneumonia seen.
[2017-11-15 16:00] VITALS: BP 125/57
[2017-11-15 23:02] VITALS: BP 130/60
[2017-11-16 04:53] LABS: MEAN PLATELET VOLUME 9.4 FL (7.4-10.4)
[2017-11-16 05:07] LABS: HEMATOCRIT 29.5 % (37-47); MEAN CORPUSCULAR HGB 25.2 PG (27.0-31.0); MEAN CORPUSCULAR VOLUME 81.4 FL (81.0-99.0); PLATELET COUNT 355 /CUMM (130-400); RBC DISTRIBUTION WIDTH 20.9 % (11.5-14.5); RED BLOOD CELL CT 3.63 /CUMM (4.20-5.40)
[2017-11-16 08:00] VITALS: BP 150/70
--- NOTE | 2017-11-16 08:39 | PN- Resident CRCU ---
Osmani Mireles 11/16/17 0839: Subjective HPI/CRCU Issues: #End stage COPD/COPD Exacerbation #Chronic anemia due to CKD #Paroxysmal atrial fibrillation #HTN #CKD stage III 2/2 hypertensive nephrosclerosis #Anxiety #Squamous cell lung ca 24 Hour Events: pt seen and examined today. dyspnea on exertion is still present - also c/o leg cramps/pain though no erythema is noted nor is pain ellicited on palpation. No other acute events. Objective Vital Signs & I&O Last 8 Hrs of Vitals and I&O: Intake & Output 11/16 1600 Intake Total Output Total 400 Balance -400 Output, Urine 400 Patient 133 lb Weight Weight Bed scale Measurement Method Exam General Appearance: no apparent distress, alert, awake Head: atraumatic, normal appearance Neck: normal inspection, supple, full range of motion Respiratory: chest non-tender, no respiratory distress Cardiovascular: edema Gastrointestinal: normal bowel sounds, soft, non-tender, no organomegaly Extremities: normal inspection, normal capillary refill Cranial Nerves: normal hearing, normal speech Current Medications: Current Medications Sig/Noemy Start time Last Medication Dose Route Stop Time Status Admin Acetaminophen 650 MG .STK-MED ONE 11/15 1632 DC PO 11/15 1633 Acetaminophen 650 MG Q8P PRN 11/07 2100 AC 11/15 PO 1635 Albuterol Sulfate 3 ML BID 11/08 2100 AC 11/16 INH 0845 Alprazolam 0.5 MG BID 11/15 0945 AC 11/16 PO 11/22 0944 0939 Aspirin 81 MG DAILY 11/08 09 AC 11/16 PO 0939 Atorvastatin Calcium 40 MG 1700 11/08 1700 AC 11/15 PO 1634 Budesonide/ 2 PUF BID 11/08 1030 AC 11/16 Formoterol Fumarate INH 0939 Ezetimibe 10 MG DAILY 11/08 0900 AC 11/16 PO 0939 Furosemide 20 MG DAILY 11/11 0900 DC 11/15 PO 0840 Heparin Sodium 5,000 UNIT Q8 11/07 2200 AC 11/16 (Porcine) SC 0607 Insulin Aspart 0 TIDAC 11/11 1700 AC 11/15 SC 1635 Levothyroxine Sodium 0.05 MG 0700 11/09 0700 AC 11/16 PO 0602 Metoprolol Succinate 50 MG DAILY 11/08 0900 AC 11/16 PO 0939 Mirtazapine 15 MG AT BEDTIME 11/08 0015 AC 11/15 PO 2224 Omeprazole 40 MG DAILY AC 11/09 0700 AC 11/16 PO 0602 Prednisone 20 MG DAILY 11/16 0900 AC 11/16 PO 0939 Ranolazine 1,000 MG BID 11/08 0002 AC 11/16 PO 0939 Senna/Docusate Sodium 1 TAB AT BEDTIME NEED.. 11/11 1133 AC 11/16 PO 1208 CXR Findings: 11/15 EXAM TYPE: RAD - XRY-PORTABLE CHEST XRAY EXAMINATION: XR PORTABLE CHEST CLINICAL INFORMATION: Bilateral crackles. Follow-up from previous. COPD. COMPARISON: Several prior chest x-rays, most recent of which is dated 11/13/2017. CT scan of the chest dated 11/08/2017. TECHNIQUE: Portable AP semierect view of the chest was obtained. FINDINGS: EKG leads overlie the chest. The cardiomediastinal silhouette is within normal limits in size. Low lung volumes are seen with diffuse increased reticular lung markings and slight thickening of the central airways, consistent with the previously demonstrated obstructive lung disease and fibrosis. Mild bibasilar subsegmental atelectasis is seen. No focal consolidation, significant effusion or pneumothorax is seen. Bony structures are grossly unremarkable. IMPRESSION: Findings consistent with mild bibasilar subsegmental atelectasis superimposed upon chronic obstructive lung disease and fibrotic lung changes. No evolving pneumonia seen. Impression/Plan Impression/Problem List Impression: 72 y/o F with a PMH of CAD, HTN, HLD, Squamous lung cell Ca, CKD, and paroxysmal afib not on anticoagulation due to previous GI bleed that presented to the ED c/ o progressive dyspnea after not achieving relief using her rescue inhaler. She was admitted to the telemetry unit with an admitting diagnosis of COPD exacerbation and subsequently transfered to the ICU for closer monitoring due to her desaturation on 11/13. ASSESSMENT AND PLAN #End stage COPD/COPD Exacerbation #Chronic anemia due to CKD #Paroxysmal atrial fibrillation #HTN #CKD stage III 2/2 hypertensive nephrosclerosis #Anxiety #Squamous cell lung ca End-stage COPD / COPD exacerbation/ Hypoxemic respiratory failure Pt with a chest CT (11/07) showing diffuse pulmonary emphysema with chronic interstitial pneumonitis. Prior admit show similar complains of SOB - her symptoms are most likely related to her severe emphysematous picture that is worsened by her heightened state of anxiety that induces hyperventilation as per pt. Pt is off antibiotics, her upward trending leukocytosis is most likely related to her steroid use. Steroids have been switched to PO. Unclear if there is a fluid overload component. F/u CXR reported no pneumonia findings. Currently patient is not in respiratory distress at rest but yes on exertion. with 98% O2 sat on high flow 50% O2. -TRC/Continue neb treatments -Symbicort 2 puffs q12 -Prednisone 20mg PO Paroxysmal A-fib / HTN Pt currently off anticoagulation due to episodes of GI bleeding and chronic anemia due to CKD. Her BP has been controlled on metoprolol, cardiology is following. pt c/o leg pain/cramping, though no erythema is noted or pain is ellicited on palpation. B/L Venous doppler will be ordered to assess for the possibility of DVT. -Off anticoag -Metoprolol 50 mg qDaily -Continue ASA/Statin/Ezetimibe -f/u venous doppler Chronic Anemia due to CKD, s/p 1U PRBC Pt with Hb 8.8, baseline around 8-10. Most likely related to CKD rather than massive acute blood loss; though guaic of stools have been positive since 11/11. Will need further workup to determine exact cause. She is on EPO at home, 1 dose was given during her admission. Next dose of EPO as per regular schedule if pt remains admitted. -f/u CBC CKD stage III 2/2 hypertensive nephrosclerosis Pt being followed by Dr. Cardoza, currently with K at 5.8, with a baseline Cr 1.5-2.2 and increasing BUN. Latest bicarb was 20 -- NaHCO3 1300 mg BID will be added. -<2g K in diet -Sodium Bicarb 1300 mg BID -Kayexalate PRN if K>5.7 -Continue trending -f/u nephros recommendation Anxiety Pt described herself as a very anxious person, especially with regards to her overall health. She is currently on Alprazolam 0.5 mg at home. As per the pt, being in the ICU has increased her anxiety and feels discomfort as a result. Home dose of alprazolam restarted. -Alprazolam 0.5 mg BID Squamous cell lung CA S/p post gamma knife radiation, followed by Dr. Lomeli - latest visit received a referral to an oncologist to evaluate a new left-sided lung mass that was positive for malignancy on biopsy. DNR DVT PPX: ALPS, sq heparin Regular Diet Problem List: 1. Anxiety 2. PAF (paroxysmal atrial fibrillation) 3. Decompensated COPD with exacerbation (chronic obstructive pulmonary disease ) 4. Lung cancer Pain Ratin Pain Location: L leg Tomorrow's Labs & Rationales: doppler u/s icu lab bundle cbc Plan DVT/Prophylaxis: mechanical, pharmacological Jean Claude Lomeli MD 11/16/17 0921: Attending MD Review Statement Attending Sign Off Attending Cosign Statement: I have: examined this patient, reviewed aval EMR data, personally reviewd images, discussd w/resident/PA/BLANKER OPERATOR, discussed mgmt plan w/navjot, discussed mgmt plan w/CM, discussed mgmt plan w/pt, agreed w/resident/PA/BLANKER OPERATOR, amended to note. Other Findings: Impression 72 year old woman ICU stay for hypoxemic acute on chronic respiratory failure leukocytosis squamous cell lung ca recently dx anemia ckd Plan -reduce iv solumedrol to po prednisone given leukocytosis tomorrow -will evaluate o2 needs - currently on high flow oxygen -off abx, can be reactive to steroids, will monitor off at this time, no evidence of pna at this time, will send c.diff stool if loose, ID consultation given continued rise in leukocytosis will be considered if LE dopplers are negative and there is no change in leukocytosis tomorrow -nephrology follow up -will d/w oncology if pt can be introduced to Dr. Olson if possible during admission -bid xanax -trc/nebs -check LE dopplers DVT prophylaxis at all times currently DNR - discussion held - she is accepting intubation if necessary at this point, however re-evaluating this wish TTS 35 min
--- NOTE | 2017-11-16 11:37 | PN- Cardiology ---
Subjective Subjective: The patient is awake, alert The events of the last 24 hours as well as telemetry were reviewed. Review of Systems: The review of systems is negative for chest pains, palpitations nor lightheadedness. The remainder of the 14 point review of systems is noncontributory with the exception of above. Objective Vital Signs and I&Os Vital Signs Date Time Temp Pulse Resp B/P B/P Pulse O2 O2 Flow FiO2 Mean Ox Delivery Rate 11/16 0846 97 Nasal 50% Cannula 11/16 0800 97.8 70 24 150/70 99 Nasal 50% Cannula 11/16 0400 Nasal 50% Cannula 11/16 0129 99 Nasal 50% Cannula 11/16 0000 98 Nasal 50% Cannula 11/15 2302 97.3 79 14 130/60 98 Nasal 50% Cannula 11/15 2224 76 120/68 11/15 2019 95 Nasal 50% Cannula 11/15 2000 96 Nasal 50% Cannula 11/15 1600 99 Nasal 50% Cannula 11/15 1600 97.6 72 23 125/57 98 Nasal 40% Cannula 11/15 1226 100 Nasal 50% Cannula 11/15 1209 Nasal 45% Cannula 11/15 1200 95 Nasal 50% Cannula Intake & Output 11/16 1600 11/16 0800 11/16 0000 11/15 1600 11/15 0800 11/15 0000 Intake Total 200 240 360 100 780 Output Total 800 350 737 889 0114 Balance -600 -110 -40 -500 -220 Intake, IV 280 Intake, Oral 200 240 360 100 500 Number 0 0 Bowel Movements Output, Urine 800 350 [phone] Patient 133 lb 133 lb Weight Weight Bed scale Measurement Method Physical Exam: General: Nontoxic, no apparent distress. HEENT: Sclera and conjunctiva within normal limits, without xanthelasmas. Neck: Carotids 2+ without bruits. Respiratory: Scattered rhonchi, air movement is good, without accessory respiratory muscle use. Heart: Regular rate and rhythm, without murmurs, without JVD. Abdomen: Soft, nontender, no masses, normoactive bowel sounds. Extremities: Without clubbing, cyanosis, without edema. Neuro: Nonfocal exam, strength, 5 out of 5 Skin: Within normal limits without lesions. Psych: Mood and affect: Normal Current Medications: Current Medications Sig/Noemy Start time Last Medication Dose Route Stop Time Status Admin Acetaminophen 650 MG .STK-MED ONE 11/15 1632 DC PO 11/15 1633 Acetaminophen 650 MG Q8P PRN 11/07 2100 AC 11/15 PO 1635 Albuterol Sulfate 3 ML BID 11/08 2100 AC 11/16 INH 0845 Alprazolam 0.5 MG BID 11/15 0945 AC 11/16 PO 11/22 0944 0939 Aspirin 81 MG DAILY 11/08 0900 AC 11/16 PO 0939 Atorvastatin Calcium 40 MG 1700 11/08 1700 AC 11/15 PO 1634 Budesonide/ 2 PUF BID 11/08 1030 AC 11/16 Formoterol Fumarate INH 0939 Ezetimibe 10 MG DAILY 11/08 0900 AC 11/16 PO 0939 Furosemide 20 MG DAILY 11/11 0900 DC 11/15 PO 0840 Heparin Sodium 5,000 UNIT Q8 11/07 2200 AC 11/16 (Porcine) SC 0607 Insulin Aspart 0 TIDAC 11/11 1700 AC 11/15 SC 1635 Levothyroxine Sodium 0.05 MG 0700 11/09 0700 AC 11/16 PO 0602 Metoprolol Succinate 50 MG DAILY 11/08 0900 AC 11/16 PO 0939 Mirtazapine 15 MG AT BEDTIME 11/08 0015 AC 11/15 PO 2224 Omeprazole 40 MG DAILY AC 11/09 0700 AC 11/16 PO 0602 Prednisone 20 MG DAILY 11/16 0900 AC 11/16 PO 0939 Ranolazine 1,000 MG BID 11/08 0002 AC 11/16 PO 0939 Senna/Docusate Sodium 1 TAB AT BEDTIME NEED.. 11/11 1133 AC PO Results Last 48 Hrs of Labs/Mics: Laboratory Tests 11/16/17 0415: Anion Gap 11, Estimated GFR 21 L, Glucose 209 H, Calcium 8.6, Phosphorus 4.4, Magnesium 2.2, Total Bilirubin 0.5, AST 22, ALT 28, Albumin 3.2 L, CBC w Diff MAN DIFF ORDERED, RBC 3.63 L, MCV 81.4, MCH 25.2 L, MCHC 31.0 L, RDW 20.9 H, MPV 9.4, Segmented Neutrophils 86 H, Band Neutrophils 2, Lymphocytes 5 L, Monocytes 7, Nucleated RBCs 3 H, Platelet Estimate ADEQUATE, Polychromasia 1+ 11/15/17 0600: Anion Gap 11, Estimated GFR 23 L, Glucose 231 H, Calcium 8.4, Phosphorus 5.5 H, Magnesium 2.1, Total Bilirubin 0.4, AST 20, ALT 27, Albumin 2.8 L, CBC w Diff MAN DIFF ORDERED, RBC 3.13 L, MCV 81.7, MCH 25.4 L, MCHC 31.1 L, RDW 20.5 H, MPV 9.5, Segmented Neutrophils 95 H, Lymphocytes 2 L, Monocytes 3, Nucleated RBCs 1 H, Platelet Estimate ADEQUATE, Polychromasia 1+, Hypochromic- Microcytic 1+, Basophilic Stippling RARE, Anisocytosis 1+ 11/14/17 1700: Urine Color YEL, Urine Clarity CLEAR, Urine pH 6.0, Ur Specific [place] 1.020, Urine Protein NEG, Urine Ketones NEG, Urine Nitrite NEG, Urine Bilirubin NEG, Urine Urobilinogen 0.2, Ur Leukocyte Esterase NEG, Ur Microscopic EXAM NOT REQUIRED, Urine Hemoglobin NEG, Urine Glucose 100 H Microbiology 11/14 1699 URINE ROUT: Urine Culture - COMP Assessment/Plan Assessment/Plan 72-year-old woman with a past medical history of coronary artery disease (PCI in 2000 in 2014, as well as drug-eluting stents to the RCA in 2016) COPD, social lung disease, lung CA status post gamma knife radiation, paroxysmal atrial fibrillation (not on anticoagulation secondary to GI bleeds and anemia), chronic kidney disease and hypertension. She presents to our hospital with symptoms of increasing severe dyspnea and weakness, which has been refractory to her rescue asthma inhalers. She has well has a noted approximate 10 pound weight gain over the past several weeks. Dyspnea: The patient presents with dyspnea which is most consistent with a combined underlying COPD exacerbation and likely increasing fluid overload. A recent echocardiogram performed demonstrated preserved LV systolic function, and a repeat of the same is currently not necessary. We will continue treatment aggressively as per pulmonary. She appears overall euvolemic and I would therefore attempt to maintain the same.. Anemia: The patient has been receiving Procrit for her chronic anemia. She feels overall improved following a transfusion Atrial fibrillation: Patient has known atrial fibrillation and is not anticoagulated secondary to a history of GI bleeds and anemia. We will continue to maintain rate control. Continue telemetry? No
[2017-11-16 12:00] VITALS: BP 136/60
--- NOTE | 2017-11-16 12:20 | PN- Nephrology ---
Assessment/Plan Nephrology Assessment: Stage III CKD - 2/2 hypertensive nephrosclerosis - baseline SCr is 1.5-2.2. The fact that she is just above the upper end of her normal at this point may be 2/2 relative intravascular volume depletion (was on QOD lasix as an outpatient and has been getting daily here). Discussed with her that given her severe lung disease, there may need to be some tradeoff in terms of worsened renal function for improved pulmonary function. Hyperkalemia - Tendency in the past and currently likely 2/2 catabolic state. On supplemental bicarb. Anemia - On outpatient epogen which she received on 11/08 and gets q3 weeks - target Hg 10-11. Suggestion: -Hold lasix for at least another day -PRN kayexalate for K>5.7 -Cont sodium bicarb 1300mg BID -Will need next dose of Epogen when due if remains in-house (gets q3 weeks) Please call [phone] with ?'s Subjective Subjective: SCr up to 2.3 Lasix given through yesterday K 5.2; bicarb 22 Breathing is about baseline Objective Vital Signs and I&Os Vital Signs Date Time Temp Pulse Resp B/P B/P Pulse O2 O2 Flow FiO2 Mean Ox Delivery Rate 11/16 1200 98.7 66 24 136/60 97 Nasal 50% Cannula 11/16 0846 97 Nasal 50% Cannula 11/16 0800 97.8 70 24 150/70 99 Nasal 50% Cannula 11/16 0400 Nasal 50% Cannula 11/16 0129 99 Nasal 50% Cannula 11/16 0000 98 Nasal 50% Cannula 11/15 2302 97.3 79 14 130/60 98 Nasal 50% Cannula 11/15 2224 76 120/68 11/15 2019 95 Nasal 50% Cannula 11/15 2000 96 Nasal 50% Cannula 11/15 1600 99 Nasal 50% Cannula 11/15 1600 97.6 72 23 125/57 98 Nasal 40% Cannula Intake & Output 11/16 1600 11/16 0400 11/15 0400 11/14 0400 Intake Total 200 240 845 390 3626 400 Output Total 228 936 3195 1000 1000 900 Balance -600 -110 -540 -220 0 -500 Intake, IV 280 Intake, Oral 200 240 535 351 1856 400 Number 0 0 1 Bowel Movements Output, Urine 958 320 3551 1000 1000 900 Patient 133 lb 135 lb Weight Weight Bed scale Bed scale Measurement Method Physical Exam: Gen - ok appearing HEENT - supple CV - RRR, no m/r/g Chest - clear, no w/r/r Abd - soft, NTND Ext - warm, no edema Neuro - AOX3, grossly nonfocal Current Medications: Current Medications Sig/Noemy Start time Last Medication Dose Route Stop Time Status Admin Acetaminophen 650 MG .STK-MED ONE 11/15 1632 DC PO 11/15 1633 Acetaminophen 650 MG Q8P PRN 11/07 2100 AC 11/15 PO 1635 Albuterol Sulfate 3 ML BID 11/08 2100 AC 11/16 INH 0845 Alprazolam 0.5 MG BID 11/15 0945 AC 11/16 PO 11/22 0944 0939 Aspirin 81 MG DAILY 11/08 09 AC 11/16 PO 0939 Atorvastatin Calcium 40 MG 1700 11/08 1700 AC 11/15 PO 1634 Budesonide/ 2 PUF BID 11/08 1030 AC 11/16 Formoterol Fumarate INH 0939 Ezetimibe 10 MG DAILY 11/08 09 AC 11/16 PO 0939 Furosemide 20 MG DAILY 11/11 0900 DC 11/15 PO 0840 Heparin Sodium 5,000 UNIT Q8 11/07 2200 AC 11/16 (Porcine) SC 0607 Insulin Aspart 0 TIDAC 11/11 1700 AC 11/15 SC 1635 Levothyroxine Sodium 0.05 MG 0700 11/09 0700 AC 11/16 PO 0602 Metoprolol Succinate 50 MG DAILY 11/08 09 AC 11/16 PO 0939 Mirtazapine 15 MG AT BEDTIME 11/08 0015 AC 11/15 PO 2224 Omeprazole 40 MG DAILY AC 11/09 07 AC 11/16 PO 0602 Prednisone 20 MG DAILY 11/16 0900 AC 11/16 PO 0939 Ranolazine 1,000 MG BID 11/08 0002 AC 11/16 PO 0939 Senna/Docusate Sodium 1 TAB AT BEDTIME NEED.. 11/11 1133 AC 11/16 PO 1208 Results Pertinent Lab Results: Laboratory Tests 11/16 11/15 0415 0600 Chemistry Sodium (137 - 145 mmol/L) 139 138 Potassium (3.5 - 5.1 mmol/L) 5.2 H 5.8 H Chloride (98 - 107 mmol/L) 106 106 Carbon Dioxide (22 - 30 mmol/L) 22 20 L Anion Gap (5 - 16) 11 11 BUN (7 - 17 mg/dL) 68 H 67 H Creatinine (0.5 - 1.0 mg/dL) 2.3 H 2.1 H Estimated GFR (>60 ml/min) 21 L 23 L Glucose (65 - 99 mg/dL) 209 H 231 H Calcium (8.4 - 10.2 mg/dL) 8.6 8.4 Phosphorus (2.5 - 4.5 mg/dL) 4.4 5.5 H Magnesium (1.6 - 2.3 mg/dL) 2.2 2.1 Total Bilirubin (0.2 - 1.3 mg/dL) 0.5 0.4 AST (14 - 36 U/L) 22 20 ALT (9 - 52 U/L) 28 27 Albumin (3.5 - 5.0 g/dL) 3.2 L 2.8 L Hematology CBC w Diff MAN DIFF ORDERED MAN DIFF ORDERED WBC (4.8 - 10.8 /CUMM) 27.0 H 22.3 H RBC (4.20 - 5.40 /CUMM) 3.63 L 3.13 L Hgb (12.0 - 16.0 G/DL) 9.2 L 8.0 L Hct (37 - 47 %) 29.5 L 25.6 L MCV (81.0 - 99.0 FL) 81.4 81.7 MCH (27.0 - 31.0 PG) 25.2 L 25.4 L MCHC (33.0 - 37.0 G/DL) 31.0 L 31.1 L RDW (11.5 - 14.5 %) 20.9 H 20.5 H Plt Count (130 - 400 /CUMM) 355 326 MPV (7.4 - 10.4 FL) 9.4 9.5 Segmented Neutrophils (42.2 - 75.2 %) 86 H 95 H Band Neutrophils (0.0 - 5.0 %) 2 Lymphocytes (20.5 - 51.1 %) 5 L 2 L Monocytes (1.7 - 9.3 %) 7 3 Nucleated RBCs (0.0 - 0.0 /100WBC) 3 H 1 H Platelet Estimate (ADEQUATE) ADEQUATE ADEQUATE Polychromasia 1+ 1+ Hypochromic-Microcytic 1+ Basophilic Stippling RARE Anisocytosis 1+ 11/14 11/14 1700 0530 Chemistry Sodium (137 - 145 mmol/L) 136 L Potassium (3.5 - 5.1 mmol/L) 5.3 H Chloride (98 - 107 mmol/L) 103 Carbon Dioxide (22 - 30 mmol/L) 22 Anion Gap (5 - 16) 12 BUN (7 - 17 mg/dL) 62 H Creatinine (0.5 - 1.0 mg/dL) 2.1 H Estimated GFR (>60 ml/min) 23 L BUN/Creatinine Ratio (7 - 25 %) 29.5 H Hematology CBC w Diff MAN DIFF ORDERED WBC (4.8 - 10.8 /CUMM) 24.6 H RBC (4.20 - 5.40 /CUMM) 3.28 L Hgb (12.0 - 16.0 G/DL) 8.5 L Hct (37 - 47 %) 26.6 L MCV (81.0 - 99.0 FL) 81.1 MCH (27.0 - 31.0 PG) 25.8 L MCHC (33.0 - 37.0 G/DL) 31.8 L RDW (11.5 - 14.5 %) 19.9 H Plt Count (130 - 400 /CUMM) 351 MPV (7.4 - 10.4 FL) 8.9 Segmented Neutrophils (42.2 - 75.2 %) 95 H Band Neutrophils (0.0 - 5.0 %) 1 Lymphocytes (20.5 - 51.1 %) 4 L Platelet Estimate (ADEQUATE) ADEQUATE Polychromasia 1+ Hypochromic-Microcytic 1+ Basophilic Stippling SLIGHT Anisocytosis 1+ Urines Urine Color (YEL,AMB,STR) YEL Urine Clarity (CLEAR) CLEAR Urine pH (5.0 - 8.0) 6.0 Ur Specific [place] (1.001 - 1.035) 1.020 Urine Protein (NEG,<30 MG/DL) NEG Urine Ketones (NEG) NEG Urine Nitrite (NEG) NEG Urine Bilirubin (NEG) NEG Urine Urobilinogen (0.1 - 1.0 EU/dl) 0.2 Ur Leukocyte Esterase (NEG) NEG Ur Microscopic EXAM NOT REQUIRED Urine Hemoglobin (NEG) NEG Urine Glucose (N MG/DL) 100 H Imaging/Other Studies: EXAM TYPE: RAD - XRY-PORTABLE CHEST XRAY EXAMINATION: XR PORTABLE CHEST CLINICAL INFORMATION: Bilateral crackles. Follow-up from previous. COPD. COMPARISON: Several prior chest x-rays, most recent of which is dated 11/13/2017. CT scan of the chest dated 11/08/2017. TECHNIQUE: Portable AP semierect view of the chest was obtained. FINDINGS: EKG leads overlie the chest. The cardiomediastinal silhouette is within normal limits in size. Low lung volumes are seen with diffuse increased reticular lung markings and slight thickening of the central airways, consistent with the previously demonstrated obstructive lung disease and fibrosis. Mild bibasilar subsegmental atelectasis is seen. No focal consolidation, significant effusion or pneumothorax is seen. Bony structures are grossly unremarkable. IMPRESSION: Findings consistent with mild bibasilar subsegmental atelectasis superimposed upon chronic obstructive lung disease and fibrotic lung changes. No evolving pneumonia seen.
--- NOTE | 2017-11-16 14:48 | Event Note ---
Event Note Event Note: Patient is admitted for respiratory failure and will benefit greatly from pulmonary rehabilitation acutely. During the admission for rehabilitation she will not be able to initiate therapy for her malignancy and/or attend oncologic outpatient needs.
--- NOTE | 2017-11-16 15:38 | ULTRASOUND REPORT ---
EXAMINATION: US TRIPLEX OF LOWER EXTREMITIES, BILATERAL CLINICAL INFORMATION: Bilateral lower extremity pain and tenderness COMPARISON: None TECHNIQUE: Color-flow triplex imaging with spectral analysis and compression Doppler were performed on the lower extremities. FINDINGS: Respiratory variation, normal compression and augmented flow are noted throughout the lower extremities. The visualized common femoral vein, superficial femoral vein, profunda femoral vein, popliteal vein and midcalf peroneal and posterior tibial venous segments show no evidence of deep venous thrombosis. There is no Casillas's cyst. IMPRESSION: No evidence of deep venous thrombosis involving the bilateral lower extremities.
[2017-11-16 16:00] VITALS: BP 120/58
[2017-11-16 23:00] VITALS: BP 110/48
--- NOTE | 2017-11-17 07:35 | PN- Resident CRCU ---
Osmani Mireles 11/17/17 0734: Subjective HPI/CRCU Issues: #End stage COPD/COPD Exacerbation #Chronic anemia due to CKD #Paroxysmal atrial fibrillation #HTN #CKD stage III 2/2 hypertensive nephrosclerosis #Anxiety #Squamous cell lung ca 24 Hour Events: Pt seen and examined at bedside today. She still reports dyspnea on exertion but her LE pain is improved from yesterday. Objective Vital Signs & I&O Last 8 Hrs of Vitals and I&O: Laboratory Tests 11/17/17 0630: Anion Gap 11, Estimated GFR 25 L, Glucose 146 H, Calcium 8.5, Phosphorus 4.3, Magnesium 2.1, Total Bilirubin 0.5, AST 27, ALT 24, Albumin 2.9 L, CBC w Diff MAN DIFF ORDERED, RBC 3.52 L, MCV 81.0, MCH 24.9 L, MCHC 30.7 L, RDW 21.3 H, MPV 9.5, Segmented Neutrophils Pending Vital Signs Date Time Temp Pulse Resp B/P B/P Pulse O2 O2 Flow FiO2 Mean Ox Delivery Rate 11/17 0956 72 130/50 11/17 0955 72 130/50 11/17 0857 97 Nasal 50% Cannula 11/17 0800 100 Nasal 50% Cannula 11/17 0800 97.8 72 24 130/50 100 Nasal 50% Cannula 11/17 0400 97 Nasal 50% Cannula 11/17 0103 98 Nasal 50% Cannula 11/17 0000 98 Nasal 50% Cannula 11/16 2300 97.3 78 14 110/48 98 Nasal 50% Cannula 11/16 2152 75 28 120/80 11/16 2000 97 Nasal 50% Cannula 11/16 1918 93 Nasal 50% Cannula 11/16 1600 96 Nasal 50% Cannula 11/16 1600 98.2 70 22 120/58 96 Nasal 50% Cannula 11/16 1200 98.7 66 24 136/60 97 Nasal 50% Cannula Intake & Output 11/17 1600 11/17 0800 11/17 0000 Intake Total 60 120 Output Total 800 400 Balance -740 -280 Intake, Oral 60 120 Number 0 1 Bowel Movements Output, Urine 800 400 Exam General Appearance: no apparent distress, alert, awake Head: atraumatic, normal appearance Neck: normal inspection, supple Respiratory: normal breath sounds, chest non-tender, respiratory distress (on exertion) Cardiovascular: regular rate/rhythm Gastrointestinal: normal bowel sounds, soft, non-tender, no organomegaly Extremities: normal inspection, normal capillary refill Cranial Nerves: normal hearing, normal speech Current Medications: Current Medications Sig/Noemy Start time Last Medication Dose Route Stop Time Status Admin Acetaminophen 650 MG Q8P PRN 11/07 2100 AC 11/15 PO 1635 Albuterol Sulfate 3 ML BID 11/08 2100 AC 11/17 INH 0847 Alprazolam 0.5 MG ONCE ONE 11/16 1445 DC 11/16 PO 11/16 1446 1442 Alprazolam 0.5 MG BID 11/15 0945 AC 11/17 PO 11/22 0944 0956 Aspirin 81 MG DAILY 11/08 0900 AC 11/17 PO 0956 Atorvastatin Calcium 40 MG 1700 11/08 1700 AC 11/16 PO 1627 Budesonide/ 2 PUF BID 11/08 1030 AC 11/17 Formoterol Fumarate INH 0956 Ezetimibe 10 MG DAILY 11/08 0900 AC 11/17 PO 0955 Furosemide 20 MG DAILY 11/17 0900 AC PO Heparin Sodium 5,000 UNIT Q8 11/07 2200 AC 11/17 (Porcine) SC 0637 Insulin Aspart 0 TIDAC 11/11 1700 AC 11/16 SC 1731 Levothyroxine Sodium 0.05 MG 0711/09 0700 AC 11/17 PO 0636 Metoprolol Succinate 50 MG DAILY 11/08 0900 AC 11/17 PO 0956 Mirtazapine 15 MG AT BEDTIME 11/08 0015 AC 11/16 PO 2154 Omeprazole 40 MG DAILY AC 11/09 0700 AC 11/17 PO 0636 Prednisone 20 MG DAILY 11/16 0900 AC 11/17 PO 0955 Ranolazine 1,000 MG BID 11/08 0002 AC 11/17 PO 0955 Senna/Docusate Sodium 1 TAB AT BEDTIME NEED.. 11/11 1133 AC 11/16 PO 1208 Sodium Bicarbonate 1,300 MG BID 11/16 1400 AC 11/17 PO 0955 US Findings: 11/17 EXAM TYPE: US - US-EXT BILAT VENOUS DOPPLER EXAMINATION: US TRIPLEX OF LOWER EXTREMITIES, BILATERAL CLINICAL INFORMATION: Bilateral lower extremity pain and tenderness COMPARISON: None TECHNIQUE: Color-flow triplex imaging with spectral analysis and compression Doppler were performed on the lower extremities. FINDINGS: Respiratory variation, normal compression and augmented flow are noted throughout the lower extremities. The visualized common femoral vein, superficial femoral vein, profunda femoral vein, popliteal vein and midcalf peroneal and posterior tibial venous segments show no evidence of deep venous thrombosis. There is no Casillas's cyst. IMPRESSION: No evidence of deep venous thrombosis involving the bilateral lower extremities. Impression/Plan Impression/Problem List Impression: 72 y/o F with a PMH of CAD, HTN, HLD, Squamous lung cell Ca, CKD, and paroxysmal afib not on anticoagulation due to previous GI bleed that presented to the ED c/ o progressive dyspnea after not achieving relief using her rescue inhaler. She was admitted to the telemetry unit with an admitting diagnosis of COPD exacerbation and subsequently transfered to the ICU for closer monitoring due to her desaturation on 11/13. ASSESSMENT AND PLAN #End stage COPD/COPD Exacerbation #Chronic anemia due to CKD #Paroxysmal atrial fibrillation #HTN #CKD stage III 2/2 hypertensive nephrosclerosis #Anxiety #Squamous cell lung ca End-stage COPD / COPD exacerbation/ Hypoxemic respiratory failure Pt with a chest CT (11/07) showing diffuse pulmonary emphysema with chronic interstitial pneumonitis. Prior admit show similar complains of SOB - her symptoms are most likely related to her severe emphysematous picture that is worsened by her heightened state of anxiety that induces hyperventilation as per pt. Pt is off antibiotics, her upward trending leukocytosis is most likely related to her steroid use, latest 25.2. Steroids have been switched to PO. F/u CXR reported no pneumonia findings. Patient still reporting dyspnea on exertion. 98% O2 sat on high flow 45% O2. Plan is to transfer to a pulmonary rehab facility. -TRC/Continue neb treatments -Symbicort 2 puffs q12 -Prednisone 20 mg PO Paroxysmal A-fib / HTN Pt currently off anticoagulation due to episodes of GI bleeding and chronic anemia due to CKD. Her BP has been controlled on metoprolol, cardiology is following. pt c/o leg pain/cramping, though no erythema is noted or pain is ellicited on palpation, patient does note improvement. B/L Venous doppler r/o DVT. -Off anticoag -Metoprolol 50 mg qDaily -Continue ASA/Statin/Ezetimibe Chronic Anemia due to CKD, s/p 1U PRBC Pt with Hb 8.7, baseline around 8-10. Most likely related to CKD rather than massive acute blood loss; She is on EPO at home, 1 dose was given during her admission. Next dose of EPO as per regular schedule if pt remains admitted. -f/u CBC CKD stage III 2/2 hypertensive nephrosclerosis Pt being followed by Dr. Cardoza, currently with K at 5.8, with a baseline Cr 1.5-2.2 and increasing BUN. Latest bicarb was 20 -- NaHCO3 1300 mg BID will be added. -<2g K in diet -Sodium Bicarb 1300 mg BID -Kayexalate PRN if K>5.7 -Continue trending -f/u nephros recommendation -Furosemide held Anxiety Pt described herself as a very anxious person, especially with regards to her overall health. She is currently on Alprazolam 0.5 mg at home. As per the pt, being in the ICU has increased her anxiety and feels discomfort as a result. Home dose of alprazolam restarted. -Alprazolam 0.5 mg BID Squamous cell lung CA S/p post gamma knife radiation, followed by Dr. Lomeli - latest visit received a referral to an oncologist to evaluate a new left-sided lung mass that was positive for malignancy on biopsy. DNR DVT PPX: ALPS, sq heparin Regular Diet Problem List: 1. COPD (chronic obstructive pulmonary disease) Pain Ratin Tomorrow's Labs & Rationales: cbc Plan DVT/Prophylaxis: mechanical, pharmacological Armani WILSON,Jean Claude 11/17/17 1701: Attending MD Review Statement Attending Sign Off Attending Cosign Statement: I have: examined this patient, [facility], personally reviewd images, discussd w/resident/PA/SPEED READING TEACHER, discussed mgmt plan w/navjot, discussed mgmt plan w/CM, discussed mgmt plan w/pt, agreed w/resident/PA/SPEED READING TEACHER, amended to note. Other Findings: Impression 72 year old woman ICU stay for hypoxemic acute on chronic respiratory failure leukocytosis squamous cell lung ca recently dx anemia ckd Plan -continue po prednisone -monitor wbc -remains on high flow oxygen, significant exertional dyspnea, 50% fio2 -off abx, can be reactive to steroids, will monitor off abx at this time, no evidence of pna at this time -nephrology follow up -bid xanax -trc/nebs -check LE dopplers DVT prophylaxis at all times DNR - NOT DNI TTS 35 min
[2017-11-17 08:00] VITALS: BP 130/50
--- NOTE | 2017-11-17 10:08 | PN- Cardiology ---
Subjective Subjective: The patient is awake, alert, feels improved from a respiratory standpoint The events of the last 24 hours as well as telemetry were reviewed. Review of Systems: The review of systems is negative for chest pains, palpitations nor lightheadedness. The remainder of the 14 point review of systems is noncontributory with the exception of above. Objective Vital Signs and I&Os Vital Signs Date Time Temp Pulse Resp B/P B/P Pulse O2 O2 Flow FiO2 Mean Ox Delivery Rate 11/17 0956 72 130/50 / 0955 72 130/50 / 0857 97 Nasal 50% Cannula 11/17 0800 100 Nasal 50% Cannula 11/17 0800 97.8 72 24 130/50 100 Nasal 50% Cannula 11/17 0400 97 Nasal 50% Cannula 11/17 0103 98 Nasal 50% Cannula 11/17 0000 98 Nasal 50% Cannula 11/16 2300 97.3 78 14 110/48 98 Nasal 50% Cannula 11/16 2152 75 28 120/80 11/16 2000 97 Nasal 50% Cannula 11/16 1918 93 Nasal 50% Cannula 11/16 1600 96 Nasal 50% Cannula 11/16 1600 98.2 70 22 120/58 96 Nasal 50% Cannula 11/16 1200 98.7 66 24 136/60 97 Nasal 50% Cannula Intake & Output 11/17 1600 11/17 0800 /18 0000 11/16 1600 11/16 0800 11/16 0000 Intake Total 60 120 560 200 240 Output Total 800 400 300 800 350 Balance -740 -280 260 -600 -110 Intake, Oral 60 120 560 200 240 Number 0 1 0 Bowel Movements Output, Urine 800 400 300 800 350 Patient 133 lb 133 lb Weight Weight Bed scale Measurement Method Physical Exam: General: Nontoxic, no apparent distress. HEENT: Sclera and conjunctiva within normal limits, without xanthelasmas. Neck: Carotids 2+ without bruits. Respiratory: Diffuse rhonchi, air movement is decreased throughout, without accessory respiratory muscle use. Heart: Regular rate and rhythm, without murmurs, without JVD. Abdomen: Soft, nontender, no masses, normoactive bowel sounds. Extremities: Without clubbing, cyanosis, without edema. Neuro: Nonfocal exam, strength, 5 out of 5 Skin: Within normal limits without lesions. Psych: Mood and affect: Normal Current Medications: Current Medications Sig/Noemy Start time Last Medication Dose Route Stop Time Status Admin Acetaminophen 650 MG Q8P PRN 11/07 2100 AC 11/15 PO 1635 Albuterol Sulfate 3 ML BID 11/08 2100 AC 11/17 INH 0847 Alprazolam 0.5 MG ONCE ONE 11/16 1445 DC 11/16 PO 11/16 1446 1442 Alprazolam 0.5 MG BID 11/15 0945 AC 11/17 PO 11/22 0944 0956 Aspirin 81 MG DAILY 11/08 0900 AC 11/17 PO 0956 Atorvastatin Calcium 40 MG 1700 11/08 1700 AC 11/16 PO 1627 Budesonide/ 2 PUF BID 11/08 1030 AC 11/17 Formoterol Fumarate INH 0956 Ezetimibe 10 MG DAILY 11/08 09 AC 11/17 PO 0955 Furosemide 20 MG DAILY 11/17 0900 AC PO Heparin Sodium 5,000 UNIT Q8 11/07 2200 AC 11/17 (Porcine) SC 0637 Insulin Aspart 0 TIDAC 11/11 1700 AC 11/16 SC 1731 Levothyroxine Sodium 0.05 MG 0711/09 0700 AC 11/17 PO 0636 Metoprolol Succinate 50 MG DAILY 11/08 09 AC 11/17 PO 0956 Mirtazapine 15 MG AT BEDTIME 11/08 0015 AC 11/16 PO 2154 Omeprazole 40 MG DAILY AC 11/09 0700 AC 11/17 PO 0636 Prednisone 20 MG DAILY 11/16 0900 AC 11/17 PO 0955 Ranolazine 1,000 MG BID 11/08 0002 AC 11/17 PO 0955 Senna/Docusate Sodium 1 TAB AT BEDTIME NEED.. 11/11 1133 AC 11/16 PO 1208 Sodium Bicarbonate 1,300 MG BID 11/16 1400 AC 11/17 PO 0955 Results Last 48 Hrs of Labs/Mics: Laboratory Tests 11/17/17 0630: Anion Gap 11, Estimated GFR 25 L, Glucose 146 H, Calcium 8.5, Phosphorus 4.3, Magnesium 2.1, Total Bilirubin 0.5, AST 27, ALT 24, Albumin 2.9 L, CBC w Diff Pending, WBC Pending, RBC Pending, Hgb Pending, Hct Pending, MCV Pending, MCH Pending, MCHC Pending, RDW Pending, Plt Count Pending, MPV Pending 11/16/17 0415: Anion Gap 11, Estimated GFR 21 L, Glucose 209 H, Calcium 8.6, Phosphorus 4.4, Magnesium 2.2, Total Bilirubin 0.5, AST 22, ALT 28, Albumin 3.2 L, CBC w Diff MAN DIFF ORDERED, RBC 3.63 L, MCV 81.4, MCH 25.2 L, MCHC 31.0 L, RDW 20.9 H, MPV 9.4, Segmented Neutrophils 86 H, Band Neutrophils 2, Lymphocytes 5 L, Monocytes 7, Nucleated RBCs 3 H, Platelet Estimate ADEQUATE, Polychromasia 1+ Assessment/Plan Assessment/Plan 72-year-old woman with a past medical history of coronary artery disease (PCI in 2000 in 2014, as well as drug-eluting stents to the RCA in 2016) COPD, social lung disease, lung CA status post gamma knife radiation, paroxysmal atrial fibrillation (not on anticoagulation secondary to GI bleeds and anemia), chronic kidney disease and hypertension. She presents to our hospital with symptoms of increasing severe dyspnea and weakness, which has been refractory to her rescue asthma inhalers. She has well has a noted approximate 10 pound weight gain over the past several weeks. Dyspnea: The patient presented with dyspnea which was most consistent with a combined underlying COPD exacerbation and likely increasing fluid overload. Following diuresis, she currently appears euvolemic and I would attempt to maintain the same. A recent echocardiogram performed demonstrated preserved LV systolic function, and a repeat of the same is currently not necessary. We will continue treatment aggressively as per pulmonary. Anemia: The patient has been receiving Procrit for her chronic anemia. She feels overall improved following a transfusion Atrial fibrillation: Patient has known atrial fibrillation and is not anticoagulated secondary to a history of GI bleeds and anemia. We will continue to maintain rate control. Continue telemetry? No
[2017-11-17 10:25] LABS: HEMATOCRIT 28.5 % (37-47); MEAN CORPUSCULAR HGB 24.9 PG (27.0-31.0); MEAN CORPUSCULAR HGB CONC 30.7 G/DL (33.0-37.0); MEAN PLATELET VOLUME 9.5 FL (7.4-10.4); PLATELET COUNT 354 /CUMM (130-400); RBC DISTRIBUTION WIDTH 21.3 % (11.5-14.5); RED BLOOD CELL CT 3.52 /CUMM (4.20-5.40); WHITE BLOOD CELL COUNT 25.7 /CUMM (4.8-10.8)
--- NOTE | 2017-11-17 10:38 | PN- Nephrology ---
Assessment/Plan Nephrology Assessment: Stage III CKD - 2/2 hypertensive nephrosclerosis - baseline SCr is 1.5-2.2. The fact that she was just above the upper end of her normal may be 2/2 relative intravascular volume depletion (was on QOD lasix as an outpatient and had gotten daily here) - now her SCr has improved with holding her lasix for a day. Discussed with her that given her severe lung disease, there may need to be some tradeoff in terms of worsened renal function for improved pulmonary function. I think it'd be reasonable to hold diuretics again today. Hyperkalemia - Tendency in the past and currently likely 2/2 catabolic state. On supplemental bicarb. Anemia - On outpatient epogen which she received on 11/08 and gets q3 weeks - target Hg 10-11. Suggestion: -Hold lasix today - please check with me tomorrow before ordering lasix -PRN kayexalate for K>5.7 -Cont sodium bicarb 1300mg BID -Will need next dose of Epogen when due if remains in-house (gets q3 weeks) Please call [phone] with ?'s Subjective Subjective: SCr 2.0 1500cc UOP Last dose of lasix on 11/15 Breathing OK Objective Vital Signs and I&Os Vital Signs Date Time Temp Pulse Resp B/P B/P Pulse O2 O2 Flow FiO2 Mean Ox Delivery Rate 11/17 0956 72 130/50 11/17 0955 72 130/50 11/17 0857 97 Nasal 50% Cannula 11/17 0800 100 Nasal 50% Cannula 11/17 0800 97.8 72 24 130/50 100 Nasal 50% Cannula 11/17 0400 97 Nasal 50% Cannula 11/17 0103 98 Nasal 50% Cannula 11/17 0000 98 Nasal 50% Cannula 11/16 2300 97.3 78 14 110/48 98 Nasal 50% Cannula 11/16 2152 75 28 120/80 11/16 2000 97 Nasal 50% Cannula 11/16 1918 93 Nasal 50% Cannula 11/16 1600 96 Nasal 50% Cannula 11/16 1600 98.2 70 22 120/58 96 Nasal 50% Cannula 11/16 1200 98.7 66 24 136/60 97 Nasal 50% Cannula Intake & Output 11/17 1600 11/17 0400 11/16 1600 11/16 0400 11/15 1600 11/15 0400 Intake Total 60 120 760 240 460 780 Output Total 747 792 9955 350 1000 1000 Balance -740 -280 -340 -110 -540 -220 Intake, IV 280 Intake, Oral 60 120 760 240 460 500 Number 0 1 0 0 Bowel Movements Output, Urine 371 272 9488 350 1000 1000 Patient 133 lb Weight Weight Bed scale Measurement Method Physical Exam: Gen - OK appearing HEENT - supple, on high flow nasal cannula CV - RRR, no m/r/g Chest - decreased BS b/l, no w/r/r Abd - soft, NTND Ext - warm, no edema Neuro - AOX3, grossly nonfocal Current Medications: Current Medications Sig/Noemy Start time Last Medication Dose Route Stop Time Status Admin Acetaminophen 650 MG Q8P PRN 11/07 2100 AC 11/15 PO 1635 Albuterol Sulfate 3 ML BID 11/08 2100 AC 11/17 INH 0847 Alprazolam 0.5 MG ONCE ONE 11/16 1445 DC 11/16 PO 11/16 1446 1442 Alprazolam 0.5 MG BID 11/15 0945 AC 11/17 PO 11/22 0944 0956 Aspirin 81 MG DAILY 11/08 09 AC 11/17 PO 0956 Atorvastatin Calcium 40 MG 1700 11/08 1700 AC 11/16 PO 1627 Budesonide/ 2 PUF BID 11/08 1030 AC 11/17 Formoterol Fumarate INH 0956 Ezetimibe 10 MG DAILY 11/08 09 AC 11/17 PO 0955 Furosemide 20 MG DAILY 11/17 0900 AC PO Heparin Sodium 5,000 UNIT Q8 11/07 2200 AC 11/17 (Porcine) MD 0637 Insulin Aspart 0 TIDAC 11/11 1700 AC 11/16 SC 1731 Levothyroxine Sodium 0.05 MG 11/09 07 AC 11/17 PO 0636 Metoprolol Succinate 50 MG DAILY 11/08 899 AC 11/17 PO 0956 Mirtazapine 15 MG AT BEDTIME 11/08 0015 AC 11/16 PO 2154 Omeprazole 40 MG DAILY AC 11/09 07 AC 11/17 PO 0636 Prednisone 20 MG DAILY 11/16 09 AC 11/17 PO 0955 Ranolazine 1,000 MG BID 11/08 0002 AC 11/17 PO 0955 Senna/Docusate Sodium 1 TAB AT BEDTIME NEED.. 11/11 1133 AC 11/16 PO 1208 Sodium Bicarbonate 1,300 MG BID 11/16 1400 AC 11/17 PO 0955 Results Pertinent Lab Results: Laboratory Tests 11/17 11/16 0630 0415 Chemistry Sodium (137 - 145 mmol/L) 141 139 Potassium (3.5 - 5.1 mmol/L) 5.3 H 5.2 H Chloride (98 - 107 mmol/L) 110 H 106 Carbon Dioxide (22 - 30 mmol/L) 19 L 22 Anion Gap (5 - 16) 11 11 BUN (7 - 17 mg/dL) 63 H 68 H Creatinine (0.5 - 1.0 mg/dL) 2.0 H 2.3 H Estimated GFR (>60 ml/min) 25 L 21 L Glucose (65 - 99 mg/dL) 146 H 209 H Calcium (8.4 - 10.2 mg/dL) 8.5 8.6 Phosphorus (2.5 - 4.5 mg/dL) 4.3 4.4 Magnesium (1.6 - 2.3 mg/dL) 2.1 2.2 Total Bilirubin (0.2 - 1.3 mg/dL) 0.5 0.5 AST (14 - 36 U/L) 27 22 ALT (9 - 52 U/L) 24 28 Albumin (3.5 - 5.0 g/dL) 2.9 L 3.2 L Hematology CBC w Diff MAN DIFF ORDERED MAN DIFF ORDERED WBC (4.8 - 10.8 /CUMM) 25.7 H 27.0 H RBC (4.20 - 5.40 /CUMM) 3.52 L 3.63 L Hgb (12.0 - 16.0 G/DL) 8.7 L 9.2 L Hct (37 - 47 %) 28.5 L 29.5 L MCV (81.0 - 99.0 FL) 81.0 81.4 MCH (27.0 - 31.0 PG) 24.9 L 25.2 L MCHC (33.0 - 37.0 G/DL) 30.7 L 31.0 L RDW (11.5 - 14.5 %) 21.3 H 20.9 H Plt Count (130 - 400 /CUMM) 354 355 MPV (7.4 - 10.4 FL) 9.5 9.4 Segmented Neutrophils (42.2 - 75.2 %) Pending 86 H Band Neutrophils (0.0 - 5.0 %) 2 Lymphocytes (20.5 - 51.1 %) 5 L Monocytes (1.7 - 9.3 %) 7 Nucleated RBCs (0.0 - 0.0 /100WBC) 3 H Platelet Estimate (ADEQUATE) ADEQUATE Polychromasia 111/1515 0600 1700 Chemistry Sodium (137 - 145 mmol/L) 138 Potassium (3.5 - 5.1 mmol/L) 5.8 H Chloride (98 - 107 mmol/L) 106 Carbon Dioxide (22 - 30 mmol/L) 20 L Anion Gap (5 - 16) 11 BUN (7 - 17 mg/dL) 67 H Creatinine (0.5 - 1.0 mg/dL) 2.1 H Estimated GFR (>60 ml/min) 23 L Glucose (65 - 99 mg/dL) 231 H Calcium (8.4 - 10.2 mg/dL) 8.4 Phosphorus (2.5 - 4.5 mg/dL) 5.5 H Magnesium (1.6 - 2.3 mg/dL) 2.1 Total Bilirubin (0.2 - 1.3 mg/dL) 0.4 AST (14 - 36 U/L) 20 ALT (9 - 52 U/L) 27 Albumin (3.5 - 5.0 g/dL) 2.8 L Hematology CBC w Diff MAN DIFF ORDERED WBC (4.8 - 10.8 /CUMM) 22.3 H RBC (4.20 - 5.40 /CUMM) 3.13 L Hgb (12.0 - 16.0 G/DL) 8.0 L Hct (37 - 47 %) 25.6 L MCV (81.0 - 99.0 FL) 81.7 MCH (27.0 - 31.0 PG) 25.4 L MCHC (33.0 - 37.0 G/DL) 31.1 L RDW (11.5 - 14.5 %) 20.5 H Plt Count (130 - 400 /CUMM) 326 MPV (7.4 - 10.4 FL) 9.5 Segmented Neutrophils (42.2 - 75.2 %) 95 H Lymphocytes (20.5 - 51.1 %) 2 L Monocytes (1.7 - 9.3 %) 3 Nucleated RBCs (0.0 - 0.0 /100WBC) 1 H Platelet Estimate (ADEQUATE) ADEQUATE Polychromasia 1+ Hypochromic-Microcytic 1+ Basophilic Stippling RARE Anisocytosis 1+ Urines Urine Color (YEL,AMB,STR) YEL Urine Clarity (CLEAR) CLEAR Urine pH (5.0 - 8.0) 6.0 Ur Specific [place] (1.001 - 1.035) 1.020 Urine Protein (NEG,<30 MG/DL) NEG Urine Ketones (NEG) NEG Urine Nitrite (NEG) NEG Urine Bilirubin (NEG) NEG Urine Urobilinogen (0.1 - 1.0 EU/dl) 0.2 Ur Leukocyte Esterase (NEG) NEG Ur Microscopic EXAM NOT REQUIRED Urine Hemoglobin (NEG) NEG Urine Glucose (N MG/DL) 100 H Imaging/Other Studies: None new
[2017-11-17 12:00] VITALS: BP 90/50
[2017-11-17 16:00] VITALS: BP 104/58
[2017-11-17 23:00] VITALS: BP 110/48
[2017-11-18 05:38] LABS: RED BLOOD CELL CT 3.34 /CUMM (4.20-5.40)
[2017-11-18 05:47] LABS: HEMATOCRIT 27.2 % (37-47); MEAN CORPUSCULAR HGB 25.4 PG (27.0-31.0); MEAN CORPUSCULAR HGB CONC 31.1 G/DL (33.0-37.0); MEAN CORPUSCULAR VOLUME 81.4 FL (81.0-99.0); MEAN PLATELET VOLUME 9.7 FL (7.4-10.4); PLATELET COUNT 306 /CUMM (130-400); RBC DISTRIBUTION WIDTH 21.1 % (11.5-14.5); WHITE BLOOD CELL COUNT 22.2 /CUMM (4.8-10.8)
--- NOTE | 2017-11-18 07:39 | PN- Resident CRCU ---
Osmani Mireles 11/18/17 0739: Subjective HPI/CRCU Issues: #End stage COPD/COPD Exacerbation #Chronic anemia due to CKD #Paroxysmal atrial fibrillation #HTN #CKD stage III 2/2 hypertensive nephrosclerosis #Anxiety #Squamous cell lung ca 24 Hour Events: Pt seen and examined at bedside. Dyspnea on exertion remains the same, pt states feeling at her baseline. No other acute complains. Objective Vital Signs & I&O Last 8 Hrs of Vitals and I&O: Laboratory Tests 11/18/17 0438: Anion Gap 12, Estimated GFR 28 L, Glucose 111 H, Calcium 8.7, Phosphorus 4.2, Magnesium 2.0, Total Bilirubin 0.6, AST 21, ALT 32, Albumin 3.0 L, CBC w Diff MAN DIFF ORDERED, RBC 3.34 L, MCV 81.4, MCH 25.4 L, MCHC 31.1 L, RDW 21.1 H, MPV 9.7, Segmented Neutrophils 92 H, Band Neutrophils 2, Lymphocytes 5 L, Monocytes 1 L, Platelet Estimate ADEQUATE, Hypochromic-Microcytic 2+, Anisocytosis 1+, Schistocytes 1+ Vital Signs Date Time Temp Pulse Resp B/P B/P Pulse O2 O2 Flow FiO2 Mean Ox Delivery Rate 11/18 0916 66 124/52 11/18 0916 66 124/52 11/18 0800 99 Nasal 50% Cannula 11/18 0800 98.6 66 24 124/52 99 Nasal 50% Cannula 11/18 0400 99 Nasal 50% Cannula 11/18 0058 100 Nasal 50% Cannula 11/18 0000 99 Nasal 50% Cannula 11/17 2300 97.0 81 14 110/48 99 Nasal 50% Cannula 11/17 2152 84 28 110/60 11/17 2110 98 Nasal 50% Cannula 11/17 2000 97 Nasal 50% Cannula 11/17 1600 98 Nasal 50% Cannula 11/17 1600 97.8 81 18 104/58 98 Nasal 50% Cannula 11/17 1200 99 Nasal 50% Cannula 11/17 1200 97.3 73 21 90/50 99 Nasal 50% Cannula Intake & Output 11/18 1600 11/18 0800 11/18 0000 Intake Total 120 120 Output Total 800 400 Balance -680 -280 Intake, Oral 120 120 Number 0 2 Bowel Movements Output, Urine 800 400 Patient 134 lb Weight Weight Bed scale Measurement Method Intake & Output 11/18 1600 Intake Total Output Total Balance Patient 134 lb Weight Weight Bed scale Measurement Method Exam General Appearance: no apparent distress, alert, awake Head: atraumatic, normal appearance Neck: normal inspection, supple Respiratory: chest non-tender, quiet respiration, respiratory distress on exertion Cardiovascular: regular rate/rhythm, normal peripheral pulses Gastrointestinal: normal bowel sounds, soft, non-tender, no organomegaly Extremities: normal inspection, normal capillary refill Current Medications: Current Medications Sig/Noemy Start time Last Medication Dose Route Stop Time Status Admin Acetaminophen 650 MG Q8P PRN 11/07 2100 AC 11/15 PO 1635 Albuterol Sulfate 3 ML BID 11/08 2100 AC 11/18 INH 1056 Alprazolam 0.5 MG BID 11/15 0945 AC 11/18 PO 11/22 0944 1035 Aspirin 81 MG DAILY 11/08 0900 AC 11/18 PO 0917 Atorvastatin Calcium 40 MG 1700 11/08 1700 AC 11/17 PO 1635 Budesonide/ 2 PUF BID 11/08 1030 AC 11/18 Formoterol Fumarate INH 0917 Ezetimibe 10 MG DAILY 11/08 0900 AC 11/18 PO 0916 Furosemide 20 MG DAILY 11/17 0900 DC PO Heparin Sodium 5,000 UNIT Q8 11/07 2200 AC 11/18 (Porcine) SC 0632 Insulin Aspart 0 TIDAC 11/11 1700 AC 11/17 SC 1636 Levothyroxine Sodium 0.05 MG 0700 11/09 0700 AC 11/18 PO 0632 Metoprolol Succinate 50 MG DAILY 11/08 0900 AC 11/18 PO 0916 Mirtazapine 15 MG AT BEDTIME 11/08 0015 AC 11/17 PO 2153 Omeprazole 40 MG DAILY AC 11/09 0700 AC 11/18 PO 0632 Prednisone 20 MG DAILY 11/16 0900 AC 11/18 PO 0917 Ranolazine 1,000 MG BID 11/08 0002 AC 11/18 PO 0916 Senna/Docusate Sodium 1 TAB AT BEDTIME NEED.. 11/11 1133 AC 11/16 PO 1208 Sodium Bicarbonate 1,300 MG BID 11/16 1400 AC 11/18 PO 0916 Impression/Plan Impression/Problem List Impression: 72 y/o F with a PMH of CAD, HTN, HLD, Squamous lung cell Ca, CKD, and paroxysmal afib not on anticoagulation due to previous GI bleed that presented to the ED c/ o progressive dyspnea after not achieving relief using her rescue inhaler. She was admitted to the telemetry unit with an admitting diagnosis of COPD exacerbation and subsequently transfered to the ICU for closer monitoring due to her desaturation on 11/13. ASSESSMENT AND PLAN #End stage COPD/COPD Exacerbation #Chronic anemia due to CKD #Paroxysmal atrial fibrillation #HTN #CKD stage III 2/2 hypertensive nephrosclerosis #Anxiety #Squamous cell lung ca End-stage COPD / COPD exacerbation/ Hypoxemic respiratory failure Pt with a chest CT (11/07) showing diffuse pulmonary emphysema with chronic interstitial pneumonitis. Prior admit show similar complains of SOB - her symptoms are most likely related to her severe emphysematous picture that is worsened by her heightened state of anxiety that induces hyperventilation as per pt. Pt is off antibiotics, leukocytosis is most likely related to her steroid use; WBC stabilizing and slowly on the downtrend. Steroids have been switched to PO. F/u CXR reported no pneumonia findings. Currently patient is not in respiratory distress at rest buton significant distress on exertion. with 98% O2 sat on high flow 50% O2. -TRC/Continue neb treatments -Symbicort 2 puffs q12 -Prednisone 20mg PO Paroxysmal A-fib / HTN Pt currently off anticoagulation due to episodes of GI bleeding and chronic anemia due to CKD. Her BP has been controlled on metoprolol, cardiology is following. pt c/o leg pain/cramping, though no erythema is noted or pain is ellicited on palpation. B/L showed no evidence of DVT. -Off anticoag -Metoprolol 50 mg qDaily -Continue ASA/Statin/Ezetimibe Chronic Anemia due to CKD, s/p 1U PRBC Pt with Hb 8.8, baseline around 8-10. Most likely related to CKD rather than massive acute blood loss. She is on EPO at home, 1 dose was given during her admission. Next dose of EPO as per regular schedule should pt remains admitted. -f/u CBC CKD stage III 2/2 hypertensive nephrosclerosis Pt being followed by Nephro, currently with K at 5.8, with a baseline Cr 1.5-2.2 and increasing BUN. -Sodium Bicarb 1300 mg BID -Kayexalate PRN if K>5.7 -Continue trending -f/u nephros recommendation Anxiety Pt described herself as a very anxious person, especially with regards to her overall health. She is currently on Alprazolam 0.5 mg at home. As per the pt, being in the ICU has increased her anxiety and feels discomfort as a result. Home dose of alprazolam restarted. -Alprazolam 0.5 mg BID Squamous cell lung CA S/p post gamma knife radiation, followed by Dr. Lomeli - latest visit received a referral to an oncologist to evaluate a new left-sided lung mass that was positive for malignancy on biopsy. DNR DVT PPX: ALPS, sq heparin Regular Diet Problem List: 1. COPD (chronic obstructive pulmonary disease) 2. Anemia Pain Ratin Tomorrow's Labs & Rationales: cbc icu lab bundle Plan DVT/Prophylaxis: mechanical, pharmacological Armani WILSON,Jean Claude 11/18/17 1008: Attending MD Review Statement Attending Sign Off Attending Cosign Statement: I have: examined this patient, reviewed [employer] EMR data, personally reviewd images, discussd w/resident/PA/SALES PLANNING COORDINATOR, discussed mgmt plan w/navjot, discussed mgmt plan w/CM, discussed mgmt plan w/pt, agreed w/resident/PA/SALES PLANNING COORDINATOR, amended to note. Other Findings: Impression 72 year old woman ICU stay for hypoxemic acute on chronic respiratory failure leukocytosis squamous cell lung ca recently dx anemia ckd Plan -continue po prednisone -monitor wbc - trending down -remains on high flow oxygen, significant exertional dyspnea, 50% fio2 -off abx, can be reactive to steroids, will monitor off abx at this time, no evidence of pna at this time -nephrology follow up -bid xanax -trc/nebs DVT prophylaxis at all times DNR - NOT DNI TTS 35 min Awaiting transfer to [place] for pulmonary rehab
[2017-11-18 08:00] VITALS: BP 124/52
--- NOTE | 2017-11-18 09:15 | PN- Cardiology ---
Subjective Subjective: Patient remains comfortable. No cardiac issues overnight. Remains in sinus rhythm. Objective Vital Signs and I&Os Vital Signs Date Time Temp Pulse Resp B/P B/P Pulse O2 O2 Flow FiO2 Mean Ox Delivery Rate 11/18 0800 99 Nasal 50% Cannula 11/18 0800 98.6 66 24 124/52 99 Nasal 50% Cannula 11/18 0400 99 Nasal 50% Cannula 11/18 0058 100 Nasal 50% Cannula 11/18 0000 99 Nasal 50% Cannula 11/17 2300 97.0 81 14 110/48 99 Nasal 50% Cannula 11/17 2152 84 28 110/60 11/17 2110 98 Nasal 50% Cannula 11/17 2000 97 Nasal 50% Cannula 11/17 1600 98 Nasal 50% Cannula 11/17 1600 97.8 81 18 104/58 98 Nasal 50% Cannula 11/17 1200 99 Nasal 50% Cannula 11/17 1200 97.3 73 21 90/50 99 Nasal 50% Cannula 11/17 0956 72 130/50 11/17 0955 72 130/50 Intake & Output 11/18 1600 11/18 0800 11/18 0000 11/17 1600 11/17 0800 11/17 0000 Intake Total 120 120 600 60 120 Output Total 800 400 500 800 400 Balance -680 -280 100 -740 -280 Intake, Oral 120 120 600 60 120 Number 0 2 0 0 1 Bowel Movements Output, Urine 800 400 500 800 400 Patient 134 lb Weight Weight Bed scale Measurement Method Physical Exam: Physical exam patient appeared comfortable. Head normocephalic atraumatic Eyes sclera anicteric conjunctiva showed no pallor extraocular muscles were normal Neck no jugular vein distention no thyroid masses no palpable nodes Chest bilateral fine crackles Heart regular rhythm with a grade 1-2 6 systolic murmur Abdomen soft no organomegaly Extremities no clubbing cyanosis or edema. Neurological no gross motor or sensory deficits Current Medications: Current Medications Sig/Noemy Start time Last Medication Dose Route Stop Time Status Admin Acetaminophen 650 MG Q8P PRN 11/07 2099 AC 11/15 PO 1635 Albuterol Sulfate 3 ML BID 11/08 2099 AC 11/17 INH 2106 Alprazolam 0.5 MG BID 11/15 0845 AC 11/17 PO 11/22 0944 2152 Aspirin 81 MG DAILY 11/08 899 AC 11/17 PO 0956 Atorvastatin Calcium 40 MG 1700 07/09 1700 AC 11/17 PO 1635 Budesonide/ 2 PUF BID 11/08 1030 AC 11/17 Formoterol Fumarate INH 2154 Ezetimibe 10 MG DAILY 11/08 0900 AC 11/17 PO 0955 Furosemide 20 MG DAILY 11/17 0900 DC PO Heparin Sodium 5,000 UNIT Q8 11/07 2200 AC 11/18 (Porcine) SC 0632 Insulin Aspart 0 TIDAC 11/11 1700 AC 11/17 SC 1636 Levothyroxine Sodium 0.05 MG 11/09 07 AC 11/18 PO 0632 Metoprolol Succinate 50 MG DAILY 11/08 09 AC 11/17 PO 0956 Mirtazapine 15 MG AT BEDTIME 11/08 0015 AC 11/17 PO 2153 Omeprazole 40 MG DAILY AC 11/09 07 AC 11/18 PO 0632 Prednisone 20 MG DAILY 11/16 0900 AC 11/17 PO 0955 Ranolazine 1,000 MG BID 11/08 0002 AC 11/17 PO 2152 Senna/Docusate Sodium 1 TAB AT BEDTIME NEED.. 11/11 1133 AC 11/16 PO 1208 Sodium Bicarbonate 1,300 MG BID 11/16 1400 AC 11/17 PO 2152 Results Last 48 Hrs of Labs/Mics: Laboratory Tests 11/18/17 0438: Anion Gap 12, Estimated GFR 28 L, Glucose 111 H, Calcium 8.7, Phosphorus 4.2, Magnesium 2.0, Total Bilirubin 0.6, AST 21, ALT 32, Albumin 3.0 L, CBC w Diff MAN DIFF ORDERED, RBC 3.34 L, MCV 81.4, MCH 25.4 L, MCHC 31.1 L, RDW 21.1 H, MPV 9.7, Segmented Neutrophils 92 H, Band Neutrophils 2, Lymphocytes 5 L, Monocytes 1 L, Platelet Estimate ADEQUATE, Hypochromic-Microcytic 2+, Anisocytosis 1+, Schistocytes 1+ 11/17/17 0630: Anion Gap 11, Estimated GFR 25 L, Glucose 146 H, Calcium 8.5, Phosphorus 4.3, Magnesium 2.1, Total Bilirubin 0.5, AST 27, ALT 24, Albumin 2.9 L, CBC w Diff MAN DIFF ORDERED, RBC 3.52 L, MCV 81.0, MCH 24.9 L, MCHC 30.7 L, RDW 21.3 H, MPV 9.5, Segmented Neutrophils 94 H, Band Neutrophils 1, Lymphocytes 2 L, Monocytes 2, Metamyelocytes 1, Platelet Estimate VERIFIED BY SMEAR, Polychromasia 1+, Poikilocytosis 1+, Anisocytosis 1+, Ovalocytes 1+ Assessment/Plan Assessment/Plan In summary this 72-year-old female has the following [id number] woman with a past medical history of coronary artery disease (PCI in 2001 in 2014, as well as drug-eluting stents to the RCA in 2016) COPD, social lung disease, lung CA status post gamma knife radiation, paroxysmal atrial fibrillation (not on anticoagulation secondary to GI bleeds and anemia), chronic kidney disease and hypertension. She presents to our hospital with symptoms of increasing severe dyspnea and weakness, which has been refractory to her rescue asthma inhalers. She has well has a noted approximate 10 pound weight gain over the past several weeks. Dyspnea: The patient presented with dyspnea which was most consistent with a combined underlying COPD exacerbation and less likely increasing fluid overload. Following diuresis, she currently appears euvolemic and I would attempt to maintain the same. I suspect his dyspnea is mainly related to COPD, interstitial lung disease, lung cancer. A recent echocardiogram performed demonstrated preserved LV systolic function, and a repeat of the same is currently not necessary. We will continue treatment aggressively as per pulmonary. Anemia: The patient has been receiving Procrit for her chronic anemia. She feels overall improved following a transfusion Atrial fibrillation: Patient has known paroxysmal atrial fibrillation and is not anticoagulated secondary to a history of GI bleed. Amiodarone was recently stopped. Continued to maintain beta-blockers. Continue telemetry? Yes
[2017-11-18 12:00] VITALS: BP 112/58
--- NOTE | 2017-11-18 12:39 | PN- Nephrology ---
Assessment/Plan Nephrology Assessment: Stage III CKD - 2/2 hypertensive nephrosclerosis - baseline SCr is 1.5-2.2. The fact that she was just above the upper end of her normal may be 2/2 relative intravascular volume depletion (was on QOD lasix as an outpatient and had gotten daily here) - now her SCr has improved with holding her lasix. Discussed with her that given her severe lung disease, there may need to be some tradeoff in terms of worsened renal function for improved pulmonary function. I think it'd be reasonable to hold diuretics again today. Hyperkalemia - Tendency in the past and currently likely 2/2 catabolic state. On supplemental bicarb. Anemia - On outpatient epogen which she received on 11/08 and gets q3 weeks - target Hg 10-11. Suggestion: -Restart every other day PO lasix 20mg starting tomorrow -PRN kayexalate for K>5.7 -Cont sodium bicarb 1300mg BID -Will need next dose of Epogen when due if remains in-house (gets q3 weeks) Please call [phone] with ?'s Subjective Subjective: SCr 1.8 Lasix being held Breathing OK Objective Vital Signs and I&Os Vital Signs Date Time Temp Pulse Resp B/P B/P Pulse O2 O2 Flow FiO2 Mean Ox Delivery Rate 11/18 0916 66 124/52 11/18 0916 66 124/52 11/18 0800 99 Nasal 50% Cannula 11/18 0800 98.6 66 24 124/52 99 Nasal 50% Cannula 11/18 0400 99 Nasal 50% Cannula 11/18 0058 100 Nasal 50% Cannula 11/18 0000 99 Nasal 50% Cannula 11/17 2300 97.0 81 14 110/48 99 Nasal 50% Cannula 11/17 2152 84 28 110/60 11/17 2110 98 Nasal 50% Cannula 11/17 2000 97 Nasal 50% Cannula 11/17 1600 98 Nasal 50% Cannula 11/17 1600 97.8 81 18 104/58 98 Nasal 50% Cannula Intake & Output 11/18 1600 11/18 0400 11/17 1600 11/17 0400 11/16 1600 11/16 0400 Intake Total 120 120 660 120 760 240 Output Total 128 801 8020 400 1100 350 Balance -680 -280 -640 -280 -340 -110 Intake, Oral 120 120 660 120 760 240 Number 0 2 0 1 0 Bowel Movements Output, Urine 279 262 2277 400 1100 350 Patient 134 lb 133 lb Weight Weight Bed scale Bed scale Measurement Method Physical Exam: Gen - ok appearing HEENT - supple CV - RRR, no m/r/g Chest - clear, no w/r/r Abd - soft, NTND Ext - warm, no edema Neuro - AOX3, grossly nonfocal Current Medications: Current Medications Sig/Noemy Start time Last Medication Dose Route Stop Time Status Admin Acetaminophen 650 MG Q8P PRN 11/07 2100 AC 11/15 PO 1635 Albuterol Sulfate 3 ML BID 11/08 2100 AC 11/18 INH 1056 Alprazolam 0.5 MG BID 11/15 0945 AC 11/18 PO 11/22 0944 1035 Aspirin 81 MG DAILY 11/08 09 AC 11/18 PO 0917 Atorvastatin Calcium 40 MG 1700 11/08 1700 AC 11/17 PO 1635 Budesonide/ 2 PUF BID 11/08 1030 AC 11/18 Formoterol Fumarate INH 0917 Ezetimibe 10 MG DAILY 11/08 09 AC 11/18 PO 0916 Furosemide 20 MG DAILY 11/17 0900 DC PO Heparin Sodium 5,000 UNIT Q8 11/07 2200 AC 11/18 (Porcine) SC 0632 Insulin Aspart 0 TIDAC 11/11 1700 AC 11/17 SC 1636 Levothyroxine Sodium 0.05 MG 0711/09 0700 AC 11/18 PO 0632 Metoprolol Succinate 50 MG DAILY 11/08 09 AC 11/18 PO 0916 Mirtazapine 15 MG AT BEDTIME 11/08 0015 AC 11/17 PO 2153 Omeprazole 40 MG DAILY AC 11/09 07 AC 11/18 PO 0632 Prednisone 20 MG DAILY 11/16 0900 AC 11/18 PO 0917 Ranolazine 1,000 MG BID 11/08 0002 AC 11/18 PO 0916 Senna/Docusate Sodium 1 TAB AT BEDTIME NEED.. 11/11 1133 AC 11/16 PO 1208 Sodium Bicarbonate 1,300 MG BID 11/16 1400 AC 11/18 PO 0916 Results Pertinent Lab Results: Laboratory Tests 11/18 11/17 0438 0630 Chemistry Sodium (137 - 145 mmol/L) 141 141 Potassium (3.5 - 5.1 mmol/L) 5.1 5.3 H Chloride (98 - 107 mmol/L) 108 H 110 H Carbon Dioxide (22 - 30 mmol/L) 21 L 19 L Anion Gap (5 - 16) 12 11 BUN (7 - 17 mg/dL) 55 H 63 H Creatinine (0.5 - 1.0 mg/dL) 1.8 H 2.0 H Estimated GFR (>60 ml/min) 28 L 25 L Glucose (65 - 99 mg/dL) 111 H 146 H Calcium (8.4 - 10.2 mg/dL) 8.7 8.5 Phosphorus (2.5 - 4.5 mg/dL) 4.2 4.3 Magnesium (1.6 - 2.3 mg/dL) 2.0 2.1 Total Bilirubin (0.2 - 1.3 mg/dL) 0.6 0.5 AST (14 - 36 U/L) 21 27 ALT (9 - 52 U/L) 32 24 Albumin (3.5 - 5.0 g/dL) 3.0 L 2.9 L Hematology CBC w Diff MAN DIFF ORDERED MAN DIFF ORDERED WBC (4.8 - 10.8 /CUMM) 22.2 H 25.7 H RBC (4.20 - 5.40 /CUMM) 3.34 L 3.52 L Hgb (12.0 - 16.0 G/DL) 8.5 L 8.7 L Hct (37 - 47 %) 27.2 L 28.5 L MCV (81.0 - 99.0 FL) 81.4 81.0 MCH (27.0 - 31.0 PG) 25.4 L 24.9 L MCHC (33.0 - 37.0 G/DL) 31.1 L 30.7 L RDW (11.5 - 14.5 %) 21.1 H 21.3 H Plt Count (130 - 400 /CUMM) 306 354 MPV (7.4 - 10.4 FL) 9.7 9.5 Segmented Neutrophils (42.2 - 75.2 %) 92 H 94 H Band Neutrophils (0.0 - 5.0 %) 2 1 Lymphocytes (20.5 - 51.1 %) 5 L 2 L Monocytes (1.7 - 9.3 %) 1 L 2 Metamyelocytes (0.0 - 1.0 %) 1 Platelet Estimate (ADEQUATE) ADEQUATE VERIFIED BY SMEAR Polychromasia 1+ Hypochromic-Microcytic 2+ Poikilocytosis 1+ Anisocytosis 1+ 1+ Ovalocytes 1+ Schistocytes 1+ 11/16 0415 Chemistry Sodium (137 - 145 mmol/L) 139 Potassium (3.5 - 5.1 mmol/L) 5.2 H Chloride (98 - 107 mmol/L) 106 Carbon Dioxide (22 - 30 mmol/L) 22 Anion Gap (5 - 16) 11 BUN (7 - 17 mg/dL) 68 H Creatinine (0.5 - 1.0 mg/dL) 2.3 H Estimated GFR (>60 ml/min) 21 L Glucose (65 - 99 mg/dL) 209 H Calcium (8.4 - 10.2 mg/dL) 8.6 Phosphorus (2.5 - 4.5 mg/dL) 4.4 Magnesium (1.6 - 2.3 mg/dL) 2.2 Total Bilirubin (0.2 - 1.3 mg/dL) 0.5 AST (14 - 36 U/L) 22 ALT (9 - 52 U/L) 28 Albumin (3.5 - 5.0 g/dL) 3.2 L Hematology CBC w Diff MAN DIFF ORDERED WBC (4.8 - 10.8 /CUMM) 27.0 H RBC (4.20 - 5.40 /CUMM) 3.63 L Hgb (12.0 - 16.0 G/DL) 9.2 L Hct (37 - 47 %) 29.5 L MCV (81.0 - 99.0 FL) 81.4 MCH (27.0 - 31.0 PG) 25.2 L MCHC (33.0 - 37.0 G/DL) 31.0 L RDW (11.5 - 14.5 %) 20.9 H Plt Count (130 - 400 /CUMM) 355 MPV (7.4 - 10.4 FL) 9.4 Segmented Neutrophils (42.2 - 75.2 %) 86 H Band Neutrophils (0.0 - 5.0 %) 2 Lymphocytes (20.5 - 51.1 %) 5 L Monocytes (1.7 - 9.3 %) 7 Nucleated RBCs (0.0 - 0.0 /100WBC) 3 H Platelet Estimate (ADEQUATE) ADEQUATE Polychromasia 1+ Imaging/Other Studies: None new
[2017-11-18 16:00] VITALS: BP 124/60
[2017-11-18 23:00] VITALS: BP 120/48
[2017-11-19 05:54] LABS: HEMATOCRIT 25.5 % (37-47); MEAN CORPUSCULAR HGB 25.3 PG (27.0-31.0); MEAN CORPUSCULAR HGB CONC 31.2 G/DL (33.0-37.0); MEAN CORPUSCULAR VOLUME 81.1 FL (81.0-99.0); MEAN PLATELET VOLUME 9.6 FL (7.4-10.4); PLATELET COUNT 304 /CUMM (130-400); RBC DISTRIBUTION WIDTH 21.1 % (11.5-14.5); RED BLOOD CELL CT 3.15 /CUMM (4.20-5.40); WHITE BLOOD CELL COUNT 21.8 /CUMM (4.8-10.8)
--- NOTE | 2017-11-19 07:28 | PN- Resident CRCU ---
Osmani Mireles 11/19/17 0728: Subjective HPI/CRCU Issues: #End stage COPD/COPD Exacerbation #Chronic anemia due to CKD #Paroxysmal atrial fibrillation #HTN #CKD stage III 2/2 hypertensive nephrosclerosis #Anxiety #Squamous cell lung ca 24 Hour Events: Pt seen and examined this am. She reports no acute complains. Still significantly distressed on exertion. Objective Vital Signs & I&O Last 8 Hrs of Vitals and I&O: #End stage COPD/COPD Exacerbation #Chronic anemia due to CKD #Paroxysmal atrial fibrillation #HTN #CKD stage III 2/2 hypertensive nephrosclerosis #Anxiety #Squamous cell lung ca Exam General Appearance: no apparent distress, alert, awake, anxious Head: atraumatic, normal appearance Neck: normal inspection, supple, full range of motion Respiratory: chest non-tender, significant distress on exertion Cardiovascular: regular rate/rhythm, edema Gastrointestinal: normal bowel sounds, soft, non-tender, no organomegaly Extremities: normal inspection, normal capillary refill Current Medications: Current Medications Sig/Noemy Start time Last Medication Dose Route Stop Time Status Admin Acetaminophen 650 MG Q8P PRN 11/07 2100 AC 11/15 PO 1635 Albuterol Sulfate 3 ML BID 11/08 2100 AC 11/19 INH 1022 Alprazolam 0.5 MG BID 11/15 0945 AC 11/19 PO 11/22 0944 1015 Aspirin 81 MG DAILY 11/08 09 AC 11/19 PO 0835 Atorvastatin Calcium 40 MG 1700 11/08 1700 AC 11/18 PO 1632 Budesonide/ 2 PUF BID 11/08 1030 AC 11/19 Formoterol Fumarate INH 0838 Ezetimibe 10 MG DAILY 11/08 09 AC 11/19 PO 0835 Furosemide 20 MG Q48 11/19 0915 AC PO Heparin Sodium 5,000 UNIT Q8 11/07 2200 AC 11/19 (Porcine) SC 0536 Insulin Aspart 0 TIDAC 11/11 1700 AC 11/18 SC 1632 Levothyroxine Sodium 0.05 MG 0711/09 0700 AC 11/19 PO 0533 Metoprolol Succinate 50 MG DAILY 11/08 0900 AC 11/19 PO 0835 Mirtazapine 15 MG AT BEDTIME 11/08 0015 AC 11/18 PO 2205 Omeprazole 40 MG DAILY AC 07/10 0700 AC 11/19 PO 0534 Prednisone 20 MG DAILY 11/16 0900 AC 11/19 PO 0835 Ranolazine 1,000 MG BID 11/08 0002 AC 11/19 PO 0835 Senna/Docusate Sodium 1 TAB AT BEDTIME NEED.. 11/11 1133 AC 11/16 PO 1208 Sodium Bicarbonate 1,300 MG BID 11/16 1400 AC 11/19 PO 0835 Impression/Plan Impression/Problem List Impression: 72 y/o F with a PMH of CAD, HTN, HLD, Squamous lung cell Ca, CKD, and paroxysmal afib not on anticoagulation due to previous GI bleed that presented to the ED c/ o progressive dyspnea after not achieving relief using her rescue inhaler. She was admitted to the telemetry unit with an admitting diagnosis of COPD exacerbation and subsequently transfered to the ICU for closer monitoring due to her desaturation on 11/13. ASSESSMENT AND PLAN #End stage COPD/COPD Exacerbation #Chronic anemia due to CKD #Paroxysmal atrial fibrillation #HTN #CKD stage III 2/2 hypertensive nephrosclerosis #Anxiety #Squamous cell lung ca End-stage COPD / COPD exacerbation/ Hypoxemic respiratory failure Pt with a chest CT (11/07) showing diffuse pulmonary emphysema with chronic interstitial pneumonitis. Prior admit show similar complains of SOB - her symptoms are most likely related to her severe emphysematous picture that is worsened by her heightened state of anxiety that induces hyperventilation as per pt. Pt is off antibiotics, leukocytosis is most likely related to her steroid use; WBC stabilizing and slowly on the downtrend. Steroids have been switched to PO. F/u CXR reported no pneumonia findings. Currently patient is not in respiratory distress at rest but on significant distress on exertion. Plan is to transfer to a pulm rehab facility. -TRC/Continue neb treatments -Symbicort 2 puffs q12 -Prednisone 20mg PO Paroxysmal A-fib / HTN Pt currently off anticoagulation due to episodes of GI bleeding and chronic anemia due to CKD. Her BP has been controlled on metoprolol, cardiology is following. pt c/o leg pain/cramping, though no erythema is noted or pain is ellicited on palpation. B/L showed no evidence of DVT. -Off anticoag -Metoprolol 50 mg qDaily -Continue ASA/Statin/Ezetimibe Chronic Anemia due to CKD, s/p 1U PRBC Pt with Hb 8.0, baseline around 8-10. Most likely related to CKD. She is on EPO at home, 1 dose was given during her admission. CKD stage III 2/2 hypertensive nephrosclerosis Pt being followed by Nephro, currently with K at 5.2, with a baseline Cr 1.5- 2.2. -Sodium Bicarb 1300 mg BID -Kayexalate PRN if K>5.7 Anxiety Pt described herself as a very anxious person, especially with regards to her overall health. She is currently on Alprazolam 0.5 mg at home. Home dose of alprazolam restarted. -Alprazolam 0.5 mg BID Squamous cell lung CA S/p post gamma knife radiation, followed by Dr. Lomeli - latest visit received a referral to an oncologist to evaluate a new left-sided lung mass that was positive for malignancy on biopsy. DNR DVT PPX: ALPS, sq heparin Regular Diet Problem List: 1. COPD (chronic obstructive pulmonary disease) 2. Chronic renal insufficiency Pain Ratin Tomorrow's Labs & Rationales: none Plan DVT/Prophylaxis: mechanical, pharmacological Jean Claude Lomeli MD 11/19/17 1231: Attending MD Review Statement Attending Sign Off Attending Cosign Statement: I have: examined this patient, reviewed [employer] EMR data, personally reviewd images, discussd w/resident/PA/MARINE SAFETY OFFICER, discussed mgmt plan w/navjot, discussed mgmt plan w/CM, discussed mgmt plan w/pt, agreed w/resident/PA/MARINE SAFETY OFFICER, amended to note. Other Findings: Impression 72 year old woman ICU stay for hypoxemic acute on chronic respiratory failure leukocytosis squamous cell lung ca recently dx anemia ckd Plan -continue po prednisone -monitor wbc - trending down -remains on high flow oxygen, significant exertional dyspnea, 50% fio2 -off abx, can be reactive to steroids, will monitor off abx at this time, no evidence of pna at this time -nephrology follow up -bid xanax -trc/nebs DVT prophylaxis at all times DNR - NOT DNI TTS 35 min Awaiting transfer to [place] for pulmonary rehab
--- NOTE | 2017-11-19 07:29 | Discharge Summary ---
Visit Information Visit Dates Admission Date: 11/07/17 Discharge Date: 11/19/17 Hospital Course Course Attending Physician: Jean Claude Lomeli MD Primary Care Physician: Jitendra Estrella MD Hospital Course: Ms Reyez is a 72 year old female with PMH of CAD, HTN, HLD, squamous lung cell cancer, CKD Stage IV, and paroxysmal atrial fibrillation not on anticoagulation due to previous GI bleed who presented with complaints of symptoms of increasing severe dyspnea and weakness, which had been refractory to her rescue asthma inhalers. She was admitted to the telemetry unit with an admitting diagnosis of COPD exacerbation and subsequently transfered to the ICU for desaturation and hypoxia on 11/13. Below is a list of problems that were addressed during her hospital stay Acute on chronic hypoxemic respiratory failure Patient presented with complaints of worsening dyspnea. She was initially on 6L of O2 and subsequently transitioned to high flow oxygen to maintain her oxygenation. Also started on IV Solu-Medrol along with TRC/nebs and 5 day course of Azithromycin. Her symptoms are likely secondary to her COPD. A V/Q scan was performed which ruled out a pulmonary embolism. Chest CT (11/07) showed severe pulmonary emphysema and chronic interstitial pneumonitis which could explain progressive respiratory failure as well. Her steroids were slowly weaned down and transitioned to oral prednisone. She has a persistent leukocytosis which is likely secondary to steroid use. The leukocytosis is noted to trend down, however, this needs to be followed up next week. Due to her respiratory status requiring persistent high flow oxygen she will benefit greatly from pulmonary rehabilitation acutely. She currently remains on 50% high flow oxygen. Squamous cell lung cancer: Left lung mass biopsy positive S/p post gamma knife radiation During the admission for rehabilitation she will not be able to initiate therapy for her malignancy and/or attend oncologic outpatient needs. Hyperkalemia likely secondary to catabolic state Started on potassium restricted diet. CKD Stage III likely secondary to hypertensive nephrosclerosis. baseline SCr is 1.5-2.2 on sodium bicarb 1300mg BID on lasix QOD Paroxysmal A-fib/CAD/HTN: Off anticoagulation Continued on aspirin, statin, metoprolol, ranexa, and ezetimibe Anxiety Continued on Alprazolam 0.5 mg PO BID + prn Hypothyroidism: Continued on synthroid Allergies: Coded Allergies: No Known Allergies (09/25/15) Significant Procedures: SERVICE DATE: 11/15/17- EXAM TYPE: RAD - XRY-PORTABLE CHEST XRAY FINDINGS: EKG leads overlie the chest. The cardiomediastinal silhouette is within normal limits in size. Low lung volumes are seen with diffuse increased reticular lung markings and slight thickening of the central airways, consistent with the previously demonstrated obstructive lung disease and fibrosis. Mild bibasilar subsegmental atelectasis is seen. No focal consolidation, significant effusion or pneumothorax is seen. Bony structures are grossly unremarkable. IMPRESSION: Findings consistent with mild bibasilar subsegmental atelectasis superimposed upon chronic obstructive lung disease and fibrotic lung changes. No evolving pneumonia seen. SERVICE DATE: 11/13/17- EXAM TYPE: RAD - XRY-PORTABLE CHEST XRAY FINDINGS: EKG leads are seen overlying the chest. The cardiomediastinal silhouette is enlarged. Calcification of the aorta is seen. Lungs are hyperinflated, consistent with patient's known history of COPD. Superimposed reticular opacities are seen in the mid and lower lungs, consistent with the CT demonstrated fibrotic changes, perhaps related to RB ILD. The patient's known large lingular cancer is poorly appreciated on this portable film in the medial left infrahilar region. No dense consolidation is seen. There is some indistinctness of the CP angles, likely representing atelectatic changes though trace pleural effusions could have a similar appearance. No evidence of pulmonary edema is seen. No pneumothorax is seen. Osteopenia is noted with mild convex right thoracolumbar scoliosis. IMPRESSION: 1. Extensive obstructive lung disease with fibrotic changes in the mid and lower lung bilaterally. No superimposed focal acute process is seen. Specifically, no evidence of pulmonary edema is seen. 2. Slight indistinctness of the CP angles is noted, likely due to atelectatic change, though trace pleural effusions cannot be completely excluded. SERVICE DATE: 11/09/17-1134 EXAM TYPE: NUC - LUNG SCAN (V/Q) FINDINGS: Ventilation images: On the single breath and equilibrium images there is homogeneous distribution of gas bilaterally. During the washout phase there is no abnormal retention. Perfusion images: No segmental perfusion defects are present. There is mild heterogeneity present bilaterally but no focal or anatomic appearing perfusion defects are present. There is prominence of the interlobar fissures bilaterally. The CT scan dated 11/08/2017 shows extensive chronic interstitial pneumonitis. Compared to the prior lung scan dated 09/16/2015 there is more heterogeneity on the current study and more prominence of the interlobar fissures. There has also been significant progression of the interstitial lung disease on the CT scan when compared to the CT scan performed shortly after the prior lung scan, the CT of the chest dated 10/24/2015. IMPRESSION: Very low probability of pulmonary embolism. SERVICE DATE: 11/08/17 EXAM TYPE: US - US-EXT BILAT VENOUS DOPPLER FINDINGS: Respiratory variation, normal compression and augmented flow are noted throughout the lower extremities. The visualized common femoral vein, greater saphenous, superficial femoral vein, profunda femoral vein, popliteal vein and midcalf peroneal and posterior tibial venous segments show no evidence of deep venous thrombosis. There is no Casillas's cyst. IMPRESSION: No evidence of deep venous thrombosis involving the bilateral lower extremities. SERVICE DATE: 11/08/17 EXAM TYPE: CAT - CT CHEST WO IV CONTRAST FINDINGS: LUNGS: Again seen are diffuse paraseptal and centrilobular emphysema, most severe at the upper lobes. Peripheral interlobular septal thickening, and honeycombing are evident at the lung bases and posterior/inferior aspects of the upper lobes. The increased interstitial opacification in these regions of fibrotic change could be due to atelectasis or superimposed interstitial edema. No new areas of consolidation are identified. There is persistent dense consolidation in the right lower lobe with surgical markers, not significantly change from prior. The spiculated, solid, anterior lingular nodule is unchanged in size from prior, measuring 2.4 x 2.1 cm by my measurement. This corresponds to the biopsied squamous cell carcinoma. MEDIASTINUM: Mild cardiomegaly is again noted. Calcific atherosclerosis is present in the coronary arteries. Thoracic aorta is normal in caliber. Calcific atherosclerosis is present in the thoracic aorta. Thyroid gland is unremarkable. The 1 cm AP angle lymph node is unchanged. 1 cm (short axis) precarinal nodes are again noted. Sensitivity for hilar adenopathy is limited without intravenous contrast, though there is suspicion for hilar adenopathy on the right. PLEURA: No significant pleural effusion. AXILLA: No lymphadenopathy. UPPER ABDOMEN: Unremarkable. OSSEOUS STRUCTURES: No suspicious bony lesions. IMPRESSION: Diffuse pulmonary emphysema with chronic interstitial pneumonitis, likely UIP pattern. The density of the fibrotic interstitial changes increased from the recent CT from 10/10/2017 which could be due to atelectasis, interstitial edema, pneumonitis, or drug related phenomenon. Cardiomegaly Unchanged 2.4 cm squamous cell carcinoma in the lingula. Mild mediastinal adenopathy is unchanged as well. SERVICE DATE: 11/07/17 EXAM TYPE: RAD - XRY-PORTABLE CHEST XRAY FINDINGS: Chronic centrilobular emphysema. Nonspecific, diffuse interstitial opacity has improved/decreased compared to 10/12/2017. No focal airspace opacification, pleural effusion or pneumothorax. Cardiac silhouette is chronically enlarged; it has a stable appearance compared to 04/21/2017. Atherosclerotic calcification of the aorta. Also, dense calcification of the right coronary artery is seen. The hilar contours are normal. Bones are diffusely osteopenic. IMPRESSION: - Chronic obstructive pulmonary disease. - Diffuse, nonspecific interstitial opacity in both lungs has decreased/improved compared to 10/12/2017. - Stable cardiomegaly. Disposition Summary Disposition Principal Diagnosis: acute on chronic respiratory failure COPD Exacerbation Hyperkalemia Additional Diagnosis: Squamous Cell Lung Carcinoma Anemia CKD Paroxysmal atrial fibrillation Hypertension Anxiety Discharge Disposition: SNF Discharge Instructions General Discharge Information Code Status: Do Not Resucitate Patient's Diet: Regular Patient's Activity: As tolerated Follow-Up Instructions/Appts: Please follow up with your PCP and manager of disaster recovery within one week of discharge. Please have a repeat CBC on 11/22/17 and further evaluate per MD discretion. Medications at Discharge Discharge Medications: Stop taking the following medications: Amiodarone HCl (Pacerone) 100 MG TABLET ORAL Every other day Continue taking these medications: Omeprazole (Omeprazole) 40 MG CAPSULE.DR 1 Tablet ORAL DAILY Comments: Last Taken:11/19/17 Time: 0534AM Rosuvastatin Calcium (Crestor) 10 MG TABLET 1 Tablet ORAL DAILY Comments: LIPITOR ADMINISTERED IN PLACE Last Taken: 11/18/17 Time: 1632 Aspirin (Children's Aspirin) 81 MG TAB.CHEW 1 Tablet ORAL DAILY Comments: Last Taken: 11/19/17 Time: 8:35 A.M Alprazolam (Alprazolam) 0.5 MG TABLET 1 Tablet ORAL TWICE DAILY Comments: Last Taken: 11/19/17 Time: 1015AM diphenhydrAMINE HCl (Benadryl) 25 MG CAPSULE 1 Capsule ORAL TAKE AT BEDTIME as needed for SLEEP Comments: Last Taken: NOT GIVEN THIS THIS ADMISSION Time: 10 am Metoprolol Succ XL (Toprol Xl) 50 MG TAB.ER.24H 1 Tablet ORAL DAILY Comments: Last Taken: 11/19/17 Time: 0835 AM Albuterol Sulfate (Proair Respiclick) 90 MCG AER.POW.BA 2 PUFF Inhale through mouth EVERY 8 HOURS NEEDED as needed for COPD Comments: Not given in hospital Fluticasone/Vilanterol (Breo Ellipta 100-25 Mcg INH) 100 MCG-25 MCG/DOSE BLST.W.DEV 1 PUFF Inhale through mouth DAILY Comments: NOT GIVEN/ PT ON SYMBICORT IN HOSPITAL Umeclidinium Amberg (Incruse Ellipta) 62.5 MCG/ACTUATION BLST.W.DEV 1 PUFF Inhale through mouth DAILY Comments: Not given in hospital Ezetimibe (Zetia) 10 MG TABLET 1 Tablet ORAL DAILY Comments: Last Taken: 11/19/17 Time: 08:35 A.M Epoetin Jon (Epogen) 10,000 UNIT/ML VIAL 34,000 Units SC EVERY 3 WEEKS Qty = 30 Comments: Last Taken: 11/08/17 Time: 2341 Furosemide (Furosemide) 20 MG TABLET 20 Milligram ORAL Every other day Comments: Last Taken: 11/15/17 0840 AM PT DUE TO TAKE TODAY 11/19/17 Levothyroxine Sodium (Levothyroxine Sodium) 50 MCG TABLET 1 Tablet ORAL DAILY Comments: Last Taken: 11/19/17 Time: 0533 Ranolazine (Ranexa) 500 MG TAB.ER.12H 1,000 Milligram ORAL TWICE DAILY Comments: Last Taken: 11/19/17 Time: 0835 AM Cholecalciferol (Vitamin D3) (Vitamin D3) 1,000 UNIT CAPSULE 1 Capsule ORAL DAILY Comments: NOT GIVEN IN HOSPITAL Mirtazapine (Mirtazapine) 15 MG TABLET 1 Tablet ORAL TAKE AT BEDTIME Comments: Last Taken: 11/19/19 Time: 2205 Albuterol Sulfate (Albuterol Sulfate) 2.5 MG/3 ML (0.083 %) VIAL.NEB 1 Vial Inhale Solution TWICE DAILY Comments: Last Taken: 11/19/17 Time:1022 AM Sennosides/Docusate Sodium (Senokot-S Tablet) 8.6 MG-50 MG TABLET 1 Tablet ORAL DAILY as needed for CONSTIPATION Comments: Last Taken: 11/09/17 Time: 2004 Start taking the following new medications: Prednisone (Prednisone) 20 MG TABLET 1 Tablet ORAL DAILY Qty = 30 No Refills Copies To: Jitendra Estrella MD Copies To: Jitendra Estrella MD
[2017-11-19 08:00] VITALS: BP 120/70
[2017-11-19] MEDS ORDERED: SODIUM BICARBO650 M1 PO (09:33)
[2017-11-19] MEDS ORDERED: PREDNISONE20 M1 PO (10:29)
[2017-11-19 12:24] VITALS: BP 120/70
--- NOTE | 2017-11-19 12:37 | PN- Cardiology ---
Subjective Subjective: Patient resting comfortably. Reports dyspnea is improved. Denies chest pain, palpitations. Objective Vital Signs and I&Os Vital Signs Date Time Temp Pulse Resp B/P B/P Pulse O2 O2 Flow FiO2 Mean Ox Delivery Rate 11/19 1224 97.9 70 20 120/70 11/19 1025 97 Nasal 50% Cannula 11/19 0835 70 120/70 11/19 0835 70 120/70 11/19 0800 96 Nasal 50% Cannula 11/19 0800 97.9 60 20 120/70 96 Nasal 50% Cannula 11/19 0634 100 Nasal 50% Cannula 11/19 0400 98 Nasal 50% Cannula 11/19 0248 Nasal 50% Cannula 11/19 0008 98 Nasal 50% Cannula 11/19 0000 98 Nasal 50% Cannula 11/18 2300 96.3 77 17 120/48 98 Nasal 50% Cannula 11/18 2206 80 24 112/60 11/18 2046 97 Nasal 50% Cannula 11/18 2000 96 Nasal 50% Cannula 11/18 1600 98 Nasal 50% Cannula 11/18 1600 97.9 78 20 124/60 98 Nasal 50% Cannula Intake & Output 11/19 1600 11/19 0800 11/19 0000 11/18 1600 11/18 0800 11/18 0000 Intake Total 120 360 720 120 120 Output Total 900 850 500 800 400 Balance -780 -490 220 -680 -280 Intake, IV 0 Intake, Oral 120 360 720 120 120 Number 0 1 1 0 2 Bowel Movements Output, Urine 900 850 500 800 400 Patient 60.781 kg Weight Weight Bed scale Measurement Method Physical Exam: General: no apparent distress, on high flow nasal cannula HEENT: NCAT, NO JVD Heart: s1s2, RRR, no MRG Lungs: bibasilar dry crackles Abd: soft, nt Ext: no peripheral edema Current Medications: Current Medications Sig/Noemy Start time Last Medication Dose Route Stop Time Status Admin Acetaminophen 650 MG Q8P PRN 11/07 2099 AC 11/15 PO 1635 Albuterol Sulfate 3 ML BID 11/08 2099 AC 11/19 INH 1022 Alprazolam 0.5 MG BID 11/15 0945 AC 11/19 PO 11/22 0944 1015 Aspirin 81 MG DAILY 11/08 899 AC 11/19 PO 0835 Atorvastatin Calcium 40 MG 1700 11/08 1700 AC 11/18 PO 1632 Budesonide/ 2 PUF BID 11/08 1030 AC 11/19 Formoterol Fumarate INH 0838 Ezetimibe 10 MG DAILY 11/08 09 AC 11/19 PO 0835 Furosemide 20 MG Q48 11/19 0915 AC PO Heparin Sodium 5,000 UNIT Q8 11/07 2200 AC 11/19 (Porcine) SC 0536 Insulin Aspart 0 TIDAC 11/11 1700 AC 11/18 SC 163 Levothyroxine Sodium 0.05 MG 11/09 07 AC 11/19 PO 0533 Metoprolol Succinate 50 MG DAILY 11/08 899 AC 11/19 PO 0835 Mirtazapine 15 MG AT BEDTIME 11/08 0015 AC 11/18 PO 220 Omeprazole 40 MG DAILY AC 11/09 07 AC 11/19 PO 0534 Prednisone 20 MG DAILY 11/16 0900 AC 11/19 PO 0835 Ranolazine 1,000 MG BID 11/08 0002 AC 11/19 PO 0835 Senna/Docusate Sodium 1 TAB AT BEDTIME NEED.. 11/11 1133 AC 11/16 PO 1208 Sodium Bicarbonate 1,300 MG BID 11/16 1400 AC 11/19 PO 0835 Results Last 48 Hrs of Labs/Mics: Laboratory Tests 11/19/17 0528: Anion Gap 11, Estimated GFR 26 L, Glucose 109 H, Calcium 8.9, Phosphorus 4.2, Magnesium 1.9, Total Bilirubin 0.6, AST 37 H, ALT 35, Albumin 3.3 L, CBC w Diff MAN DIFF ORDERED, RBC 3.15 L, MCV 81.1, MCH 25.3 L, MCHC 31.2 L, RDW 21.1 H, MPV 9.6, Segmented Neutrophils 86 H, Lymphocytes 9 L, Monocytes 4, Eosinophils 1, Nucleated RBCs 1 H, Platelet Estimate ADEQUATE, Polychromasia 1+ , Hypochromic-Microcytic 1+, Poikilocytosis 1+, Ovalocytes 1+, Elliptocytes FEW, Fld Total RBCs Counted 100 11/18/17 0438: Anion Gap 12, Estimated GFR 28 L, Glucose 111 H, Calcium 8.7, Phosphorus 4.2, Magnesium 2.0, Total Bilirubin 0.6, AST 21, ALT 32, Albumin 3.0 L, CBC w Diff MAN DIFF ORDERED, RBC 3.34 L, MCV 81.4, MCH 25.4 L, MCHC 31.1 L, RDW 21.1 H, MPV 9.7, Segmented Neutrophils 92 H, Band Neutrophils 2, Lymphocytes 5 L, Monocytes 1 L, Platelet Estimate ADEQUATE, Hypochromic-Microcytic 2+, Anisocytosis 1+, Schistocytes 1+ Recent Imaging Studies: telemetry personally reviewed: normal sinus rhythm Assessment/Plan Assessment/Plan 1. Worsening dyspnea with associated hypoxemia-likely related to underlying pulmonary issues 2. History of coronary artery disease, status post intervention in 2000 and 2013 with drug-eluting stents to the right coronary in 2015 3. History of lung cancer, status post gamma knife radiation 4. History of paroxysmal atrial fibrillation, not on anticoagulant therapy due to GI bleeding and anemia 4. Chronic renal insufficiency 5. Hypertension Patient currently appears euvolemic on exam. Can continue on p.o. Lasix every 48 hours. Continue with metoprolol. Please ensure the patient follows up in our office within 1 week. Continue telemetry? No
--- NOTE | 2017-11-19 12:45 | PN- Nephrology ---
Assessment/Plan Nephrology Assessment: Stage III CKD - 2/2 hypertensive nephrosclerosis - baseline SCr is 1.5-2.2. SCr has proved to be very volume sensitive. Discussed with her that given her severe lung disease, there may need to be some tradeoff in terms of worsened renal function for improved pulmonary function. Current renal function and pulmonary status reasonable - pt leaving today. Hyperkalemia - Tendency in the past and currently likely 2/2 catabolic state. On supplemental bicarb but is now refusing - will need to K restrict diet. Anemia - On outpatient epogen which she received on 11/08 and gets q3 weeks - target Hg 10-11. Suggestion: -Restart every other day PO lasix 20mg (pt requesting to wait until she gets to the [facility]CF today) -Pt refusing sodium bicarb -Needs K restricted diet -Should have labs checked in next 1-2 weeks -Cont Epogen as outpatient (q3 week schedule) Please call [phone] with ?'s Subjective Subjective: SCr 1.9 Does not want to take lasix before she leaves and does not want to take sodium bicarb (has refused it and baking soda mixed with water in the past) Breathing OK Objective Vital Signs and I&Os Vital Signs Date Time Temp Pulse Resp B/P B/P Pulse O2 O2 Flow FiO2 Mean Ox Delivery Rate 11/19 1224 97.9 70 20 120/70 11/19 1025 97 Nasal 50% Cannula 11/19 0835 70 120/70 11/19 0835 70 120/70 11/19 0800 96 Nasal 50% Cannula 11/19 0800 97.9 60 20 120/70 96 Nasal 50% Cannula 11/19 0634 100 Nasal 50% Cannula 11/19 0400 98 Nasal 50% Cannula 11/19 0248 Nasal 50% Cannula 11/19 0008 98 Nasal 50% Cannula 11/19 0000 98 Nasal 50% Cannula 11/18 2300 96.3 77 17 120/48 98 Nasal 50% Cannula 11/18 2206 80 24 112/60 11/18 2046 97 Nasal 50% Cannula 11/18 2000 96 Nasal 50% Cannula 11/18 1600 98 Nasal 50% Cannula 11/18 1600 97.9 78 20 124/60 98 Nasal 50% Cannula Intake & Output 11/19 1600 11/19 0400 11/18 1600 11/18 0400 11/17 0400 Intake Total 120 360 840 120 660 120 Output Total 069 753 7179 400 1300 400 Balance -780 -490 -460 -280 -640 -280 Intake, IV 0 Intake, Oral 120 360 840 120 660 120 Number 0 1 1 2 0 1 Bowel Movements Output, Urine 277 104 9555 400 1300 400 Patient 134 lb Weight Weight Bed scale Measurement Method Physical Exam: Gen - ok appearing HEENT - supple CV - RRR, no m/r/g Chest - clear, no w/r/r Abd - soft, NTND Ext - warm, no edema Neuro - AOX3, grossly nonfocal Current Medications: Current Medications Sig/Noemy Start time Last Medication Dose Route Stop Time Status Admin Acetaminophen 650 MG Q8P PRN 11/07 2100 AC 11/15 PO 1635 Albuterol Sulfate 3 ML BID 11/08 2100 AC 11/19 INH 1022 Alprazolam 0.5 MG BID 11/15 0945 AC 11/19 PO 11/22 0944 1015 Aspirin 81 MG DAILY 11/08 899 AC 11/19 PO 0835 Atorvastatin Calcium 40 MG 1700 11/08 1700 AC 11/18 PO 1632 Budesonide/ 2 PUF BID 11/08 1030 AC 11/19 Formoterol Fumarate INH 0838 Ezetimibe 10 MG DAILY 11/08 09 AC 11/19 PO 0835 Furosemide 20 MG Q48 11/19 0915 AC PO Heparin Sodium 5,000 UNIT Q8 11/07 2200 AC 11/19 (Porcine) SC 0536 Insulin Aspart 0 TIDAC 11/11 1700 AC 11/18 SC 1632 Levothyroxine Sodium 0.05 MG 0711/09 0700 AC 11/19 PO 0533 Metoprolol Succinate 50 MG DAILY 11/08 09 AC 11/19 PO 0835 Mirtazapine 15 MG AT BEDTIME 11/08 0015 AC 11/18 PO 2205 Omeprazole 40 MG DAILY AC 11/09 07 AC 11/19 PO 0534 Prednisone 20 MG DAILY 11/16 09 AC 11/19 PO 0835 Ranolazine 1,000 MG BID 11/08 0002 AC 11/19 PO 0835 Senna/Docusate Sodium 1 TAB AT BEDTIME NEED.. 11/11 1133 AC 11/16 PO 1208 Sodium Bicarbonate 1,300 MG BID 11/16 1400 AC 11/19 PO 0835 Results Pertinent Lab Results: Laboratory Tests 11/19 11/18 9155 2881 Chemistry Sodium (137 - 145 mmol/L) 142 141 Potassium (3.5 - 5.1 mmol/L) 5.2 H 5.1 Chloride (98 - 107 mmol/L) 109 H 108 H Carbon Dioxide (22 - 30 mmol/L) 23 21 L Anion Gap (5 - 16) 11 12 BUN (7 - 17 mg/dL) 58 H 55 H Creatinine (0.5 - 1.0 mg/dL) 1.9 H 1.8 H Estimated GFR (>60 ml/min) 26 L 28 L Glucose (65 - 99 mg/dL) 109 H 111 H Calcium (8.4 - 10.2 mg/dL) 8.9 8.7 Phosphorus (2.5 - 4.5 mg/dL) 4.2 4.2 Magnesium (1.6 - 2.3 mg/dL) 1.9 2.0 Total Bilirubin (0.2 - 1.3 mg/dL) 0.6 0.6 AST (14 - 36 U/L) 37 H 21 ALT (9 - 52 U/L) 35 32 Albumin (3.5 - 5.0 g/dL) 3.3 L 3.0 L Hematology CBC w Diff MAN DIFF ORDERED MAN DIFF ORDERED WBC (4.8 - 10.8 /CUMM) 21.8 H 22.2 H RBC (4.20 - 5.40 /CUMM) 3.15 L 3.34 L Hgb (12.0 - 16.0 G/DL) 8.0 L 8.5 L Hct (37 - 47 %) 25.5 L 27.2 L MCV (81.0 - 99.0 FL) 81.1 81.4 MCH (27.0 - 31.0 PG) 25.3 L 25.4 L MCHC (33.0 - 37.0 G/DL) 31.2 L 31.1 L RDW (11.5 - 14.5 %) 21.1 H 21.1 H Plt Count (130 - 400 /CUMM) 304 306 MPV (7.4 - 10.4 FL) 9.6 9.7 Segmented Neutrophils (42.2 - 75.2 %) 86 H 92 H Band Neutrophils (0.0 - 5.0 %) 2 Lymphocytes (20.5 - 51.1 %) 9 L 5 L Monocytes (1.7 - 9.3 %) 4 1 L Eosinophils (0 - 5.0 %) 1 Nucleated RBCs (0.0 - 0.0 /100WBC) 1 H Platelet Estimate (ADEQUATE) ADEQUATE ADEQUATE Polychromasia 1+ Hypochromic-Microcytic 1+ 2+ Poikilocytosis 1+ Anisocytosis 1+ Ovalocytes 1+ Elliptocytes FEW Schistocytes 1+ Other Body Source Fld Total RBCs Counted (%) 100 07/18 0630 Chemistry Sodium (137 - 145 mmol/L) 141 Potassium (3.5 - 5.1 mmol/L) 5.3 H Chloride (98 - 107 mmol/L) 110 H Carbon Dioxide (22 - 30 mmol/L) 19 L Anion Gap (5 - 16) 11 BUN (7 - 17 mg/dL) 63 H Creatinine (0.5 - 1.0 mg/dL) 2.0 H Estimated GFR (>60 ml/min) 25 L Glucose (65 - 99 mg/dL) 146 H Calcium (8.4 - 10.2 mg/dL) 8.5 Phosphorus (2.5 - 4.5 mg/dL) 4.3 Magnesium (1.6 - 2.3 mg/dL) 2.1 Total Bilirubin (0.2 - 1.3 mg/dL) 0.5 AST (14 - 36 U/L) 27 ALT (9 - 52 U/L) 24 Albumin (3.5 - 5.0 g/dL) 2.9 L Hematology CBC w Diff MAN DIFF ORDERED WBC (4.8 - 10.8 /CUMM) 25.7 H RBC (4.20 - 5.40 /CUMM) 3.52 L Hgb (12.0 - 16.0 G/DL) 8.7 L Hct (37 - 47 %) 28.5 L MCV (81.0 - 99.0 FL) 81.0 MCH (27.0 - 31.0 PG) 24.9 L MCHC (33.0 - 37.0 G/DL) 30.7 L RDW (11.5 - 14.5 %) 21.3 H Plt Count (130 - 400 /CUMM) 354 MPV (7.4 - 10.4 FL) 9.5 Segmented Neutrophils (42.2 - 75.2 %) 94 H Band Neutrophils (0.0 - 5.0 %) 1 Lymphocytes (20.5 - 51.1 %) 2 L Monocytes (1.7 - 9.3 %) 2 Metamyelocytes (0.0 - 1.0 %) 1 Platelet Estimate (ADEQUATE) VERIFIED BY SMEAR Polychromasia 1+ Poikilocytosis 1+ Anisocytosis 1+ Ovalocytes 1+ Imaging/Other Studies: None new
== END 2017-11-19 13:15 | DRG 189 ==
LOC: ERH 17:08 → ERHI 18:45 → CRI 18:45 → 1NO 18:45 → EDBEDREQ 19:26 → ENRESERV 19:59 → ENTRNSPT 21:17 → EDTRNSPTSTS 21:29 → 1NO 21:59 → CMPTRNSPT 22:10 → 1NO 11-08 07:46 → CRI 11-13 08:06
PROVIDERS: Emergency Medicine; Internal Medicine; Internal Medicine Endocrinology, Diabetes & Metabolism; Preventive Medicine Public Health & General Preventive Medicine; Student in an Organized Health Care Education/Training Program
PROC: 30233N1 Transfusion of Nonautologous Red Blood Cells into Peripheral Vein, Percutaneous Approach (ICD-10-PCS; principal; 2017-11-08)
DX: J96.21 Acute and chronic respiratory failure with hypoxia (principal); J44.1 Chronic obstructive pulmonary disease with (acute) exacerbation; C34.92 Malignant neoplasm of unspecified part of left bronchus or lung; I13.0 Hypertensive heart and chronic kidney disease with heart failure and stage 1 through stage 4 chronic kidney disease, or unspecified chronic kidney disease; I50.30 Unspecified diastolic (congestive) heart failure; J84.9 Interstitial pulmonary disease, unspecified; I10 Essential (primary) hypertension; E78.5 Hyperlipidemia, unspecified; I25.10 Atherosclerotic heart disease of native coronary artery without angina pectoris; I25.2 Old myocardial infarction; Z85.118 Personal history of other malignant neoplasm of bronchus and lung; E87.5 Hyperkalemia; Z99.81 Dependence on supplemental oxygen; I48.0 Paroxysmal atrial fibrillation; D63.8 Anemia in other chronic diseases classified elsewhere; N18.3 Chronic kidney disease, stage 3 (moderate); F41.9 Anxiety disorder, unspecified; E87.70 Fluid overload, unspecified; M54.9 Dorsalgia, unspecified; Z98.61 Coronary angioplasty status; Z90.710 Acquired absence of both cervix and uterus; Z79.51 Long term (current) use of inhaled steroids; Z87.891 Personal history of nicotine dependence; B95.62 Methicillin resistant Staphylococcus aureus infection as the cause of diseases classified elsewhere; B95.2 Enterococcus as the cause of diseases classified elsewhere
CPT/HCPCS: 1NP; CCU; 36415; 36592; 71045; 78582; 81003; 82436; 86920; 87040; 87070; 87086; 93005; 93010; 93970; 96374; 99291; A9540; A9558; J0456; J0610; J0696; J0713; J0885-EC; J1644; J1815; J1940; J2920; J2930; J3370; J3490; J7040; P9016